=== PATIENT | female | born 1935 | race African-American/Black ===

== ENCOUNTER 2020-05-17 06:52 | Outpatient (NON) | payer MEDICARE, SELFPAY ==
[2020-05-19 16:42] LABS: SARS-CoV-2 RNA PCR Positive
== END 2020-05-17 06:53 ==
PROVIDERS: PCP Family Medicine; Visit Provider Family Medicine
DX: U07.1 COVID-19 (principal)
CPT/HCPCS: 87635; C9803; U0003

== ENCOUNTER → 2020-06-26 11:19 | Outpatient (CLI) | payer MEDICARE, SELFPAY ==
--- NOTE | ~2020-06-26 | XR_ITS ---
EXAMINATION: XR chest 2V DATE: 06/26/2020 12:02 INDICATION: Orthopnea TECHNIQUE: PA and lateral views of the chest are obtained. COMPARISON: 05/19/2015 FINDINGS: Diffuse interstitial and airspace opacities are present. There is no pleural effusion or pn eumothorax. The cardiomediastinal silhouette is normal. There is severe thoracic spondylosis. Calcifi ed mediastinal lymph nodes are consistent with old granulomatous IMPRESSION: 1. Diffuse opacities of the lungs which could reflect pneumonia and/or pulmonary edema. Reviewed, dictated and finalized at location A. NESS TEST ANALYST IMPRESSION: 1. Diffuse opacities of the lungs which could reflect pneumonia and/or pulmonar y edema.
== END ==
PROVIDERS: Visit Provider Physician Assistant
DX: R06.01 Orthopnea (principal); R91.8 Other nonspecific abnormal finding of lung field
CPT/HCPCS: 71046

== ENCOUNTER → 2020-09-05 12:53 | Outpatient (CLI) | payer MEDICARE, SELFPAY ==
--- NOTE | ~2020-09-05 | US_ITS ---
US renal BI 09/05/2020 13:39 Procedure: Realtime transabdominal ultrasound of the kidneys and bladder. Indication: Chronic kidney disease stage III Comparison: Ultrasound dated 08/27/2004 Findings: Renal echotexture is normal bilaterally without hydronephrosis or renal calculus. There is a 1.9 cm right renal cyst. The right kidney measures 9.4 cm and left kidney measures 8.6 cm. Bladder within normal limits. Impression: 1: Right renal cyst measuring 1.9 cm. Otherwise, unremarkable renal ultrasound. Reviewed, dictated and finalized at location A. S SUPERVISOR Impression: 1: Right renal cyst measuring 1.9 cm. Otherwise, unremarkable renal ultrasound.
== END ==
PROVIDERS: PCP Family Medicine; Visit Provider Internal Medicine Nephrology
DX: N18.31 Chronic kidney disease, stage 3a (principal); E11.29 Type 2 diabetes mellitus with other diabetic kidney complication; N28.1 Cyst of kidney, acquired
CPT/HCPCS: 76775

== ENCOUNTER 2020-10-20 12:52 | Outpatient (CLI) | payer MEDICARE, SELFPAY ==
--- NOTE | ~2020-10-20 | XR_ITS ---
XR chest 2V 10/20/2020 13:15 Indication: Shortness of breath Procedure: AP view of the chest Comparison: 06/26/2020 Findings: There is bibasilar atelectasis. Heart size normal. No focal pneumonia, edema, significant e ffusion or pneumothorax. Impression: 1: Bibasilar atelectasis. Reviewed, dictated and finalized at location B. Impression: 1: Bibasilar atelectasis.
[2020-10-20 13:40] VITALS: PULSE 70; O2SAT 96
[2020-10-20 13:45] VITALS: PULSE 89; O2SAT 92
[2020-10-20 13:55] VITALS: PULSE 72; O2SAT 95
--- NOTE | 2020-10-20 14:00 | PCRCNOTE ---
PT CAME IN FOR HOME O2 EVAL AND PFT. HOME O2 EVAL COMPLETE, NO REQUIRMENTS. PT UNABLE TO FOLLOW DIRECTIONS FOR PFT. [facility] OFFICE NOTIFIED. HOME O2 EVAL FAXED TO HIS OFFICE.
--- NOTE | 2020-10-20 14:04 | HOMEO2EVAL ---
Evaluation was performed at [facility] Home Oxygen Evaluation RC: Home Oxygen (O2) Evaluation Start: 10/20/20 14:02 Freq: Status: Active Protocol: RPE Activity Type Activity Date Activity User E-Sign Co-Sign Detail Recorded Client Recorded Date Recorded By Document 10/20/20 13:40 DJO [id number] 10/20/20 14:04 DJO Document 10/20/20 13:45 DJO [id number] 10/20/20 14:04 DJO Document 10/20/20 13:55 [email or web address] [id number] 10/20/20 14:04 DJO 10/20/20 10/20/20 10/20/20 13:40 13:45 13:55 Home O2 Evaluation Test Phase Resting Exercise Resting Oxygen Delivery Room Air Room Air Room Air Pulse Oximetry (90-100 %) 96 92 95 Pulse Rate (60-100 beats/min) 70 89 72 Activity Tolerance Poor Ambulation Distance (feet) 50 Treatment Charges O2 Evaluation - Outpatient
== END 2020-10-20 12:53 | disposition home or self-care (01) ==
PROVIDERS: PCP Physician Assistant; Visit Provider Physician Assistant
DX: R06.02 Shortness of breath (principal); R91.8 Other nonspecific abnormal finding of lung field
CPT/HCPCS: 71046; 94618

== ENCOUNTER 2021-04-24 10:12 | Outpatient (CLI) | payer MEDICARE, SELFPAY ==
--- NOTE | ~2021-04-24 | CT_ITS ---
EXAMINATION: CT chest high resolution wo ar EXAM DATE: 04/24/2021 10:43 INDICATION: R06.02 - Shortness of breath . TECHNIQUE: Spiral CT of the chest without contrast. HRCT. Axial, coronal and sagittal images of the chest were reviewed. Coronal maximum intensity pixel images of chest reviewed. The dose-length prod uct (DLP) for this examination was 620.66 mGy-cm. The exposure was tailored according to patient siz e (auto mA exposure control), and iterative reconstruction (ASIR) was used as additional dose reducti on technique. There is no prior study for comparison. FINDINGS: There is elevated right hemidiaphragm, which was not evident on chest x-ray from May. There is associated right lower lobe segmental atelectasis. There is no intralobular septal thickeni ng on the HRCT. The main, central pulmonary arteries are dilated which can indicate elevated pulmonar y arterial pressure, pulmonary arterial hypertension. There is tortuosity of the aorta. There is righ t retrocrural density which could be solitary mildly enlarged lymph node measuring 1.4 x 1.4 cm. No u pper abdominal retroperitoneal lymphadenopathy. Lobular renal contours. Exophytic fluid density right renal 2 cm lesion probably cyst. There are no pleural or pericardial effusions. Tracheobronchial tree is patent. There is no mediastinal, hilar or axillary lymphadenopathy. There is no pneumotho rax. Heart normal in size. No evidence of coronary arterial calcification. Large bridging endpla te osteophytes, some advanced mid thoracic disc disease. The lower thoracic levels appear fused. IMPRESSION: 1. Elevated right hemidiaphragm with adjacent multisegmental atelectasis. 2. Soft tissue density could be mildly enlarged retrocrural lymph node. Probably reactive. Reviewed, dictated and finalized at location B. IMPRESSION: 1. Elevated right hemidiaphragm with adjacent multisegmental atelectasis. 2. Soft tissue density could be mildly enlarged retrocrural lymph node. Probab ly reactive.
== END 2021-04-24 10:13 | disposition home or self-care (01) ==
LOC: ANHIMG 10:23
PROVIDERS: PCP Family Medicine; Visit Provider Internal Medicine Pulmonary Disease
DX: R06.02 Shortness of breath (principal); R91.8 Other nonspecific abnormal finding of lung field; R59.0 Localized enlarged lymph nodes
CPT/HCPCS: 71250

== ENCOUNTER 2021-11-17 11:13 | Outpatient (CLI) | payer MEDICARE, SELFPAY ==
--- NOTE | ~2021-11-17 | XR_ITS ---
XR chest 2V 11/17/2021 11:44 Indication: Shortness of breath with exertion Procedure: 2 view chest Comparison: Comparison to multiple prior studies sequentially, with oldest reviewed study dated 04/28. Findings: Shallow inspiration. Heart size normal. No focal air space disease, pulmonary edema, pleura l effusion or suspected pneumothorax. Moderate thoracic spondylosis. Impression: 1: No acute cardiopulmonary disease. Reviewed, dictated and finalized at location A. Impression: 1: No acute cardiopulmonary disease.
[2021-11-17 12:01] LABS: Hemoglobin 13.9 g/dL (12.0-15.0); Mean Corpuscular HGB Conc 30.2 g/dl (32-36); Mean Corpuscular Volume 99.1 fl (80-100); Mean Platelet Volume 10.3 fl (7.4-10.4); Platelet Count Result 234 k/mm3 (150-375); Red Blood Count 4.64 M/mm3 (4.2-5.4); Red Cell Distribution Width 13.3 % (11.5-14.5); White Blood Count 6.8 K/mm3 (4.5-10.0)
[2021-11-17 12:09] LABS: Alanine Aminotransferase 9 U/L (6-35); Albumin Level 3.9 g/dL (3.5-5.1); Alkaline Phosphatase 101 U/L (38-126); Anion Gap 5 mmol/L (8-16); Aspartate Amino Transferase 26 U/L (14-36); Bilirubin,Total 0.4 mg/dL (0.2-1.3); Blood Urea Nitrogen 27 mg/dL (7-17); Calcium 8.9 mg/dL (8.4-10.2); Carbon Dioxide 34 mmol/L (22-30); Chloride 104 mmol/L (98-107); Estimated Glomerular Filt Rate > 60; Glucose 93 mg/dL (65-110); Potassium 4.2 mmol/L (3.4-5.0); Sodium 143 mmol/L (137-145)
[2021-11-17 12:17] LABS: D Dimer 1.26 ug/mL (<0.48)
[2021-11-17 12:19] LABS: NT Pro B Type Natriuretic Pept 296 pg/mL (5-100)
[2021-11-17 12:31] LABS: Hemoglobin A1C 6.9 % (<5.7)
[2021-11-17 13:10] LABS: Free T4 Free Thyroxine 2.01 ng/mL (0.78-2.19)
== END 2021-11-17 11:14 | disposition home or self-care (01) ==
PROVIDERS: PCP Family Medicine; Visit Provider Physician Assistant
DX: R06.02 Shortness of breath (principal); R06.01 Orthopnea; E11.9 Type 2 diabetes mellitus without complications; R53.83 Other fatigue
CPT/HCPCS: 36415; 71046; 80053; 83036; 83880; 84439; 84443; 85027; 85380

== ENCOUNTER 2021-12-03 13:40 | Outpatient (CLI) | payer MEDICARE, SELFPAY ==
--- NOTE | ~2021-12-03 | CT_ITS ---
EXAMINATION: CTA chest PE protocol DATE: 12/03/2021 14:16 INDICATION: Shortness of breath, positive d-dimer TECHNIQUE: Computed tomography angiography (CTA) of the chest was performed with 100 CC Omnipaque 350 intravenous contrast timed to evaluate the pulmonary arteries. Coronal maximum intensity projection 3D-reconstructions were created by the technologist. Automated exposure control and iterative reconst ruction technique were employed. Exam dose: 825.47 mGy-cm total exam DLP. COMPARISON: 11/13/2021 AP and lateral chest 04/24/2021 CT chest high resolution FINDINGS: There is diagnostic contrast enhancement of the pulmonary arteries and no evidence of pulmo nary embolism. Mild thoracic aortic aneurysm, the aortic arch measuring up to 3.2 cm diameter. Thoracic aortic tortu osity. No thoracic aortic dissection is evident. There are calcified right paratracheal and azygous nodes consistent with old granulomatous disease. There is prominent elevation of the right diaphragm and right basilar atelectasis. There is minimal l eft basilar atelectasis. Cardiomegaly. No pericardial or pleural effusion. Severe degenerative disc disease at C5-6 and C6-7. Diffuse idiopathic skeletal hyperostosis of the thoracic spine. No suspicious osteolytic or osteoblas tic lesions are noted. IMPRESSION: No evidence of pulmonary embolism Bibasilar atelectasis, right greater than left, elevated right diaphragm Cardiomegaly Mild thoracic aortic aneurysm, thoracic aortic tortuosity Reviewed, dictated and finalized at Location A. Reviewed, dictated and finalized at location A.
== END 2021-12-03 13:41 | disposition home or self-care (01) ==
PROVIDERS: PCP Family Medicine; Visit Provider Physician Assistant
DX: R06.02 Shortness of breath (principal); J98.11 Atelectasis; I51.7 Cardiomegaly; I71.2 Thoracic aortic aneurysm, without rupture
CPT/HCPCS: 71275; Q9967

== ENCOUNTER 2022-05-31 14:17 | Outpatient (CLI) | payer MEDICARE, SELFPAY ==
[2022-05-31 14:00] VITALS: PULSE 79; O2SAT 94
[2022-05-31 14:05] VITALS: PULSE 92; O2SAT 91
[2022-05-31 14:15] VITALS: PULSE 82; O2SAT 93
--- NOTE | 2022-05-31 14:51 | PCRCNOTE ---
ATTEMPTED PFT. PATIENT UNABLE TO TAKE DEEP BREATH IN, IN SPITE OF GOOD PATIENT EFFORT.
--- NOTE | 2022-06-09 08:00 | HOMEO2EVAL ---
Evaluation was performed at [facility]
== END 2022-05-31 14:18 | disposition home or self-care (01) ==
PROVIDERS: PCP Family Medicine; Visit Provider Nurse Practitioner Family
DX: R06.02 Shortness of breath (principal)
CPT/HCPCS: 99199; 94618

== ENCOUNTER 2022-07-12 11:40 | Inpatient (IN) | payer MEDICARE, SELFPAY ==
[2022-07-12] VITALS (47 sets, daily range): BP systolic 115–174; BP diastolic 52–92; PULSE 20–132; RESP 19–72; TEMP 36.2–37.1; O2SAT 81–100; BMI 34.9; BMI 35.4
--- NOTE | ~2022-07-12 | XR_ITS ---
Portable chest x-ray Comparison: 07/12/2022 Clinical History: CHF Findings: Mild pulmonary edema pattern is present, mildly worsened from prior exam. Probable minimal pleural effusions and discoid left basilar atelectasis. Cardiomediastinal silhouette is stable. Bon es and soft tissues are unremarkable. Impression: Mild pulmonary edema, worsened from prior exam. Probable minimal pleural effusions with discoid left basilar atelectasis. Reviewed, dictated and finalized at location . RVOIR ENGINEERING ADVISOR Impression: Mild pulmonary edema, worsened from prior exam. Probable minimal pleural effusions with discoid left basilar atelectasis.
--- NOTE | ~2022-07-12 | XR_ITS ---
EXAMINATION: XR sniff test without CXR2V DATE: 07/17/2022 12:19 INDICATION: Right diaphragm paralysis. TECHNIQUE: I performed fluoroscopy of the chest. The patient was asked to perform normal breathing, d eep breathing, and forceful sniffing. The total number of images was 951. The fluoroscopy exposure ti me was 0.6 minutes. COMPARISON: Chest one view 07/15/2022, chest CT 12/03/2021 FINDINGS: The lung volumes are small with atelectasis at the lung bases. During normal respiration, t he right and left hemidiaphragms are at a similar level. The right hemidiaphragm is less mobile than the left during normal respiration. When the patient was asked to perform deep breathing and then for ceful sniffing, the movement of the diaphragm was little changed. There was no audible indication stephen t the patient was performing the tasks. IMPRESSION: 1. Small lung volumes with mild atelectasis at the lung bases. Decreased movement of the right hemidi aphragm when compared to the left during normal respiration. Reviewed, dictated and finalized at location A. PURPOSE CLERK IMPRESSION: 1. Small lung volumes with mild atelectasis at the lung bases. Decreased moveme nt of the right hemidiaphragm when compared to the left during normal respirati on.
--- NOTE | ~2022-07-12 | US_ITS ---
EXAMINATION: US venous doppler [facility] DATE: 07/13/2022 15:06 INDICATION: Lower limb pain and swelling TECHNIQUE: Grayscale ultrasound images without and with compression and Doppler ultrasound images of the bilateral lower extremity veins were obtained. COMPARISON: None. FINDINGS: The visualized portions of right common femoral vein, profunda (deep) femoral vein, femoral vein, pop liteal vein, posterior tibial veins, peroneal veins, gastrocnemius vein and greater saphenous vein ou tflow are patent. The visualized portions of left common femoral vein, profunda femoral vein, femoral vein, popliteal v ein, posterior tibial veins, peroneal veins, gastrocnemius vein and greater saphenous vein outflow ar e patent. IMPRESSION: 1. No deep venous thrombosis in either lower limb. Reviewed, dictated and finalized at location A. IL ASSISTANT
--- NOTE | ~2022-07-12 | XR_ITS ---
Portable chest x-ray Comparison: 07/15/2022 Clinical History: Pneumonia Findings: Probable minimal right pleural effusion present with minimal bibasilar pulmonary edema/ate lectasis. Cardiomediastinal silhouette is stable. Bones and soft tissues are unremarkable. Impression: Minimal right pleural effusion with minimal bibasilar pulmonary edema/atelectasis. Reviewed, dictated and finalized at [facility]. GER FINANCIAL PLANNING Impression: Minimal right pleural effusion with minimal bibasilar pulmonary edema/atelectas is.
--- NOTE | ~2022-07-12 | CT_ITS ---
EXAMINATION: CT cervical spine wo con DATE: 07/16/2022 14:39 INDICATION: Cervical radiculopathy TECHNIQUE: Computed tomography (CT) of the cervical spine was performed without intravenous contrast. Automated exposure control and iterative reconstruction technique were employed. The dose-length pro duct was 357.98 mGy-cm. COMPARISON: None FINDINGS: Tiny of the normal cervical lordosis. 1 mm anterolisthesis C4 on C5. Vertebral body heights are jaime l. No fracture. Severe disc height loss at C6-C7 and T1-T2, moderate disc height loss at C5-C6 and mi ld disc height loss at the remaining cervical levels. Mild atherosclerotic calcific a cyst at the brittney ateral carotid bulbs. Right apical pleural-parenchymal scarring. The following disc levels are specif ically discussed: C2-C3: There is mild left uncovertebral joint osteoarthritis. There is severe bilateral facet joint osteoarthritis. There is mild left neural foraminal stenosis. There is no central canal stenosis. C3-C4: There is mild bilateral uncovertebral joint osteoarthritis. There is severe bilateral facet j oint osteoarthritis. There is mild bilateral neural foraminal stenosis. There is no central canal antoni nosis. C4-C5: There is mild bilateral uncovertebral joint osteoarthritis. There is severe bilateral facet j oint osteoarthritis. There is mild bilateral neural foraminal stenosis. There is no central canal antoni nosis. C5-C6: Small posterior endplate osteophytes. There is bilateral uncovertebral joint osteoarthritis. T here is severe left and moderate right facet joint osteoarthritis. There is mild right and mild to mo derate left neural foraminal stenosis. There is mild central canal stenosis. C6-C7: Small to moderate-sized posterior endplate osteophytes. There is severe bilateral uncovertebra l joint osteoarthritis. There is moderate right and severe left facet joint osteoarthritis. There is mild right and moderate left neural foraminal stenosis. There is mild central canal stenosis. C7-T1: The disc does not extend beyond the endplate margin. There is mild bilateral uncovertebral rangel nt osteoarthritis. There is severe bilateral facet joint osteoarthritis. There is no neural foraminal stenosis. There is no central canal stenosis. IMPRESSION: 1. Severe cervical spondylosis. No acute osseous abnormality. Reviewed, dictated and finalized at location A. E DRIVER SALESPERSON
--- NOTE | ~2022-07-12 | XR_ITS ---
XR chest 1V portable 07/12/2022 13:08 Indication: Chronic shortness of breath Procedure: AP portable chest Comparison: Comparison to multiple prior studies sequentially, with oldest reviewed study dated 04/28. Findings: Cardiomegaly. Shallow inspiration. Left basilar atelectasis. Mild pulmonary vascular conges tion. No acute osseous abnormality. Impression: 1: Left basilar atelectasis. 2: Cardiomegaly with pulmonary vascular congestion. Reviewed, dictated and finalized at location A. N END WORKER Impression: 1: Left basilar atelectasis. 2: Cardiomegaly with pulmonary vascular congestion.
--- NOTE | ~2022-07-12 | XR_ITS ---
Portable chest x-ray Comparison: 07/19/2022 Clinical History: Shortness of breath Findings: There is mild central congestive change and probable minimal bibasilar pulmonary edema/ate lectasis. Cardiomediastinal silhouette is stable. Bones and soft tissues are unremarkable. Impression: Central congestive change with minimal bibasilar pulmonary edema/atelectasis. Reviewed, dictated and finalized at location . BILITY RATER Impression: Central congestive change with minimal bibasilar pulmonary edema/atelectasis.
--- NOTE | 2022-07-12 11:53 | ECG_ITS ---
Measurements Intervals [place] Rate: 70 P: 33 [place]: 232 QRS: -21 QRSD: 102 T: 8 QT: 413 QTc: 446 Interpretive Statements SINUS RHYTHM WITH FIRST DEGREE AV BLOCK CONSIDER INFERIOR INFARCT, AGE INDETERMINATE ANTERIOR INFARCT, AGE INDETERMINATE BASELINE ARTIFACT- I, II, III, AVR, AVL, AVF, V1-V6 ABNORMAL ECG NO PREVIOUS ECG AVAILABLE FOR COMPARISON Electronically Signed On 07-12-2022 12:05:52 RN PEDIATRIC by Wayne Pugh D.O.
[2022-07-12 12:08] LABS: Glucose Point of Care 124 mg/dl (65-105)
--- NOTE | 2022-07-12 12:22 | ED.GENADULT ---
HPI - General Adult General Chief complaint: Unspecified Stated complaint: altered loc, low bs 48 now 167 Time Seen by Provider: 07/12/22 12:11 Source: patient, family and EMS Mode of arrival: EMS Limitations: no limitations History of Present Illness HPI narrative: 86 years old -[place] female brought to the emergency room by ambulance from home because was unresponsive. Her daughter called 911, blood glucose was 48, patient received IV glucose and started D10 patient became responsive immediately within 1 minute. Currently patient is asymptomatic, telling me that she been having shortness of breath over the last 2 years after been diagnosed of COVID infection. Patient still me that her blood glucose was 45 last night and was weak and shaky and had orange juice and went to sleep. Patient did not eat her breakfast or take her medication early this morning prior to arrival to the emergency room. Normally patient is not on oxygen. Related Data Home Medications Medication Instructions Recorded Confirmed bimatoprost 0.01 % eye drops 1 drop ophthalmic (eye) DAILY 08/14/19 05/18/22 (Lumigan) brimonidine 0.2 %-timolol 0.5 % 1 drop ophthalmic (eye) Q12H 08/14/19 05/18/22 eye drops (Combigan) Allergies Allergy/AdvReac Type Severity Reaction Status Date / Time No Known Allergies Allergy Verified 05/18/22 10:39 Review of Systems Review of Systems: All systems reviewed & are unremarkable except as noted in HPI and below PMFSH Past Medical History Medical History CKD (chronic kidney disease), stage III Congestive heart failure Cornea transplant recipient Gastroparesis GERD without esophagitis Hypertension Hypothyroidism determined by thyroid function test Osteoarthritis Thoracic aortic aneurysm Surgical History Surgical History Status post removal of thyroid nodule Family History Family History Mother Family history of diabetes mellitus in first degree relative Diabetes mellitus Sibling Diabetes mellitus Family history of cardiovascular disease Other Cerebrovascular accident Family history of congestive heart failure Hypertension Social History Social History Smoking status: Former smoker Second hand tobacco smoke exposure: No Smoking end date: 01/01/82 Alcohol intake: never Substance use: never Substance use type: does not use Lack of Transportation: No Lack of Food: Never True Current Housing: I Have Housing Concerned About Future Housing: No Difficulty Paying Gas/Electric Bills: No Difficulty Paying for Meds: No Currently Unemployed: No Education: High School Diploma/GED Difficulty w/ Childcare or Family Care: No Gender identity (if verbalized by the patient): Female Spiritual care concerns: Yes Agree to blood products: Yes Exam Narrative: General appearance: Well-developed, well-nourished, urinary smell, poor hygienic condition patient Skin: Normal color Head: Normocephalic, nontraumatic Eyes: Clear conjunctiva ENT: Oropharynx normal, ears normal, nose normal Neck: Supple, nontender Chest and respiratory: Airway patent, no respiratory distress, no accessory muscle use Heart: Regular rate/rhythm Abdomen: Soft, nontender, no organomegaly, quiet bowel sounds Vascular: Normal peripheral pulses, normal capillary refill. Musculoskeletal: Normal range of motion, nontender back Neurologic: Alert and oriented ?3, CURB SETTER is normal as tested, no gross motor deficit Cour
[2022-07-12 12:46] LABS: Basophils Absolute Auto 0.1 K/mm3 (0.0-0.1); Basophils Percent Auto 0.7 % (0.2-1.2); Eosinophils Percent Auto 0.3 % (0-4.4); Hematocrit 46.1 % (37.0-47.0); Hemoglobin 13.6 g/dL (12.0-15.0); Immature Granulocyte Absolute 0.04 K/mm3 (0.00-0.031); Immature Granulocyte Percent A 0.5 % (0-0.5); Lymphocytes Percent Auto 16.2 % (18.3-44.2); Mean Corpuscular HGB Conc 29.5 g/dl (32-36); Mean Corpuscular Hemoglobin 30.3 pg (26-34); Mean Corpuscular Volume 102.7 fl (80-100); Mean Platelet Volume 10.1 fl (7.4-10.4); Monocytes Absolute Auto 0.6 K/mm3 (0.1-0.6); Monocytes Percent Auto 8.3 % (2.6-8.5); Neutrophils Absolute Auto 5.5 K/mm3 (1.3-6.7); Platelet Count Result 227 k/mm3 (150-375); Red Blood Count 4.49 M/mm3 (4.2-5.4); White Blood Count 7.4 K/mm3 (4.5-10.0)
[2022-07-12 12:58] LABS: Alanine Aminotransferase 15 U/L (6-35); Albumin Level 3.8 g/dL (3.5-5.1); Alkaline Phosphatase 117 U/L (38-126); Anion Gap 3 mmol/L (8-16); Aspartate Amino Transferase 26 U/L (14-36); Bilirubin,Total 0.4 mg/dL (0.2-1.3); Blood Urea Nitrogen 39 mg/dL (7-17); Calcium 8.5 mg/dL (8.4-10.2); Carbon Dioxide 35 mmol/L (22-30); Chloride 96 mmol/L (98-107); Estimated Glomerular Filt Rate 52; Glucose 173 mg/dL (65-110); Magnesium 2.4 mg/dL (1.6-2.3); Potassium 4.9 mmol/L (3.4-5.0); Sodium 134 mmol/L (137-145)
[2022-07-12 13:06] LABS: Alveolar/Arterial O2 Gradient 22.6 mmHg; Fractional Inspired Oxygen 21 %; HCO3 ABG 33.9 mEq/l (22.0-26.0); Oxygen Content ABG 13.5 %vol (16.0-22.0); Total Hemoglobin 14.2 g/dL (12.0-18.0)
[2022-07-12 13:08] LABS: PCO2 ABG 71.2 mmHg (35.0-45.0); pH ABG 7.296 (7.350-7.450)
[2022-07-12 13:09] LABS: Oxygen Saturation ABG 70.3 % (95.0-100.0); PO2 ABG 41.9 mmHg (80.0-100.0)
[2022-07-12 13:10] LABS: Device ROOM AIR; Modified Allen's Test Pass; Oxyhemoglobin 67.6 % THb (90.0-100.0); Site Drawn RIGHT RADIAL
[2022-07-12 13:16] LABS: INR 1.1; Prothrombin Time 14.2 Seconds (11.1-14.7)
[2022-07-12 13:17] LABS: NT Pro B Type Natriuretic Pept 2400 pg/mL (19.9-100); Partial Thromboplastin Time 31.3 SECONDS (22.3-36.8); Troponin I 0.166 ng/mL (0.000-0.034)
--- NOTE | 2022-07-12 13:18 | PC.NURSE ---
Radiology at bedside; pt. has O2 off; pul ox has poor waveform with finger probe. Changed to temporal probe, pul ox readings 72-74. RT arrived at bedside to start bipab.
[2022-07-12 15:14] LABS: Influenza A QL RT-PCR Negative (Negative); Influenza B QL RT-PCR Negative (Negative); SARS-CoV-2 RNA PCR Negative
[2022-07-12] MEDS: NITROGLYCERIN OINTMENT 1 INCH DOSE TRANSDERM (16:57)
[2022-07-12] MEDS: FUROSEMIDE INJ 40 MG/4 ML VIAL 60 MG IV PUSH (16:57)
[2022-07-12 17:43] LABS: Base Excess ABG 7.8 mEq/l (+/-2.0); Carboxyhemoglobin 1.5 % THb (0-2.0); Fractional Inspired Oxygen 30 %; HCO3 ABG 36.2 mEq/l (22.0-26.0); Methemoglobin ABG 0.1 %THb (0-1.5); Oxygen Content ABG 17.9 %vol (16.0-22.0); Oxygen Saturation ABG 93.1 % (95.0-100.0); Oxyhemoglobin 90.6 % THb (90.0-100.0); PO2 ABG 72.5 mmHg (80.0-100.0); PO2 FiO2 Ratio Arterial Blood 2.42 %; Reduced Hemoglobin 7.8 %THb (0-5.0); pH ABG 7.336 (7.350-7.450)
[2022-07-12 17:46] LABS: PCO2 ABG 69.3 mmHg (35.0-45.0)
[2022-07-12 17:47] LABS: Device NON-INVASIVE VENT; Modified Allen's Test Pass; Site Drawn LEFT RADIAL
[2022-07-12 17:48] LABS: Non-Invasive Expiratory Pressure 6 CMH2O; Non-Invasive Inspiratory Pressure 12 CMH2O; Non-Invasive Vent Rate 18 /MIN
--- NOTE | 2022-07-12 18:30 | PM.IMHP ---
H&P: HPI History of Present Illness Date/Time: 07/12/22 18:30 Chief Complaint: Unresponsive episode. Narrative: This is an 86-year-old female with insulin dependent diabetes, hypertension, chronic kidney disease, hypothyroidism, and other comorbidities who presented to the ED from home via EMS for evaluation after she was found unresponsive. She had COVID a couple of years ago and has had ongoing issues with shortness of breath since that time. She has otherwise been doing okay however it sounds as though her appetite has not been good for the last 24 hours or so. She took her usual dose of insulin last night and tells me her glucose at that time was 102. Today she was found unresponsive and on EMS arrival her glucose was 48. They started her on D10 and on arrival to ER her glucose was 167. Labs done in the ED were significant for an elevated BUN and creatinine from baseline. Due to reports of shortness of breath an ABG was drawn and showed a pH of 7.296, pCO2 71.2, bicarb 33.9. She was started on BiPAP with improvement in her blood gases at the time my evaluation she is comfortable on the BiPAP. She has no known history of sleep apnea or chronic respiratory failure but she is supposed to have a sleep study on the 21 of July. At the time my evaluation she has no current complaints and she specifically denies fever, chills, sweats, cold and flu symptoms, chest pain, pleuritic pain, palpitations, nausea, vomiting, and diarrhea. Review of Systems Review of Systems: Twelve systems were reviewed and are negative except for as per HPI. 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 Family History Family History Mother Family history of diabetes mellitus in first degree relative Diabetes mellitus Sibling Diabetes mellitus Family history of cardiovascular disease Other Cerebrovascular accident Family history of congestive heart failure Hypertension Social History Social History (Updated 07/12/22 @ 23:52 by Tameka Rodriguez PA-C) Social History: Surrogate medical decision maker: Johnny Ramirez, spouse. Code status: Full code. Smoking packs per day: 0.75 Smoking cigarettes per day: 15.0 Years smoked: 20 Smoking pack-years: 15.00 Smoking status: Former smoker Tobacco type: cigarettes Second hand tobacco smoke exposure: No Smoking end date: 06/27/81 Alcohol intake: never Substance use: never Substance use type: does not use Lack of Transportation: No Lack of Food: Never True Current Housing: I Have Housing Concerned About Future Housing: No Difficulty Paying Gas/Electric Bills: No Difficulty Paying for Meds: No Currently Unemployed: No Education: High School Diploma/GED Difficulty w/ Childcare or Family Care: No Additional living arrangements comments: Lives with family in [place]. Spiritual care concerns: Yes Agree to blood products: Yes Meds Home Medications and Allergies Home Medications Medication Instructions Recorded Confirmed Type bimatoprost 0.01 % eye drops 1 drop ophthalmic (eye) DAILY 08/14/19 07/12/22 History (Lumigan) brimonidine 0.2 %-timolol 0.5 % 1 drop ophthalmic (eye) DAILY 08/14/19 07/12/22 History eye drops (Combigan) tramadol 50 mg tablet 50 mg PO Q8H PRN pain #90 tabs 04/17/20 07/12/22 Rx pen needle, diabetic 32 gauge x See Rx Instructions .Route 09/02/21 07/12/22 Rx
[2022-07-12 19:09] LABS: Troponin I 0.192 ng/mL (0.000-0.034)
--- NOTE | 2022-07-12 19:41 | ADMGEN ---
This patient, Carolyn Ramirez, was admitted to IMU Room 200-01 at 1940. Patient/family oriented to hospital policies and general routines including ID bracelet, bed and alarms, visiting hours, pain management, procedures, bathroom and other care routines, personal items, smoking policy, room service/diet, and visiting hours. Information on how to activate the Rapid Response Team has been discussed. Patient/Family are encouraged to report perceived risks to care and to ask questions if they do not understand what they are told or what they should do.
[2022-07-12 20:50] LABS: Troponin I 0.195 ng/mL (0.000-0.034)
[2022-07-12] MEDS: FUROSEMIDE INJ 40 MG/4 ML VIAL IV PUSH (20:56)
[2022-07-12 21:06] LABS: Appearance Urine Clear (Clear); Bilirubin Urine Negative (Negative); Blood Urine Trace-intact (Negative); Color Urine Yellow (Yellow); Glucose Urine UA Negative (Negative); Ketones Urine Negative (Negative); Leukocyte Esterase Ur 2+ LEU/UL (Negative); Nitrate Urine Negative (Negative); Protein Urine Negative (Negative); Specific Grav Ur 1.015 (1.001-1.035); Urobilinogen Urine 0.2 mg/dL (<2.0)
[2022-07-12 21:12] LABS: Bacteria Urine Trace /hpf; Squamous Epithelial Cell Urine Rare /hpf (Few); WBC Urine 21-30 /hpf
[2022-07-12 21:13] LABS: Add Urine Microscopic? YES
[2022-07-12 23:13] LABS: Alveolar/Arterial O2 Gradient 50.4 mmHg; Base Excess ABG 10.2 mEq/l (+/-2.0); Fractional Inspired Oxygen 36 %; HCO3 ABG 38.2 mEq/l (22.0-26.0); Oxygen Content ABG 19.7 %vol (16.0-22.0); Oxygen Saturation ABG 98.4 % (95.0-100.0); Oxyhemoglobin 96.6 % THb (90.0-100.0); PO2 ABG 129.4 mmHg (80.0-100.0); PO2 FiO2 Ratio Arterial Blood 3.59 %; Total Hemoglobin 14.4 g/dL (12.0-18.0); pH ABG 7.378 (7.350-7.450)
[2022-07-12 23:15] LABS: Device HIGH FLOW NASAL CANN; Modified Allen's Test Unable to perform; PCO2 ABG 66.3 mmHg (35.0-45.0); Site Drawn RIGHT RADIAL
--- NOTE | 2022-07-12 23:39 | PC.NURSE ---
patient was becoming extremely confused. kept saying that she couldn't breathe. patients o2 sat was anywhere from 97 to 100%. patient was on 5l nc. was saying that she couldn't breathe and another nurse placed her back on her bipap. patient was becoming more confused and her speech was slurring. she is a co2 retainer and she was placed back on 5 l nc because she was calmer on there. the bipap she kept ripping off. respiratory therapist weened her down to 3l nc. abg's where done and they had improved since last ones. so checked blood sugar and it was 23. gave patient 1 amp of d50. once patient was more cooperative we gave her a bit of orange juice, she didn't want to drink the apple juice. patient is starting to make more sense and her speech is clearing up.
[2022-07-12] MEDS: DEXTROSE 50% 25 GM/50 ML SYRINGE (23:46)
[2022-07-12 23:50] LABS: Glucose Point of Care 23 mg/dl (65-105)
[2022-07-13] VITALS (19 sets, daily range): BP systolic 121–136; BP diastolic 60–79; PULSE 60–103; RESP 16–31; TEMP 36–36.7; O2SAT 91–100
--- NOTE | 2022-07-13 00:01 | ECHO_ITS ---
Patient Info Name: Carolyn Ramirez Age: 86 years : 1935 Gender: Female Ht: 64 in Wt: 206 lbs BSA: 2.09 m2 HR: 80 bpm BP: 121 / 71 mmHg Heart Rhythm: Sinus Rhythm Exam Date: 07/13/2022 8:27 AM Exam Location: [facility] Patient Status: Inpatient Admit Date: 07/12/2022 Staff Ordering Physician: Tameka Rodriguez PA-C Senior Hardware Engineer: Ifeanyi Aguirre RDCS, RT Attending Provider: Eric Leonard MD Referring Physician: Jennifer FLOWERS; Exam Type: CA echo dop color flow w con Study Info Indications I50.9 - Heart failure, unspecified Complete two-dimensional, color flow and Doppler transthoracic echocardiogram is performed with contrast to opacify the left ventricle and to improve the deliniation of the left ventricle endocardial borders. Summary 1. Technically difficult study with limited views. 2. Left ventricular chamber dimension is normal. 3. Left ventricular systolic function is hyperdynamic, estimated at >70%. 4. There is mildly increased left ventricular wall thickness. 5. The left ventricular diastolic function is grade I diastolic dysfunction. 6. There is moderate tricuspid valve regurgitation. Left Ventricle Left ventricular chamber dimension is normal. Left ventricular systolic function is hyperdynamic, estimated at >70%. There is mildly increased left ventricular wall thickness. The left ventricular diastolic function is grade I diastolic dysfunction. Right Ventricle Right ventricular chamber dimension is not well visualized. Left Atria Left atrial chamber dimension is not well visualized. Right Atria Right atrial chamber dimension is not well visualized. Aortic Valve The aortic valve is not well visualized. There is no aortic valve stenosis. Pulmonic Valve The pulmonic valve is not well visualized. Mitral Valve There is trace mitral valve regurgitation. Tricuspid Valve There is moderate tricuspid valve regurgitation. Pericardium/Pleural There is no pericardial effusion. Aorta The aortic root size at the sinus of Valsalva is not well visualized. Left Ventricular Outflow Tract Name Value Normal LVOT 2D LVOT Diameter 2.09 cm LVOT Doppler LVOT Peak Gradient 5 mmHg LVOT Mean Gradient 3 mmHg LVOT VTI 24.74 cm LVOT VTI/AV VTI Ratio 0.83 LVOT Stroke Volume 85.20 ml LVOT CO 6.94 l/min LVOT CI 3.31 L/min/m2 Mitral Valve Name Value Normal MV Doppler MV Decel Lipscomb 223.77 cm/s2 MV PHT 0 s MV Area (PHT) 2.42 cm2 4.00-5.00 MV Diastolic Function MV E Pe
[2022-07-13] MEDS: DEXTROSE 5% 1,000 ML 1,000 ML 100 ML IV CONT ×2 (00:02→11:44)
[2022-07-13 00:55] LABS: Glucose Point of Care 175 mg/dl (65-105)
[2022-07-13 05:43] LABS: Alveolar/Arterial O2 Gradient 40.8 mmHg; Base Excess ABG 13.4 mEq/l (+/-2.0); Fractional Inspired Oxygen 32 %; Oxygen Content ABG 18.7 %vol (16.0-22.0); Oxygen Saturation ABG 96.4 % (95.0-100.0); Oxyhemoglobin 94.5 % THb (90.0-100.0); PO2 ABG 93.3 mmHg (80.0-100.0); PO2 FiO2 Ratio Arterial Blood 2.92 %; pH ABG 7.346 (7.350-7.450)
[2022-07-13 05:45] LABS: Device NASAL CANNULA; Modified Allen's Test Unable to perform; PCO2 ABG 80.4 mmHg (35.0-45.0); Site Drawn RIGHT RADIAL
[2022-07-13] MEDS: LEVOTHYROXINE SODIUM 112 MCG TABLET PO (05:48)
[2022-07-13] MEDS: LEVOTHYROXINE SODIUM 25 MCG TABLET PO (05:48)
--- NOTE | 2022-07-13 07:37 | PM.IMPN ---
Progress Note: A&P Assessment and Plan (1) Acute respiratory failure with hypoxia and hypercapnia: Code(s): J96.01 - Acute respiratory failure with hypoxia; J96.02 - Acute respiratory failure with hypercapnia Status: Acute Assessment and Plan: Acute on chronic hypercapnic respiratory failure, pulm c/s pending, will need outpatient BIPAP therapy at night, at least (2) Hypoglycemia: Code(s): E16.2 - Hypoglycemia, unspecified Status: Acute Assessment and Plan: Resolved, likely from decreased po intake, monitor (3) Unresponsive episode: Code(s): R41.89 - Other symptoms and signs involving cognitive functions and awareness Status: Acute Assessment and Plan: Resolved, likely secondary to hypoglycemia (4) Acute kidney injury superimposed on chronic kidney disease: Code(s): N17.9 - Acute kidney failure, unspecified; N18.9 - Chronic kidney disease, unspecified Status: Acute Assessment and Plan: resolved (5) Elevated troponin: Code(s): R77.8 - Other specified abnormalities of plasma proteins Status: Acute Assessment and Plan: Will continue to trend, cardiology consult pending (6) Hypothyroidism: Code(s): E03.9 - Hypothyroidism, unspecified Status: Acute Assessment and Plan: Check TSH, continue levothyroxine (7) Hypertension: Code(s): I10 - Essential (primary) hypertension Status: Acute Assessment and Plan: Stable, monitor (8) Heart failure with preserved ejection fraction: Code(s): I50.30 - Unspecified diastolic (congestive) heart failure Status: Acute Assessment and Plan: Appreciate cardiology consultation, continue home medications Plan DVT prophylaxis with Lovenox GI prophylaxis PPI Code status full code Subjective Date/time seen: 07/13/22 07:37 Interval history: No overnight events noted. No chest pain. No nausea, vomiting or diarrhea. No fevers or chills. Comfortable on BIPAP, no SOB. Review of Systems Review of Systems: 12 point review of systems was assessed and was negative except as noted in the HPI Exam Narrative: General: No acute distress, alert and oriented per baseline HEENT: Atraumatic, normocephalic, mucous membranes moist CV: Regular rate and rhythm, S1, S2 Lungs: Diminished breath sounds throughout, no wheeze Abdomen: Soft, nontender, nondistended Extremities: Normal to inspection Skin: No rashes noted, no lesions or wounds seen Psych: Euthymic, normal affect Objective Data Vital Signs Vital Signs: Vital Signs - 24 hr 07/12/22 11:55 07/12/22 13:22 07/12/22 15:48 Temperature 98.8 F Pulse Rate 20 L 66 58 L Respiratory Rate 72 H 25 H 23 H Blood Pressure 134/81 Pulse Oximetry 93 93 92 Oxygen Delivery Nasal Cannula BiPAP BiPAP Oxygen Flow Rate 4 07/12/22 17:50 07/12/22 18:35 07/12/22 11:51 Temperature Pulse Rate 75 Respiratory Rate 24 H Blood Pressure 151/78 H 174/92 H Pulse Oximetry 92 Oxygen Delivery BiPAP Oxygen Flow Rate 07/12/22 12:02 07/12/22 12:16 07/12/22 12:30 Temperature Pulse Rate Respiratory Rate 30 H Blood Pressure 134/81 136/52 L Pulse Oximetry 92 100 100 Oxygen Delivery Oxygen Flow Rate 07/12/22 12:31 07/12/22 12:45 07/12/22 12:46 Temperature Pulse Rate Respiratory Rate Blood Pressure 122/66 115/57 L Pulse Oximetry 99 98 87 L Oxygen Delivery Oxygen Flow Rate 07/12/22 13:00 07/12/22 13:01 07/12/22 13:15 Temperature Pulse Rate 70 Respiratory Rate 22 H Blood Pressure 121/61 Pulse Oximetry 90 81 L Oxygen Delivery Oxygen Flow Rate 07/12/22 13:30 07/12/22 13:31 07/12/22 13:45 Temperature Pulse Rate 70 66 69 Respiratory Rate 25 H 28 H 24 H Blood Pressure 123/67 Pulse Oximetry 94 92 91 Oxygen Delivery Oxygen Flow Rate 07/12/22 13:46 07/12/22 14:00 07/12/22 14:25 Temperature Pulse Rat
[2022-07-13 08:06] LABS: Glucose Point of Care 79 mg/dl (65-105)
[2022-07-13 08:09] LABS: Basophils Absolute Auto 0.1 K/mm3 (0.0-0.1); Basophils Percent Auto 0.7 % (0.2-1.2); Eosinophils Absolute Auto 0.1 K/mm3 (0-0.3); Eosinophils Percent Auto 0.7 % (0-4.4); Hematocrit 43.9 % (37.0-47.0); Hemoglobin 13.1 g/dL (12.0-15.0); Immature Granulocyte Absolute 0.02 K/mm3 (0.00-0.031); Immature Granulocyte Percent A 0.2 % (0-0.5); Lymphocytes Absolute Auto 1.29 K/mm3 (0.9-3.2); Lymphocytes Percent Auto 15.7 % (18.3-44.2); Mean Corpuscular HGB Conc 29.8 g/dl (32-36); Mean Corpuscular Hemoglobin 30.2 pg (26-34); Mean Corpuscular Volume 101.2 fl (80-100); Mean Platelet Volume 10.3 fl (7.4-10.4); Monocytes Absolute Auto 1.2 K/mm3 (0.1-0.6); Neutrophils Absolute Auto 5.6 K/mm3 (1.3-6.7); Neutrophils Percent Auto 68.7 % (45.5-73.1); Platelet Count Result 228 k/mm3 (150-375); Red Blood Count 4.34 M/mm3 (4.2-5.4); Red Cell Distribution Width 14.9 % (11.5-14.5); White Blood Count 8.2 K/mm3 (4.5-10.0)
[2022-07-13 08:20] LABS: Alanine Aminotransferase 13 U/L (6-35); Albumin Level 3.7 g/dL (3.5-5.1); Alkaline Phosphatase 103 U/L (38-126); Aspartate Amino Transferase 28 U/L (14-36); Bilirubin,Total 0.5 mg/dL (0.2-1.3); Blood Urea Nitrogen 37 mg/dL (7-17); Calcium 8.2 mg/dL (8.4-10.2); Carbon Dioxide > 40 mmol/L (22-30); Estimated CRCL calculation 40 ml/min; Estimated Glomerular Filt Rate > 60; Glucose 78 mg/dL (65-110); Potassium 4.5 mmol/L (3.4-5.0); Sodium 134 mmol/L (137-145)
[2022-07-13 08:21] LABS: Magnesium 2.3 mg/dL (1.6-2.3)
[2022-07-13 08:40] LABS: Hemoglobin A1C 7.3 % (<5.7)
[2022-07-13] MEDS: PERFLUTREN LIPID MICROSPHERES 1.5 ML VIAL DILUTED TO 10 ML TOTAL VOLUME IV PUSH (08:50)
[2022-07-13] MEDS: FUROSEMIDE 20 MG TABLET PO ×2 (08:51→17:23)
[2022-07-13] MEDS: PANTOPRAZOLE 40 MG TABLET PO (08:51)
--- NOTE | 2022-07-13 08:51 | IVDEFINITY ---
Prior to administration of IV Definity the patient was educated on the risks and benefits of the imaging enhancing agent including potential adverse side effects. The patient verbalized understanding. Allergies were verified. No exclusion criteria were identified and at least one of the following inclusion criteria were met: 1) physician request, 2) patient technically difficult to image (per the [place] [employer] guidelines of two or more segments not discernable within the apical view), or 3) questionable left ventricular function. ?
[2022-07-13] MEDS: ENOXAPARIN 40 MG/0.4 ML SYRINGE SUB-Q (08:53)
[2022-07-13 09:01] LABS: Chloride 91 mmol/L (98-107)
[2022-07-13] MEDS: ASPIRIN 81 MG CHEWABLE TABLET PO (09:06)
[2022-07-13 10:25] LABS: Alveolar/Arterial O2 Gradient 1.3 mmHg; Base Excess ABG 12.7 mEq/l (+/-2.0); Fractional Inspired Oxygen 24 %; Oxygen Content ABG 17.9 %vol (16.0-22.0); Oxygen Saturation ABG 90.4 % (95.0-100.0); Oxyhemoglobin 89.4 % THb (90.0-100.0); PO2 ABG 66.8 mmHg (80.0-100.0); PO2 FiO2 Ratio Arterial Blood 2.78 %; Total Hemoglobin 14.2 g/dL (12.0-18.0); pH ABG 7.314 (7.350-7.450)
[2022-07-13 10:30] LABS: Device NASAL CANNULA; Modified Allen's Test Pass; PCO2 ABG 86.6 mmHg (35.0-45.0); Site Drawn RIGHT RADIAL
[2022-07-13] MEDS: BRIMONIDINE TARTRATE 0.2% OP SOLN 5 ML BTL 1 DROP EACH EYE (11:22)
[2022-07-13] MEDS: TIMOLOL MALEATE 0.5% OP SOLN 5 ML BOTTLE 1 DROP EACH EYE (11:22)
[2022-07-13 13:38] LABS: Troponin I 0.171 ng/mL (0.000-0.034)
--- NOTE | 2022-07-13 14:27 | PM.CNCAR ---
Assessment and Plan Assessment and plan (1) Heart failure with preserved ejection fraction: Code(s): I50.30 - Unspecified diastolic (congestive) heart failure Status: Acute Assessment and Plan: She has grade 1 diastolic dysfunction. Initial chest x-ray showed pulmonary vascular congestion. She was given IV furosemide. She is not back on her home dose of p.o. furosemide. This should be continued. Repeat echocardiogram is pending. Further recommendations to follow review of those results. (2) Elevated troponin: Code(s): R77.8 - Other specified abnormalities of plasma proteins Status: Acute Assessment and Plan: Troponins elevated at 0.166, 0.192, 0.195, and 0.171. This pattern is not consistent with ACS/acute plaque rupture. Furthermore, she is not having any complaints of chest pain. No further workup or evaluation is recommended at this time. (3) Hypertension: Code(s): I10 - Essential (primary) hypertension Status: Acute Assessment and Plan: At goal. Continue current medication regimen. History of Present Illness History of Present Illness Consult date/time: 07/13/22 14:27 Requesting physician: Eilna Sauer DO Consult reason: Other (elevated troponin ) Reason For Visit: Diabetic Hyperglycemia/CHF/Long COVID/Chronic Stat Narrative: Ms. Ramirez is an 86 year old female with a past medical history of chronic kidney disease, hypertension, insulin dependent diabetes, heart failure with preserved ejection fraction, and chronic shortness of breath since having COVID in 2020. She presents to the hospital now after being found unresponsive. When EMS arrived on the scene she was found to be hypoglycemic with a blood glucose of 48. She was also having shortness of breath and an ABG was performed and revealed a pH of 7.296, pCO2 of 71.2, bicarb 33.9. Therefore, she was placed on BiPAP. For reasons that are unclear, troponin levels were drawn and were elevated at 0.166, 0.192, 0.195, and 0.171. She is denying any chest pain presently and denies any history of chest pain. She does not have any known history of coronary artery disease. Her initial EKG showed sinus rhythm with first-degree AV block. No acute ischemic changes were present. Review of Systems Constitutional: Constitutional: Denies chills, Denies fever(s), Denies headache(s) and Denies malaise Eyes: Eyes: Denies change in vision ENT: Reports Normal hearing present, Denies dizziness, Denies headache(s) and Denies hearing loss Cardiovascular: Cardiovascular: Denies chest pain, Denies chest pain at rest, Denies chest pain with activity, Denies syncope, Reports pedal edema, Reports leg edema, Denies palpitations, Reports dyspnea and Reports dyspnea on exertion Respiratory: Respiratory: Denies cough, Reports dyspnea, Reports dyspnea on exertion and Denies wheezing Gastrointestinal: Gastrointestinal: Denies abdominal pain, Denies constipation and Denies diarrhea Genitourinary: Genitourinary: Denies hematuria and Denies dysuria Musculoskeletal: Musculoskeletal: Denies myalgias, Denies arthralgias and Denies muscle cramps Integumentary/Breasts: Skin/Breast: Denies wounds Neurologic: Reports Normal hearing present, Denies confusion, Denies dizziness, Denies syncope and Denies headache(s) Psychiatric: Psychiatric: Denies anxiety, Denies confusion and Denies depression Endocrine: Endocrine: Denies cold intolerance, Denies flushing, Denies heat intolerance and Denies palpitations Hematologic/Lymphatic: Hematologic/Lymphatic: Denies easy bleeding and Denies easy bruising Allergic/Immunologic: Allergic/Immunologic: Denies wheezing PMFSH Past Medical History Medical History Chronic kidney disease, stage 3 Congestive heart failure COVID-19 long hauler manifesting chronic dyspnea Gastroparesis GERD without esophagitis Heart failure with preserved ejecti
[2022-07-13 16:17] LABS: Glucose Point of Care 167 mg/dl (65-105)
[2022-07-13 16:17] LABS: Glucose Point of Care 130 mg/dl (65-105)
--- NOTE | 2022-07-13 16:24 | PM.CNPUL ---
Assessment and Plan Assessment and plan (1) Acute respiratory failure with hypoxia and hypercapnia: Code(s): J96.01 - Acute respiratory failure with hypoxia; J96.02 - Acute respiratory failure with hypercapnia Status: Acute Assessment and Plan: This 86-year-old female with a history of obesity, chronic shortness of breath on exertion, history of lower extremity edema, presented with acute on chronic hypercapnic respiratory failure. Patient has evidence of oxyhemoglobin desaturation on recent nocturnal oximetry testing which in conjunction with the chronic hypercapnic respiratory failure suggest sleep disordered abnormality like obstructive sleep apnea; She has pulmonary hypertension which is probably related to left ventricular diastolic dysfunction and or sleep disorder breathing with chronic hypoxemia. Chest imaging studies have shown a chronically elevated right diaphragm which could be due to paralyzed diaphragm could as contributing to hypoventilation at night. Plan; Will continue with current noninvasive ventilatory support via BiPAP have increased IPAP to 14 cm water pressure, will repeat ABG in am. continue with DVT prophylaxis. The patient will need further workup for right hemidiaphragm paralysis. (2) Chronic kidney disease, stage 3: Code(s): N18.30 - Chronic kidney disease, stage 3 unspecified Status: Acute (3) CHF (congestive heart failure): Code(s): I50.9 - Heart failure, unspecified Status: Acute (4) Acute on chronic respiratory failure with hypoxia and hypercapnia: Code(s): J96.21 - Acute and chronic respiratory failure with hypoxia; J96.22 - Acute and chronic respiratory failure with hypercapnia Status: Acute (5) Obesity (BMI 30-39.9): Code(s): E66.9 - Obesity, unspecified Status: Acute History of Present Illness History of Present Illness Consult date: 07/13/22 Chief complaint: Diabetic Hyperglycemia/CHF/Long COVID/Chronic Stat Narrative: This 86-year-old female was brought to the hospital after she was found to be unresponsive. The patient has history of insulin-dependent diabetes mellitus, hypertension, obesity, chronic kidney disease, hypothyroidism, previous history of COVID 19 infection. The patient was found unresponsive and was brought into the emergency room. On EMS arrival, her blood glucose was 48. In the emergency room the patient was found to have hypoxemic hypercapnic respiratory failure and was placed on BiPAP support. Initial chest x-ray showed elevated right hemidiaphragm, and mild pulmonary congestion. The patient was evaluated by Cardiology Services for elevated troponin levels and echocardiogram showed left ventricular diastolic dysfunction. she also had elevated pulmonary artery systolic pressure. Patient was diagnosed with COVID-19 infection in 2020 and since then she has had shortness of breath on exertion. She was evaluated in the Outpatient [facility]monary [facility] with a chest CT that showed no evidence of parenchymal lung disease. On previous chest x-rays there has been evidence of prominent pulmonary artery and also chronically elevated right hemidiaphragm. Most recently she underwent nocturnal oximetry which showed significant oxyhemoglobin desaturation, suggestive of sleep disordered breathing. The patient is scheduled to undergo sleep study later on this month. Currently the patient remains on BiPAP support. She has some shortness of breath but no other respiratory symptoms such as chest pain hemoptysis cough wheezing. She has had history of chronic lower extremity edema and has been on a diuretic. Review of Systems Review of Systems: All systems reviewed & are unremarkable except as noted in HPI and below ( HPI below) [facility] Past Medical History Medical History Chronic kidney disease, stage 3 Congestive heart failure COVID-19 raisa guardado manifesting chronic dyspnea Gastrop
[2022-07-13 16:54] LABS: Total Triiodothyronine (T3) 0.65 NG/ML (0.97-1.69)
[2022-07-13 20:32] LABS: Glucose Point of Care 223 mg/dl (65-105)
[2022-07-13] MEDS: LATANOPROST 0.005% OP SOLN 2.5 ML BTL 1 DROP EACH EYE (21:38)
[2022-07-14] VITALS (20 sets, daily range): BP systolic 96–128; BP diastolic 50–62; PULSE 55–87; RESP 20–32; TEMP 36.1–36.7; O2SAT 89–98
[2022-07-14 04:37] LABS: Basophils Absolute Auto 0.1 K/mm3 (0.0-0.1); Basophils Percent Auto 0.6 % (0.2-1.2); Eosinophils Absolute Auto 0.1 K/mm3 (0-0.3); Eosinophils Percent Auto 0.6 % (0-4.4); Hematocrit 43.1 % (37.0-47.0); Hemoglobin 12.8 g/dL (12.0-15.0); Immature Granulocyte Absolute 0.02 K/mm3 (0.00-0.031); Immature Granulocyte Percent A 0.2 % (0-0.5); Lymphocytes Absolute Auto 1.62 K/mm3 (0.9-3.2); Lymphocytes Percent Auto 19.5 % (18.3-44.2); Mean Corpuscular HGB Conc 29.7 g/dl (32-36); Mean Corpuscular Hemoglobin 29.8 pg (26-34); Mean Corpuscular Volume 100.5 fl (80-100); Mean Platelet Volume 10.8 fl (7.4-10.4); Monocytes Absolute Auto 1.4 K/mm3 (0.1-0.6); Monocytes Percent Auto 16.8 % (2.6-8.5); Neutrophils Absolute Auto 5.2 K/mm3 (1.3-6.7); Neutrophils Percent Auto 62.3 % (45.5-73.1); Platelet Count Result 232 k/mm3 (150-375); Red Blood Count 4.29 M/mm3 (4.2-5.4); Red Cell Distribution Width 14.9 % (11.5-14.5); White Blood Count 8.3 K/mm3 (4.5-10.0)
[2022-07-14 04:56] LABS: Alanine Aminotransferase 12 U/L (6-35); Albumin Level 3.3 g/dL (3.5-5.1); Alkaline Phosphatase 98 U/L (38-126); Aspartate Amino Transferase 22 U/L (14-36); Bilirubin,Total 0.3 mg/dL (0.2-1.3); Blood Urea Nitrogen 35 mg/dL (7-17); Calcium 7.8 mg/dL (8.4-10.2); Carbon Dioxide > 40 mmol/L (22-30); Chloride 92 mmol/L (98-107); Estimated CRCL calculation 34 ml/min; Estimated Glomerular Filt Rate 52; Glucose 186 mg/dL (65-110); Potassium 4.4 mmol/L (3.4-5.0); Sodium 135 mmol/L (137-145)
[2022-07-14 05:25] LABS: Anisocytosis 1+ (NORMAL); Macrocytosis 2+ (NORMAL); Microcytosis 1+ (NORMAL); Platelet Estimate Adequate (Adequate)
[2022-07-14 05:26] LABS: Schistocytes None Seen (NORMAL)
--- NOTE | 2022-07-14 05:26 | PC.NURSE ---
monitored the charting and medication dispensing done by torrie abraham rn and i agree with everything.
[2022-07-14] MEDS: LEVOTHYROXINE SODIUM 25 MCG TABLET PO (06:11)
[2022-07-14] MEDS: LEVOTHYROXINE SODIUM 112 MCG TABLET PO (06:11)
[2022-07-14 08:01] LABS: Glucose Point of Care 143 mg/dl (65-105)
[2022-07-14] MEDS: ASPIRIN 81 MG CHEWABLE TABLET PO (08:10)
[2022-07-14] MEDS: ENOXAPARIN 40 MG/0.4 ML SYRINGE SUB-Q (08:11)
[2022-07-14] MEDS: PANTOPRAZOLE 40 MG TABLET PO (08:12)
[2022-07-14] MEDS: FUROSEMIDE 20 MG TABLET PO ×2 (08:12→17:02)
[2022-07-14] MEDS: BRIMONIDINE TARTRATE 0.2% OP SOLN 5 ML BTL 1 DROP EACH EYE (08:13)
[2022-07-14] MEDS: TIMOLOL MALEATE 0.5% OP SOLN 5 ML BOTTLE 1 DROP EACH EYE (08:13)
[2022-07-14 09:44] LABS: Glucose Point of Care 156 mg/dl (65-105)
[2022-07-14 09:47] LABS: Base Excess ABG 12.7 mEq/l (+/-2.0); Fractional Inspired Oxygen 24 %; HCO3 ABG 43.4 mEq/l (22.0-26.0); Oxygen Content ABG 17.8 %vol (16.0-22.0); Oxyhemoglobin 90.4 % THb (90.0-100.0); PO2 ABG 69.6 mmHg (80.0-100.0)
[2022-07-14 09:50] LABS: Device NASAL CANNULA; Modified Allen's Test Pass; PCO2 ABG 90.2 mmHg (35.0-45.0); Site Drawn RIGHT RADIAL
--- NOTE | 2022-07-14 11:10 | PM.IMPN ---
Progress Note: A&P Assessment and Plan (1) Acute respiratory failure with hypoxia and hypercapnia: Code(s): J96.01 - Acute respiratory failure with hypoxia; J96.02 - Acute respiratory failure with hypercapnia Status: Acute Assessment and Plan: Acute on chronic hypercapnic respiratory failure. Probably related to undiagnosed sleep apnea. She is a former smoker. Old imaging reviewed including a CTA of the chest back in November which showed atelectasis and prominent elevation of the right hemidiaphragm. She has severe degenerative disc disease at C5-6 so this might be neurogenic. Pulmonary is following. Chest x-ray was reviewed here which shows small lung volumes than back in October. ABG results noted with improvement in her pH but persisent elevated pCo2 consistent with acute on chronic respiratory failure. Wean BiPAP off during the day as tolerated. Appreciate pulmonary input. Patient was on prednisoe taper and on her last 3 tabs. (2) Hypoglycemia: Code(s): E16.2 - Hypoglycemia, unspecified Status: Acute Assessment and Plan: A1c 7.3. Resolved, likely from decreased po intake, and gastroparesis. Monitor. (3) Elevated troponin: Code(s): R77.8 - Other specified abnormalities of plasma proteins Status: Acute Assessment and Plan: Troponin elevated to 0.19 but flat. EKG personally reviewed showing sinus rhythm with first-degree AV block and possible anterior and inferior infarct, age indeterminate. Echocardiogram shows LV function of EF of greater than 70% and grade 1 diastolic dysfunction. Systolic function is hyperdynamic. No wall motion abnormalities. Unable to calculate pulmonary pressures. Cardiology was consulted and appreciate their input. (4) Heart failure with preserved ejection fraction: Code(s): I50.30 - Unspecified diastolic (congestive) heart failure Status: Acute Assessment and Plan: CXR showing pulm vascular congestion. BNP 2400. She was started on Lasix IV with excellent UOP. Echo showing diastolic dysfunction and preserved EF. [place] patietn with Acute diastolic CHF exacerbation. Probably related to the respiratory failure. (5) Unresponsive episode: Code(s): R41.89 - Other symptoms and signs involving cognitive functions and awareness Status: Acute Assessment and Plan: Resolved, likely secondary to hypoglycemia. (6) Acute kidney injury superimposed on chronic kidney disease: Code(s): N17.9 - Acute kidney failure, unspecified; N18.9 - Chronic kidney disease, unspecified Status: Acute Assessment and Plan: Creatiine 1.2 on admission with baseline ranging 1.0-1.3. Suspect she is within her baseline Cr values. Follow. (7) Diabetes mellitus: Code(s): E11.9 - Type 2 diabetes mellitus without complications Status: Acute Assessment and Plan: A1c 7.3. Patient on Amaryl and Lantus at home. These are on hold due to hypo glycemia episode. Most likely she will need to be resumed on some of her home medications once she is eating. Glucose remains well controlled. Continue AccuCheks covering with sliding scale. Hypoglycemia protocol available as needed. Continue to monitor (8) Hypertension: Code(s): I10 - Essential (primary) hypertension Status: Acute Assessment and Plan: Patient's blood pressure was reviewed on 07/14 Blood pressure remains well controlled. Will continue current medications. (9) Hypothyroidism: Code(s): E03.9 - Hypothyroidism, unspecified Status: Acute Assessment and Plan: TSH normal. Continue levothyroxine Plan DVT prophylaxis with Lovenox GI prophylaxis PPI Code status full code Subjective Date/time seen: 07/14/22 11:10 Interval history: 86yo female with DM, HTN and CKD here for episode of unresponsiveness. Assuming care. Chart reviewed. Shortness of breath is better. No chest pain. Miguel Angel
--- NOTE | 2022-07-14 11:44 | PM.PNPUL ---
Progress Note: A&P Assessment and Plan (1) Acute on chronic respiratory failure with hypoxia and hypercapnia: Code(s): J96.21 - Acute and chronic respiratory failure with hypoxia; J96.22 - Acute and chronic respiratory failure with hypercapnia Status: Acute Assessment and Plan: This 86-year-old female has been treated for acute on chronic hypercapnic respiratory failure. The patient's history starts approximately little over 2 years ago when after COVID 19 infection in April of 2020 she started to have shortness of breath. She has had shortness of breath on exertion and also orthopnea that has progressively increased over the last 2 years. In fact the patient cannot sleep in the supine position because of orthopnea. Chest imaging studies over the last 2 years have shown smaller lung volumes than before, elevated diaphragms right greater than left, bibasilar atelectasis on chest CT, and no evidence of parenchymal lung disease on a chest CT done over the last couple of years. The chest imaging studies in conjunction with the patient's shortness of breath and specifically worsening orthopnea suggest respiratory muscle weakness that started after COVID 19 infection in April of 2020. Over the last 2 years the patient has developed lower extremity edema and also elevated pulmonary artery systolic pressure as as result of chronic nocturnal hypoxemia. Indeed recent nocturnal oximetry done on an outpatient basis showed significant oxyhemoglobin desaturation. The clinical evidence so far points towards hypercapnic respiratory failure related to possible respiratory muscle weakness. 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 Cause of diaphragmatic weakness unclear at this point. Reviewing previous consultations by Nephrology there was a statement about positive C ANCA and positive anti-GBM antibodies on previous testing. Could not find rheumatology consultation. Plan: the patient will need support with BiPAP continuously as hypercapnic respiratory failure persists. I have made changes to BiPAP settings and plan to repeat arterial blood gases. Will continue with DVT prophylaxis at this point. Have ordered a series of tests for possible underlying autoimmune disease explaining respiratory muscle weakness. the patient will most likely need home ventilatory support for chronic hypercapnia related to respiratory muscle weakness. (2) COVID-19 long hauler manifesting chronic dyspnea: Code(s): R06.09 - Other forms of dyspnea; U09.9 - Post COVID-19 condition, unspecified Status: Acute (3) Heart failure with preserved ejection fraction: Code(s): I50.30 - Unspecified diastolic (congestive) heart failure Status: Acute (4) Obesity (BMI 30-39.9): Code(s): E66.9 - Obesity, unspecified Status: Acute (5) Orthopnea: Code(s): R06.01 - Orthopnea Status: Acute (6) BMI 35.0-35.9,adult: Code(s): Z68.35 - Body mass index [BMI] 35.0-35.9, adult Status: Acute Subjective Date/time seen: 07/14/22 11:44 Interval history: there is been no significant change in patient's respiratory status. Remains on BiPAP. Arterial blood gases done earlier today showed persistent acute on chronic hypercapnic respiratory failure. Patient has shortness of breath in supine position. Previous records were reviewed. Patient has had shortness of breath that started post covid 19 infection in April of 2020. since then she has had shortness of breath on exertion and also over the last 2 years has developed severe orthopnea being unable to sleep in supine position. She could not perform for pulmonary function testing when evaluated as outpatient. Chest imaging studies over the las
[2022-07-14 11:54] LABS: Glucose Point of Care 169 mg/dl (65-105)
[2022-07-14 12:43] LABS: Creatine Kinase 75 U/L (30-135)
[2022-07-14 12:46] LABS: CRP 2.9 mg/dL (<1.0)
[2022-07-14] MEDS: EUCERIN CREAM 120 GM JAR 1 APPLIC TOPICAL (14:21)
[2022-07-14 16:42] LABS: Glucose Point of Care 247 mg/dl (65-105)
[2022-07-14] MEDS: INSULIN ASPART (*BKC) 100 UNITS/ML SUB-Q (17:04)
[2022-07-14 20:20] LABS: Glucose Point of Care 166 mg/dl (65-105)
[2022-07-14] MEDS: LATANOPROST 0.005% OP SOLN 2.5 ML BTL 1 DROP EACH EYE (21:01)
[2022-07-15] VITALS (24 sets, daily range): BP systolic 103–140; BP diastolic 52–64; PULSE 66–92; RESP 20–30; TEMP 36.4–36.8; O2SAT 94–100
[2022-07-15 04:15] LABS: Basophils Absolute Auto 0.1 K/mm3 (0.0-0.1); Basophils Percent Auto 0.5 % (0.2-1.2); Eosinophils Percent Auto 0.1 % (0-4.4); Hematocrit 43.2 % (37.0-47.0); Hemoglobin 12.9 g/dL (12.0-15.0); Immature Granulocyte Absolute 0.04 K/mm3 (0.00-0.031); Immature Granulocyte Percent A 0.4 % (0-0.5); Lymphocytes Absolute Auto 1.44 K/mm3 (0.9-3.2); Lymphocytes Percent Auto 13.4 % (18.3-44.2); Mean Corpuscular HGB Conc 29.9 g/dl (32-36); Mean Corpuscular Hemoglobin 30.6 pg (26-34); Mean Corpuscular Volume 102.6 fl (80-100); Mean Platelet Volume 10.3 fl (7.4-10.4); Monocytes Absolute Auto 2.1 K/mm3 (0.1-0.6); Monocytes Percent Auto 19.2 % (2.6-8.5); Neutrophils Absolute Auto 7.2 K/mm3 (1.3-6.7); Neutrophils Percent Auto 66.4 % (45.5-73.1); Platelet Count Result 233 k/mm3 (150-375); Red Blood Count 4.21 M/mm3 (4.2-5.4); White Blood Count 10.8 K/mm3 (4.5-10.0)
[2022-07-15 04:27] LABS: Alanine Aminotransferase 11 U/L (6-35); Albumin Level 3.4 g/dL (3.5-5.1); Alkaline Phosphatase 94 U/L (38-126); Anion Gap 3 mmol/L (8-16); Aspartate Amino Transferase 22 U/L (14-36); Bilirubin,Total 0.6 mg/dL (0.2-1.3); Blood Urea Nitrogen 38 mg/dL (7-17); Calcium 7.8 mg/dL (8.4-10.2); Carbon Dioxide 39 mmol/L (22-30); Chloride 95 mmol/L (98-107); Estimated CRCL calculation 31 ml/min; Estimated Glomerular Filt Rate 47; Glucose 204 mg/dL (65-110); Magnesium 2.3 mg/dL (1.6-2.3); Potassium 4.7 mmol/L (3.4-5.0); Sodium 137 mmol/L (137-145)
[2022-07-15 05:28] LABS: Base Excess ABG 15.6 mEq/l (+/-2.0); Fractional Inspired Oxygen 28 %; HCO3 ABG 48.6 mEq/l (22.0-26.0); Oxygen Saturation ABG 91.8 % (95.0-100.0); Oxyhemoglobin 91.5 % THb (90.0-100.0); PO2 ABG 77.5 mmHg (80.0-100.0); PO2 FiO2 Ratio Arterial Blood 2.77 %
[2022-07-15] MEDS: LEVOTHYROXINE SODIUM 112 MCG TABLET PO (05:29)
[2022-07-15] MEDS: LEVOTHYROXINE SODIUM 25 MCG TABLET PO (05:29)
[2022-07-15] MEDS: EUCERIN CREAM 120 GM JAR 1 APPLIC TOPICAL ×3 (05:29→17:04)
[2022-07-15 05:30] LABS: Folic Acid 16.1 ng/mL (2.76->20)
[2022-07-15 05:30] LABS: Device NASAL CANNULA; Modified Allen's Test Pass; PCO2 ABG 115.5 mmHg (35.0-45.0); Site Drawn RIGHT RADIAL; pH ABG 7.242 (7.350-7.450)
[2022-07-15 05:32] LABS: Hyperchromasia 1+ (NORMAL); Hypochromasia 1+ (NORMAL); Macrocytosis 2+ (NORMAL); Microcytosis 1+ (NORMAL); Platelet Estimate Adequate (Adequate)
[2022-07-15 05:33] LABS: Atypical Lymphocytes Present; Schistocytes None Seen (NORMAL); Stomatocytes 1+ (NORMAL)
--- NOTE | 2022-07-15 06:33 | PC.NURSE ---
patient was placed back on bipap after abg's had got worse. patient is not happy with this and has removed bipap almost continually since it was placed on. will continue to monitor patient and encourage her to wear the bipap.
[2022-07-15 07:36] LABS: Glucose Point of Care 155 mg/dl (65-105)
[2022-07-15] MEDS: TIMOLOL MALEATE 0.5% OP SOLN 5 ML BOTTLE 1 DROP EACH EYE (09:29)
[2022-07-15] MEDS: PANTOPRAZOLE 40 MG TABLET PO (09:29)
[2022-07-15] MEDS: ASPIRIN 81 MG CHEWABLE TABLET PO (09:29)
[2022-07-15] MEDS: ENOXAPARIN 40 MG/0.4 ML SYRINGE SUB-Q (09:29)
[2022-07-15] MEDS: BRIMONIDINE TARTRATE 0.2% OP SOLN 5 ML BTL 1 DROP EACH EYE (09:30)
[2022-07-15] MEDS: FUROSEMIDE 20 MG TABLET PO ×2 (09:30→17:04)
--- NOTE | 2022-07-15 10:29 | PM.PNPUL ---
Progress Note: A&P Assessment and Plan (1) Acute on chronic respiratory failure with hypoxia and hypercapnia: Code(s): J96.21 - Acute and chronic respiratory failure with hypoxia; J96.22 - Acute and chronic respiratory failure with hypercapnia Status: Acute Assessment and Plan: This 86-year-old female has been treated for acute on chronic hypercapnic respiratory failure. The patient's history starts approximately little over 2 years ago when after COVID 19 infection in April of 2020 she started to have shortness of breath. She has had shortness of breath on exertion and also orthopnea that has progressively increased over the last 2 years. In fact the patient cannot sleep in the supine position because of orthopnea. Chest imaging studies over the last 2 years have shown smaller lung volumes than before, elevated diaphragms right greater than left, bibasilar atelectasis on chest CT, and no evidence of parenchymal lung disease on a chest CT done over the last couple of years. The chest imaging studies in conjunction with the patient's shortness of breath and specifically worsening orthopnea suggest respiratory muscle weakness that started after COVID 19 infection in April of 2020. Over the last 2 years the patient has developed lower extremity edema and also elevated pulmonary artery systolic pressure as result of chronic nocturnal hypoxemia. Indeed recent nocturnal oximetry done on an outpatient basis showed significant oxyhemoglobin desaturation. The clinical evidence so far points towards hypercapnic respiratory failure related to possible respiratory muscle weakness. 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 Cause of diaphragmatic weakness unclear at this point. Reviewing previous consultations by Nephrology there was a statement about positive C ANCA and positive anti-GBM antibodies on previous testing. Could not find rheumatology consultation. Serology screening for autoimmune disease pending. Normal CPK and borderline elevated CRP not supportive of inflammatory myopathy involving diaphragms. Patient has severe thoracic spine spondylosis and the possibility exists that she may also have cervical radiculopathy with phrenic nerve involvment.. Plan: the patient will need support with BiPAP continuously as hypercapnic respiratory failure persists. I have made changes to BiPAP settings and plan to repeat arterial blood gases. Will continue with DVT prophylaxis at this point. Will measure bedside VC and NIF. Ordered c-spine CT. 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 She appears alert. Did not use BiPAP support last night. ABGs showed worsening of hypercapnic respiratory failure. Currently back on BiPAP support. Review of Systems Review of Systems: All systems reviewed & are unremarkable except as noted in HPI and below ( in HPI and below) Exam Narrative: GENERAL APPEARANCE: Well developed, well nourished, alert and cooperative, and appears to be in mild respiratory distress while on BiPAP support. SKIN: Inspection of the skin reveals no ra
--- NOTE | 2022-07-15 10:36 | PM.IMPN ---
Progress Note: A&P Assessment and Plan (1) Acute respiratory failure with hypoxia and hypercapnia: Code(s): J96.01 - Acute respiratory failure with hypoxia; J96.02 - Acute respiratory failure with hypercapnia Status: Acute Assessment and Plan: Acute on chronic hypercapnic respiratory failure. Probably related to undiagnosed sleep apnea. She is a former smoker. Old imaging reviewed including a CTA of the chest back in November which showed atelectasis and prominent elevation of the right hemidiaphragm. She has severe degenerative disc disease at C5-6 so this might be neurogenic. Pulmonary is following and discussed with pulmonary in detail. ABG results 7.24/115/72.5 which is consistent with acute respiratory hypercapnic and hypoxic failure. Worse since of BiPAP. Wean BiPAP off during the day as tolerated. Appreciate pulmonary input. Plan for CXR with sniff. Will need CT or MRI of the cervical spine when more stable. ABG to be repeated now that she is back on BiPAP CXR shows mild pulmonary edema worsening from prior exam related to her acute respiratory failure from not having positive pressure. No change in therapy. Pulmonary was aware of these findings and this was discussed with them. Review of the radiology report noted. (2) Hypoglycemia: Code(s): E16.2 - Hypoglycemia, unspecified Status: Acute Assessment and Plan: A1c 7.3. Resolved, likely from decreased po intake, and gastroparesis. Monitor. (3) Elevated troponin: Code(s): R77.8 - Other specified abnormalities of plasma proteins Status: Acute Assessment and Plan: Troponin elevated to 0.19 but flat. EKG personally reviewed showing sinus rhythm with first-degree AV block and possible anterior and inferior infarct, age indeterminate. Echocardiogram shows LV function of EF of greater than 70% and grade 1 diastolic dysfunction. Systolic function is hyperdynamic. No wall motion abnormalities. Unable to calculate pulmonary pressures. Cardiology was consulted and appreciate their input. Continue aspirin. (4) Heart failure with preserved ejection fraction: Code(s): I50.30 - Unspecified diastolic (congestive) heart failure Status: Acute Assessment and Plan: CXR showing pulm vascular congestion. BNP 2400. She was started on Lasix IV with excellent UOP. Echo showing diastolic dysfunction and preserved EF. [place] patietn with Acute diastolic CHF exacerbation. Probably related to the respiratory failure. She is back on her oral Lasix. (5) Unresponsive episode: Code(s): R41.89 - Other symptoms and signs involving cognitive functions and awareness Status: Acute Assessment and Plan: Resolved, likely secondary to hypoglycemia. (6) Acute kidney injury superimposed on chronic kidney disease: Code(s): N17.9 - Acute kidney failure, unspecified; N18.9 - Chronic kidney disease, unspecified Status: Acute Assessment and Plan: Creatinine 1.2 on admission with baseline ranging 1.0-1.3. creatinine reviewed today 1.3. She remains within her baseline. Continue to follow. (7) Diabetes mellitus: Code(s): E11.9 - Type 2 diabetes mellitus without complications Status: Acute Assessment and Plan: A1c 7.3. Patient on Amaryl and Lantus at home. These are on hold due to hypoglycemia episode. Most likely she will need to be resumed on some of her home medications once she is eating. Glucose remains Elevated at times Continue AccuCheks covering with sliding scale. Hypoglycemia protocol available as needed. Continue to monitor (8) Hypertension: Code(s): I10 - Essential (primary) hypertension Status: Acute Assessment and Plan: Patient's blood pressure was reviewed on 07/15 Blood pressure remains well controlled. Will continue current medications. (9) Hypothyroidism: Code(s): E03.9 - Hypothyroidism, unspecified Status:
[2022-07-15 10:42] LABS: Alveolar/Arterial O2 Gradient 45.2 mmHg; Base Excess ABG 13.6 mEq/l (+/-2.0); Fractional Inspired Oxygen 30 %; HCO3 ABG 42.1 mEq/l (22.0-26.0); Oxygen Content ABG 18.3 %vol (16.0-22.0); Oxygen Saturation ABG 95.7 % (95.0-100.0); Oxyhemoglobin 94.1 % THb (90.0-100.0); Total Hemoglobin 13.8 g/dL (12.0-18.0); pH ABG 7.384 (7.350-7.450)
[2022-07-15 10:47] LABS: Device NON-INVASIVE VENT; Modified Allen's Test Pass; PCO2 ABG 72.1 mmHg (35.0-45.0); Site Drawn RIGHT RADIAL
[2022-07-15 10:48] LABS: Non-Invasive Expiratory Pressure 6 CMH2O; Non-Invasive Inspiratory Pressure 18 CMH2O; Non-Invasive Vent Rate 18 /MIN
--- NOTE | 2022-07-15 11:35 | PCRCNOTE ---
NIF -40, VC 0.7
[2022-07-15 12:23] LABS: Glucose Point of Care 148 mg/dl (65-105)
[2022-07-15 16:57] LABS: Glucose Point of Care 96 mg/dl (65-105)
[2022-07-15 20:10] LABS: Glucose Point of Care 170 mg/dl (65-105)
[2022-07-15] MEDS: LATANOPROST 0.005% OP SOLN 2.5 ML BTL 1 DROP EACH EYE (20:43)
[2022-07-16] VITALS (19 sets, daily range): BP systolic 110–131; BP diastolic 45–58; PULSE 67–85; RESP 19–31; TEMP 36.3–36.8; O2SAT 93–99
[2022-07-16 04:54] LABS: Alveolar/Arterial O2 Gradient 46.6 mmHg; Base Excess ABG 14.2 mEq/l (+/-2.0); Fractional Inspired Oxygen 30 %; HCO3 ABG 42.8 mEq/l (22.0-26.0); Oxygen Content ABG 20.8 %vol (16.0-22.0); Oxygen Saturation ABG 96.1 % (95.0-100.0); Oxyhemoglobin 93.9 % THb (90.0-100.0); PO2 ABG 85.4 mmHg (80.0-100.0); PO2 FiO2 Ratio Arterial Blood 2.85 %; Total Hemoglobin 15.7 g/dL (12.0-18.0); pH ABG 7.406 (7.350-7.450)
[2022-07-16 04:56] LABS: Modified Allen's Test Pass; PCO2 ABG 69.7 mmHg (35.0-45.0); Site Drawn LEFT RADIAL
[2022-07-16 04:57] LABS: Device NON-INVASIVE VENT; Non-Invasive Expiratory Pressure 6 CMH2O; Non-Invasive Inspiratory Pressure 18 CMH2O; Non-Invasive Vent Rate 18 /MIN
[2022-07-16 05:10] LABS: Basophils Percent Auto 0.4 % (0.2-1.2); Eosinophils Percent Auto 0.2 % (0-4.4); Hematocrit 41.6 % (37.0-47.0); Hemoglobin 12.2 g/dL (12.0-15.0); Immature Granulocyte Absolute 0.03 K/mm3 (0.00-0.031); Immature Granulocyte Percent A 0.3 % (0-0.5); Lymphocytes Absolute Auto 1.48 K/mm3 (0.9-3.2); Mean Corpuscular HGB Conc 29.3 g/dl (32-36); Mean Corpuscular Hemoglobin 29.2 pg (26-34); Mean Corpuscular Volume 99.5 fl (80-100); Mean Platelet Volume 10.7 fl (7.4-10.4); Monocytes Percent Auto 18.6 % (2.6-8.5); Neutrophils Percent Auto 66.5 % (45.5-73.1); Platelet Count Result 241 k/mm3 (150-375); Red Blood Count 4.18 M/mm3 (4.2-5.4); Red Cell Distribution Width 14.6 % (11.5-14.5); White Blood Count 10.6 K/mm3 (4.5-10.0)
[2022-07-16 05:33] LABS: Alanine Aminotransferase 10 U/L (6-35); Albumin Level 3.1 g/dL (3.5-5.1); Alkaline Phosphatase 92 U/L (38-126); Aspartate Amino Transferase 18 U/L (14-36); Bilirubin,Total 0.9 mg/dL (0.2-1.3); Blood Urea Nitrogen 33 mg/dL (7-17); Calcium 8.4 mg/dL (8.4-10.2); Carbon Dioxide > 40 mmol/L (22-30); Chloride 96 mmol/L (98-107); Estimated CRCL calculation 31 ml/min; Estimated Glomerular Filt Rate 47; Glucose 151 mg/dL (65-110); Potassium 4.4 mmol/L (3.4-5.0); Sodium 137 mmol/L (137-145)
[2022-07-16] MEDS: LEVOTHYROXINE SODIUM 112 MCG TABLET PO (05:46)
[2022-07-16] MEDS: LEVOTHYROXINE SODIUM 25 MCG TABLET PO (05:46)
[2022-07-16] MEDS: ASPIRIN 81 MG CHEWABLE TABLET PO (08:15)
[2022-07-16] MEDS: FUROSEMIDE 20 MG TABLET PO ×2 (08:15→17:12)
[2022-07-16] MEDS: PANTOPRAZOLE 40 MG TABLET PO (08:15)
[2022-07-16] MEDS: ENOXAPARIN 40 MG/0.4 ML SYRINGE SUB-Q (08:15)
[2022-07-16] MEDS: EUCERIN CREAM 120 GM JAR 1 APPLIC TOPICAL ×2 (08:16→17:12)
[2022-07-16] MEDS: BRIMONIDINE TARTRATE 0.2% OP SOLN 5 ML BTL 1 DROP EACH EYE (08:16)
[2022-07-16] MEDS: TIMOLOL MALEATE 0.5% OP SOLN 5 ML BOTTLE 1 DROP EACH EYE (08:17)
[2022-07-16 08:32] LABS: Glucose Point of Care 138 mg/dl (65-105)
--- NOTE | 2022-07-16 09:30 | PM.PNPUL ---
Progress Note: A&P Assessment and Plan (1) Acute on chronic respiratory failure with hypoxia and hypercapnia: Code(s): J96.21 - Acute and chronic respiratory failure with hypoxia; J96.22 - Acute and chronic respiratory failure with hypercapnia Status: Acute Assessment and Plan: This 86-year-old female has been treated for acute on chronic hypercapnic respiratory failure. The patient's history starts approximately little over 2 years ago when after COVID 19 infection in April of 2020 she started to have shortness of breath. She has had shortness of breath on exertion and also orthopnea that has progressively increased over the last 2 years. In fact the patient cannot sleep in the supine position because of orthopnea. Chest imaging studies over the last 2 years have shown smaller lung volumes than before, elevated diaphragms right greater than left, bibasilar atelectasis on chest CT, and no evidence of parenchymal lung disease on a chest CT done over the last couple of years. The chest imaging studies in conjunction with the patient's shortness of breath and specifically worsening orthopnea suggest respiratory muscle weakness that started after COVID 19 infection in April of 2020. Over the last 2 years the patient has developed lower extremity edema and also elevated pulmonary artery systolic pressure as result of chronic nocturnal hypoxemia. Indeed recent nocturnal oximetry done on an outpatient basis showed significant oxyhemoglobin desaturation. The clinical evidence so far points towards hypercapnic respiratory failure related to possible respiratory muscle weakness. 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 Cause of diaphragmatic weakness unclear at this point. Reviewing previous consultations by Nephrology there was a statement about positive C ANCA and positive anti-GBM antibodies on previous testing. Could not find rheumatology consultation. Serology screening for autoimmune disease pending. Normal CPK and borderline elevated CRP not supportive of inflammatory myopathy involving diaphragms. Patient has severe thoracic spine spondylosis and the possibility exists that she may also have cervical radiculopathy with phrenic nerve involvment. patient could not lay flat to have C-spine CT. ABGs significantly improved this a.m.. The patient used BiPAP support throughout the night. She appears more awake this a.m. Plan: continue with current BiPAP support, extend interval for meals up to 2 hours while patient is sitting up in bed breathing oxygen via nasal cannula. will make arrangements for home ventilatory support early next week. (2) COVID-19 long hauler manifesting chronic dyspnea: Code(s): R06.09 - Other forms of dyspnea; U09.9 - Post COVID-19 condition, unspecified Status: Acute (3) Heart failure with preserved ejection fraction: Code(s): I50.30 - Unspecified diastolic (congestive) heart failure Status: Acute (4) Obesity (BMI 30-39.9): Code(s): E66.9 - Obesity, unspecified Status: Acute (5) Orthopnea: Code(s): R06.01 - Orthopnea Status: Acute (6) BMI 35.0-35.9,adult: Code(s): Z68.35 - Body mass index [BMI] 35.0-35.9, adult Status: Acute Subjective Date/time seen: 07/16/22 09:30 Interval history: patient has no new respiratory symptoms. Fully awake this a.m. having breakfast while sitting up in bed. Used BiPAP support last night. ABG significantly improved. Review of Systems Review of Systems: All systems reviewed & are unremarkable except as noted in HPI and below ( in HPI and below) Exam Narrative: GENERAL APPEARANCE: Well developed, well nourished, alert and cooperative, and appears to be in mild respi
[2022-07-16 09:45] LABS: Magnesium 2.4 mg/dL (1.6-2.3)
[2022-07-16 11:36] LABS: Glucose Point of Care 282 mg/dl (65-105)
[2022-07-16] MEDS: INSULIN ASPART (*BKC) 100 UNITS/ML SUB-Q ×2 (13:45→17:12)
--- NOTE | 2022-07-16 15:31 | PC.NURSE ---
On 07/16/22, the student, [Kranthi Carranza ], provided care and [facility] patient. I have reviewed the student's documentation and agree with the findings.
--- NOTE | 2022-07-16 15:58 | PM.IMPN ---
Progress Note: A&P Assessment and Plan (1) Acute respiratory failure with hypoxia and hypercapnia: Code(s): J96.01 - Acute respiratory failure with hypoxia; J96.02 - Acute respiratory failure with hypercapnia Status: Acute Assessment and Plan: Acute on chronic hypercapnic respiratory failure. Probably related to undiagnosed sleep apnea. She is a former smoker. Old imaging reviewed including a CTA of the chest back in November which showed atelectasis and prominent elevation of the right hemidiaphragm. Pulmonary is following. Able to wean off BiPAP during the day as tolerated. Cervical spine CT showing mild central canal stenosis and mild-mod neural foraminal stenosis. Increase activity. PT/OT. Wean O2 off as toelrated. Will need BiPAP at home. (2) Hypoglycemia: Code(s): E16.2 - Hypoglycemia, unspecified Status: Acute Assessment and Plan: A1c 7.3. Resolved, likely from decreased po intake, and gastroparesis. Monitor. (3) Elevated troponin: Code(s): R77.8 - Other specified abnormalities of plasma proteins Status: Acute Assessment and Plan: Troponin elevated to 0.19 but flat. EKG personally reviewed showing sinus rhythm with first-degree AV block and possible anterior and inferior infarct, age indeterminate. Echocardiogram shows LV function of EF of greater than 70% and grade 1 diastolic dysfunction. Systolic function is hyperdynamic. No wall motion abnormalities. Unable to calculate pulmonary pressures. Cardiology was consulted and appreciate their input. Continue aspirin. (4) Heart failure with preserved ejection fraction: Code(s): I50.30 - Unspecified diastolic (congestive) heart failure Status: Acute Assessment and Plan: CXR showing pulm vascular congestion. BNP 2400. She was started on Lasix IV with excellent UOP. Echo showing diastolic dysfunction and preserved EF. [place] patient with Acute diastolic CHF exacerbation. Probably related to the respiratory failure. She is clinically euvolemic and is back on her oral Lasix. (5) Unresponsive episode: Code(s): R41.89 - Other symptoms and signs involving cognitive functions and awareness Status: Acute Assessment and Plan: Resolved, likely secondary to hypoglycemia. (6) Acute kidney injury superimposed on chronic kidney disease: Code(s): N17.9 - Acute kidney failure, unspecified; N18.9 - Chronic kidney disease, unspecified Status: Acute Assessment and Plan: Creatinine 1.2 on admission with baseline ranging 1.0-1.3. creatinine reviewed today 1.3. She remains within her baseline. Continue to follow. (7) Diabetes mellitus: Code(s): E11.9 - Type 2 diabetes mellitus without complications Status: Acute Assessment and Plan: A1c 7.3. Patient on Amaryl and Lantus at home. These are on hold due to hypoglycemia episode. Most likely she will need to be resumed on some of her home medications once she is eating. Glucose remains elevated at times Continue AccuCheks covering with sliding scale. Hypoglycemia protocol available as needed. Continue to monitor. (8) Hypertension: Code(s): I10 - Essential (primary) hypertension Status: Acute Assessment and Plan: Patient's blood pressure was reviewed on 07/16 Blood pressure remains well controlled. Will continue current medications. (9) Hypothyroidism: Code(s): E03.9 - Hypothyroidism, unspecified Status: Acute Assessment and Plan: TSH normal. Continue levothyroxine Plan DVT prophylaxis with Lovenox Code status full code Subjective Date/time seen: 07/16/22 15:58 Interval history: 86yo female with DM, HTN and CKD here for episode of unresponsiveness. Wore her bipap last night and she slept well. Currently down to 1L O2. SOB much better. She walks with a walker at home mostly. Mild chronic cough. No n/v. No odynophagia or dysphagia.
[2022-07-16 16:01] LABS: Glucose Point of Care 212 mg/dl (65-105)
[2022-07-16 20:12] LABS: Glucose Point of Care 160 mg/dl (65-105)
[2022-07-16] MEDS: INSULIN GLARGINE (*BKC) 100 UNITS/ML 10 UNITS SUB-Q (21:36)
[2022-07-16] MEDS: LATANOPROST 0.005% OP SOLN 2.5 ML BTL 1 DROP EACH EYE (21:36)
[2022-07-17] VITALS (21 sets, daily range): BP systolic 109–144; BP diastolic 51–71; PULSE 58–85; RESP 20–28; TEMP 36.2–36.6; O2SAT 91–98
[2022-07-17 04:55] LABS: Basophils Percent Auto 0.4 % (0.2-1.2); Eosinophils Absolute Auto 0.1 K/mm3 (0-0.3); Eosinophils Percent Auto 0.7 % (0-4.4); Hematocrit 41.3 % (37.0-47.0); Hemoglobin 12.4 g/dL (12.0-15.0); Immature Granulocyte Absolute 0.04 K/mm3 (0.00-0.031); Immature Granulocyte Percent A 0.4 % (0-0.5); Lymphocytes Absolute Auto 1.28 K/mm3 (0.9-3.2); Lymphocytes Percent Auto 13.6 % (18.3-44.2); Mean Corpuscular Hemoglobin 30.4 pg (26-34); Mean Corpuscular Volume 101.2 fl (80-100); Mean Platelet Volume 10.3 fl (7.4-10.4); Monocytes Absolute Auto 1.7 K/mm3 (0.1-0.6); Monocytes Percent Auto 17.7 % (2.6-8.5); Neutrophils Absolute Auto 6.3 K/mm3 (1.3-6.7); Neutrophils Percent Auto 67.2 % (45.5-73.1); Platelet Count Result 223 k/mm3 (150-375); Red Blood Count 4.08 M/mm3 (4.2-5.4); Red Cell Distribution Width 14.6 % (11.5-14.5); White Blood Count 9.4 K/mm3 (4.5-10.0)
[2022-07-17 05:14] LABS: Alanine Aminotransferase 10 U/L (6-35); Alkaline Phosphatase 88 U/L (38-126); Anion Gap 3 mmol/L (8-16); Aspartate Amino Transferase 18 U/L (14-36); Bilirubin,Total 0.7 mg/dL (0.2-1.3); Blood Urea Nitrogen 45 mg/dL (7-17); Calcium 8.3 mg/dL (8.4-10.2); Carbon Dioxide 37 mmol/L (22-30); Chloride 96 mmol/L (98-107); Estimated CRCL calculation 29 ml/min; Estimated Glomerular Filt Rate 43; Glucose 142 mg/dL (65-110); Potassium 4.7 mmol/L (3.4-5.0); Sodium 136 mmol/L (137-145)
[2022-07-17] MEDS: LEVOTHYROXINE SODIUM 25 MCG TABLET PO (05:38)
[2022-07-17] MEDS: LEVOTHYROXINE SODIUM 112 MCG TABLET PO (05:38)
[2022-07-17 08:15] LABS: Glucose Point of Care 123 mg/dl (65-105)
[2022-07-17] MEDS: EUCERIN CREAM 120 GM JAR 1 APPLIC TOPICAL ×2 (09:05→17:36)
[2022-07-17] MEDS: FUROSEMIDE 20 MG TABLET PO (09:05)
[2022-07-17] MEDS: ENOXAPARIN 40 MG/0.4 ML SYRINGE SUB-Q (09:05)
[2022-07-17] MEDS: ASPIRIN 81 MG CHEWABLE TABLET PO (09:05)
[2022-07-17] MEDS: BRIMONIDINE TARTRATE 0.2% OP SOLN 5 ML BTL 1 DROP EACH EYE (09:05)
[2022-07-17] MEDS: PANTOPRAZOLE 40 MG TABLET PO (09:05)
[2022-07-17] MEDS: TIMOLOL MALEATE 0.5% OP SOLN 5 ML BOTTLE 1 DROP EACH EYE (09:05)
--- NOTE | 2022-07-17 10:14 | PM.IMPN ---
Progress Note: A&P Assessment and Plan (1) Acute respiratory failure with hypoxia and hypercapnia: Code(s): J96.01 - Acute respiratory failure with hypoxia; J96.02 - Acute respiratory failure with hypercapnia Status: Acute Assessment and Plan: Acute on chronic hypercapnic respiratory failure. Probably related to undiagnosed sleep apnea complicated by chronic elevated Rt hemidiaphragm. She is a former smoker. Old imaging reviewed including a CTA of the chest back in November which showed atelectasis and prominent elevation of the right hemidiaphragm but no emphysema. Pulmonary is following. Able to wean off BiPAP during the day as tolerated. Cervical spine CT showing mild central canal stenosis and mild-mod neural foraminal stenosis. Wean O2 off as tolerated. Will need AVAPS at home. Home o2 evaluation close to discharge. (2) Elevated troponin: Code(s): R77.8 - Other specified abnormalities of plasma proteins Status: Acute Assessment and Plan: Troponin elevated to 0.19 but flat. EKG personally reviewed showing sinus rhythm with first-degree AV block and possible anterior and inferior infarct, age indeterminate. Echocardiogram shows LV function of EF of greater than 70% and grade 1 diastolic dysfunction. Systolic function is hyperdynamic. No wall motion abnormalities. Unable to calculate pulmonary pressures. Cardiology was consulted and appreciate their input. Continue aspirin. Will have patient follow up with Cardiology for possible ischemic evaluation as outpatient (3) Heart failure with preserved ejection fraction: Code(s): I50.30 - Unspecified diastolic (congestive) heart failure Status: Acute Assessment and Plan: CXR showing pulm vascular congestion. BNP 2400. She was started on Lasix IV with excellent UOP. Echo showing diastolic dysfunction and preserved EF. [place] patient with Acute diastolic CHF exacerbation. Probably related to the respiratory failure. She is clinically euvolemic and is back on her oral Lasix. Follow. Add Empagliflozin.Continue oral Lasix but change to once daily. (4) Acute kidney injury superimposed on chronic kidney disease: Code(s): N17.9 - Acute kidney failure, unspecified; N18.9 - Chronic kidney disease, unspecified Status: Acute Assessment and Plan: Creatinine 1.2 on admission with baseline ranging 1.0-1.3. creatinine reviewed today and up to 1.4. No change in her regiment and will monitor for today. Continue to follow. (5) Diabetes mellitus: Code(s): E11.9 - Type 2 diabetes mellitus without complications Status: Acute Assessment and Plan: A1c 7.3. Patient on Amaryl and Lantus at home. These are on hold due to hypoglycemia episode. Lantus added last night. Glucose remains elevated at times Continue AccuCheks covering with sliding scale. Hypoglycemia protocol available as needed. Add Empag. Continue to monitor. (6) Hypertension: Code(s): I10 - Essential (primary) hypertension Status: Acute Assessment and Plan: Patient's blood pressure was reviewed on 07/17 Blood pressure remains well controlled. Will continue current medications. (7) Hypothyroidism: Code(s): E03.9 - Hypothyroidism, unspecified Status: Acute Assessment and Plan: TSH normal. Continue levothyroxine (8) Unresponsive episode: Code(s): R41.89 - Other symptoms and signs involving cognitive functions and awareness Status: Acute Assessment and Plan: Resolved. Likely secondary to hypoglycemia. (9) Hypoglycemia: Code(s): E16.2 - Hypoglycemia, unspecified Status: Acute Assessment and Plan: A1c 7.3. Hypoglycemia resolved likely from decreased po intake. Monitor. Plan DVT prophylaxis with Lovenox Code status full code Subjective Date/time seen: 07/17/22 10:14 Interval history: 86yo female with DM, HTN and CKD here for episode o
--- NOTE | 2022-07-17 10:49 | PM.PNPUL ---
Progress Note: A&P Assessment and Plan (1) Acute on chronic respiratory failure with hypoxia and hypercapnia: Code(s): J96.21 - Acute and chronic respiratory failure with hypoxia; J96.22 - Acute and chronic respiratory failure with hypercapnia Status: Acute Assessment and Plan: This 86-year-old female has been treated for acute on chronic hypercapnic respiratory failure. The patient's history starts approximately little over 2 years ago when after COVID 19 infection in April of 2020 she started to have shortness of breath. She has had shortness of breath on exertion and also orthopnea that has progressively increased over the last 2 years. In fact the patient cannot sleep in the supine position because of orthopnea. Chest imaging studies over the last 2 years have shown smaller lung volumes than before, elevated diaphragms right greater than left, bibasilar atelectasis on chest CT, and no evidence of parenchymal lung disease on a chest CT done over the last couple of years. The chest imaging studies in conjunction with the patient's shortness of breath and specifically worsening orthopnea suggest respiratory muscle weakness that started after COVID 19 infection in April of 2020. Over the last 2 years the patient has developed lower extremity edema and also elevated pulmonary artery systolic pressure as result of chronic nocturnal hypoxemia. Indeed recent nocturnal oximetry done on an outpatient basis showed significant oxyhemoglobin desaturation. The clinical evidence so far points towards hypercapnic respiratory failure related to possible respiratory muscle weakness. 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 Cervical spine CT done yesterday showed evidence of bilateral foraminal stenosis at level C3-C5 which could be the cause of respiratory muscle weakness. Measurement of negative inspiratory force and vital capacity at bedside showed a NIF of -40 cm H2O and vital capacity of 0.7 L. Patient's NIF is more compatible with unilateral rather than bilateral diaphragmatic weakness. workup for inflammatory myopathy negative so far. Patient has improved significantly over the last 36 hours. Plan: will proceed with sniff test as patient can now stand up for fluoroscopy. will switch patient to AVAPS support at night along with supplemental oxygen and arrange for ApneaLink study. given the patient's severe hypercapnic respiratory failure she will need ventilatory support at home. . (2) COVID-19 long hauler manifesting chronic dyspnea: Code(s): R06.09 - Other forms of dyspnea; U09.9 - Post COVID-19 condition, unspecified Status: Acute (3) Heart failure with preserved ejection fraction: Code(s): I50.30 - Unspecified diastolic (congestive) heart failure Status: Acute (4) Obesity (BMI 30-39.9): Code(s): E66.9 - Obesity, unspecified Status: Acute (5) Orthopnea: Code(s): R06.01 - Orthopnea Status: Acute (6) BMI 35.0-35.9,adult: Code(s): Z68.35 - Body mass index [BMI] 35.0-35.9, adult Status: Acute Subjective Date/time seen: 07/17/22 10:49 Interval history: patient stated she is doing better today. She appears fully alert, while off BiPAP support since this am. she has no new respiratory symptoms. FiO2 also lower than before. Review of Systems Review of Systems: All systems reviewed & are unremarkable except as noted in HPI and below ( In HPI and below) Objective Data Vital Signs Vital Signs: Vital Signs - 24 hr 07/16/22 12:48 07/16/22 12:00 07/16/22 16:00 Temperature 36.7 C 36.8 C Pulse Rate 78 74 76 Respiratory Rate 31 H 24 H 20 Blood Pressure 111/56 L 117/51 L Pulse Oximetry 97 97 94 Oxygen Delivery
[2022-07-17] MEDS: EMPAGLIFLOZIN 10 MG TABLET PO (11:59)
[2022-07-17 12:52] LABS: Glucose Point of Care 180 mg/dl (65-105)
[2022-07-17 16:33] LABS: Glucose Point of Care 239 mg/dl (65-105)
[2022-07-17] MEDS: INSULIN ASPART (*BKC) 100 UNITS/ML SUB-Q (17:05)
[2022-07-17 19:57] LABS: Glucose Point of Care 210 mg/dl (65-105)
[2022-07-17] MEDS: INSULIN GLARGINE (*BKC) 100 UNITS/ML 10 UNITS SUB-Q (20:36)
[2022-07-17] MEDS: LATANOPROST 0.005% OP SOLN 2.5 ML BTL 1 DROP EACH EYE (20:37)
[2022-07-17 22:49] LABS: Glucose Point of Care 260 mg/dl (65-105)
[2022-07-18] VITALS (13 sets, daily range): BP systolic 104–130; BP diastolic 49–64; PULSE 56–78; RESP 16–26; TEMP 36.3–36.9; O2SAT 95–99
[2022-07-18 05:10] LABS: Basophils Absolute Auto 0.1 K/mm3 (0.0-0.1); Basophils Percent Auto 0.6 % (0.2-1.2); Eosinophils Absolute Auto 0.2 K/mm3 (0-0.3); Eosinophils Percent Auto 2.3 % (0-4.4); Hematocrit 40.4 % (37.0-47.0); Hemoglobin 12.1 g/dL (12.0-15.0); Immature Granulocyte Absolute 0.02 K/mm3 (0.00-0.031); Immature Granulocyte Percent A 0.3 % (0-0.5); Lymphocytes Absolute Auto 1.22 K/mm3 (0.9-3.2); Lymphocytes Percent Auto 15.8 % (18.3-44.2); Mean Corpuscular Hemoglobin 30.1 pg (26-34); Mean Corpuscular Volume 100.5 fl (80-100); Mean Platelet Volume 10.2 fl (7.4-10.4); Monocytes Absolute Auto 1.3 K/mm3 (0.1-0.6); Monocytes Percent Auto 16.5 % (2.6-8.5); Neutrophils Percent Auto 64.5 % (45.5-73.1); Platelet Count Result 251 k/mm3 (150-375); Red Blood Count 4.02 M/mm3 (4.2-5.4); Red Cell Distribution Width 14.4 % (11.5-14.5); White Blood Count 7.7 K/mm3 (4.5-10.0)
[2022-07-18 05:23] LABS: Alanine Aminotransferase 10 U/L (6-35); Albumin Level 3.3 g/dL (3.5-5.1); Alkaline Phosphatase 89 U/L (38-126); Anion Gap 0 mmol/L (8-16); Aspartate Amino Transferase 23 U/L (14-36); Bilirubin,Total 0.6 mg/dL (0.2-1.3); Blood Urea Nitrogen 41 mg/dL (7-17); Calcium 8.5 mg/dL (8.4-10.2); Carbon Dioxide 39 mmol/L (22-30); Chloride 93 mmol/L (98-107); Estimated CRCL calculation 40 ml/min; Estimated Glomerular Filt Rate > 60; Glucose 89 mg/dL (65-110); Magnesium 2.5 mg/dL (1.6-2.3); Phosphorus 3.1 mg/dL (2.5-4.5); Potassium 4.4 mmol/L (3.4-5.0); Sodium 132 mmol/L (137-145)
[2022-07-18] MEDS: LEVOTHYROXINE SODIUM 25 MCG TABLET PO (06:20)
[2022-07-18] MEDS: LEVOTHYROXINE SODIUM 112 MCG TABLET PO (06:20)
[2022-07-18 08:41] LABS: Glucose Point of Care 79 mg/dl (65-105)
[2022-07-18] MEDS: ASPIRIN 81 MG CHEWABLE TABLET PO (08:50)
[2022-07-18] MEDS: EMPAGLIFLOZIN 10 MG TABLET PO (08:50)
[2022-07-18] MEDS: FUROSEMIDE 40 MG TABLET PO (08:50)
[2022-07-18] MEDS: BRIMONIDINE TARTRATE 0.2% OP SOLN 5 ML BTL 1 DROP EACH EYE (08:50)
[2022-07-18] MEDS: ENOXAPARIN 40 MG/0.4 ML SYRINGE SUB-Q (08:50)
[2022-07-18] MEDS: EUCERIN CREAM 120 GM JAR 1 APPLIC TOPICAL ×2 (08:51→17:43)
[2022-07-18] MEDS: PANTOPRAZOLE 40 MG TABLET PO (08:51)
--- NOTE | 2022-07-18 08:52 | PM.IMPN ---
Progress Note: A&P Assessment and Plan (1) Acute respiratory failure with hypoxia and hypercapnia: Code(s): J96.01 - Acute respiratory failure with hypoxia; J96.02 - Acute respiratory failure with hypercapnia Status: Acute Assessment and Plan: Acute on chronic hypercapnic respiratory failure. Probably related to undiagnosed sleep apnea complicated by chronic elevated Rt hemidiaphragm and pulmonary edema. She is a former smoker so may have a COPD component. Old imaging reviewed including a CTA of the chest back in November which showed atelectasis and prominent elevation of the right hemidiaphragm but no emphysema. Pulmonary is following. Able to wean off BiPAP during the day. Cervical spine CT showing mild central canal stenosis and mild-mod neural foraminal stenosis. Wean O2 off as tolerated during the day. Sniff test showing small lung volumes with mild atelectasis and decreased movement to the right hemidiaphragm. Will need AVAPS at home. Home O2 evaluation close to discharge. (2) Elevated troponin: Code(s): R77.8 - Other specified abnormalities of plasma proteins Status: Acute Assessment and Plan: Troponin elevated to 0.19 but flat. EKG personally reviewed showing sinus rhythm with first-degree AV block and possible anterior and inferior infarct, age indeterminate. Echocardiogram shows LV function of EF of greater than 70% and grade 1 diastolic dysfunction. Systolic function is hyperdynamic. No wall motion abnormalities. Unable to calculate pulmonary pressures. Cardiology was consulted and appreciate their input. Continue aspirin. Will have patient follow up with Cardiology for possible ischemic evaluation as outpatient (3) Heart failure with preserved ejection fraction: Code(s): I50.30 - Unspecified diastolic (congestive) heart failure Status: Acute Assessment and Plan: CXR showing pulm vascular congestion. BNP 2400. She was started on Lasix IV with excellent UOP. Echo showing diastolic dysfunction and preserved EF. [place] patient with Acute diastolic CHF exacerbation. Probably related to the respiratory failure. She is clinically euvolemic and is back on her oral Lasix. Follow. Continue Empagliflozin. Continue oral Lasix (4) Acute kidney injury superimposed on chronic kidney disease: Code(s): N17.9 - Acute kidney failure, unspecified; N18.9 - Chronic kidney disease, unspecified Status: Acute Assessment and Plan: Creatinine 1.2 on admission with baseline ranging 1.0-1.3. Creatinine reviewed today and down to 1.0 No change in her regiment and will monitor for today. Continue to follow. (5) Diabetes mellitus: Code(s): E11.9 - Type 2 diabetes mellitus without complications Status: Acute Assessment and Plan: A1c 7.3. Patient on Amaryl and Lantus at home. These are on hold due to hypoglycemia episode. Glucose elevated yesterday but normal this morning. Continue AccuCheks covering with sliding scale. Hypoglycemia protocol available as needed. Continue to monitor. Cut lantus back (6) Hypertension: Code(s): I10 - Essential (primary) hypertension Status: Acute Assessment and Plan: Patient's blood pressure was reviewed on 07/18 Blood pressure remains well controlled. Will continue current medications. (7) Hypothyroidism: Code(s): E03.9 - Hypothyroidism, unspecified Status: Acute Assessment and Plan: TSH normal. Continue levothyroxine (8) Unresponsive episode: Code(s): R41.89 - Other symptoms and signs involving cognitive functions and awareness Status: Acute Assessment and Plan: Resolved. Likely secondary to hypoglycemia. (9) Hypoglycemia: Code(s): E16.2 - Hypoglycemia, unspecified Status: Acute Assessment and Plan: A1c 7.3. Hypoglycemia resolved likely from decreased po intake. Monitor. Plan DVT prophylaxis with Lovenox Co
[2022-07-18] MEDS: TIMOLOL MALEATE 0.5% OP SOLN 5 ML BOTTLE 1 DROP EACH EYE (09:01)
[2022-07-18 10:25] LABS: Base Excess ABG 11.1 mEq/l (+/-2.0); Fractional Inspired Oxygen 30 %; HCO3 ABG 40.5 mEq/l (22.0-26.0); Oxygen Content ABG 17.1 %vol (16.0-22.0); Oxygen Saturation ABG 95.2 % (95.0-100.0); Oxyhemoglobin 93.7 % THb (90.0-100.0); PO2 ABG 85.7 mmHg (80.0-100.0); PO2 FiO2 Ratio Arterial Blood 2.86 %; Total Hemoglobin 12.9 g/dL (12.0-18.0); pH ABG 7.317 (7.350-7.450)
[2022-07-18 10:27] LABS: Device NON-INVASIVE VENT; Modified Allen's Test Pass; Site Drawn LEFT RADIAL
[2022-07-18 10:28] LABS: Non-Invasive Expiratory Pressure 6 CMH2O; Non-Invasive Inspiratory Pressure 18 CMH2O; Non-Invasive Vent Rate 18 /MIN
--- NOTE | 2022-07-18 11:12 | PM.PNPUL ---
Progress Note: A&P Assessment and Plan (1) Acute on chronic respiratory failure with hypoxia and hypercapnia: Code(s): J96.21 - Acute and chronic respiratory failure with hypoxia; J96.22 - Acute and chronic respiratory failure with hypercapnia Status: Acute Assessment and Plan: This 86-year-old female has been treated for acute on chronic hypercapnic respiratory failure. The patient's history starts approximately little over 2 years ago when after COVID 19 infection in April of 2020 she started to have shortness of breath. She has had shortness of breath on exertion and also orthopnea that has progressively increased over the last 2 years. In fact the patient cannot sleep in the supine position because of orthopnea. Chest imaging studies over the last 2 years have shown smaller lung volumes than before, elevated diaphragms right greater than left, bibasilar atelectasis on chest CT, and no evidence of parenchymal lung disease on a chest CT done over the last couple of years. The chest imaging studies in conjunction with the patient's shortness of breath and specifically worsening orthopnea suggest respiratory muscle weakness that started after COVID 19 infection in April of 2020. Over the last 2 years the patient has developed lower extremity edema and also elevated pulmonary artery systolic pressure as result of chronic nocturnal hypoxemia. Indeed recent nocturnal oximetry done on an outpatient basis showed significant oxyhemoglobin desaturation. The clinical evidence so far points towards hypercapnic respiratory failure related to possible respiratory muscle weakness. 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 Cervical spine CT done yesterday showed evidence of bilateral foraminal stenosis at level C3-C5 which could be the cause of respiratory muscle weakness. Measurement of negative inspiratory force and vital capacity at bedside showed a NIF of -40 cm H2O and vital capacity of 0.7 L. Patient's NIF is more compatible with unilateral rather than bilateral diaphragmatic weakness. workup for inflammatory myopathy negative so far. Patient has improved significantly over the last 36 hours. sniff test raised question of right diaphragm weakness. patient appears more confused this a.m. while on BiPAP support. Arterial blood gases showed decompensated respiratory acidosis. Plan: Will continue with the BiPAP support throughout the day. Monitor blood gases in a.m. repeat chest x-ray in a.m. . 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 She has no other respiratory symptoms. Review of Systems Review of Systems: All systems reviewed & are unremarkable except as noted in HPI and below ( In HPI and below) Exam Narrative: GENERAL APPEARANCE: Well developed, well nourished, alert and cooperative, and appears to be in mild respiratory distress while on BiPAP support SKIN: Inspection of the skin reveals no rashes, ulcerations or petechiae. HEENT: Sclerae anicteric and conjunctivae pink and moist. Extraocular movements we
[2022-07-18 11:56] LABS: Glucose Point of Care 187 mg/dl (65-105)
[2022-07-18 16:54] LABS: Glucose Point of Care 201 mg/dl (65-105)
[2022-07-18] MEDS: INSULIN ASPART (*BKC) 100 UNITS/ML SUB-Q (17:43)
[2022-07-18 20:15] LABS: Glucose Point of Care 187 mg/dl (65-105)
[2022-07-18] MEDS: LATANOPROST 0.005% OP SOLN 2.5 ML BTL 1 DROP EACH EYE (20:28)
[2022-07-18] MEDS: INSULIN GLARGINE (*BKC) 100 UNITS/ML 8 UNITS SUB-Q (20:28)
--- NOTE | 2022-07-18 22:58 | PCRCNOTE ---
per pt she will call once ready to be placed on BIPAP. Pt on 2 liter NC, SP02 97%. pt stated she does not wear BIPAP at home. RN will be informed.
[2022-07-19] VITALS (11 sets, daily range): BP systolic 111–130; BP diastolic 50–65; PULSE 66–80; RESP 18–32; TEMP 36.6–37.2; O2SAT 95–100
[2022-07-19 05:22] LABS: Alveolar/Arterial O2 Gradient 46.7 mmHg; Base Excess ABG 10.6 mEq/l (+/-2.0); Fractional Inspired Oxygen 30 %; HCO3 ABG 38.4 mEq/l (22.0-26.0); Oxygen Content ABG 17.2 %vol (16.0-22.0); Oxygen Saturation ABG 96.2 % (95.0-100.0); Oxyhemoglobin 95.2 % THb (90.0-100.0); PO2 FiO2 Ratio Arterial Blood 2.93 %; Total Hemoglobin 12.8 g/dL (12.0-18.0); pH ABG 7.374 (7.350-7.450)
[2022-07-19 05:26] LABS: Device NON-INVASIVE VENT; Modified Allen's Test Pass; PCO2 ABG 67.4 mmHg (35.0-45.0); Site Drawn RIGHT RADIAL
[2022-07-19 05:27] LABS: Non-Invasive Expiratory Pressure 6 CMH2O; Non-Invasive Inspiratory Pressure 18 CMH2O; Non-Invasive Vent Rate 18 /MIN
[2022-07-19 06:09] LABS: Blood Urea Nitrogen 37 mg/dL (7-17); Calcium 8.4 mg/dL (8.4-10.2); Carbon Dioxide > 40 mmol/L (22-30); Chloride 94 mmol/L (98-107); Estimated CRCL calculation 37 ml/min; Estimated Glomerular Filt Rate 57; Glucose 137 mg/dL (65-110); Potassium 4.5 mmol/L (3.4-5.0); Sodium 135 mmol/L (137-145)
[2022-07-19 06:45] LABS: JO 1 Antibody <1.0; RNP Antibodies <1.0
[2022-07-19 08:55] LABS: Glucose Point of Care 108 mg/dl (65-105)
--- NOTE | 2022-07-19 09:12 | PM.PNPUL ---
Progress Note: A&P Assessment and Plan (1) Acute on chronic respiratory failure with hypoxia and hypercapnia: Code(s): J96.21 - Acute and chronic respiratory failure with hypoxia; J96.22 - Acute and chronic respiratory failure with hypercapnia Status: Acute Assessment and Plan: This 86-year-old female has been treated for acute on chronic hypercapnic respiratory failure. The patient's history starts approximately little over 2 years ago when after COVID 19 infection in April of 2020 she started to have shortness of breath. She has had shortness of breath on exertion and also orthopnea that has progressively increased over the last 2 years. In fact the patient cannot sleep in the supine position because of orthopnea. Chest imaging studies over the last 2 years have shown smaller lung volumes than before, elevated diaphragms right greater than left, bibasilar atelectasis on chest CT, and no evidence of parenchymal lung disease on a chest CT done over the last couple of years. The chest imaging studies in conjunction with the patient's shortness of breath and specifically worsening orthopnea suggest respiratory muscle weakness that started after COVID 19 infection in April of 2020. Over the last 2 years the patient has developed lower extremity edema and also elevated pulmonary artery systolic pressure as a result of chronic nocturnal hypoxemia. Indeed recent nocturnal oximetry done on an outpatient basis showed significant oxyhemoglobin desaturation. 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 During this hospitalization the patient has essentially been BiPAP dependent, especially at night. on the days she did not use BiPAP support at night, arterial blood gases showed worsening of hypercapnic respiratory failure, with increase in pCO2 and lower pH. Plan: the patient is in need of home ventilatory support to correct the chronic hypercapnic respiratory failure and minimize risk for readmission to the hospital. the patient will be placed on AVAP support, tidal volume 550, backup rate 16. ApneaLink will be measured on those settings. (2) COVID-19 long hauler manifesting chronic dyspnea: Code(s): R06.09 - Other forms of dyspnea; U09.9 - Post COVID-19 condition, unspecified Status: Acute (3) Heart failure with preserved ejection fraction: Code(s): I50.30 - Unspecified diastolic (congestive) heart failure Status: Acute (4) Obesity (BMI 30-39.9): Code(s): E66.9 - Obesity, unspecified Status: Acute (5) Orthopnea: Code(s): R06.01 - Orthopnea Status: Acute (6) BMI 35.0-35.9,adult: Code(s): Z68.35 - Body mass index [BMI] 35.0-35.9, adult Status: Acute Subjective Date/time seen: 07/19/22 09:12 Interval history: patient used a BiPAP support last night. Currently on supplemental oxygen via nasal cannula. Appears fully alert. She has no new respiratory symptoms. Review of Systems Review of Systems: All systems reviewed & are unremarkable except as noted in HPI and below ( HPI and below) Exam Narrative: GENERAL APPEARANCE: Well developed, well nourished, alert and cooperative, and appears to be in mild respiratory distress while on nasal cannula SKIN: Inspection of the skin reveals no rashes, ulcerations or petechiae. HEENT: Sclerae anicteric and conjunctivae pink and moist. Extraocular movements were intact and pupils were equal, round. NECK: Supple. There was no thyroid enlargement, and no tenderness, or masses were felt. LUNGS: Auscultation of the lungs revealed normal breath sounds without any other adventitious sounds or rubs. CARDIAC: There was a regular rate and rhythm without any murmurs. ABDOMEN: Soft and nonten
[2022-07-19] MEDS: LEVOTHYROXINE SODIUM 25 MCG TABLET PO (09:52)
[2022-07-19] MEDS: LEVOTHYROXINE SODIUM 112 MCG TABLET PO (09:52)
[2022-07-19] MEDS: ENOXAPARIN 40 MG/0.4 ML SYRINGE SUB-Q (11:00)
[2022-07-19] MEDS: EMPAGLIFLOZIN 10 MG TABLET PO (11:01)
[2022-07-19] MEDS: PANTOPRAZOLE 40 MG TABLET PO (11:01)
[2022-07-19] MEDS: ASPIRIN 81 MG CHEWABLE TABLET PO (11:01)
[2022-07-19] MEDS: FUROSEMIDE 40 MG TABLET PO (11:01)
[2022-07-19] MEDS: TIMOLOL MALEATE 0.5% OP SOLN 5 ML BOTTLE 1 DROP EACH EYE (11:03)
[2022-07-19] MEDS: BRIMONIDINE TARTRATE 0.2% OP SOLN 5 ML BTL 1 DROP EACH EYE (11:03)
[2022-07-19] MEDS: EUCERIN CREAM 120 GM JAR 1 APPLIC TOPICAL ×2 (11:03→18:29)
--- NOTE | 2022-07-19 12:16 | PM.IMPN ---
Progress Note: A&P Assessment and Plan (1) Acute respiratory failure with hypoxia and hypercapnia: Code(s): J96.01 - Acute respiratory failure with hypoxia; J96.02 - Acute respiratory failure with hypercapnia Status: Acute Assessment and Plan: Acute on chronic hypercapnic respiratory failure. Probably related to undiagnosed sleep apnea complicated by chronic elevated Rt hemidiaphragm and pulmonary edema. She is a former smoker so may have a COPD component. Old imaging reviewed including a CTA of the chest back in November which showed atelectasis and prominent elevation of the right hemidiaphragm but no emphysema. Pulmonary is following. Able to wean off BiPAP during the day. Cervical spine CT showing mild central canal stenosis and mild-mod neural foraminal stenosis. Wean O2 off as tolerated during the day. Sniff test showing small lung volumes with mild atelectasis and decreased movement to the right hemidiaphragm. Will need AVAPS at home. Check home O2 evaluation (2) Elevated troponin: Code(s): R77.8 - Other specified abnormalities of plasma proteins Status: Acute Assessment and Plan: Troponin elevated to 0.19 but flat. EKG personally reviewed showing sinus rhythm with first-degree AV block and possible anterior and inferior infarct, age indeterminate. Echocardiogram shows LV function of EF of greater than 70% and grade 1 diastolic dysfunction. Systolic function is hyperdynamic. No wall motion abnormalities. Unable to calculate pulmonary pressures. Cardiology was consulted and appreciate their input. Continue aspirin. Will have patient follow up with Cardiology for possible ischemic evaluation as outpatient (3) Heart failure with preserved ejection fraction: Code(s): I50.30 - Unspecified diastolic (congestive) heart failure Status: Acute Assessment and Plan: CXR showing pulm vascular congestion. BNP 2400. She was started on Lasix IV with excellent UOP. Echo showing diastolic dysfunction and preserved EF. [place] patient with Acute diastolic CHF exacerbation. Probably related to the respiratory failure. She is clinically euvolemic and is back on her oral Lasix. Follow. Continue Empagliflozin. Continue oral Lasix (4) Acute kidney injury superimposed on chronic kidney disease: Code(s): N17.9 - Acute kidney failure, unspecified; N18.9 - Chronic kidney disease, unspecified Status: Acute Assessment and Plan: Creatinine 1.2 on admission with baseline ranging 1.0-1.3. Creatinine reviewed today and down to 1.1. Continue to follow. (5) Diabetes mellitus: Code(s): E11.9 - Type 2 diabetes mellitus without complications Status: Acute Assessment and Plan: A1c 7.3. Patient on Amaryl and Lantus at home. These are on hold due to hypoglycemia episode. Glucose reasonably well controlled Continue AccuCheks covering with sliding scale. Hypoglycemia protocol available as needed. Continue to monitor. (6) Hypertension: Code(s): I10 - Essential (primary) hypertension Status: Acute Assessment and Plan: Patient's blood pressure was reviewed on 07/19 Blood pressure remains well controlled. Will continue current medications. (7) Hypothyroidism: Code(s): E03.9 - Hypothyroidism, unspecified Status: Acute Assessment and Plan: TSH normal. Continue levothyroxine (8) Unresponsive episode: Code(s): R41.89 - Other symptoms and signs involving cognitive functions and awareness Status: Acute Assessment and Plan: Resolved. Likely secondary to hypoglycemia. (9) Hypoglycemia: Code(s): E16.2 - Hypoglycemia, unspecified Status: Acute Assessment and Plan: A1c 7.3. Hypoglycemia resolved likely from decreased po intake. Monitor. Plan DVT prophylaxis with Lovenox Code status full code Subjective Date/time seen: 07/19/22 12:16 Interval history: 86yo fema
[2022-07-19 12:39] LABS: Glucose Point of Care 178 mg/dl (65-105)
[2022-07-19 17:36] LABS: Glucose Point of Care 209 mg/dl (65-105)
[2022-07-19] MEDS: INSULIN ASPART (*BKC) 100 UNITS/ML SUB-Q (18:28)
[2022-07-19 20:35] LABS: Glucose Point of Care 254 mg/dl (65-105)
[2022-07-19] MEDS: LATANOPROST 0.005% OP SOLN 2.5 ML BTL 1 DROP EACH EYE (20:38)
[2022-07-19] MEDS: INSULIN GLARGINE (*BKC) 100 UNITS/ML 8 UNITS SUB-Q (20:38)
[2022-07-20] VITALS (10 sets, daily range): BP systolic 116–129; BP diastolic 60–75; PULSE 52–88; RESP 16–29; TEMP 36.7–37.1; O2SAT 95–99
[2022-07-20] MEDS: LEVOTHYROXINE SODIUM 112 MCG TABLET PO (05:40)
[2022-07-20] MEDS: LEVOTHYROXINE SODIUM 25 MCG TABLET PO (05:40)
[2022-07-20 08:48] LABS: Glucose Point of Care 77 mg/dl (65-105)
[2022-07-20] MEDS: ENOXAPARIN 40 MG/0.4 ML SYRINGE SUB-Q (09:46)
[2022-07-20] MEDS: BRIMONIDINE TARTRATE 0.2% OP SOLN 5 ML BTL 1 DROP EACH EYE (09:46)
[2022-07-20] MEDS: PANTOPRAZOLE 40 MG TABLET PO (09:46)
[2022-07-20] MEDS: EMPAGLIFLOZIN 10 MG TABLET PO (09:46)
[2022-07-20] MEDS: TIMOLOL MALEATE 0.5% OP SOLN 5 ML BOTTLE 1 DROP EACH EYE (09:46)
[2022-07-20] MEDS: ASPIRIN 81 MG CHEWABLE TABLET PO (09:46)
[2022-07-20] MEDS: FUROSEMIDE 40 MG TABLET PO (09:46)
[2022-07-20] MEDS: EUCERIN CREAM 120 GM JAR 1 APPLIC TOPICAL ×2 (09:47→17:30)
--- NOTE | 2022-07-20 11:24 | PM.PNPUL ---
Progress Note: A&P Assessment and Plan (1) Acute on chronic respiratory failure with hypoxia and hypercapnia: Code(s): J96.21 - Acute and chronic respiratory failure with hypoxia; J96.22 - Acute and chronic respiratory failure with hypercapnia Status: Acute Assessment and Plan: This 86-year-old female has been treated for acute on chronic hypercapnic respiratory failure. The patient's history starts approximately little over 2 years ago when after COVID 19 infection in April of 2020 she started to have shortness of breath. She has had shortness of breath on exertion and also orthopnea that has progressively increased over the last 2 years. In fact the patient cannot sleep in the supine position because of orthopnea. Chest imaging studies over the last 2 years have shown smaller lung volumes than before, elevated diaphragms right greater than left, bibasilar atelectasis on chest CT, and no evidence of parenchymal lung disease on a chest CT done over the last couple of years. The chest imaging studies in conjunction with the patient's shortness of breath and specifically worsening orthopnea suggest respiratory muscle weakness that started after COVID 19 infection in April of 2020. Over the last 2 years the patient has developed lower extremity edema and also elevated pulmonary artery systolic pressure as a result of chronic nocturnal hypoxemia. Indeed recent nocturnal oximetry done on an outpatient basis showed significant oxyhemoglobin desaturation. 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 patient underwent chest fluoroscopy which raise question of a right hemidiaphragm paralysis. Of note on physical exam the patient has evidence of right hemidiaphragm paralysis as he has asymmetrical expansion of abdominal wall. During this hospitalization the patient has essentially been BiPAP dependent, especially at night. There were days the patient did not tolerate BiPAP support at night and on the next day the arterial blood gases showed worsening hypercapnic respiratory failure. Last night she was placed on AVAPS support with tidal volume 550 backup rate 16. The patient slept very well and kept her AVAPS mask on all the time. This morning she is fully awake. ApneaLink showed no evidence of oxyhemoglobin desaturation on AVAPS. Arterial blood gases pending as of now. 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 Given patient's intolerance to BiPAP and also that BiPAP with AVAPS is not able to be used due to its low pressure limit and minimal flow capacity, device with a backup battery for mobility and alarms for safety is necessary for this patient. (2) COVID-19 long hauler manifesting chronic dyspnea: Code(s): R06.09 - Other forms of dyspnea; U09.9 - Post COVID-19 condition, unspecified Status: Acute (3) Heart failure with preserved ejection fraction: Code(s): I50.30 - Unspecified diastolic (congestive) heart failure Status: Acute (4) Obesity (BMI 30-39.9): Code(s): E66.9 - Obesity, unspecified Status: Acute (5) Orthopnea: Code(s): R06.01 - Orthopnea Status: Acute (6) BMI 35.0-35.9,adult: Code(s): Z68.35 - Body mass index [BMI] 35.0-35.9, adult Status: Acute Subjective Date/time seen: 07/20/22 11:24 Interval history: Patient was placed on BiPAP AVAPS last night. She slept well on new BiPAP AVAPS settings. She is fully awake this a.m., with no new respiratory symptoms. Review of Systems Review of Systems: All systems reviewed & are unremarkable except as noted in HPI and below ( HPI and b
[2022-07-20 12:09] LABS: Glucose Point of Care 207 mg/dl (65-105)
[2022-07-20] MEDS: INSULIN ASPART (*BKC) 100 UNITS/ML SUB-Q (12:57)
[2022-07-20 14:11] LABS: Alveolar/Arterial O2 Gradient 28.8 mmHg; Base Excess ABG 7.8 mEq/l (+/-2.0); Fractional Inspired Oxygen 28 %; HCO3 ABG 36.6 mEq/l (22.0-26.0); Oxygen Content ABG 16.9 %vol (16.0-22.0); Oxygen Saturation ABG 94.7 % (95.0-100.0); Oxyhemoglobin 93.7 % THb (90.0-100.0); PO2 ABG 82.8 mmHg (80.0-100.0); PO2 FiO2 Ratio Arterial Blood 2.96 %; Total Hemoglobin 12.8 g/dL (12.0-18.0); pH ABG 7.309 (7.350-7.450)
[2022-07-20 14:15] LABS: Device NASAL CANNULA; Modified Allen's Test Pass; PCO2 ABG 74.6 mmHg (35.0-45.0); Site Drawn RIGHT RADIAL
--- NOTE | 2022-07-20 14:49 | PM.IMPN ---
Progress Note: A&P Assessment and Plan (1) Acute respiratory failure with hypoxia and hypercapnia: Code(s): J96.01 - Acute respiratory failure with hypoxia; J96.02 - Acute respiratory failure with hypercapnia Status: Acute Assessment and Plan: Acute on chronic hypercapnic respiratory failure. Probably related to undiagnosed sleep apnea complicated by chronic elevated Rt hemidiaphragm and pulmonary edema. She is a former smoker so may have a COPD component. Old imaging reviewed including a CTA of the chest back in November which showed atelectasis and prominent elevation of the right hemidiaphragm but no emphysema. Pulmonary is following. Cervical spine CT showing mild central canal stenosis and mild-mod neural foraminal stenosis. Sniff test showing small lung volumes with mild atelectasis and decreased movement to the right hemidiaphragm. Able to wean off BiPAP during the day; continue to use at night, with naps and prn. Wean O2 off as tolerated during the day. Will need AVAPS at home. Home O2 evaluation pending (2) Elevated troponin: Code(s): R77.8 - Other specified abnormalities of plasma proteins Status: Acute Assessment and Plan: Troponin elevated to 0.19 but flat. EKG personally reviewed showing sinus rhythm with first-degree AV block and possible anterior and inferior infarct, age indeterminate. Echo shows LV function of EF of greater than 70% and grade 1 diastolic dysfunction. Systolic function is hyperdynamic. No wall motion abnormalities. Unable to calculate pulmonary pressures. Cardiology was consulted and appreciate their input. Continue aspirin. Will have patient follow up with Cardiology for possible ischemic evaluation as outpatient (3) Heart failure with preserved ejection fraction: Code(s): I50.30 - Unspecified diastolic (congestive) heart failure Status: Acute Assessment and Plan: CXR showing pulm vascular congestion. BNP 2400. She was started on Lasix IV with excellent UOP. Echo showing diastolic dysfunction and preserved EF. [place] patient with Acute diastolic CHF exacerbation. Probably related to the respiratory failure. She has mild edema but overall felt euvolemic and is back on her oral Lasix. Serum bicarb>40 yesterday so will hold on advancing her Lasix. Follow. Continue Empagliflozin. Continue oral Lasix (4) Acute kidney injury superimposed on chronic kidney disease: Code(s): N17.9 - Acute kidney failure, unspecified; N18.9 - Chronic kidney disease, unspecified Status: Acute Assessment and Plan: Creatinine 1.2 on admission with baseline ranging 1.0-1.3. Creatinine reviewed yesterday was 1.1. Continue to follow. (5) Diabetes mellitus: Code(s): E11.9 - Type 2 diabetes mellitus without complications Status: Acute Assessment and Plan: A1c 7.3. Patient on Amaryl and Lantus at home. These are on hold due to hypoglycemia episode. Glucose reasonably well controlled. Glucose 77 this morning. Continue AccuCheks covering with sliding scale. Hypoglycemia protocol available as needed. Continue to monitor. (6) Hypertension: Code(s): I10 - Essential (primary) hypertension Status: Acute Assessment and Plan: Patient's blood pressure was reviewed on 07/20 Blood pressure remains well controlled. Will continue current medications. (7) Hypothyroidism: Code(s): E03.9 - Hypothyroidism, unspecified Status: Acute Assessment and Plan: TSH normal. Continue levothyroxine (8) Unresponsive episode: Code(s): R41.89 - Other symptoms and signs involving cognitive functions and awareness Status: Acute Assessment and Plan: Resolved. Likely secondary to hypoglycemia. (9) Hypoglycemia: Code(s): E16.2 - Hypoglycemia, unspecified Status: Acute Assessment and Plan: A1c 7.3. Hypoglycemia resolved likely from decreased po intake. Monitor. P
--- NOTE | 2022-07-20 14:59 | ECG_ITS ---
Measurements Intervals [place] Rate: 62 P: 38 NV: 210 QRS: -3 QRSD: 117 T: 15 QT: 382 QTc: 389 Interpretive Statements SINUS RHYTHM WITH FIRST DEGREE AV BLOCK ATRIAL PREMATURE COMPLEXES INTRAVENTRICULAR CONDUCTION DELAY ANTEROSEPTAL INFARCT, AGE INDETERMINATE ABNORMAL ECG COMPARED TO ECG 07/12/2022 11:59:03 NO SIGNIFICANT CHANGES Electronically Signed On 07-20-2022 16:17:07 DIRECTOR OF NUCLEAR MEDICINE by Wayne Pugh D.O.
--- NOTE | 2022-07-20 15:09 | PCOTNOTE ---
Attempted to see pt for Occupational therapy treatment. Per RN, pt is on continuous Bipap at this time. Will continue per POC duration/frequency tomorrow.
[2022-07-20 17:33] LABS: Glucose Point of Care 143 mg/dl (65-105)
[2022-07-20 21:03] LABS: Glucose Point of Care 189 mg/dl (65-105)
[2022-07-20] MEDS: INSULIN GLARGINE (*BKC) 100 UNITS/ML 8 UNITS SUB-Q (21:17)
[2022-07-20] MEDS: LATANOPROST 0.005% OP SOLN 2.5 ML BTL 1 DROP EACH EYE (21:17)
[2022-07-21] VITALS (9 sets, daily range): BP systolic 100–145; BP diastolic 61–78; PULSE 71–89; RESP 16–29; TEMP 36.4–36.8; O2SAT 92–98
[2022-07-21] MEDS: LEVOTHYROXINE SODIUM 25 MCG TABLET PO (06:34)
[2022-07-21] MEDS: LEVOTHYROXINE SODIUM 112 MCG TABLET PO (06:34)
[2022-07-21 08:20] LABS: Glucose Point of Care 115 mg/dl (65-105)
--- NOTE | 2022-07-21 08:40 | PM.IMPN ---
Progress Note: A&P Assessment and Plan (1) Acute respiratory failure with hypoxia and hypercapnia: Code(s): J96.01 - Acute respiratory failure with hypoxia; J96.02 - Acute respiratory failure with hypercapnia Status: Acute Assessment and Plan: Acute on chronic hypercapnic respiratory failure. Probably related to undiagnosed sleep apnea complicated by chronic elevated Rt hemidiaphragm and pulmonary edema. She is a former smoker so may have a COPD component. Old imaging reviewed including a CTA of the chest back in November which showed atelectasis and prominent elevation of the right hemidiaphragm but no emphysema. Pulmonary is following. Cervical spine CT showing mild central canal stenosis and mild-mod neural foraminal stenosis. Sniff test showing small lung volumes with mild atelectasis and decreased movement to the right hemidiaphragm. Able to wean off BiPAP during the day; continue to use at night, with naps and prn. Wean O2 off as tolerated during the day. Will need AVAPS at home. Home O2 evaluation pending (2) Elevated troponin: Code(s): R77.8 - Other specified abnormalities of plasma proteins Status: Acute Assessment and Plan: Troponin elevated to 0.19 but flat. EKG personally reviewed showing sinus rhythm with first-degree AV block and possible anterior and inferior infarct, age indeterminate. Echo shows LV function of EF of greater than 70% and grade 1 diastolic dysfunction. Systolic function is hyperdynamic. No wall motion abnormalities. Unable to calculate pulmonary pressures. Cardiology was consulted and appreciate their input. Continue aspirin. Will have patient follow up with Cardiology for possible ischemic evaluation as outpatient (3) Heart failure with preserved ejection fraction: Code(s): I50.30 - Unspecified diastolic (congestive) heart failure Status: Acute Assessment and Plan: CXR showing pulm vascular congestion. BNP 2400. She was started on Lasix IV with excellent UOP. Echo showing diastolic dysfunction and preserved EF. [place] patient with Acute diastolic CHF exacerbation. Probably related to the respiratory failure. She has mild edema but overall felt euvolemic and is back on her oral Lasix. Serum bicarb>40 yesterday so will hold on advancing her Lasix. Follow. Continue Empagliflozin. Continue oral Lasix (4) Acute kidney injury superimposed on chronic kidney disease: Code(s): N17.9 - Acute kidney failure, unspecified; N18.9 - Chronic kidney disease, unspecified Status: Acute Assessment and Plan: Stable, monitor (5) Diabetes mellitus: Code(s): E11.9 - Type 2 diabetes mellitus without complications Status: Acute Assessment and Plan: A1c 7.3. Patient on Amaryl and Lantus at home. These are on hold due to hypoglycemia episode. Continue AccuCheks covering with sliding scale. Hypoglycemia protocol available as needed. Continue to monitor. (6) Hypertension: Code(s): I10 - Essential (primary) hypertension Status: Acute Assessment and Plan: Stable, continue home meds (7) Hypothyroidism: Code(s): E03.9 - Hypothyroidism, unspecified Status: Acute Assessment and Plan: TSH normal. Continue levothyroxine (8) Unresponsive episode: Code(s): R41.89 - Other symptoms and signs involving cognitive functions and awareness Status: Acute Assessment and Plan: Resolved. Likely secondary to hypoglycemia. (9) Hypoglycemia: Code(s): E16.2 - Hypoglycemia, unspecified Status: Acute Assessment and Plan: A1c 7.3. Hypoglycemia resolved likely from decreased po intake. Monitor. Plan DVT prophylaxis with Lovenox Code status full code Subjective Date/time seen: 07/21/22 08:40 Interval history: 86yo female with DM, HTN and CKD here for episode of unresponsiveness. No overnight events noted. No chest pain or shortness
[2022-07-21] MEDS: EMPAGLIFLOZIN 10 MG TABLET PO (09:39)
[2022-07-21] MEDS: PANTOPRAZOLE 40 MG TABLET PO (09:39)
[2022-07-21] MEDS: TIMOLOL MALEATE 0.5% OP SOLN 5 ML BOTTLE 1 DROP EACH EYE (09:39)
[2022-07-21] MEDS: BRIMONIDINE TARTRATE 0.2% OP SOLN 5 ML BTL 1 DROP EACH EYE (09:39)
[2022-07-21] MEDS: ASPIRIN 81 MG CHEWABLE TABLET PO (09:39)
[2022-07-21] MEDS: ENOXAPARIN 40 MG/0.4 ML SYRINGE SUB-Q (09:39)
[2022-07-21] MEDS: EUCERIN CREAM 120 GM JAR 1 APPLIC TOPICAL ×2 (09:39→17:48)
[2022-07-21] MEDS: FUROSEMIDE 40 MG TABLET PO (09:39)
[2022-07-21 12:33] LABS: Glucose Point of Care 177 mg/dl (65-105)
--- NOTE | 2022-07-21 14:12 | PM.PNPUL ---
Progress Note: A&P Assessment and Plan (1) Acute on chronic respiratory failure with hypoxia and hypercapnia: Code(s): J96.21 - Acute and chronic respiratory failure with hypoxia; J96.22 - Acute and chronic respiratory failure with hypercapnia Status: Acute Assessment and Plan: This 86-year-old female has been treated for acute on chronic hypercapnic respiratory failure. The patient's history starts approximately little over 2 years ago when after COVID 19 infection in April of 2020 she started to have shortness of breath. She has had shortness of breath on exertion and also orthopnea that has progressively increased over the last 2 years. In fact the patient cannot sleep in the supine position because of orthopnea. Chest imaging studies over the last 2 years have shown smaller lung volumes than before, elevated diaphragms right greater than left, bibasilar atelectasis on chest CT, and no evidence of parenchymal lung disease on a chest CT done over the last couple of years. The chest imaging studies in conjunction with the patient's shortness of breath and specifically worsening orthopnea suggest respiratory muscle weakness that started after COVID 19 infection in April of 2020. Over the last 2 years the patient has developed lower extremity edema and also elevated pulmonary artery systolic pressure as a result of chronic nocturnal hypoxemia. Indeed recent nocturnal oximetry done on an outpatient basis showed significant oxyhemoglobin desaturation. 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 patient underwent chest fluoroscopy which raised question of a right hemidiaphragm paralysis. last ABGs done yesterday afternoon while patient was off BiPAP showed poorly compensated respiratory acidosis again. it appears as though the patient may need support not just at night but also during the day. Plan: continue with current management. Await approval of home ventilator and [employer] on the new home ventilator before discharging patient home. (2) COVID-19 long hauler manifesting chronic dyspnea: Code(s): R06.09 - Other forms of dyspnea; U09.9 - Post COVID-19 condition, unspecified Status: Acute (3) Heart failure with preserved ejection fraction: Code(s): I50.30 - Unspecified diastolic (congestive) heart failure Status: Acute (4) Obesity (BMI 30-39.9): Code(s): E66.9 - Obesity, unspecified Status: Acute (5) Orthopnea: Code(s): R06.01 - Orthopnea Status: Acute (6) BMI 35.0-35.9,adult: Code(s): Z68.35 - Body mass index [BMI] 35.0-35.9, adult Status: Acute Subjective Date/time seen: 07/21/22 14:12 Interval history: Patient has no new respiratory symptoms. Slept well last night on hospital BiPAP while waiting approval of home ventilator unit for chronic hypercapnic respiratory failure. Review of Systems Review of Systems: All systems reviewed & are unremarkable except as noted in HPI and below ( HPI and below) Exam Narrative: GENERAL APPEARANCE: Well developed, well nourished, alert and cooperative, and appears to be in mild respiratory distress while on nasal cannula SKIN: Inspection of the skin reveals no rashes, ulcerations or petechiae. HEENT: Sclerae anicteric and conjunctivae pink and moist. Extraocular movements were intact and pupils were equal, round. NECK: Supple. There was no thyroid enlargement, and no tenderness, or masses were felt. LUNGS: Auscultation of the lungs revealed normal breath sounds without any other adventitious sounds or rubs. CARDIAC: There was a regular rate and rhythm without any murmurs. ABDOMEN: Soft and nontender with normal bowel sounds. There was no organomegaly. continues to have abdom
[2022-07-21 17:01] LABS: Basophils Absolute Auto 0.1 K/mm3 (0.0-0.1); Basophils Percent Auto 1.2 % (0.2-1.2); Eosinophils Absolute Auto 0.3 K/mm3 (0-0.3); Eosinophils Percent Auto 2.9 % (0-4.4); Hematocrit 43.8 % (37.0-47.0); Hemoglobin 12.9 g/dL (12.0-15.0); Immature Granulocyte Absolute 0.04 K/mm3 (0.00-0.031); Immature Granulocyte Percent A 0.5 % (0-0.5); Lymphocytes Absolute Auto 1.23 K/mm3 (0.9-3.2); Lymphocytes Percent Auto 14.3 % (18.3-44.2); Mean Corpuscular HGB Conc 29.5 g/dl (32-36); Mean Corpuscular Hemoglobin 30.6 pg (26-34); Mean Platelet Volume 10.4 fl (7.4-10.4); Monocytes Absolute Auto 1.1 K/mm3 (0.1-0.6); Monocytes Percent Auto 12.3 % (2.6-8.5); Neutrophils Absolute Auto 5.9 K/mm3 (1.3-6.7); Neutrophils Percent Auto 68.8 % (45.5-73.1); Platelet Count Result 347 k/mm3 (150-375); Red Blood Count 4.21 M/mm3 (4.2-5.4); Red Cell Distribution Width 14.6 % (11.5-14.5); White Blood Count 8.6 K/mm3 (4.5-10.0)
[2022-07-21 17:10] LABS: Hypochromasia 1+ (NORMAL); Platelet Estimate Adequate (Adequate)
[2022-07-21 17:11] LABS: Schistocytes None Seen (NORMAL)
[2022-07-21 17:29] LABS: Glucose Point of Care 224 mg/dl (65-105)
[2022-07-21] MEDS: INSULIN ASPART (*BKC) 100 UNITS/ML SUB-Q (17:47)
[2022-07-21 18:11] LABS: Alanine Aminotransferase 14 U/L (6-35); Albumin Level 3.4 g/dL (3.5-5.1); Alkaline Phosphatase 93 U/L (38-126); Anion Gap 3 mmol/L (8-16); Aspartate Amino Transferase 31 U/L (14-36); Bilirubin,Total 0.6 mg/dL (0.2-1.3); Blood Urea Nitrogen 35 mg/dL (7-17); Calcium 8.7 mg/dL (8.4-10.2); Carbon Dioxide 39 mmol/L (22-30); Chloride 93 mmol/L (98-107); Estimated CRCL calculation 40 ml/min; Estimated Glomerular Filt Rate > 60; Glucose 218 mg/dL (65-110); Potassium 4.9 mmol/L (3.4-5.0); Sodium 135 mmol/L (137-145)
[2022-07-21 19:43] LABS: Glucose Point of Care 190 mg/dl (65-105)
[2022-07-21] MEDS: LATANOPROST 0.005% OP SOLN 2.5 ML BTL 1 DROP EACH EYE (21:00)
[2022-07-21] MEDS: INSULIN GLARGINE (*BKC) 100 UNITS/ML 8 UNITS SUB-Q (21:00)
[2022-07-22 00:09] VITALS: BP 134/61; PULSE 64; RESP 16; TEMP 36.5; O2SAT 99
[2022-07-22 04:29] VITALS: BP 137/67; PULSE 81; RESP 22; TEMP 36.3; O2SAT 96
[2022-07-22 05:38] LABS: Basophils Absolute Auto 0.1 K/mm3 (0.0-0.1); Basophils Percent Auto 0.9 % (0.2-1.2); Eosinophils Absolute Auto 0.3 K/mm3 (0-0.3); Eosinophils Percent Auto 3.4 % (0-4.4); Hematocrit 38.7 % (37.0-47.0); Hemoglobin 11.7 g/dL (12.0-15.0); Immature Granulocyte Absolute 0.02 K/mm3 (0.00-0.031); Immature Granulocyte Percent A 0.3 % (0-0.5); Lymphocytes Absolute Auto 1.33 K/mm3 (0.9-3.2); Lymphocytes Percent Auto 16.9 % (18.3-44.2); Mean Corpuscular HGB Conc 30.2 g/dl (32-36); Mean Corpuscular Volume 99.2 fl (80-100); Mean Platelet Volume 9.5 fl (7.4-10.4); Monocytes Percent Auto 12.7 % (2.6-8.5); Neutrophils Absolute Auto 5.2 K/mm3 (1.3-6.7); Neutrophils Percent Auto 65.8 % (45.5-73.1); Platelet Count Result 340 k/mm3 (150-375); White Blood Count 7.9 K/mm3 (4.5-10.0)
[2022-07-22] MEDS: LEVOTHYROXINE SODIUM 112 MCG TABLET PO (06:11)
[2022-07-22] MEDS: LEVOTHYROXINE SODIUM 25 MCG TABLET PO (06:11)
[2022-07-22 06:56] LABS: Alanine Aminotransferase 13 U/L (6-35); Albumin Level 3.2 g/dL (3.5-5.1); Alkaline Phosphatase 86 U/L (38-126); Anion Gap 0 mmol/L (8-16); Aspartate Amino Transferase 24 U/L (14-36); Bilirubin,Total 0.5 mg/dL (0.2-1.3); Blood Urea Nitrogen 34 mg/dL (7-17); Calcium 8.6 mg/dL (8.4-10.2); Carbon Dioxide 38 mmol/L (22-30); Chloride 93 mmol/L (98-107); Estimated CRCL calculation 40 ml/min; Estimated Glomerular Filt Rate > 60; Glucose 189 mg/dL (65-110); Potassium 4.4 mmol/L (3.4-5.0); Sodium 131 mmol/L (137-145)
[2022-07-22 08:34] LABS: Glucose Point of Care 174 mg/dl (65-105)
[2022-07-22 08:43] LABS: Alveolar/Arterial O2 Gradient 36.1 mmHg; Base Excess ABG 9.4 mEq/l (+/-2.0); Fractional Inspired Oxygen 28 %; Oxygen Content ABG 16.8 %vol (16.0-22.0); Oxygen Saturation ABG 94.1 % (95.0-100.0); Oxyhemoglobin 93.3 % THb (90.0-100.0); PO2 ABG 77.6 mmHg (80.0-100.0); PO2 FiO2 Ratio Arterial Blood 2.77 %; Total Hemoglobin 12.8 g/dL (12.0-18.0); pH ABG 7.335 (7.350-7.450)
[2022-07-22 08:46] LABS: Device NASAL CANNULA; Modified Allen's Test Pass; PCO2 ABG 72.8 mmHg (35.0-45.0); Site Drawn LEFT RADIAL
--- NOTE | 2022-07-22 08:49 | PM.IMPN ---
Progress Note: A&P Assessment and Plan (1) Acute respiratory failure with hypoxia and hypercapnia: Code(s): J96.01 - Acute respiratory failure with hypoxia; J96.02 - Acute respiratory failure with hypercapnia Status: Acute Assessment and Plan: Acute on chronic hypercapnic respiratory failure likely 2/2 YAEL, OHS, ?COPD, complicated by chronic elevated Rt hemidiaphragm from cervical spine stenosis and pulmonary edema from heart failure exacerbation, now resolved Home O2 eval completed, will need ventilator at SNF Appreciate pulm consult (2) Elevated troponin: Code(s): R77.8 - Other specified abnormalities of plasma proteins Status: Acute Assessment and Plan: Troponin elevated with flattened curve, do not suspect acute cardiac etiology Echo shows LV function of EF of greater than 70% and grade 1 diastolic dysfunction. Systolic function is hyperdynamic. No wall motion abnormalities. Unable to calculate pulmonary pressures. Cardiology was consulted and appreciate their input, they will follow up outpatient and have signed off (3) Heart failure with preserved ejection fraction: Code(s): I50.30 - Unspecified diastolic (congestive) heart failure Status: Acute Assessment and Plan: resolved on oral lasix, appears to be at dry weight (4) Acute kidney injury superimposed on chronic kidney disease: Code(s): N17.9 - Acute kidney failure, unspecified; N18.9 - Chronic kidney disease, unspecified Status: Acute Assessment and Plan: Stable, monitor (5) Diabetes mellitus: Code(s): E11.9 - Type 2 diabetes mellitus without complications Status: Acute Assessment and Plan: A1c 7.3. Patient likely needs lower doses of her medications. Plan to d/c sulfonylurea and titrate lantus up slowly for goal BG less than 180. She has been getting lantus 8 units nightly since 07/18 with FBG slowly creeping up, will give 2 units now and start 10 units tonight as she has been getting 2 units of SSI consistently. Continue AccuCheks covering with sliding scale. Hypoglycemia protocol available as needed. Continue to monitor. (6) Hypertension: Code(s): I10 - Essential (primary) hypertension Status: Acute Assessment and Plan: Stable, continue home meds (7) Hypothyroidism: Code(s): E03.9 - Hypothyroidism, unspecified Status: Acute Assessment and Plan: TSH normal. Continue levothyroxine (8) Unresponsive episode: Code(s): R41.89 - Other symptoms and signs involving cognitive functions and awareness Status: Acute Assessment and Plan: Resolved. Likely secondary to hypoglycemia. (9) Hypoglycemia: Code(s): E16.2 - Hypoglycemia, unspecified Status: Acute Assessment and Plan: A1c 7.3. Hypoglycemia resolved, likely from decreased po intake and too much insulin/medication Ok for a1c to be closer to 8 for her age to decrease risk of hypoglycemia (10) Hyponatremia: Code(s): E87.1 - Hypo-osmolality and hyponatremia Status: Acute Assessment and Plan: slightly worsened, creat and BUN slowly improving, unsure of etiology, could be component of SIADH? will monitor, recheck BMP 1 week after d/c Plan DVT prophylaxis with Lovenox Code status full code Subjective Date/time seen: 07/22/22 08:49 Interval history: 86yo female with DM, HTN and CKD here for episode of unresponsiveness. No overnight events noted. No chest pain or shortness of breath. No nausea, vomiting or diarrhea. No fevers or chills. Patient states she feels much better today than yesterday. Exam Narrative: General: No acute distress, alert and oriented per baseline HEENT: Atraumatic, normocephalic, mucous membranes moist CV: Regular rate and rhythm, S1, S2 Lungs: Clear to auscultation bilaterally, no rales or crackles noted, no wheezes, good air entry Abdomen: Soft, nontender, nond
--- NOTE | 2022-07-22 09:03 | PM.DS ---
DS: Admitting Diagnosis Discharge Date 07/22/22 Admitting Diagnosis hypoglycemia causing unresponsive episode DS: Discharge Diagnosis Discharge Diagnosis (1) Acute respiratory failure with hypoxia and hypercapnia: Code(s): J96.01 - Acute respiratory failure with hypoxia; J96.02 - Acute respiratory failure with hypercapnia Status: Acute Assessment and Plan: Acute on chronic hypercapnic respiratory failure likely 2/2 YAEL, OHS, ?COPD, complicated by chronic elevated Rt hemidiaphragm from cervical spine stenosis and pulmonary edema from heart failure exacerbation, now resolved Home O2 eval completed, will need ventilator at [facility] Appreciate pulm consult (2) Elevated troponin: Code(s): R77.8 - Other specified abnormalities of plasma proteins Status: Acute Assessment and Plan: Troponin elevated with flattened curve, do not suspect acute cardiac etiology Echo shows LV function of EF of greater than 70% and grade 1 diastolic dysfunction. Systolic function is hyperdynamic. No wall motion abnormalities. Unable to calculate pulmonary pressures. Cardiology was consulted and appreciate their input, they will follow up outpatient and have signed off (3) Heart failure with preserved ejection fraction: Code(s): I50.30 - Unspecified diastolic (congestive) heart failure Status: Acute Assessment and Plan: resolved on oral lasix, appears to be at dry weight (4) Acute kidney injury superimposed on chronic kidney disease: Code(s): N17.9 - Acute kidney failure, unspecified; N18.9 - Chronic kidney disease, unspecified Status: Acute Assessment and Plan: Stable, monitor (5) Diabetes mellitus: Code(s): E11.9 - Type 2 diabetes mellitus without complications Status: Acute Assessment and Plan: A1c 7.3. Patient likely needs lower doses of her medications. Plan to d/c sulfonylurea and titrate lantus up slowly for goal BG less than 180. She has been getting lantus 8 units nightly since 07/18 with FBG slowly creeping up, will give 2 units now and start 10 units tonight as she has been getting 2 units of SSI consistently. Continue AccuCheks covering with sliding scale. Hypoglycemia protocol available as needed. Continue to monitor. (6) Hypertension: Code(s): I10 - Essential (primary) hypertension Status: Acute Assessment and Plan: Stable, continue home meds (7) Hypothyroidism: Code(s): E03.9 - Hypothyroidism, unspecified Status: Acute Assessment and Plan: TSH normal. Continue levothyroxine (8) Unresponsive episode: Code(s): R41.89 - Other symptoms and signs involving cognitive functions and awareness Status: Acute Assessment and Plan: Resolved. Likely secondary to hypoglycemia. (9) Hypoglycemia: Code(s): E16.2 - Hypoglycemia, unspecified Status: Acute Assessment and Plan: A1c 7.3. Hypoglycemia resolved, likely from decreased po intake and too much insulin/medication Ok for a1c to be closer to 8 for her age to decrease risk of hypoglycemia (10) Hyponatremia: Code(s): E87.1 - Hypo-osmolality and hyponatremia Status: Acute Assessment and Plan: slightly worsened, creat and BUN slowly improving, unsure of etiology, could be component of SIADH? will monitor, recheck BMP 1 week after d/c Plan DVT prophylaxis with Lovenox Code status full code DS: Summary Hospital Course Hospital Course: 86-year-old female with insulin dependent diabetes, hypertension, chronic kidney disease, hypothyroidism, and other comorbidities who presented to the ED from home via EMS for evaluation after she was found unresponsive. She had COVID a couple of years ago and has had ongoing issues with shortness of breath since that time. She has otherwise been doing okay however it sounds as though her appetite has not been good for the last 24 hours or so. She took her usua
[2022-07-22] MEDS: INSULIN GLARGINE (*BKC) 100 UNITS/ML SUB-Q (09:27)
[2022-07-22] MEDS: ASPIRIN 81 MG CHEWABLE TABLET PO (09:31)
[2022-07-22] MEDS: ENOXAPARIN 40 MG/0.4 ML SYRINGE SUB-Q (09:32)
[2022-07-22] MEDS: BRIMONIDINE TARTRATE 0.2% OP SOLN 5 ML BTL 1 DROP EACH EYE (09:32)
[2022-07-22] MEDS: EMPAGLIFLOZIN 10 MG TABLET PO (09:32)
[2022-07-22] MEDS: PANTOPRAZOLE 40 MG TABLET PO (09:32)
[2022-07-22] MEDS: FUROSEMIDE 40 MG TABLET PO (09:32)
[2022-07-22] MEDS: EUCERIN CREAM 120 GM JAR 1 APPLIC TOPICAL ×2 (09:33→17:18)
[2022-07-22] MEDS: TIMOLOL MALEATE 0.5% OP SOLN 5 ML BOTTLE 1 DROP EACH EYE (09:33)
[2022-07-22 11:32] VITALS: O2SAT 98
[2022-07-22 12:22] LABS: Glucose Point of Care 150 mg/dl (65-105)
[2022-07-22 13:41] LABS: Alveolar/Arterial O2 Gradient 34.9 mmHg; Base Excess ABG 10.7 mEq/l (+/-2.0); Fractional Inspired Oxygen 28 %; HCO3 ABG 39.4 mEq/l (22.0-26.0); Oxyhemoglobin 93.2 % THb (90.0-100.0); PO2 ABG 76.8 mmHg (80.0-100.0); PO2 FiO2 Ratio Arterial Blood 2.74 %; Total Hemoglobin 12.9 g/dL (12.0-18.0); pH ABG 7.341 (7.350-7.450)
[2022-07-22 13:44] LABS: Device NASAL CANNULA; PCO2 ABG 74.5 mmHg (35.0-45.0); Site Drawn RIGHT BRACHIAL
[2022-07-22 16:00] VITALS: BP 105/50; PULSE 69; RESP 22; TEMP 36.8; O2SAT 97
[2022-07-22 17:12] LABS: Glucose Point of Care 219 mg/dl (65-105)
[2022-07-22] MEDS: INSULIN ASPART (*BKC) 100 UNITS/ML SUB-Q (17:15)
[2022-07-22 18:54] LABS: EDCOVIDSCREEN Negative (Negative)
[2022-07-22 20:48] VITALS: BP 131/54; PULSE 61; RESP 18; TEMP 36.4; O2SAT 100
[2022-07-22] MEDS: INSULIN GLARGINE (*BKC) 100 UNITS/ML 10 UNITS SUB-Q (20:57)
[2022-07-22] MEDS: LATANOPROST 0.005% OP SOLN 2.5 ML BTL 1 DROP EACH EYE (20:57)
--- NOTE | 2022-07-22 21:41 | PC.NURSE ---
Patient discharged via EMS to [facility] @ [id number]
--- NOTE | 2022-07-22 21:43 | PC.NURSE ---
Spoke to Luh @ [facility] and advised patient had left and would be arriving soon
[2022-07-22 22:06] LABS: Glucose Point of Care 243 mg/dl (65-105)
== END 2022-07-22 21:51 | DRG 291 ==
LOC: ANHED 12:31 → ANHIMU 18:15 → ANH3MED 07-19 00:58
PROVIDERS: Internal Medicine; Internal Medicine Pulmonary Disease; Physician Assistant; Admitting Provider Chiropractor; Emergency Provider Emergency Medicine; PCP Family Medicine; Visit Provider Student in an Organized Health Care Education/Training Program
DX: I13.0 Hypertensive heart and chronic kidney disease with heart failure and stage 1 through stage 4 chronic kidney disease, or unspecified chronic kidney disease (principal); I50.33 Acute on chronic diastolic (congestive) heart failure; J96.22 Acute and chronic respiratory failure with hypercapnia; J96.21 Acute and chronic respiratory failure with hypoxia; N17.9 Acute kidney failure, unspecified; E87.1 Hypo-osmolality and hyponatremia; E11.22 Type 2 diabetes mellitus with diabetic chronic kidney disease; E03.9 Hypothyroidism, unspecified; G47.33 Obstructive sleep apnea (adult) (pediatric); M48.02 Spinal stenosis, cervical region; E11.649 Type 2 diabetes mellitus with hypoglycemia without coma; N18.30 Chronic kidney disease, stage 3 unspecified; K21.9 Gastro-esophageal reflux disease without esophagitis; U09.9 Post COVID-19 condition, unspecified; Z20.822 Contact with and (suspected) exposure to COVID-19; Z83.3 Family history of diabetes mellitus; Z82.49 Family history of ischemic heart disease and other diseases of the circulatory system; Z87.891 Personal history of nicotine dependence; Z79.4 Long term (current) use of insulin; Z79.899 Other long term (current) drug therapy
CPT/HCPCS: 36415; 36600; 71045; 72125; 76000; 80048; 80053; 81001; 82085; 82375; 82550; 82607; 82746; 82805; 82948; 83036; 83050; 83735; 83880; 84100; 84439; 84443; 84480; 84484; 85025; 85610; 85730; 86140; 86225; 86235; 87086; 87426; 87636; 93005; 93970; 94002; 94003; 94762; 97110; 97161; 97165; 97530; 97535; 99291; A9270; C8929; C9803; J1650; J1815; J1940; J7070; Q9957

== ENCOUNTER 2022-10-26 13:25 | Outpatient (CLI) | payer MEDICARE, MEDICAID, SELFPAY ==
--- NOTE | 2022-11-04 17:07 | WPDSLEEPSTUD ---
Sleep Study Date of Study: 10/26/22 Ordering Provider: Irving Cisse APRN Interpreting Physician: Orquidea Vela MD Sleep Study Type: Polysomnogram Height: 1.63 m Weight: 86.183 kg Body Mass Index: 32.5 Neck Circumference (inches): 17.75 Crosby: 7 Reason for Sleep Study Using AVAPS-AE and /or BiPAP at home Known Sleep History Carolyn Ramirez is an 87-year-old woman residing at [facility]. She had COVID 19 infection in April of 2020 followed by shortness of breath.?Her dyspnea and orthopnea progressively increased over the last 2 years now causing her to have to sleep nearly upright in a chair. Chest imaging studies over the last 2 years have shown smaller lung volumes than before, elevated diaphragms right greater than left, bibasilar atelectasis on chest CT, and no evidence of parenchymal lung disease on a chest CT done over the last couple of years.? The chest imaging studies in conjunction with the patient's shortness of breath and specifically worsening orthopnea suggest respiratory muscle weakness that started after COVID 19 infection in April of 2020.? Over the last 2 years the patient has developed lower extremity edema and also elevated pulmonary artery systolic pressure as a result of chronic nocturnal hypoxemia.? Nocturnal oximetry done on an outpatient basis showed significant oxyhemoglobin desaturation.? The clinical evidence so far points towards hypercapnic respiratory failure related to R? hemidiaphragm paralysis and possibly due to obesity hypoventilation? syndrome. ? Right hemidiaphragm paralysis is most likely related to cervical radiculopathy as suggested by C-spine CT. She underwent chest fluoroscopy which raised question of a right hemidiaphragm paralysis.? ABG Jul 22, 2022 on 2 L a minute showed pH 7.34, pCO2 75.4, pO2 76, HC03 39, saturation 94%. The patient was discharged to a facility using a Trilogy device. She had a follow-up visit with Dr. Lino September 02 with excellent compliance. However, the patient's daughter called the office September 29 saying that NIV, Trilogy, was denied by insurance and the patient had to be discharged with a BiPAP instead of an NIV. There was a a compliance report from [facility] from 07/22/2022 through 08/21/2022 on her AVAPS-AE with a set rate of 16, tidal volume 500, EPAP minimum 4, EPAP maximum 14, pressure support minimum 8, pressure support maximum 20, rise time 3, ramp length 20, maximum pressure 25; 84% of days with usage greater than 4 hours; average usage per days used is 6 hours and 14 minutes.? Weekly average breath rate 18-20, tidal volume 400-460, EPAP 6 and half to 9, I PAP 23-24, minute ventilation 8-9, leak, 60-98.?This shows excellent compliance. ? The patient indicates that she has loud snoring and disrupted sleep. She rarely awakens from sleep feeling short of breath. She rarely awakens at night with heartburn, belching or coughing. She constantly snores, rarely loudly enough that others complain about it. She frequently has trouble sleeping with a cold. She does not wake up gasping for breath at night. She does frequently have breathing problems at night reported to her by others. She does not sweat excessively at night. She rarely notices her heart pounding or beating irregularly at night. She always falls asleep during the day, always falls asleep involuntarily, never falls asleep while driving. She always loses muscle tone with strong emotion. She does not have daytime difficulties due to excessive sleepiness, she is not currently employed. She does not feel paralyzed on waking or falling asleep. She rarely has vivid dreamlike scenes on waking or falling asleep. She does not feel afraid to go to sleep. She occasionally has nightmares. She rarely remembers her dreams. She frequently has racing thoughts. She occasionally feels sad or depressed. She occasionally feels anxious. She rarely has muscular tension. She occasionally notices parts o
[2022-11-18 11:50] VITALS: BMI 32.5
== END 2022-10-27 06:25 | disposition home or self-care (01) ==
LOC: ANHCSM 13:26
PROVIDERS: PCP Family Medicine; Visit Provider Nurse Practitioner Family
DX: G47.30 Sleep apnea, unspecified (principal); G47.34 Idiopathic sleep related nonobstructive alveolar hypoventilation
CPT/HCPCS: 95810

== ENCOUNTER 2022-12-19 17:30 | Inpatient (IN) | payer MEDICARE, MEDICAID, SELFPAY ==
[2022-12-19] VITALS (16 sets, daily range): BP systolic 101–165; BP diastolic 49–86; PULSE 48–105; RESP 20–31; TEMP 36.4–36.9; O2SAT 84–100; BMI 34.4
--- NOTE | ~2022-12-19 | XR_ITS ---
Portable chest x-ray Comparison: 07/22/2022 Clinical History: Respiratory distress Findings: Small bilateral pleural effusions are present. Mild pulmonary edema pattern present. Card iomediastinal silhouette is stable. Bones and soft tissues are unremarkable. Impression: Mild pulmonary edema pattern with small bilateral pleural effusions. Reviewed, dictated and finalized at [facility]. Impression: Mild pulmonary edema pattern with small bilateral pleural effusions.
--- NOTE | 2022-12-19 17:40 | ECG_ITS ---
Measurements Intervals [place] Rate: 47 P: 249 ME: 148 QRS: -16 QRSD: 110 T: 10 QT: 470 QTc: 417 Interpretive Statements SINUS BRADYCARDIA WITH OCCASIONAL SUPRAVENTRICULAR PREMATURE COMPLEXES LOW QRS VOLTAGE IN EXTREMITY LEADS [QRS DEFLECTION < 0.5 mV IN LIMB LEADS] POSSIBLE ANTERIOR MYOCARDIAL INFARCTION , OF INDETERMINATE AGE [30 ms Q WAVE IN V3/V4, OR R < 0.2 mV IN V4] ABNORMAL ECG COMPARED TO ECG 07/20/2022 16:11:30 SINUS BRADYCARDIA NOW PRESENT Electronically Signed On 12-20-2022 10:37:25 CDT by Brian Reid M.D.
--- NOTE | 2022-12-19 17:45 | ED.SOB ---
HPI - SOB/Dyspnea General Chief Complaint: Shortness of Breath/Dyspnea Stated Complaint: DYSPNEA Time Seen by Provider: 12/19/22 17:30 Source: patient, EMS and RN notes reviewed Mode of arrival: EMS Limitations: clinical condition History of Present Illness HPI Narrative: This is an 87 year old female with history of chronic respiratory failure, obesity hypoventilation syndrome who presents from home in respiratory distress. EMS states patient started having difficulty breathing this morning. EMS states patient was suppose to be on 2 L NC but cannula was not in her nose. Her oxygen saturation was high 80s and increased to low 90s on 2 L. They think her oxygen saturation dropped so they placed her nonrebreather. Her daughter states patient was told that she did not need CPAP or bipap at home so she has not be using. Her daughter is confused because she was on BIPAP when she was in intermediate. She has been using 2 L NC for the past 2 days. Patient denies chest pain, nausea, vomiting, fever or chills. She states she does not want intubation. Related Data Home Medications Medication Instructions Recorded Confirmed bimatoprost 0.01 % eye drops 1 drop ophthalmic (eye) DAILY 08/14/19 09/09/22 (Lumigan) brimonidine 0.2 %-timolol 0.5 % 1 drop ophthalmic (eye) DAILY 08/14/19 09/09/22 eye drops (Combigan) levothyroxine 137 mcg tablet 137 mcg PO DAILY 07/12/22 09/09/22 bisacodyl 10 mg rectal suppository 10 mg RECTAL DAILY PRN 09/02/22 09/09/22 bisacodyl 10 mg/30 mL enema (Fleet 5 mg RECTAL DAILY PRN 09/02/22 09/09/22 Bisacodyl) dulaglutide 0.75 mg/0.5 mL 0.75 mg subcut WEEKLY 09/02/22 09/09/22 subcutaneous pen injector ([facility]) ergocalciferol (vitamin D2) 50,000 unit PO 09/02/22 09/09/22 unit tablet finerenone 10 mg tablet (Kerendia) 10 mg PO DAILY 09/02/22 09/09/22 magnesium citrate (Citroma oral 300 ml PO DAILY PRN 09/02/22 09/09/22 solution) magnesium hydroxide 400 mg/5 mL 400 mg PO DAILY PRN 09/02/22 09/09/22 oral suspension (Milk of Magnandrea) Allergies Allergy/AdvReac Type Severity Reaction Status Date / Time No Known Allergies Allergy Verified 09/09/22 11:17 Review of Systems Constitutional: Constitutional: Denies weakness Cardiovascular: Cardiovascular: Denies syncope, Denies rapid heart rate, Denies irregular heart rhythm, Denies leg edema and Denies dyspnea Respiratory: Respiratory: Denies chest congestion, Denies hemoptysis, Denies excessive phlegm production and Reports dyspnea Gastrointestinal: Gastrointestinal: Denies abdominal pain, Denies hematochezia, Denies diarrhea and Denies vomiting Genitourinary: Genitourinary: Denies hematuria and Denies dysuria Musculoskeletal: Musculoskeletal: Denies joint swelling, Denies loss of height and Denies muscle weakness Neurologic: Denies syncope, Denies focal weakness and Denies weakness PMFSH Past Medical History Medical History (Updated 12/19/22 @ 22:09 by Denice Ronquillo MD) Chronic hypercapnic respiratory failure Chronic kidney disease, stage 3 Congestive heart failure COVID-19 long hauler manifesting chronic dyspnea Diabetes mellitus Gastroparesis GERD without esophagitis Glaucoma Heart failure with preserved ejection fraction Hypertension Hypothyroidism Osteoarthritis Thoracic aortic aneurysm Vitamin D deficiency Surgical History Surgical History History of cornea transplant History of partial thyroidectomy Removal of benign thyroid nodule. Family History Family History Mother Family history of diabetes mellitus in first degree relative Diabetes mellitus Sibling Diabetes mellitus Family history of cardiovascular disease Other Cerebrovascular accident Family history of congestive heart failure Hypertension Social History Social History Socia
[2022-12-19 17:55] LABS: Alveolar/Arterial O2 Gradient 412.7 mmHg; Base Excess ABG 14.2 mEq/l (+/-2.0); Fractional Inspired Oxygen 90 %; HCO3 ABG 47.1 mEq/l (22.0-26.0); Oxygen Content ABG 17.5 %vol (16.0-22.0); Oxygen Saturation ABG 96.2 % (95.0-100.0); Oxyhemoglobin 95.8 % THb (90.0-100.0); PO2 ABG 106.2 mmHg (80.0-100.0); PO2 FiO2 Ratio Arterial Blood 1.18 %; Total Hemoglobin 12.9 g/dL (12.0-18.0)
[2022-12-19 17:56] LABS: PCO2 ABG 119.8 mmHg (35.0-45.0); pH ABG 7.212 (7.350-7.450)
[2022-12-19 17:57] LABS: Device HIGH FLOW NASAL CANN; Modified Allen's Test Pass; Site Drawn RIGHT RADIAL
[2022-12-19 18:00] LABS: Basophils Absolute Auto 0.1 K/mm3 (0.0-0.1); Basophils Percent Auto 0.7 % (0.2-1.2); Eosinophils Absolute Auto 0.1 K/mm3 (0-0.3); Eosinophils Percent Auto 0.6 % (0-4.4); Hematocrit 42.4 % (37.0-47.0); Hemoglobin 11.8 g/dL (12.0-15.0); Immature Granulocyte Absolute 0.04 K/mm3 (0.00-0.031); Immature Granulocyte Percent A 0.5 % (0-0.5); Lymphocytes Absolute Auto 1.48 K/mm3 (0.9-3.2); Lymphocytes Percent Auto 17.1 % (18.3-44.2); Mean Corpuscular HGB Conc 27.8 g/dl (32-36); Mean Corpuscular Hemoglobin 29.9 pg (26-34); Mean Corpuscular Volume 107.3 fl (80-100); Mean Platelet Volume 10.1 fl (7.4-10.4); Neutrophils Absolute Auto 6.1 K/mm3 (1.3-6.7); Neutrophils Percent Auto 70.1 % (45.5-73.1); Platelet Count Result 250 k/mm3 (150-375); Red Blood Count 3.95 M/mm3 (4.2-5.4); Red Cell Distribution Width 13.6 % (11.5-14.5); White Blood Count 8.7 K/mm3 (4.5-10.0)
[2022-12-19 18:14] LABS: Partial Thromboplastin Time 29.8 SECONDS (22.3-36.8); Platelet Estimate Adequate (Adequate); Prothrombin Time 13.9 Seconds (11.1-14.7)
[2022-12-19 18:15] LABS: Basophilic Stippling 1+ (NORMAL); Hypochromasia 1+ (NORMAL)
[2022-12-19 18:16] LABS: Anisocytosis 1+ (NORMAL); Schistocytes None Seen (NORMAL); Stomatocytes 1+ (NORMAL)
[2022-12-19 18:19] LABS: Alanine Aminotransferase 23 U/L (6-35); Albumin Level 3.9 g/dL (3.5-5.1); Alkaline Phosphatase 122 U/L (38-126); Aspartate Amino Transferase 58 U/L (14-36); Bilirubin,Total 0.3 mg/dL (0.2-1.3); Blood Urea Nitrogen 33 mg/dL (7-17); Calcium 8.6 mg/dL (8.4-10.2); Carbon Dioxide > 40 mmol/L (22-30); Chloride 98 mmol/L (98-107); Estimated CRCL calculation 33 ml/min; Estimated Glomerular Filt Rate 52; Glucose 246 mg/dL (65-110); Magnesium 2.6 mg/dL (1.6-2.3); Potassium 5.9 mmol/L (3.4-5.0); Sodium 140 mmol/L (137-145)
[2022-12-19 18:29] LABS: NT Pro B Type Natriuretic Pept 2560 pg/mL (19.9-100); Troponin I < 0.012 ng/mL (0.000-0.034)
[2022-12-19] MEDS: FUROSEMIDE INJ 40 MG/4 ML VIAL IV PUSH (19:27)
[2022-12-19 19:57] LABS: Alveolar/Arterial O2 Gradient 303.5 mmHg; Base Excess ABG 11.9 mEq/l (+/-2.0); Carboxyhemoglobin 0.8 % THb (0-2.0); Fractional Inspired Oxygen 70 %; HCO3 ABG 41.7 mEq/l (22.0-26.0); Methemoglobin ABG 0.3 %THb (0-1.5); Oxygen Content ABG 17.2 %vol (16.0-22.0); Oxygen Saturation ABG 96.8 % (95.0-100.0); Oxyhemoglobin 96.4 % THb (90.0-100.0); PO2 ABG 102.7 mmHg (80.0-100.0); PO2 FiO2 Ratio Arterial Blood 1.47 %; Reduced Hemoglobin 2.5 %THb (0-5.0); Total Hemoglobin 12.6 g/dL (12.0-18.0); pH ABG 7.302 (7.350-7.450)
[2022-12-19 20:10] LABS: Device BIPAP; Modified Allen's Test Pass; PCO2 ABG 86.4 mmHg (35.0-45.0); Site Drawn RIGHT RADIAL
[2022-12-19 20:11] LABS: Expiratory Pressure 8 cmH2O; Inspiratory Pressure 14 cmH2O
--- NOTE | 2022-12-19 20:40 | PM.IMHP ---
H&P: HPI History of Present Illness Date/Time: 12/19/22 20:40 Chief Complaint: Shortness of breath Narrative: 87-year-old female with a past medical history of paralyzed right hemidiaphragm, obesity with possible obesity hypoventilation syndrome, chronic hypercapnic respiratory failure, type 2 diabetes mellitus, hypertension chronic kidney disease among other comorbidities presented to the ER after add being short of breath since last night. The patient lives at home with her . Her daughter at bedside provides most of the information. The patient is alert oriented x3 but is not the best historian. Daughter reports that the patient was just discharged from the long term facility after being there for rehab since June. During her last hospitalization she had new diagnosis of chronic hypercapnic respiratory failure. Thought to be due to long COVID, right hemidiaphragm elevation and possible obesity hypoventilation syndrome. There was also suspect a component of obstructive sleep apnea. The patient had a polysomnogram completed in October that was negative for obstructive sleep apnea. They told patient that she did not need to use BiPAP anymore reportedly and could just use 2 L nasal cannula. However I do not think that they took into consideration the patient is so hypercapnic. The patient did have a CPAP reportedly delivered to the house shortly after her polysomnogram. The patient tried to use it for 3 days but did not tolerate it and so stopped using it. However the patient was not using it with oxygen. The machine was just dropped off at the house and was not fit to patient and she is not given instructions on how to use the machine. A patient herself stated that she had only been short of breath since this morning but the daughter states the patient had started having shortness of breath yesterday. He got worse as the day went on. The patient does have evidence of some chronic lymphedema but actually her legs appear in better condition than with her prior hospitalization in she actually has some redundant skin folds. She has been having dyspnea exertion and what sounds like some orthopnea. The patient was alert orient x2 on presentation to the ER in her ABG demonstrated marked hypercarbia with acute on chronic respiratory acidosis. The patient mentation improved after putting placed on BiPAP. By the time patient arrived to the IMU the patient was trying to pull the BiPAP off and was uncooperative with BiPAP. In the ER repeat ABG was performed which demonstrated improving respiratory acidosis. The patient placed on BiPAP of 14/8 initially with 100% FiO2. Review of Systems Review of Systems: 12 systems were reviewed with pertinent positives and negatives per HPI. Except as documented in the HPI, all other systems were reviewed and are negative. The patient denies any urinary symptoms. She has not been having any fevers. She denies ill contact. She has been having regular bowel movements without hematochezia or melena. [facility] Past Medical History Medical History (Updated 12/20/22 @ 08:21 by Kari Mayfield DO) Chronic hypercapnic respiratory failure With negative polysomnogram but thought to be due to elevated right hemidiaphragm, long COVID and possible obesity hypoventilation syndrome Chronic kidney disease, stage 3 Congestive heart failure COVID-19 long hauler manifesting chronic dyspnea Diabetes mellitus Gastroparesis GERD without esophagitis Glaucoma Heart failure with preserved ejection fraction Hypertension Hypothyroidism Osteoarthritis Thoracic aortic aneurysm Vitamin D deficiency Surgical History Surgical History History of cornea transplant History of partial thyroidectomy Removal of benign thyroid nodule. Family History Family History (Updated 12/19/22 @ 23:53 by Sola Li RN) Mother Diabetes mellitus Family history of diabete
[2022-12-19] MEDS: SODIUM BICARBONATE 8.4% 50 MEQ/50 ML SYRINGE IV PUSH (20:53)
--- NOTE | 2022-12-19 22:19 | PC.NURSE ---
pt received 1000 mg in 50 ml not 1000 in 100 ml. Pt only had 50 ml...pharmacy was suppose to correct error,
[2022-12-19 22:55] LABS: Glucose Point of Care 131 mg/dl (65-105)
--- NOTE | 2022-12-19 23:21 | ADMGEN ---
This patient, Carolyn Ramirez, was admitted to IMU Room 231-01 on 12/19/22 at 2247. Patient/family oriented to hospital policies and general routines including ID bracelet, bed and alarms, visiting hours, pain management, procedures, bathroom and other care routines, personal items, smoking policy, room service/diet, and visiting hours. Information on how to activate the Rapid Response Team has been discussed. Patient/Family are encouraged to report perceived risks to care and to ask questions if they do not understand what they are told or what they should do.
[2022-12-20] VITALS (18 sets, daily range): BP systolic 143–173; BP diastolic 63–79; PULSE 72–92; RESP 19–30; TEMP 36.2–37.4; O2SAT 95–100; BMI 34.4
[2022-12-20 00:32] LABS: Glucose Point of Care 117 mg/dl (65-105)
[2022-12-20 00:49] LABS: Blood Urea Nitrogen 33 mg/dL (7-17); Calcium 9.1 mg/dL (8.4-10.2); Carbon Dioxide > 40 mmol/L (22-30); Chloride 98 mmol/L (98-107); Estimated CRCL calculation 33 ml/min; Estimated Glomerular Filt Rate 52; Glucose 137 mg/dL (65-110); Potassium 5.8 mmol/L (3.4-5.0); Sodium 141 mmol/L (137-145)
[2022-12-20 04:39] LABS: Basophils Percent Auto 0.5 % (0.2-1.2); Eosinophils Absolute Auto 0.1 K/mm3 (0-0.3); Eosinophils Percent Auto 0.6 % (0-4.4); Hematocrit 40.7 % (37.0-47.0); Hemoglobin 11.8 g/dL (12.0-15.0); Immature Granulocyte Absolute 0.03 K/mm3 (0.00-0.031); Immature Granulocyte Percent A 0.4 % (0-0.5); Lymphocytes Absolute Auto 1.64 K/mm3 (0.9-3.2); Lymphocytes Percent Auto 19.6 % (18.3-44.2); Mean Corpuscular Hemoglobin 29.5 pg (26-34); Mean Corpuscular Volume 101.8 fl (80-100); Mean Platelet Volume 10.1 fl (7.4-10.4); Monocytes Percent Auto 11.5 % (2.6-8.5); Neutrophils Absolute Auto 5.6 K/mm3 (1.3-6.7); Neutrophils Percent Auto 67.4 % (45.5-73.1); Platelet Count Result 243 k/mm3 (150-375); Red Cell Distribution Width 13.5 % (11.5-14.5); White Blood Count 8.4 K/mm3 (4.5-10.0)
[2022-12-20 04:47] LABS: Magnesium 2.4 mg/dL (1.6-2.3)
[2022-12-20 04:48] LABS: Alanine Aminotransferase 20 U/L (6-35); Albumin Level 3.8 g/dL (3.5-5.1); Alkaline Phosphatase 123 U/L (38-126); Aspartate Amino Transferase 41 U/L (14-36); Bilirubin,Total 0.3 mg/dL (0.2-1.3); Blood Urea Nitrogen 30 mg/dL (7-17); Calcium 9.3 mg/dL (8.4-10.2); Carbon Dioxide > 40 mmol/L (22-30); Chloride 94 mmol/L (98-107); Estimated CRCL calculation 33 ml/min; Estimated Glomerular Filt Rate 52; Glucose 89 mg/dL (65-110); Potassium 5.1 mmol/L (3.4-5.0); Sodium 140 mmol/L (137-145)
[2022-12-20 05:50] LABS: Alveolar/Arterial O2 Gradient 87.6 mmHg; Base Excess ABG 18.1 mEq/l (+/-2.0); Carboxyhemoglobin 0.9 % THb (0-2.0); Fractional Inspired Oxygen 35 %; HCO3 ABG 45.8 mEq/l (22.0-26.0); Methemoglobin ABG 0.3 %THb (0-1.5); Oxygen Content ABG 17.2 %vol (16.0-22.0); Oxygen Saturation ABG 95.9 % (95.0-100.0); PO2 ABG 81.7 mmHg (80.0-100.0); PO2 FiO2 Ratio Arterial Blood 2.33 %; Reduced Hemoglobin 2.8 %THb (0-5.0); Total Hemoglobin 12.7 g/dL (12.0-18.0)
[2022-12-20 05:57] LABS: Device NON-INVASIVE VENT; Site Drawn RIGHT BRACHIAL
[2022-12-20 05:58] LABS: Non-Invasive Expiratory Pressure 6 CMH2O; Non-Invasive Inspiratory Pressure 14 CMH2O; Non-Invasive Vent Rate 20 /MIN
[2022-12-20 08:02] LABS: Glucose Point of Care 81 mg/dl (65-105)
[2022-12-20] MEDS: LEVOTHYROXINE SODIUM 112 MCG TABLET PO (10:04)
[2022-12-20] MEDS: PANTOPRAZOLE 40 MG TABLET PO (10:04)
[2022-12-20] MEDS: EMPAGLIFLOZIN 10 MG TABLET PO (10:04)
[2022-12-20] MEDS: CHOLECALCIFEROL 1,000 UNITS TABLET 1000 UNITS PO (10:04)
[2022-12-20] MEDS: LEVOTHYROXINE SODIUM 25 MCG TABLET PO (10:04)
[2022-12-20] MEDS: FUROSEMIDE 40 MG TABLET PO ×2 (10:04→18:03)
[2022-12-20] MEDS: BRIMONIDINE TARTRATE 0.2% OP SOLN 5 ML BTL 1 DROP EACH EYE (10:05)
[2022-12-20] MEDS: ENOXAPARIN 40 MG/0.4 ML SYRINGE SUB-Q (10:05)
[2022-12-20] MEDS: TIMOLOL MALEATE 0.5% OP SOLN 5 ML BOTTLE 1 DROP EACH EYE (10:05)
[2022-12-20] MEDS: ASPIRIN 81 MG CHEWABLE TABLET PO (10:05)
--- NOTE | 2022-12-20 11:28 | PM.IMPN ---
Progress Note: A&P Assessment and Plan (1) Acute on chronic respiratory failure with hypoxia and hypercapnia: Code(s): J96.21 - Acute and chronic respiratory failure with hypoxia; J96.22 - Acute and chronic respiratory failure with hypercapnia Status: Acute Assessment and Plan: The patient has acute on chronic hypercapnic respiratory failure. This is likely due to her not using BiPAP at home. The polysomnogram did not indicate obstructive sleep apnea but that does not mean the patient is not hypoventilating from other causes such as a right hemidiaphragm malfunction, long COVID and/or obesity hypoventilation. The patient has had good improvement in her ABG with BiPAP. The patient would benefit from BiPAP used each night but this is likely going to be difficult as the patient was not cooperative with BiPAP when she arrived to IMU. 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 She may have some component of acute kidney injury on chronic kidney disease but I suspect this is more likely the patient's new baseline creatinine. Will continue monitor urine output closely. (5) Heart failure with preserved ejection fraction: Qualifiers: Heart failure chronicity: acute on chronic Qualified Code(s): I50.33 - Acute on chronic diastolic (congestive) heart failure Code(s): I50.30 - Unspecified diastolic (congestive) heart failure Status: Acute Assessment and Plan: Continue Lasix Subjective Date/time seen: 12/20/22 11:28 Interval history: Patient confused. Did not wear BiPAP last night Review of Systems Review of Systems: ROS unobtainable: Yes unobtainable due to mental status Exam Const: General: alert and ill appearing Nutritional Appearance: well nourished and obese HENMT: Head: normal to inspection Eyes: EOM: EOMs intact bilaterally Resp: Effort & Inspection: labored and uses accessory muscles Auscultation: diminished lung sounds Cardio: Rate: bradycardic Rhythm: regular rhythm Heart sounds: no murmurs GI: GI Palp: Yes Soft to palpation, No Tenderness to palpation present (GI), No Guarding due to palpation present (GI) and No Rigid due to palpation Auscultation: normal bowel sounds Back/Spine/Pelvis: Back: no CVA tenderness Skin: General skin exam: normal color Rashes: no rashes Wounds: no wounds Neuro: General: moves all extremities Extrem: General: edema Psych: Mental Status: mental status grossly normal Affect: normal affect Attitude: cooperative Objective Data Vital Signs Vital Signs: Vital Signs - 24 hr 12/19/22 17:36 12/19/22 17:42 12/19/22 17:42 Temperature 97.6 F Pulse Rate 52 L 49 L Respiratory Rate 27 H Blood Pressure Pulse Oximetry 84 L 97 Oxygen Delivery Room Air High Flow Therapy with Na Oxygen Flow Rate 4 Fraction of Inspired Oxygen 12/19/22 17:47 12/19/22 18:05 12/19/22 18:05 Temperature Pulse Rate 48 L 67 100 Respiratory Rate 29 H 23 H 23 H Blood Pressure 115/52 L Pulse Oximetry 100 100 Oxygen Delivery BiPAP Oxygen Flow Rate Fraction of Inspired Oxygen
[2022-12-20 12:09] LABS: Glucose Point of Care 84 mg/dl (65-105)
--- NOTE | 2022-12-20 13:17 | PCNWS ---
Weekly nutritional screen. Patient intakes are 5-50% current regular diet. Pt does not like the food at all. Family has been bringing her food so charted intakes are low. No weight loss reported. No nutritional needs at this time.
--- NOTE | 2022-12-20 13:43 | PC.NURSE ---
This patient, Carolyn Ramirez, was transferred to [ [facility]2] on 12/20/22 at 1340. Personal belongings sent with patient. Report given to [ RAYNA Stephens @ 4120]. Appropriate documentation sent with patient.
--- NOTE | 2022-12-20 13:50 | PC.NURSE ---
This patient, Carolyn Ramirez, was received from [231-01] on 12/20/22 at 1350. Patient/family oriented to unit policies and routines. Report from Tara WAY.
--- NOTE | 2022-12-20 15:57 | PCPTNOTE ---
On 12/20/22, the student, Kristie WHALEN, provided care and completed [employer] documentation on this patient. I have reviewed the student's documentation and agree with the findings.
[2022-12-20 17:00] LABS: Glucose Point of Care 90 mg/dl (65-105)
[2022-12-20] MEDS: INSULIN GLARGINE (*BKC) 100 UNITS/ML 14 UNITS SUB-Q (20:57)
[2022-12-20] MEDS: LATANOPROST 0.005% OP SOLN 2.5 ML BTL 1 DROP EACH EYE (21:00)
[2022-12-20 21:12] LABS: Glucose Point of Care 123 mg/dl (65-105)
[2022-12-21] VITALS (8 sets, daily range): BP systolic 96–123; BP diastolic 48–79; PULSE 68–73; RESP 14–27; TEMP 36–36.3; O2SAT 95–100
[2022-12-21] MEDS: LEVOTHYROXINE SODIUM 25 MCG TABLET PO (05:54)
[2022-12-21] MEDS: LEVOTHYROXINE SODIUM 112 MCG TABLET PO (05:54)
[2022-12-21 07:44] LABS: Glucose Point of Care 47 mg/dl (65-105)
[2022-12-21 07:44] LABS: Glucose Point of Care 46 mg/dl (65-105)
[2022-12-21 08:15] LABS: Glucose Point of Care 80 mg/dl (65-105)
[2022-12-21] MEDS: EMPAGLIFLOZIN 10 MG TABLET PO (08:15)
[2022-12-21] MEDS: FUROSEMIDE 40 MG TABLET PO ×2 (08:15→16:49)
[2022-12-21] MEDS: BRIMONIDINE TARTRATE 0.2% OP SOLN 5 ML BTL 1 DROP EACH EYE (08:15)
[2022-12-21] MEDS: CHOLECALCIFEROL 1,000 UNITS TABLET 1000 UNITS PO (08:15)
[2022-12-21] MEDS: ASPIRIN 81 MG CHEWABLE TABLET PO (08:15)
[2022-12-21] MEDS: TIMOLOL MALEATE 0.5% OP SOLN 5 ML BOTTLE 1 DROP EACH EYE (08:16)
[2022-12-21] MEDS: PANTOPRAZOLE 40 MG TABLET PO (08:16)
[2022-12-21] MEDS: ENOXAPARIN 40 MG/0.4 ML SYRINGE SUB-Q (08:16)
--- NOTE | 2022-12-21 09:38 | PM.DS ---
DS: Admitting Diagnosis Discharge Date 12/21/2022 Admitting Diagnosis Acute hypoxic hypercapnic respiratory failure DS: Discharge Diagnosis Discharge Diagnosis (1) Acute on chronic respiratory failure with hypoxia and hypercapnia: Code(s): J96.21 - Acute and chronic respiratory failure with hypoxia; J96.22 - Acute and chronic respiratory failure with hypercapnia Status: Acute (2) Type 2 diabetes mellitus with hyperglycemia, with long-term current use of insulin: Code(s): E11.65 - Type 2 diabetes mellitus with hyperglycemia; Z79.4 - roasterman (current) use of insulin Status: Acute DS: Summary Hospital Course Hospital Course: (1) Acute on chronic respiratory failure with hypoxia and hypercapnia: ?Code(s): J96.21 - Acute and chronic respiratory failure with hypoxia; J96.22 - Acute and chronic respiratory failure with hypercapnia ?Status:?Acute ?Assessment and Plan: The patient has acute on chronic hypercapnic respiratory failure.? This is likely due to her not using BiPAP at home.? The polysomnogram did not indicate obstructive sleep apnea but that does not mean the patient is not hypoventilating from other causes such as a right hemidiaphragm malfunction, long COVID and/or obesity hypoventilation.? The patient has had good improvement in her ABG with BiPAP.? The patient would benefit from BiPAP used each night but this is likely going to be difficult as the patient was not cooperative with BiPAP when she arrived to IMU.? Patient was counseled on using BiPAP. She used her BiPAP last night. She is back to her baseline. Patient will be discharged home with home health for medication and BiPAP compliance (2) Obesity hypoventilation syndrome: ?Code(s): E66.2 - Morbid (severe) obesity with alveolar hypoventilation ?Status:?Acute ?Assessment and Plan: As above (3) Diabetes mellitus: ?Qualifiers: ?Diabetes mellitus type:?type 2??Diabetes mellitus alf insulin use:?with alf use??Diabetes mellitus complication status:?with hyperglycemia? Qualified Code(s):?E11.65 - Type 2 diabetes mellitus with hyperglycemia; Z79.4 - [facility] (current) use of insulin ?Code(s): E11.9 - Type 2 diabetes mellitus without complications ?Status:?Acute ?Assessment and Plan: Continue home meds along with insulin (4) Acute kidney injury superimposed on chronic kidney disease: ?Code(s): N17.9 - Acute kidney failure, unspecified; N18.9 - Chronic kidney disease, unspecified ?Status:?Acute ?Assessment and Plan: Patient does have chronic kidney disease.? She may have some component of acute kidney injury on chronic kidney disease but I suspect this is more likely the patient's new baseline creatinine.? Will continue monitor urine output closely. (5) Heart failure with preserved ejection fraction: ?Qualifiers: ?Heart failure chronicity:?acute on chronic? Qualified Code(s):?I50.33 - Acute on chronic diastolic (congestive) heart failure ?Code(s): I50.30 - Unspecified diastolic (congestive) heart failure ?Status:?Acute ?Assessment and Plan: Continue Lasix Discharge home with home health Time Spent with Patient Time attestation: Total time spent providing and/or coordinating discharge services: DS: Data Data Completed and Pending Labs on day of discharge: Labs from last 24 hours 12/21/22 12/21/22 12/21/22 08:12 07:39 07:38 POC Capillary Glucose 80 47 L* 46 L* 12/20/22 12/20/22 12/20/22 20:53 16:57 11:35 POC Capillary Glucose 123 H 90 84 Preliminary micro results at discharge 12/19/22 19:39 Blood Culture - Preliminary Blood 12/19/22 19:39 Blood Culture - Preliminary Blood Discharge Plan Discharge Discharging Clinician: Emory Belcher Anticipated Discharge Date/Time: 12/21/22 09:37 Patient Disposition: Home Health Service Activity: no preference Diet: heart healthy and diabetic Patient
[2022-12-21 11:30] LABS: Glucose Point of Care 118 mg/dl (65-105)
[2022-12-21 16:35] LABS: Glucose Point of Care 139 mg/dl (65-105)
[2022-12-21 21:08] LABS: Glucose Point of Care 233 mg/dl (65-105)
[2022-12-21] MEDS: LATANOPROST 0.005% OP SOLN 2.5 ML BTL 1 DROP EACH EYE (21:37)
[2022-12-21] MEDS: INSULIN ASPART (*BKC) 100 UNITS/ML SUB-Q (21:38)
[2022-12-21] MEDS: INSULIN GLARGINE (*BKC) 100 UNITS/ML 14 UNITS SUB-Q (21:39)
[2022-12-22] VITALS (13 sets, daily range): BP systolic 72–121; BP diastolic 49–66; PULSE 66–80; RESP 14–21; TEMP 35.9–36.2; O2SAT 88–100
[2022-12-22] MEDS: LEVOTHYROXINE SODIUM 112 MCG TABLET PO (05:45)
[2022-12-22] MEDS: LEVOTHYROXINE SODIUM 25 MCG TABLET PO (05:45)
[2022-12-22 07:49] LABS: Glucose Point of Care 94 mg/dl (65-105)
[2022-12-22] MEDS: ASPIRIN 81 MG CHEWABLE TABLET PO (08:45)
[2022-12-22] MEDS: BRIMONIDINE TARTRATE 0.2% OP SOLN 5 ML BTL 1 DROP EACH EYE (08:46)
[2022-12-22] MEDS: TIMOLOL MALEATE 0.5% OP SOLN 5 ML BOTTLE 1 DROP EACH EYE (08:46)
[2022-12-22] MEDS: ENOXAPARIN 40 MG/0.4 ML SYRINGE SUB-Q (08:46)
[2022-12-22] MEDS: CHOLECALCIFEROL 1,000 UNITS TABLET 1000 UNITS PO (08:47)
[2022-12-22] MEDS: EMPAGLIFLOZIN 10 MG TABLET PO (08:47)
[2022-12-22] MEDS: FUROSEMIDE 40 MG TABLET PO (08:47)
[2022-12-22] MEDS: PANTOPRAZOLE 40 MG TABLET PO (08:47)
--- NOTE | 2022-12-22 09:32 | PM.CNPUL ---
Assessment and Plan Assessment and plan (1) Obesity hypoventilation syndrome: Code(s): E66.2 - Morbid (severe) obesity with alveolar hypoventilation Status: Acute Assessment and Plan: The patient has obesity hypoventilation syndrome diagnosed 07/22/2022 with a daytime blood gas on 07/22/2022 at 1:32 p.m. of 7.34/75/77 on 2 L nasal cannula. She was?discharged on 07/22/22 to [facility] with a trilogy noninvasive ventilator set up through [employer].? 09/02/2022: Follow up in Pulmonary Clinic. Today she tells me that? she is doing very well and has no more exacerbations or hospitalizations since her last visit.? She is wearing the noninvasive ventilator at night and this helps her clinically.? She is more rested and states she has more energy.? Currently she is wearing 2 L nasal cannula with rest and ambulation and undergoing physical therapy in getting stronger.? She can walk half the hallway and back on a good day. Patient has lost weight from 202 lb to 192 today.?Patient is not taking any inhalers. I had a download from [employer] from 07/22/2022 through 08/21/2022.? Patient is on AVAPS-AE with a set rate of 16, tidal volume 500, EPAP minimum 4, EPAP maximum 14, pressure support minimum 8, pressure support maximum 20, rise time 3, ramp length 20, maximum pressure 25.? % of days with usage greater than 4 hours is 84%.? Average usage per days used is 6 hours and 14 minutes.? Weekly averages breath rate 18-20, tidal volume 400-460, EPAP 6 and half to 9, I PAP 23-24, minute ventilation 8-9, leak, 60-98.??I interpret this as excellent compliance, adequate pressures and high leak.? Regarding the high leak the patient states that if the mask is not tightened up she would does have a leak.? She wears a fullface mask. The patient told me that [facility] had appealed to [facility] to get a home noninvasive ventilation but this appeal was denied. Patient was discharged home approximately 12/15/2022 with no BiPAP or noninvasive ventilation. She was wearing oxygen 2 L at rest and with ambulation but no oxygen with an auto Pap machine that was delivered to her home. She was admitted to the hospital on 12/19 with acute on chronic hypercarbic respiratory failure with a blood gas of ABG on 40% FiO2 was 7.21/120/106. Patient was placed on BiPAP and 1-1/2 hours later blood gas was 7.30/86/103. The patient was continued on BiPAP overnight rate of 20, pressures 14/6 with 35% FiO2 and repeat blood gas the next morning was 7.44/69/82. Patient has obesity hypoventilation syndrome and would benefit from noninvasive ventilation to prevent further deterioration and subsequent hospitalizations. she has not tolerated BiPAP previously and has difficulty sleeping with this in the hospital this admission. She previously has tolerated noninvasive ventilator with the a AVAPS-AE mode: With a set rate of 16, tidal volume 500, EPAP minimum 4, EPAP maximum 14, pressure support minimum 8, pressure support maximum 20, rise time 3, ramp length 20, maximum pressure 25.? tonight I will place her on noninvasive ventilation with the AVAPS mode and hospital machine set rate 16, tidal volume 500, EPAP 7, minimal inspiratory pressure 8, maximal inspiratory pressure 25 and 28% FIO2. We are in contact with the [employer] for her home oxygen and [employer] for her home noninvasive ventilation arrangements. I ordered a home O2 assessment. I will order an iron, TIBC panel and ferritin for her increased leg movements. Will follow with you. History of Present Illness History of Present Illness Consult date: 12/22/22 Chief complaint: Acute Respiratory Failure w/Hypoxia & Hypercapnia Narrative: 12/22/2022: This is a new pulmonary consult for obesity hypoventilation syndrome. 87-year-old with a history of obesity hypoventilation syndrome with chronic hypercarbic respiratory failure, paralyzed right hemidiaphragm, diabetes, hypertension, and CKD. Patient
[2022-12-22 11:37] LABS: Glucose Point of Care 206 mg/dl (65-105)
[2022-12-22 11:40] LABS: Iron 52 ug/dL (37-170)
[2022-12-22 11:49] LABS: Percent Iron Saturation 20 % (20-50)
[2022-12-22 12:17] LABS: Alveolar/Arterial O2 Gradient 18.9 mmHg; Fractional Inspired Oxygen 24 %; HCO3 ABG 40.3 mEq/l (22.0-26.0); Oxygen Saturation ABG 96.8 % (95.0-100.0); Oxyhemoglobin 94.7 % THb (90.0-100.0); PCO2 ABG 56.3 mmHg (35.0-45.0); PO2 ABG 85.2 mmHg (80.0-100.0); PO2 FiO2 Ratio Arterial Blood 3.55 %; Total Hemoglobin 14.6 g/dL (12.0-18.0); pH ABG 7.473 (7.350-7.450)
[2022-12-22 12:19] LABS: Device NASAL CANNULA; Modified Allen's Test Pass; Site Drawn RIGHT RADIAL
[2022-12-22] MEDS: INSULIN ASPART (*BKC) 100 UNITS/ML SUB-Q (12:58)
--- NOTE | 2022-12-22 13:54 | HOMEO2EVAL ---
Evaluation was performed at [facility] Home Oxygen Evaluation RC: Home Oxygen (O2) Evaluation Start: 12/22/22 09:54 Freq: ONCE Status: Active Protocol: RPE Activity Type Activity Date Activity User E-sign Co-sign Detail Recorded Client Recorded Date Recorded By Document 12/22/22 11:00 [email or web address] [email or web address] 12/22/22 13:54 DJO Document 12/22/22 11:05 [email or web address] [email or web address] 12/22/22 13:54 DJO Document 12/22/22 11:10 [email or web address] [email or web address] 12/22/22 13:54 DJO Document 12/22/22 11:15 [email or web address] [email or web address] 12/22/22 13:54 DJO Document 12/22/22 11:25 [email or web address] [email or web address] 12/22/22 13:54 DJO 12/22/22 12/22/22 12/22/22 11:00 11:05 11:10 Home O2 Evaluation [Oxygen] -Test Phase Resting Resting Exercise -Oxygen Delivery Room Air Nasal Cannula Nasal Cannula -Oxygen Flow Rate (L/min) 1 1 [Pulse Oximetry] -Pulse Oximetry (90-100 %) 88 L 92 88 L [Pulse Rate] -Pulse Rate (60-100 beats/min) 69 68 79 [Evaluation] -Activity Tolerance Poor [Charges] -Treatment Charges O2 Evaluation - Inpatient 12/22/22 12/22/22 11:15 11:25 Home O2 Evaluation [Oxygen] -Test Phase Exercise Resting -Oxygen Delivery Nasal Cannula Nasal Cannula -Oxygen Flow Rate (L/min) 2 1 [Pulse Oximetry] -Pulse Oximetry (90-100 %) 91 92 [Pulse Rate] -Pulse Rate (60-100 beats/min) 80 70 [Evaluation] -Activity Tolerance [Charges] -Treatment Charges
--- NOTE | 2022-12-22 15:09 | PM.IMPN ---
Progress Note: A&P Assessment and Plan (1) Acute on chronic respiratory failure with hypoxia and hypercapnia: Code(s): J96.21 - Acute and chronic respiratory failure with hypoxia; J96.22 - Acute and chronic respiratory failure with hypercapnia Status: Acute (2) Type 2 diabetes mellitus with hyperglycemia, with long-term current use of insulin: Code(s): E11.65 - Type 2 diabetes mellitus with hyperglycemia; Z79.4 - alf (current) use of insulin Status: Acute Plan The patient has acute on chronic hypercapnic respiratory failure. This is likely due to her not using BiPAP at home. The polysomnogram did not indicate obstructive sleep apnea but that does not mean the patient is not hypoventilating from other causes such as a right hemidiaphragm malfunction, long COVID and/or obesity hypoventilation. The patient has had good improvement in her ABG with BiPAP. Will repeat ABG in a.m.. If ABGs improved will give the patient a break from BiPAP. The patient would benefit from BiPAP used each night. Patient will be discharged home with home health for medication and BiPAP compliance Subjective Date/time seen: 12/22/22 15:09 Interval history: Pt having low Bp awaiting BIPAP machine Review of Systems Review of Systems: No specific complaints Exam Const: General: alert, ill appearing, well nourished and obese Nutritional Appearance: well nourished and obese Other: Acutely ill-appearing, elderly, obese HENMT: Head: normal to inspection Other: Mucous membranes are tacky, crowded posterior oropharynx Eyes: EOM: EOMs intact bilaterally Other: Eyes are slightly protuberant, conjunctival erythema noted bilaterally, senile changes to the iris bilateral Neck: Other: Short neck, large neck circumference, no JVD Resp: Effort & Inspection: labored and uses accessory muscles Auscultation: diminished lung sounds Other: Shallow rapid respirations, no accessory muscle use Cardio: Rate: bradycardic Rhythm: regular rhythm Heart sounds: no murmurs Other: Regular rhythm, slow rate, 2+ bilateral radial and pedal pulses, no JVD GI: Auscultation: normal bowel sounds Other: Obese, distended, nontender, positive bowel sounds : General: Yes no CVA tenderness Back/Spine/Pelvis: Back: no CVA tenderness Skin: General skin exam: normal color Rashes: no rashes Wounds: no wounds Other: No pallor, non jaundice, normal temperature to touch Neuro: General: moves all extremities Other: Alert orient x3, speech is clear, no facial asymmetry, although the patient is alert orient x3 she is poor historian Extrem: General: edema Other: No cyanosis, chronic changes consistent with chronic lymphedema of the lower extremities but improved compared to prior exam Psych: Mental Status: mental status grossly normal Affect: normal affect Attitude: cooperative Other: Appropriate mood and affect, pleasant and cooperative, judgment and insight intact Objective Data Vital Signs Vital Signs: Vital Signs - 24 hr 12/21/22 17:51 12/21/22 21:22 12/21/22 20:00 Temperature 36.3 C L Pulse Rate 71 71 Respiratory Rate 14 14 Blood Pressure 106/57 L 116/57 L Pulse Oximetry 100 100 Oxygen Delivery Nasal Cannula Oxygen Flow Rate 2 Fraction of Inspired Oxygen 35 12/21/22 22:50 12/22/22 02:41 12/22/22 06:00 Temperature 35.9 C L Pulse Rate 73 71 68 Respiratory Rate 27 H 21 H 14 Blood Pressure 121/66 Pulse Oximetry 96 97 100 Oxygen Delivery BiPAP BiPAP Oxygen Flow Rate Fraction of Inspired Oxygen 12/22/22 08:40 12/22/22 12:21 12/22/22 11:00 Temperature Pulse Rate 69 Respiratory Rate Blood Pressure Pulse Oximetry 99 96 88 L Oxygen Delivery Nasal Cannula Nasal Cannula Room Air Oxygen Flow Rate 2 1 Fraction of Inspired Oxygen 12/22/22 11:05 12/22/22 11:10 12/22/22 11:15 Temperature Pulse Rate 68 79 8
[2022-12-22 16:39] LABS: Glucose Point of Care 118 mg/dl (65-105)
[2022-12-22 21:29] LABS: Glucose Point of Care 193 mg/dl (65-105)
[2022-12-22] MEDS: INSULIN GLARGINE (*BKC) 100 UNITS/ML 14 UNITS SUB-Q (21:36)
[2022-12-22] MEDS: LATANOPROST 0.005% OP SOLN 2.5 ML BTL 1 DROP EACH EYE (21:37)
[2022-12-23] VITALS (8 sets, daily range): BP systolic 97–112; BP diastolic 57–63; PULSE 61–89; RESP 16–25; TEMP 35.9–36.3; O2SAT 95–100
--- NOTE | 2022-12-23 05:36 | PC.NURSE ---
Spoke with Dr. Porras about patient noted to have a yeast-like area under right abdominal fold. New order for anti fungal powder BID.
[2022-12-23] MEDS: LEVOTHYROXINE SODIUM 25 MCG TABLET PO (05:38)
[2022-12-23] MEDS: LEVOTHYROXINE SODIUM 112 MCG TABLET PO (05:38)
[2022-12-23 06:02] LABS: Alveolar/Arterial O2 Gradient 47.9 mmHg; Base Excess ABG 13.1 mEq/l (+/-2.0); Fractional Inspired Oxygen 28 %; Oxygen Content ABG 18.7 %vol (16.0-22.0); PO2 ABG 80.7 mmHg (80.0-100.0); PO2 FiO2 Ratio Arterial Blood 2.88 %; Total Hemoglobin 14.1 g/dL (12.0-18.0)
[2022-12-23 06:07] LABS: Modified Allen's Test Pass; PCO2 ABG 60.2 mmHg (35.0-45.0); Site Drawn RIGHT RADIAL
[2022-12-23 06:08] LABS: Device NASAL CANNULA
[2022-12-23 07:49] LABS: Glucose Point of Care 106 mg/dl (65-105)
[2022-12-23] MEDS: ENOXAPARIN 40 MG/0.4 ML SYRINGE SUB-Q (08:44)
[2022-12-23] MEDS: TOLNAFTATE 1% POWDER 45 GM BTL 1 APPLIC TOPICAL ×2 (08:44→21:10)
[2022-12-23] MEDS: CHOLECALCIFEROL 1,000 UNITS TABLET 1000 UNITS PO (08:44)
[2022-12-23] MEDS: ASPIRIN 81 MG CHEWABLE TABLET PO (08:44)
[2022-12-23] MEDS: TIMOLOL MALEATE 0.5% OP SOLN 5 ML BOTTLE 1 DROP EACH EYE (08:44)
[2022-12-23] MEDS: BRIMONIDINE TARTRATE 0.2% OP SOLN 5 ML BTL 1 DROP EACH EYE (08:44)
[2022-12-23] MEDS: EMPAGLIFLOZIN 10 MG TABLET PO (08:44)
[2022-12-23] MEDS: PANTOPRAZOLE 40 MG TABLET PO (08:44)
--- NOTE | 2022-12-23 09:01 | PM.PNPUL ---
Progress Note: A&P Assessment and Plan (1) Obesity hypoventilation syndrome: Code(s): E66.2 - Morbid (severe) obesity with alveolar hypoventilation Status: Acute Assessment and Plan: The patient has obesity hypoventilation syndrome diagnosed 07/22/2022 and diaphragm disorder with a previous daytime blood gas on 07/22/2022 at 1:32 p.m. of 7.34/75/77 on 2 L nasal cannula. She was? previously discharged on 07/22/22 to [facility] with a trilogy noninvasive ventilator set up through [employer].? She has minimal smoking history of a 5 pack year use, quit in 1981. CT scan of the chest demonstrates no bullous emphysema and no chronic lung disease. She has no sleep apnea by sleep study on 11/04/2022. TSH 3.60 and free T4 1.37 both normal on 09/09/2022. BMI is 31.6. Unable to perform PFTs for technical issues. 09/02/2022: Follow up in Pulmonary Clinic. Today she tells me that? she is doing very well and has no more exacerbations or hospitalizations since her last visit.? She is wearing the noninvasive ventilator at night and this helps her clinically.? She is more rested and states she has more energy.? Currently she is wearing 2 L nasal cannula with rest and ambulation and undergoing physical therapy in getting stronger.? She can walk half the hallway and back on a good day. Patient has lost weight from 202 lb to 192 today.?Patient is not taking any inhalers. I had a download from [employer] from 07/22/2022 through 08/21/2022.? Patient is on AVAPS-AE with a set rate of 16, tidal volume 500, EPAP minimum 4, EPAP maximum 14, pressure support minimum 8, pressure support maximum 20, rise time 3, ramp length 20, maximum pressure 25.? % of days with usage greater than 4 hours is 84%.? Average usage per days used is 6 hours and 14 minutes.? Weekly averages breath rate 18-20, tidal volume 400-460, EPAP 6 and half to 9, I PAP 23-24, minute ventilation 8-9, leak, 60-98.??I interpret this as excellent compliance, adequate pressures and high leak.? Regarding the high leak the patient states that if the mask is not tightened up she would does have a leak.? She wears a fullface mask. The patient told me that [facility] had appealed to [facility] to get a home noninvasive ventilation but this appeal was denied. Patient was discharged home from [facility] approximately 12/15/2022 with no BiPAP or noninvasive ventilation. She was wearing oxygen 2 L at rest and with ambulation but no oxygen with an auto Pap machine that was delivered to her home. she could not tolerate the auto PAP. She was admitted to the hospital on 12/19 with acute on chronic hypercarbic respiratory failure with a blood gas of ABG on 40% FiO2 was 7.21/120/106. Patient was placed on BiPAP and 1.5 hours later blood gas was 7.30/86/103. The patient was continued on BiPAP overnight rate of 20, pressures 14/6 with 35% FiO2 and repeat blood gas the next morning was 7.44/69/82. 12/22 Patient has obesity hypoventilation syndrome and would benefit from noninvasive ventilation to prevent further deterioration and subsequent hospitalizations. she has not tolerated BiPAP previously and has difficulty sleeping with this in the hospital this admission. She previously has tolerated noninvasive ventilator with the a AVAPS-AE mode: With a set rate of 16, tidal volume 500, EPAP minimum 4, EPAP maximum 14, pressure support minimum 8, pressure support maximum 20, rise time 3, ramp length 20, maximum pressure 25.? tonight I will place her on noninvasive ventilation with the AVAPS mode and hospital machine set rate 16, tidal volume 500, EPAP 7, minimal inspiratory pressure 8, maximal inspiratory pressure 25 and 28% FIO2. We are in contact with the [employer] for her home oxygen and [employer] for her home noninvasive ventilation arrangements. I ordered a home O2 assessment. I will order an iron, TIBC panel and ferritin for her increased leg movements. home O2 assessment demonstrated
--- NOTE | 2022-12-23 09:56 | PCRCNOTE ---
NIF performed with a measurement of -30 CMH20
--- NOTE | 2022-12-23 10:53 | PCRCNOTE ---
Trilogy arrangements being made with [facility]; pending insurance authorization.
[2022-12-23 11:37] LABS: Glucose Point of Care 151 mg/dl (65-105)
--- NOTE | 2022-12-23 13:35 | PM.IMPN ---
Progress Note: A&P Assessment and Plan (1) Acute on chronic respiratory failure with hypoxia and hypercapnia: Code(s): J96.21 - Acute and chronic respiratory failure with hypoxia; J96.22 - Acute and chronic respiratory failure with hypercapnia Status: Acute (2) Type 2 diabetes mellitus with hyperglycemia, with long-term current use of insulin: Code(s): E11.65 - Type 2 diabetes mellitus with hyperglycemia; Z79.4 - senior living (current) use of insulin Status: Acute Plan The patient has acute on chronic hypercapnic respiratory failure. This is likely due to her not using BiPAP at home. The polysomnogram did not indicate obstructive sleep apnea but that does not mean the patient is not hypoventilating from other causes such as a right hemidiaphragm malfunction, long COVID and/or obesity hypoventilation. The patient has had good improvement in her ABG with BiPAP. Will repeat ABG in a.m.. If ABGs improved will give the patient a break from BiPAP. The patient would benefit from BiPAP used each night. Patient will be discharged home with home health for medication and BiPAP compliance Subjective Date/time seen: 12/23/22 13:35 Interval history: Pt having low Bp awaiting BIPAP machine much the same as yesterday Review of Systems Review of Systems: No specific complaints Exam Narrative: Weight 93.4 kg BMI 35.3 Const: General: alert, ill appearing, well nourished and obese Nutritional Appearance: well nourished and obese Other: Acutely ill-appearing, elderly, obese HENMT: Head: normal to inspection Other: Mucous membranes are tacky, crowded posterior oropharynx Eyes: EOM: EOMs intact bilaterally Other: Eyes are slightly protuberant, conjunctival erythema noted bilaterally, senile changes to the iris bilateral Neck: Other: Short neck, large neck circumference, no JVD Resp: Effort & Inspection: labored and uses accessory muscles Auscultation: diminished lung sounds Other: Shallow rapid respirations, no accessory muscle use Cardio: Rate: bradycardic Rhythm: regular rhythm Heart sounds: no murmurs Other: Regular rhythm, slow rate, 2+ bilateral radial and pedal pulses, no JVD GI: Auscultation: normal bowel sounds Other: Obese, distended, nontender, positive bowel sounds : General: Yes no CVA tenderness Back/Spine/Pelvis: Back: no CVA tenderness Skin: General skin exam: normal color Rashes: no rashes Wounds: no wounds Other: No pallor, non jaundice, normal temperature to touch Neuro: General: moves all extremities Other: Alert orient x3, speech is clear, no facial asymmetry, although the patient is alert orient x3 she is poor historian Extrem: General: edema Other: No cyanosis, chronic changes consistent with chronic lymphedema of the lower extremities but improved compared to prior exam Psych: Mental Status: mental status grossly normal Affect: normal affect Attitude: cooperative Other: Appropriate mood and affect, pleasant and cooperative, judgment and insight intact Objective Data Vital Signs Vital Signs: Vital Signs - 24 hr 12/22/22 14:00 12/22/22 14:00 12/22/22 16:00 Temperature 36.2 C L 36.2 C L Pulse Rate 70 70 Respiratory Rate 20 20 Blood Pressure 72/49 L 72/49 L Pulse Oximetry 98 98 Oxygen Delivery Nasal Cannula Nasal Cannula Oxygen Flow Rate 1 2 Fraction of Inspired Oxygen 12/22/22 18:52 12/22/22 20:00 12/22/22 21:48 Temperature 36.2 C L Pulse Rate 70 66 Respiratory Rate 20 18 Blood Pressure 97/61 L 109/64 Pulse Oximetry 98 100 Oxygen Delivery Nasal Cannula Oxygen Flow Rate 1 Fraction of Inspired Oxygen 35 12/23/22 04:31 12/23/22 06:11 12/23/22 06:00 Temperature 36.2 C L Pulse Rate 68 61 Respiratory Rate 18 19 Blood Pressure 104/57 L Pulse Oximetry 98 97 97 Oxygen Delivery Nasal Cannula Oxygen Flow Rate 1.5 Fraction of Inspired Oxygen
[2022-12-23 16:34] LABS: Glucose Point of Care 164 mg/dl (65-105)
[2022-12-23] MEDS: INSULIN GLARGINE (*BKC) 100 UNITS/ML 14 UNITS SUB-Q (21:10)
[2022-12-23] MEDS: LATANOPROST 0.005% OP SOLN 2.5 ML BTL 1 DROP EACH EYE (21:10)
[2022-12-24 01:45] VITALS: PULSE 79; RESP 23; O2SAT 93
[2022-12-24 02:36] LABS: Glucose Point of Care 187 mg/dl (65-105)
[2022-12-24 05:15] VITALS: PULSE 67; RESP 21; O2SAT 99
[2022-12-24] MEDS: LEVOTHYROXINE SODIUM 25 MCG TABLET PO (05:40)
[2022-12-24] MEDS: LEVOTHYROXINE SODIUM 112 MCG TABLET PO (05:40)
[2022-12-24 05:54] LABS: Alveolar/Arterial O2 Gradient 52.1 mmHg; Base Excess ABG 8.2 mEq/l (+/-2.0); Fractional Inspired Oxygen 28 %; HCO3 ABG 32.2 mEq/l (22.0-26.0); Oxygen Content ABG 18.1 %vol (16.0-22.0); Oxygen Saturation ABG 97.9 % (95.0-100.0); Oxyhemoglobin 96.8 % THb (90.0-100.0); Total Hemoglobin 13.2 g/dL (12.0-18.0)
[2022-12-24 05:56] LABS: Device NON-INVASIVE VENT; Modified Allen's Test Pass; Site Drawn RIGHT RADIAL; pH ABG 7.502 (7.350-7.450)
[2022-12-24 05:57] LABS: Non-Invasive Expiratory Pressure 7 CMH2O; Non-Invasive Vent Rate 16 /MIN
[2022-12-24 06:00] VITALS: BP 129/62; PULSE 69; RESP 20; TEMP 36.9; O2SAT 97
--- NOTE | 2022-12-24 07:34 | PCRCNOTE ---
Apnealink performed on 12/22/22 recorded an insufficient amount of data. Charge removed.
[2022-12-24 07:44] LABS: Glucose Point of Care 112 mg/dl (65-105)
[2022-12-24 08:45] VITALS: O2SAT 97
[2022-12-24] MEDS: PANTOPRAZOLE 40 MG TABLET PO (08:46)
[2022-12-24] MEDS: CHOLECALCIFEROL 1,000 UNITS TABLET 1000 UNITS PO (08:46)
[2022-12-24] MEDS: BRIMONIDINE TARTRATE 0.2% OP SOLN 5 ML BTL 1 DROP EACH EYE (08:46)
[2022-12-24] MEDS: ENOXAPARIN 40 MG/0.4 ML SYRINGE SUB-Q (08:46)
[2022-12-24] MEDS: TOLNAFTATE 1% POWDER 45 GM BTL 1 APPLIC TOPICAL (08:46)
[2022-12-24] MEDS: EMPAGLIFLOZIN 10 MG TABLET PO (08:46)
[2022-12-24] MEDS: TIMOLOL MALEATE 0.5% OP SOLN 5 ML BOTTLE 1 DROP EACH EYE (08:46)
[2022-12-24] MEDS: ASPIRIN 81 MG CHEWABLE TABLET PO (08:46)
[2022-12-24 09:01] VITALS: O2SAT 97
--- NOTE | 2022-12-24 09:42 | PM.PNPUL ---
Progress Note: A&P Assessment and Plan (1) Obesity hypoventilation syndrome: Code(s): E66.2 - Morbid (severe) obesity with alveolar hypoventilation Status: Acute Assessment and Plan: The patient has obesity hypoventilation syndrome diagnosed 07/22/2022 and diaphragm disorder with a previous daytime blood gas on 07/22/2022 at 1:32 p.m. of 7.34/75/77 on 2 L nasal cannula. She was? previously discharged on 07/22/22 to [facility] with a trilogy noninvasive ventilator set up through [employer].? She has minimal smoking history of a 5 pack year use, quit in 1981. CT scan of the chest demonstrates no bullous emphysema and no chronic lung disease. She has no sleep apnea by sleep study on 11/04/2022. TSH 3.60 and free T4 1.37 both normal on 09/09/2022. BMI is 31.6. Unable to perform PFTs for technical issues. 09/02/2022: Follow up in Pulmonary Clinic. Today she tells me that? she is doing very well and has no more exacerbations or hospitalizations since her last visit.? She is wearing the noninvasive ventilator at night and this helps her clinically.? She is more rested and states she has more energy.? Currently she is wearing 2 L nasal cannula with rest and ambulation and undergoing physical therapy in getting stronger.? She can walk half the hallway and back on a good day. Patient has lost weight from 202 lb to 192 today.?Patient is not taking any inhalers. I had a download from [employer] from 07/22/2022 through 08/21/2022.? Patient is on AVAPS-AE with a set rate of 16, tidal volume 500, EPAP minimum 4, EPAP maximum 14, pressure support minimum 8, pressure support maximum 20, rise time 3, ramp length 20, maximum pressure 25.? % of days with usage greater than 4 hours is 84%.? Average usage per days used is 6 hours and 14 minutes.? Weekly averages breath rate 18-20, tidal volume 400-460, EPAP 6 and half to 9, I PAP 23-24, minute ventilation 8-9, leak, 60-98.??I interpret this as excellent compliance, adequate pressures and high leak.? Regarding the high leak the patient states that if the mask is not tightened up she would does have a leak.? She wears a fullface mask. The patient told me that [facility] had appealed to [facility] to get a home noninvasive ventilation but this appeal was denied. Patient was discharged home from [facility] approximately 12/15/2022 with no BiPAP or noninvasive ventilation. She was wearing oxygen 2 L at rest and with ambulation but no oxygen with an auto Pap machine that was delivered to her home. she could not tolerate the auto PAP. She was admitted to the hospital on 12/19 with acute on chronic hypercarbic respiratory failure with a blood gas of ABG on 40% FiO2 was 7.21/120/106. Patient was placed on BiPAP and 1.5 hours later blood gas was 7.30/86/103. The patient was continued on BiPAP overnight rate of 20, pressures 14/6 with 35% FiO2 and repeat blood gas the next morning was 7.44/69/82. 12/22 Patient has obesity hypoventilation syndrome and would benefit from noninvasive ventilation to prevent further deterioration and subsequent hospitalizations. she has not tolerated BiPAP previously and has difficulty sleeping with this in the hospital this admission. She previously has tolerated noninvasive ventilator with the a AVAPS-AE mode: With a set rate of 16, tidal volume 500, EPAP minimum 4, EPAP maximum 14, pressure support minimum 8, pressure support maximum 20, rise time 3, ramp length 20, maximum pressure 25.? tonight I will place her on noninvasive ventilation with the AVAPS mode and hospital machine set rate 16, tidal volume 500, EPAP 7, minimal inspiratory pressure 8, maximal inspiratory pressure 25 and 28% FIO2. We are in contact with the [employer] for her home oxygen and [employer] for her home noninvasive ventilation arrangements. I ordered a home O2 assessment. I will order an iron, TIBC panel and ferritin for her increased leg movements. home O2 assessment demonstrated
--- NOTE | 2022-12-24 10:04 | PM.IMPN ---
Progress Note: A&P Assessment and Plan (1) Acute on chronic respiratory failure with hypoxia and hypercapnia: Code(s): J96.21 - Acute and chronic respiratory failure with hypoxia; J96.22 - Acute and chronic respiratory failure with hypercapnia Status: Acute Assessment and Plan: The patient has acute on chronic hypercapnic respiratory failure. This is likely due to her not using BiPAP at home. The polysomnogram did not indicate obstructive sleep apnea but that does not mean the patient is not hypoventilating from other causes such as a right hemidiaphragm malfunction, long COVID and/or obesity hypoventilation. The patient has had good improvement in her ABG with BiPAP. The patient would benefit from BiPAP used each night. Patient will be discharged home with home health for medication and BiPAP compliance (2) Type 2 diabetes mellitus with hyperglycemia, with long-term current use of insulin: Code(s): E11.65 - Type 2 diabetes mellitus with hyperglycemia; Z79.4 - rat exterminator (current) use of insulin Status: Acute Plan DVT prophylaxis with SCDs GI prophylaxis not indicated Code status full code Subjective Date/time seen: 12/24/22 10:04 Interval history: No overnight events noted. No chest pain or shortness of breath. No nausea, vomiting or diarrhea. No fevers or chills. Review of Systems Review of Systems: 12 point review of systems was assessed and was negative except as noted in the HPI Exam Narrative: General: No acute distress, alert and oriented per baseline HEENT: Atraumatic, normocephalic, mucous membranes moist CV: Regular rate and rhythm, S1, S2 Lungs: Clear to auscultation bilaterally, no rales or crackles noted, no wheezes, good air entry Abdomen: Soft, nontender, nondistended Extremities: Normal to inspection Skin: No rashes noted, no lesions or wounds seen Psych: Euthymic, normal affect Objective Data Vital Signs Vital Signs: Vital Signs - 24 hr 12/23/22 14:00 12/23/22 22:00 12/23/22 20:00 Temperature 96.7 F L 97.4 F L Pulse Rate 71 89 71 Respiratory Rate 16 18 16 Blood Pressure 112/57 L 97/63 L Pulse Oximetry 100 100 100 Oxygen Delivery Nasal Cannula Oxygen Flow Rate 1 Fraction of Inspired Oxygen 26 12/23/22 22:40 12/23/22 22:40 12/24/22 01:45 Temperature Pulse Rate 86 86 79 Respiratory Rate 25 H 23 H Blood Pressure Pulse Oximetry 95 95 93 Oxygen Delivery BiPAP BiPAP BiPAP Oxygen Flow Rate Fraction of Inspired Oxygen 28 12/24/22 05:15 12/24/22 06:00 12/24/22 09:01 Temperature 98.4 F Pulse Rate 67 69 Respiratory Rate 21 H 20 Blood Pressure 129/62 Pulse Oximetry 99 97 97 Oxygen Delivery BiPAP Nasal Cannula Oxygen Flow Rate 1 Fraction of Inspired Oxygen 24 Intake/Output Intake/Output: Intake & Output 12/21/22 12/22/22 12/23/22 12/24/22 23:59 23:59 23:59 23:59 Intake Total 8077 940 3531 660 Output Total 1300 550 400 Balance 731 614 4940 260 Meds/Results Medications: Active Medications Generic Name Dose Route Start Last Admin Trade Name Freq PRN Reason Stop Dose Admin Aspirin 81 mg 12/20/22 08:35 12/24/22 08:46 Aspirin 81 Mg Chewable Tablet PO 81 mg DAILY@0800 MANUEL Administration Brimonidine Tartrate 1 drop 12/20/22 09:00 12/24/22 08:46 Brimonidine Tartrate 0.2% Op Soln 5 Ml Btl EACH EYE 01/19/23 08:59 1 drop DAILY MANUEL Administration Dextrose 12.5 gm 12/19/22 20:23 Dextrose 50% 25 Gm/50 Ml Syringe IV PUSH PRN PRN Hypoglycemia Protocol Diltiazem HCl 240 mg 12/20/22 09:00 12/22/22 08:47 Diltiazem Hcl Cd 240 Mg Cap.Er.24h PO 240 mg DAILY MANUEL Administration Empagliflozin 10 mg 12/20/22 09:00 12/24/22 08:46 Empagliflozin 10 Mg Tablet PO 10 mg DAILY MANUEL Administration Enoxaparin Sodium 40 mg 12/20/22 09:00 12/24/22 08:46 Enoxaparin 40 Mg/0.4 Ml Syringe SUB-Q 40 mg DAILY MANUEL Administration Furosemide 40 m
--- NOTE | 2022-12-24 10:13 | PM.DS ---
DS: Admitting Diagnosis Discharge Date 12/24/22 Admitting Diagnosis sob DS: Discharge Diagnosis Discharge Diagnosis (1) Acute on chronic respiratory failure with hypoxia and hypercapnia: Code(s): J96.21 - Acute and chronic respiratory failure with hypoxia; J96.22 - Acute and chronic respiratory failure with hypercapnia Status: Acute (2) Type 2 diabetes mellitus with hyperglycemia, with long-term current use of insulin: Code(s): E11.65 - Type 2 diabetes mellitus with hyperglycemia; Z79.4 - [place] (current) use of insulin Status: Acute Plan The patient has acute on chronic hypercapnic respiratory failure. This is likely due to her not using BiPAP at home. The polysomnogram did not indicate obstructive sleep apnea but that does not mean the patient is not hypoventilating from other causes such as a right hemidiaphragm malfunction, long COVID and/or obesity hypoventilation. The patient has had good improvement in her ABG with BiPAP. The patient would benefit from BiPAP used each night. Patient will be discharged home with home health for medication and BiPAP compliance DVT prophylaxis with SCDs GI prophylaxis not indicated Code status full code DS: Summary Hospital Course Hospital Course: 87 year old female with suspected OHS presenting with SOB and found to have hypercapnic and hypoxic respiratory failure. Pulmonology was consulted and recommended BiPAP. Patient's symptoms improved. Noninvasive ventilator on AVAPS mode was set up for the patient at discharge. See above and med rec for details. Time Spent with Patient Time attestation: Total time spent providing and/or coordinating discharge services: Exam Narrative: General: No acute distress, alert and oriented per baseline HEENT: Atraumatic, normocephalic, mucous membranes moist CV: Regular rate and rhythm, S1, S2 Lungs: Clear to auscultation bilaterally, no rales or crackles noted, no wheezes, good air entry Abdomen: Soft, nontender, nondistended Extremities: Normal to inspection Skin: No rashes noted, no lesions or wounds seen Psych: Euthymic, normal affect DS: Data Data Completed and Pending Labs on day of discharge: Labs from last 24 hours 12/24/22 12/24/22 12/23/22 07:21 05:33 20:10 Puncture Site Right radial ABG pH 7.502 H* ABG pCO2 42.0 ABG pO2 98.0 ABG PO2/FiO2 Ratio 3.50 ABG HCO3 32.2 H ABG O2 Saturation 97.9 ABG O2 Content 18.1 ABG Base Excess 8.2 A-a Gradient 52.1 Oxyhemoglobin 96.8 Total Hemoglobin 13.2 O2 Delivery Device Non-invasive vent O2 Liters/Min Not Reportable Vent Rate 16 FiO2 28 Expiratory Pressure 7 Inspiratory Pressure Not Reportable POC Capillary Glucose 112 H 187 H 12/23/22 12/23/22 16:24 11:32 Puncture Site ABG pH ABG pCO2 ABG pO2 ABG PO2/FiO2 Ratio ABG HCO3 ABG O2 Saturation ABG O2 Content ABG Base Excess A-a Gradient Oxyhemoglobin Total Hemoglobin O2 Delivery Device O2 Liters/Min Vent Rate FiO2 Expiratory Pressure Inspiratory Pressure POC Capillary Glucose 164 H 151 H Preliminary micro results at discharge 12/19/22 19:39 Blood Culture - Preliminary Blood 12/19/22 19:39 Blood Culture - Preliminary Blood Discharge Plan Discharge Attending physician on discharge: Elina Sauer Consulting providers: Eric Lino Discharging Clinician: Emory Belcher Anticipated Discharge Date/Time: 12/21/22 09:37 Patient Disposition: SNF Activity: no preference Diet: heart healthy and diabetic Discharge Instructions: Will need NIV with AVAPS-AE mode at discharge set up at home. Continue OT/PT Patient Instructions: Heart Failure (DC), Using Oxygen at Home (DC), Hyperkalemia (DC), BiPAP (GEN), Chronic Respiratory Failure (DC), Type 2 Diabetes in the Older Adult (DC) Stand Alone Forms: General Discharge Information Follow-up/Re
[2022-12-24 11:33] LABS: Glucose Point of Care 176 mg/dl (65-105)
[2022-12-24 13:56] VITALS: BP 116/71; PULSE 73; RESP 16; TEMP 36.7; O2SAT 100
[2022-12-24 15:15] LABS: SARS-CoV-2 RNA PCR Negative (Negative)
== END 2022-12-24 16:40 | DRG 189 ==
LOC: ANHED 18:07 → ANHIMU 22:09 → ANH3MEDSUR 12-21 09:38 → ANHIMU 12-27 13:40
PROVIDERS: Internal Medicine Pulmonary Disease; Student in an Organized Health Care Education/Training Program; Admitting Provider Internal Medicine; Emergency Provider General Practice; PCP Family Medicine; Visit Provider Hospitalist
DX: J96.21 Acute and chronic respiratory failure with hypoxia (principal); I50.33 Acute on chronic diastolic (congestive) heart failure; E66.2 Morbid (severe) obesity with alveolar hypoventilation; I13.0 Hypertensive heart and chronic kidney disease with heart failure and stage 1 through stage 4 chronic kidney disease, or unspecified chronic kidney disease; N17.9 Acute kidney failure, unspecified; J96.22 Acute and chronic respiratory failure with hypercapnia; E11.22 Type 2 diabetes mellitus with diabetic chronic kidney disease; E03.9 Hypothyroidism, unspecified; E87.5 Hyperkalemia; E55.9 Vitamin D deficiency, unspecified; E11.65 Type 2 diabetes mellitus with hyperglycemia; I71.20 Thoracic aortic aneurysm, without rupture, unspecified; H40.9 Unspecified glaucoma; K21.9 Gastro-esophageal reflux disease without esophagitis; M19.90 Unspecified osteoarthritis, unspecified site; N18.30 Chronic kidney disease, stage 3 unspecified; Z66 Do not resuscitate; Z79.82 Long term (current) use of aspirin; Z90.89 Acquired absence of other organs; Z79.4 Long term (current) use of insulin; Z94.7 Corneal transplant status; Z20.822 Contact with and (suspected) exposure to COVID-19; Z87.891 Personal history of nicotine dependence; Z68.34 Body mass index [BMI] 34.0-34.9, adult; Z86.16 Personal history of COVID-19
CPT/HCPCS: 36415; 36600; 71045; 80048; 80053; 82375; 82728; 82805; 82948; 83050; 83540; 83550; 83735; 83880; 84100; 84484; 85025; 85610; 85730; 87040; 87635; 93005; 94002; 94003; 94618; 94640; 94762; 96374; 97110; 97161; 97165; 97530; 97535; 99291; A9270; J0612; J1650; J1815; J1940

== ENCOUNTER 2023-01-27 06:26 | Emergency (ER) | payer MEDICARE, MEDICAID, SELFPAY ==
--- NOTE | ~2023-01-27 | XR_ITS ---
EXAMINATION: XR chest 1V portable DATE: 01/27/2023 08:41 INDICATION: Cough. Low blood sugar. TECHNIQUE: A single frontal view of the chest was obtained. COMPARISON: Chest single view 12/19/2022, chest CT 12/03/2021 FINDINGS: The lung volumes are small. There is mild atelectasis at the lung bases. No pleural effusio n or pneumothorax. Calcified mediastinal lymph nodes are consistent with old granulomatous disease. C ardiomegaly is noted. IMPRESSION: 1. Small lung volumes with mild atelectasis at the lung bases. 2. Cardiomegaly. Reviewed, dictated and finalized at location L.
[2023-01-27 06:41] VITALS: BP 122/86; PULSE 73; RESP 18; TEMP 36.6; O2SAT 98
--- NOTE | 2023-01-27 06:58 | PC.NURSE ---
pt arrived by ems. pt was found to have a blood sugar of 37 and was given 250ml of D10. pt on arrival was 147. ems placed 18g RAC. pt placed on monitor
[2023-01-27 07:00] VITALS: BP 132/70; PULSE 70; RESP 16; O2SAT 100
--- NOTE | 2023-01-27 07:12 | ECG_ITS ---
Measurements Intervals [place] Rate: 67 P: 38 GA: 235 QRS: -21 QRSD: 103 T: 28 QT: 411 QTc: 434 Interpretive Statements SINUS RHYTHM WITH FIRST DEGREE AV BLOCK POSSIBLE LEFT ATRIAL ENLARGEMENT [-0.1mV P WAVE IN V1/V2] BORDERLINE LEFT AXIS DEVIATION [QRS AXIS < -20] LOW QRS VOLTAGE IN EXTREMITY LEADS [QRS DEFLECTION < 0.5 mV IN LIMB LEADS] PATTERN CONSISTENT WITH PULMONARY DISEASE COMPARED TO ECG 12/19/2022 17:32:30 SINUS RHYTHM NOW PRESENT FIRST DEGREE AV BLOCK NOW PRESENT Electronically Signed On 01-27-2023 10:19:08 CDT by Arianne Tidwell M.D.
[2023-01-27 07:31] LABS: Basophils Absolute Auto 0.1 K/mm3 (0.0-0.1); Basophils Percent Auto 1.1 % (0.2-1.2); Eosinophils Absolute Auto 0.2 K/mm3 (0-0.3); Hematocrit 40.8 % (37.0-47.0); Hemoglobin 12.4 g/dL (12.0-15.0); Immature Granulocyte Absolute 0.03 K/mm3 (0.00-0.031); Immature Granulocyte Percent A 0.4 % (0-0.5); Lymphocytes Absolute Auto 1.41 K/mm3 (0.9-3.2); Lymphocytes Percent Auto 20.1 % (18.3-44.2); Mean Corpuscular HGB Conc 30.4 g/dl (32-36); Mean Corpuscular Hemoglobin 29.3 pg (26-34); Mean Corpuscular Volume 96.5 fl (80-100); Mean Platelet Volume 9.6 fl (7.4-10.4); Monocytes Absolute Auto 0.8 K/mm3 (0.1-0.6); Monocytes Percent Auto 11.4 % (2.6-8.5); Neutrophils Absolute Auto 4.5 K/mm3 (1.3-6.7); Platelet Count Result 386 k/mm3 (150-375); Red Blood Count 4.23 M/mm3 (4.2-5.4)
[2023-01-27 07:41] LABS: Alanine Aminotransferase 13 U/L (6-35); Albumin Level 3.8 g/dL (3.5-5.1); Alkaline Phosphatase 105 U/L (38-126); Anion Gap 5 mmol/L (8-16); Aspartate Amino Transferase 28 U/L (14-36); Bilirubin,Total 0.2 mg/dL (0.2-1.3); Blood Urea Nitrogen 17 mg/dL (7-17); Calcium 9.2 mg/dL (8.4-10.2); Carbon Dioxide 31 mmol/L (22-30); Chloride 103 mmol/L (98-107); Estimated Glomerular Filt Rate 57; Glucose 92 mg/dL (65-110); Potassium 3.9 mmol/L (3.4-5.0); Sodium 139 mmol/L (137-145)
[2023-01-27 08:00] VITALS: BP 139/98; PULSE 68; RESP 16; TEMP 36.6; O2SAT 98
[2023-01-27 08:12] LABS: Appearance Urine Clear (Clear); Bilirubin Urine Negative (Negative); Blood Urine Negative (Negative); Color Urine Yellow (Yellow); Glucose Urine UA 2+ mg/dL (Negative); Ketones Urine Negative (Negative); Leukocyte Esterase Ur Negative LEU/UL (Negative); Nitrate Urine Negative (Negative); Protein Urine Negative (Negative); Specific Grav Ur 1.011 (1.001-1.035); Urobilinogen Urine 0.2 mg/dL (<2.0); pH Urine 7.5 (5.0-9.0)
[2023-01-27 08:16] LABS: Add Urine Microscopic? NO
[2023-01-27 08:17] LABS: Glucose Point of Care 85 mg/dl (65-105)
--- NOTE | 2023-01-27 08:38 | ED.GENADULT ---
HPI - General Adult General Chief complaint: Unspecified Stated complaint: low blood sugar Time Seen by Provider: 01/27/23 07:04 Source: patient, family, EMS and RN notes reviewed Mode of arrival: EMS Limitations: no limitations History of Present Illness HPI narrative: This is an 87 year old female with history of DM, chronic respiratory failure on 2 L NC who presents from home for evaluation of hypoglycemia. Patient 's family states they were unable wake patient up so EMS was called. Her blood sugar was found to be 37 by EMS and she was given 250 ml D10 and Blood sugar improved. Patient states she gives herself 10 units insulin at night. She ate her meals as normal. She reports having hypoglycemic episodes every 3 months. She reports having cold symptoms for 2 weeks that have been improving. She denies having productive cough. She denies chest pain, worsening shortness of breath, nausea, vomiting, fever or chills. Related Data Home Medications Medication Instructions Recorded Confirmed bimatoprost 0.01 % eye drops 1 drop ophthalmic (eye) DAILY 08/14/19 01/13/23 (Lumigan) brimonidine 0.2 %-timolol 0.5 % 1 drop ophthalmic (eye) DAILY 08/14/19 01/13/23 eye drops (Combigan) levothyroxine 137 mcg tablet 137 mcg PO DAILY 07/12/22 01/13/23 dulaglutide 0.75 mg/0.5 mL 1.5 mg subcut WEEKLY 09/02/22 01/13/23 subcutaneous pen injector (Trulicity) cholecalciferol (vitamin D3) 25 mcg PO DAILY 12/19/22 01/13/23 insulin glargine 100 unit/mL 10 unit subcut HS 12/19/22 01/13/23 subcutaneous solution (Lantus U-100 Insulin) insulin lispro 100 unit/mL See Rx Instructions .Route .COMPLEX 12/19/22 01/13/23 subcutaneous half-unit pen Allergies Allergy/AdvReac Type Severity Reaction Status Date / Time No Known Allergies Allergy Verified 01/13/23 14:44 Review of Systems Constitutional: Constitutional: Denies weakness Cardiovascular: Cardiovascular: Denies syncope, Denies rapid heart rate, Denies irregular heart rhythm, Denies leg edema and Denies dyspnea Respiratory: Respiratory: Denies chest congestion, Denies hemoptysis, Denies excessive phlegm production and Denies dyspnea Gastrointestinal: Gastrointestinal: Denies abdominal pain, Denies hematochezia, Denies diarrhea and Denies vomiting Genitourinary: Genitourinary: Denies hematuria and Denies dysuria Musculoskeletal: Musculoskeletal: Denies joint swelling, Denies loss of height and Denies muscle weakness Neurologic: Denies syncope, Denies focal weakness and Denies weakness PMFSH Past Medical History Medical History Chronic hypercapnic respiratory failure With negative polysomnogram but thought to be due to elevated right hemidiaphragm, long COVID and possible obesity hypoventilation syndrome Chronic kidney disease, stage 3 Congestive heart failure COVID-19 long hauler manifesting chronic dyspnea Diabetes mellitus Gastroparesis GERD without esophagitis Glaucoma Heart failure with preserved ejection fraction Hypertension Hypothyroidism Osteoarthritis Thoracic aortic aneurysm Vitamin D deficiency Surgical History Surgical History History of cornea transplant History of partial thyroidectomy Removal of benign thyroid nodule. Family History Family History Mother Diabetes mellitus Family history of diabetes mellitus in first degree relative Cerebrovascular accident Sibling Family history of cardiovascular disease Diabetes mellitus Other Family history of congestive heart failure Hypertension Social History Social History Social History: Surrogate medical decision maker: Johnny Ramirez, spouse. Code status: DNR/DNI (per patient request) discussion witnessed by daughter at bedside. Smoking packs per day: 0.
[2023-01-27 09:00] VITALS: BP 150/68; PULSE 69; RESP 16; O2SAT 99
[2023-01-27 09:49] LABS: Glucose Point of Care 100 mg/dl (65-105)
[2023-01-27 10:00] VITALS: BP 146/63; PULSE 71; RESP 22; O2SAT 100
[2023-01-27 11:08] LABS: Glucose Point of Care 105 mg/dl (65-105)
[2023-01-27 11:34] VITALS: BP 150/80; PULSE 74; RESP 20; O2SAT 98
== END 2023-01-27 11:36 | disposition home or self-care (01) ==
PROVIDERS: Emergency Provider General Practice; PCP Family Medicine
DX: E11.649 Type 2 diabetes mellitus with hypoglycemia without coma (principal); J96.10 Chronic respiratory failure, unspecified whether with hypoxia or hypercapnia; Z99.81 Dependence on supplemental oxygen; N18.30 Chronic kidney disease, stage 3 unspecified; I50.9 Heart failure, unspecified; E11.22 Type 2 diabetes mellitus with diabetic chronic kidney disease; K21.9 Gastro-esophageal reflux disease without esophagitis; I13.0 Hypertensive heart and chronic kidney disease with heart failure and stage 1 through stage 4 chronic kidney disease, or unspecified chronic kidney disease; E03.9 Hypothyroidism, unspecified; E55.9 Vitamin D deficiency, unspecified; Z87.891 Personal history of nicotine dependence
CPT/HCPCS: 36415; 71045; 80053; 81003; 82948; 85025; 93005; 99283

== ENCOUNTER 2023-05-04 20:22 | Inpatient (IN) | payer MEDICARE, MEDICAID, SELFPAY ==
--- NOTE | ~2023-05-04 | XR_ITS ---
EXAMINATION: XR chest PICC line DATE: 05/15/2023 12:01 INDICATION: Central line placement. TECHNIQUE: A single frontal view of the chest was obtained. COMPARISON: Chest single view 05/14/2023, chest CT 05/14/2023 FINDINGS: There are small pleural effusions. There are airspace opacities in the lower lung zones. No pneumothorax. Cardiomegaly is noted. Calcified mediastinal lymph nodes are consistent with old granu lomatous disease. A right upper extremity peripherally inserted central venous catheter (PICC) is see n with tip in the superior vena cava. IMPRESSION: 1. PICC tip in the superior vena cava. 2. Airspace opacities in the lower lung zones with worsening on the right, consistent with atelectasi s versus pneumonia. 3. Stable small pleural effusions. 4. Cardiomegaly. Reviewed, dictated and finalized at location A. RIBUTOR ADVERTISING MATERIAL IMPRESSION: 1. PICC tip in the superior vena cava. 2. Airspace opacities in the lower lung zones with worsening on the right, cons istent with atelectasis versus pneumonia. 3. Stable small pleural effusions. 4. Cardiomegaly.
--- NOTE | ~2023-05-04 | XR_ITS ---
EXAMINATION: XR chest 1V portable DATE: 05/04/2023 21:17 INDICATION: Dyspnea. TECHNIQUE: A single frontal view of the chest was obtained. COMPARISON: Chest single view 01/27/2023, chest CT 12/13/2021 FINDINGS: The lung volumes are small. There is mild atelectasis at the lung bases. No pleural effusio n or pneumothorax. The heart size is normal. Calcified mediastinal lymph nodes are consistent with ol d granulomatous disease. IMPRESSION: 1. Small lung volumes with mild atelectasis at the lung bases. Reviewed, dictated and finalized at location E. SETTER HELPER
--- NOTE | ~2023-05-04 | US_ITS ---
EXAMINATION: US abdomen limited DATE: 05/14/2023 15:52 INDICATION: liver abscess TECHNIQUE: Multiple grayscale and Doppler ultrasound images of limited portions of the abdomen were o btained. COMPARISON: 07/14/2022. FINDINGS: Exam limited due to body habitus and inability of the patient and her breath. Pancreas not well seen. Enlarged liver. Approximately 12 cm area of heterogeneous echogenicity in the right lobe, including multiloculated small cystic appearing spaces, with no internal vascularity. No surface nodu larity. Normal hepatopetal flow in the main portal vein. 1.3 cm stone in the neck of the gallbladder. The common bile duct measures 4 mm. There was no sonographic Aguirre sign. IMPRESSION: Multiloculated, multicystic area in the right liver lobe described previously has abscess. No large d rainable collection present. Reviewed, dictated and finalized at location K. IC MANAGER IMPRESSION: Multiloculated, multicystic area in the right liver lobe described previously h as abscess. No large drainable collection present.
--- NOTE | ~2023-05-04 | CT_ITS ---
EXAMINATION: CT diagnostic chest wo con DATE: 05/06/2023 11:28 INDICATION: Pneumonia TECHNIQUE: Computed tomography (CT) of the chest was performed without intravenous contrast. The dose -length product (DLP) was 623.30 mGy-cm. Automated exposure control and iterative reconstruction tech [employer] Fairy Talesque were employed. COMPARISON: 12/03/2021 FINDINGS: There are small pleural effusions. Cardiomegaly is noted. There are dependent airspace opac ities of the lower lobes. No pathologically enlarged thoracic identified. Calcified mediastinal lymph nodes are consistent with old granulomatous disease. There is severe thoracic spondylosis. IMPRESSION: 1. Small pleural effusions. 2. Dependent airspace opacities of the lungs, consistent with atelectasis and/or pneumonia. Reviewed, dictated and finalized at location B. COUNSELOR IMPRESSION: 1. Small pleural effusions. 2. Dependent airspace opacities of the lungs, consistent with atelectasis and/o r pneumonia.
--- NOTE | ~2023-05-04 | CT_ITS ---
EXAMINATION: CT chest abdomen pelvis w con DATE: 05/14/2023 10:00 INDICATION: Worsening infection. TECHNIQUE: Computed tomography (CT) of the chest, abdomen, and pelvis was performed with 100 mL Omnip aque 350 intravenous contrast. Automated exposure control and iterative reconstruction technique were employed. The dose-length product was 2091.96 mGy-cm. COMPARISON: Chest CT 05/06/2023 FINDINGS: CHEST CT: There is scarring at right lung apex. There are small pleural effusions. There are airspace opacities in the dependent and inferior lungs, likely atelectasis. Calcified pulmonary nodules and calcified h ilar and mediastinal lymph nodes are consistent with old granulomatous disease. Cardiomegaly is noted . No pericardial effusion. The central pulmonary arteries are enlarged, consistent with pulmonary art erial hypertension. There is severe thoracic spondylosis. ABDOMEN/PELVIS CT: There is ill-defined hypodensity in right hepatic lobe measuring 8.3 x 8.2 x 26.4 cm. The gallbladder is normal in size. Gallbladder wall thickening is likely secondary to interstitial edema. Calcificat ions in the spleen are consistent with old granulomatous disease. The pancreas and adrenal glands are normal. There is cortical thinning of the kidneys. There is a 13 mm cyst in right kidney. There are uterine fibroids measuring up to 4.7 cm. There are no dilated loops of bowel. The appendix is normal. There is a small volume of pelvic ascites. There are no pathologically enlarged lymph nodes. There i s severe lumbar spondylosis. There is a 2.6 cm sclerotic lesion in left ilium. IMPRESSION: 1. Large distribution of low-attenuation in the liver, consistent with infectious hepatitis and absce ss. It is not clear if there is a significant drainable fluid component. 2. Small pleural effusions. 3. Small volume of pelvic ascites. 4. Sclerotic lesion in left ilium, which may be a benign bone island or less likely metastatic diseas e. If there are no old CTs for comparison, consider bone scan. Reviewed, dictated and finalized at location A. PL SQL DEVELOPER IMPRESSION: 1. Large distribution of low-attenuation in the liver, consistent with infectio us hepatitis and abscess. It is not clear if there is a significant drainable f luid component. 2. Small pleural effusions. 3. Small volume of pelvic ascites. 4. Sclerotic lesion in left ilium, which may be a benign bone island or less li casey metastatic disease. If there are no old CTs for comparison, consider bone scan.
--- NOTE | ~2023-05-04 | XR_ITS ---
EXAMINATION: XR chest 1V portable DATE: 05/07/2023 08:36 INDICATION: Shortness of breath. TECHNIQUE: A single frontal view of the chest was obtained. COMPARISON: Chest single view 05/04/2023, chest CT 05/06/2023 FINDINGS: The lung volumes are small. There is mild atelectasis at the lung bases. There are small pl eural effusions. No pneumothorax. The heart size is normal. IMPRESSION: 1. Small pleural effusions. 2. Mild atelectasis at the lung bases. Reviewed, dictated and finalized at location A. UDER TENDER
--- NOTE | ~2023-05-04 | XR_ITS ---
EXAMINATION: XR chest 1V portable DATE: 05/09/2023 19:29 INDICATION: Pulmonary edema versus pneumonia TECHNIQUE: frontal view of the chest was obtained. COMPARISON: Chest radiograph dated 05/07/2023 FINDINGS: Lung volumes are small. Pulmonary vascular congestion with mild increased interstitial pattern in the bilateral perihilar regions and lower lung zones. Opacities at the bilateral lower lung zones with i ncreased blunting at the bilateral costophrenic angles consistent with small bilateral pleural effusi ons and associated basilar atelectasis and/or pneumonia. No pneumothorax. The enlarged cardiac silhou ette is largely obscured. Prominent calcified mediastinal lymph nodes consistent with old granulomato us disease. There is bridging osteophytes at multiple levels consistent with diffuse idiopathic skele miguel hyperostosis (DISH). IMPRESSION: 1. Cardiomegaly with pulmonary vascular congestion and increased perihilar and lower lung interstitia l pattern suggesting mild pulmonary edema. 2. Small bilateral pleural effusions with bibasilar opacities which could represent associated atelec tasis and/or pneumonia. Reviewed, dictated and finalized at location A. T COORDINATOR IMPRESSION: 1. Cardiomegaly with pulmonary vascular congestion and increased perihilar and lower lung interstitial pattern suggesting mild pulmonary edema. 2. Small bilateral pleural effusions with bibasilar opacities which could repre sent associated atelectasis and/or pneumonia.
--- NOTE | ~2023-05-04 | CT_ITS ---
EXAMINATION: CT guide absc cath placement DATE: 05/15/2023 13:17 INDICATION: Liver abscess. TECHNIQUE: The skin overlying the abdomen was prepped and draped in usual sterile fashion. Anestheti c was administered with 1% lidocaine subcutaneously. An 18 gauge trochar needle was inserted into the liver abscess with CT guidance. The needle was exchanged over a wire for 6 Ivorian and 8 Ivorian dilat ors and then for an 8.5 Ivorian pigtail catheter. The catheter was stitched to the skin, and a sterile dressing was applied. The mA was adjusted according to patient size. Iterative reconstruction techni que was employed. The dose-length product was 183.29 mGy-cm. There were no immediate complications. FINDINGS: CT images demonstrate the catheter within the liver abscess. 2 mL fluid was aspirated for t esting. IMPRESSION: 1. Successful CT-guided liver abscess drainage. 2. 2 mL opaque, green-arboleda fluid was sent for aerobic and anaerobic cultures. Reviewed, dictated and finalized at location A. NG SUPERVISOR
--- NOTE | ~2023-05-04 | XR_ITS ---
EXAMINATION: XR chest 1V portable Exam Date/Time: 05/14/2023 21:18 PLATFORM STAPLER HISTORY: sob Comparison: 05/09/2023. RESULT: Lines, tubes, and devices: None. Lungs and pleura: Leftward rotation. Low volumes with crowding. Segmental opacities in the left lung base. Improved diffuse reticular opacities. Bilateral costophrenic angle blunting Cardiomediastinal silhouette: Stable. Other: No acute osseous or upper abdominal finding. IMPRESSION: Improving interstitial edema. Worsening left basilar atelectasis/consolidation. Possible small pleura l effusions Reviewed, dictated and finalized at location K. FORM STAPLER IMPRESSION: Improving interstitial edema. Worsening left basilar atelectasis/consolidation. Possible small pleural effusions
--- NOTE | ~2023-05-04 | CT_ITS ---
EXAMINATION: CT brain wo con DATE: 05/15/2023 13:06 INDICATION: Obtunded. TECHNIQUE: Computed tomography (CT) of the head was performed without intravenous contrast. The mA wa s adjusted according to patient size. Iterative reconstruction technique was employed. The dose-lengt h product was 681.00 mGy-cm. COMPARISON: None FINDINGS: There are scattered areas of low attenuation in the cerebral white matter, which is within normal limits for the patient's age. There is an old lacunar infarct in the right caudate nucleus. Th ere is no intracranial hemorrhage, acute infarction, or abnormal intracranial mass lesion. The ventri cles are normal in size. There is mild mucosal thickening in the paranasal sinuses. There are likely changes of ocular lens replacement surgeries. The mastoid air cells are normal. IMPRESSION: 1. 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 Reviewed, dictated and finalized at location A. ION FUND MANAGER
[2023-05-04 20:30] VITALS: BP 109/54; PULSE 78; RESP 24; TEMP 36.5; O2SAT 100
--- NOTE | 2023-05-04 21:08 | ECG_ITS ---
Measurements Intervals [place] Rate: 80 P: 50 MT: 193 QRS: -5 QRSD: 105 T: 30 QT: 384 QTc: 444 Interpretive Statements SINUS RHYTHM FREQUENT ATRIAL PREMATURE COMPLEXES LOW QRS VOLTAGE IN LIMB LEADS ANTERIOR INFARCT, AGE INDETERMINATE CONSIDER INFERIOR INFARCT, AGE INDETERMINATE BASELINE ARTIFACT- I, III, AVR, AVL,A VF, V3, V5 ABNORMAL ECG COMPARED TO ECG 01/27/2023 08:29:58 ATRIAL PREMATURE COMPLEXES NOW PRESENT Electronically Signed On 05-05-2023 7:09:00 TELEVISION SCHEDULE COORDINATOR by Wayne Pugh D.O.
[2023-05-04] MEDS: FUROSEMIDE INJ 40 MG/4 ML VIAL IV PUSH (21:25)
[2023-05-04 21:29] LABS: Hematocrit 31.5 % (37.0-47.0); Hemoglobin 9.5 g/dL (12.0-15.0); Mean Corpuscular HGB Conc 30.2 g/dl (32-36); Mean Corpuscular Hemoglobin 27.4 pg (26-34); Mean Corpuscular Volume 90.8 fl (80-100); Mean Platelet Volume 9.4 fl (7.4-10.4); Platelet Count Result 481 k/mm3 (150-375); Red Blood Count 3.47 M/mm3 (4.2-5.4); Red Cell Distribution Width 15.3 % (11.5-14.5); White Blood Count 20.3 K/mm3 (4.5-10.0)
--- NOTE | 2023-05-04 21:39 | ED.GENADULT ---
HPI - General Adult General Chief complaint: Shortness of Breath/Dyspnea Stated complaint: SOB, BLE edema Time Seen by Provider: 05/04/23 20:55 History of Present Illness HPI narrative: Patient is a 81-year-old female who presents the emergency department with chief complaint of increased shortness of breath and peripheral edema. The patient has history of congestive heart failure reports that she has noticed that her lower extremities have become progressively more swollen and reported that she started to get more short of breath. The patient does report that she has history of COVID lung and reports she wears 2 L of nasal cannula oxygen at all times and uses a wheelchair to get around at home. Related Data Home Medications Medication Instructions Recorded Confirmed levothyroxine 137 mcg tablet 137 mcg PO DAILY 07/12/22 02/02/23 Allergies Allergy/AdvReac Type Severity Reaction Status Date / Time No Known Allergies Allergy Verified 05/04/23 20:53 Review of Systems Review of Systems: A 10 system review of systems was completed on the patient and is negative except for what is stated in the HPI. Nursing and ancillary documentation was reviewed. [facility] Past Medical History Medical History Chronic hypercapnic respiratory failure With negative polysomnogram but thought to be due to elevated right hemidiaphragm, long COVID and possible obesity hypoventilation syndrome Chronic kidney disease, stage 3 Congestive heart failure COVID-19 long hauler manifesting chronic dyspnea Diabetes mellitus Gastroparesis GERD without esophagitis Glaucoma Heart failure with preserved ejection fraction Hypertension Hypothyroidism Osteoarthritis Thoracic aortic aneurysm Vitamin D deficiency Surgical History Surgical History History of cornea transplant History of partial thyroidectomy Removal of benign thyroid nodule. Family History Family History Mother Diabetes mellitus Family history of diabetes mellitus in first degree relative Cerebrovascular accident Sibling Family history of cardiovascular disease Diabetes mellitus Other Family history of congestive heart failure Hypertension Social History Social History Social History: Surrogate medical decision maker: Johnny Ramirez, spouse. Code status: DNR/DNI (per patient request) discussion witnessed by daughter at bedside. Smoking packs per day: 0.5 Smoking cigarettes per day: 10.0 Years smoked: 8 Smoking pack-years: 4.00 Smoking status: Former smoker Tobacco type: cigarettes Second hand tobacco smoke exposure: No Smoking end date: 06/27/81 Alcohol intake: never Substance use: never Substance use type: does not use Lack of Transportation: No Lack of Food: Never True Current Housing: I Have Housing Concerned About Future Housing: No Difficulty Paying Gas/Electric Bills: No Difficulty Paying for Meds: No Currently Unemployed: No Education: High School Diploma/GED Difficulty w/ Childcare or Family Care: No Living arrangements: with family Additional living arrangements comments: Lives with family in [place]. Occupation/Education: retired Spiritual care concerns: No Agree to blood products: Yes Exam Narrative: GENERAL: Well-appearing, well-nourished, and in no acute distress. HEAD: Normocephalic, atraumatic. EYES: PERRLA and EOMI. ENT: Nares clear, no rhinorrhea or epistaxis. Mucous membranes moist. NECK: Supple. CHEST: Clear to auscultation. No respiratory distress. HEART: Regular rate and rhythm. No murmur heard. Normal peripheral pulses. ABDOMEN: Soft, nontender, nondistended, normal active bowel sounds. EXTREMITIES: Normal range of motion. 2+
[2023-05-04 21:40] LABS: Alanine Aminotransferase 18 U/L (6-35); Albumin Level 2.8 g/dL (3.5-5.1); Alkaline Phosphatase 332 U/L (38-126); Anion Gap 8 mmol/L (8-16); Aspartate Amino Transferase 46 U/L (14-36); Bilirubin,Total 1.3 mg/dL (0.2-1.3); Blood Urea Nitrogen 33 mg/dL (7-17); Calcium 8.5 mg/dL (8.4-10.2); Carbon Dioxide 28 mmol/L (22-30); Chloride 98 mmol/L (98-107); Estimated CRCL calculation 27 ml/min; Estimated Glomerular Filt Rate 40; Glucose 238 mg/dL (65-110); Magnesium 2.1 mg/dL (1.6-2.3); Potassium 3.8 mmol/L (3.4-5.0); Sodium 134 mmol/L (137-145)
[2023-05-04 21:52] LABS: NT Pro B Type Natriuretic Pept 3770 pg/mL (19.9-100); Troponin I < 0.012 ng/mL (0.000-0.034)
[2023-05-04 21:54] LABS: Band Neutrophils Percent 12 % (0-6); Monocytes Absolute Manual 1.42 K/mm3 (0.1-0.90); Monocytes Percent Manual 7 % (3-9); Neutrophils Absolute Manual 18.27 K/mm3 (1.7-7.2); Neutrophils Percent Manual 78 % (46-73); Total Cells Counted 100
[2023-05-04 21:55] LABS: Hypochromasia 1+ (NORMAL); Platelet Estimate Increased (Adequate); Schistocytes None Seen (NORMAL)
[2023-05-04 21:56] LABS: Anisocytosis 1+ (NORMAL)
[2023-05-04 22:02] LABS: Alveolar/Arterial O2 Gradient 68.1 mmHg; Base Excess ABG -0.7 mEq/l (+/-2.0); Fractional Inspired Oxygen 32 %; Oxygen Content ABG 14.4 %vol (16.0-22.0); Oxygen Saturation ABG 98.2 % (95.0-100.0); Oxyhemoglobin 97.2 % THb (90.0-100.0); PCO2 ABG 39.8 mmHg (35.0-45.0); PO2 ABG 113.5 mmHg (80.0-100.0); PO2 FiO2 Ratio Arterial Blood 3.55 %; Total Hemoglobin 10.4 g/dL (12.0-18.0); pH ABG 7.399 (7.350-7.450)
[2023-05-04 22:03] LABS: Modified Allen's Test Pass; Site Drawn RIGHT RADIAL
[2023-05-04 22:04] LABS: Device NASAL CANNULA
[2023-05-04 22:05] LABS: INR 1.2; Prothrombin Time 15.3 Seconds (11.1-14.7)
[2023-05-04 22:06] LABS: Partial Thromboplastin Time 31.2 SECONDS (22.3-36.8)
[2023-05-04 22:27] VITALS: O2SAT 100
[2023-05-04 22:28] VITALS: BP 118/65; PULSE 83; RESP 24; O2SAT 100
[2023-05-04 22:29] VITALS: PULSE 83
[2023-05-04 23:15] LABS: Appearance Urine Clear (Clear); Bacteria Urine None Seen /hpf; Bilirubin Urine Negative (Negative); Blood Urine Negative (Negative); Color Urine Dark Yellow (Yellow); Glucose Urine UA 3+ mg/dL (Negative); Hyaline Casts Urine Present /lpf; Ketones Urine Negative (Negative); Leukocyte Esterase Ur Negative LEU/UL (Negative); Mucus Urine Present /lpf; Nitrate Urine Negative (Negative); Protein Urine Trace mg/dL (Negative); RBC Urine 0-2 /hpf (0-2); Specific Grav Ur 1.014 (1.001-1.035); Squamous Epithelial Cell Urine None seen /hpf (Few); WBC Urine 0-5 /hpf
[2023-05-04 23:32] LABS: Add Urine Microscopic? YES
[2023-05-04 23:41] VITALS: BP 108/64; PULSE 83; RESP 19; O2SAT 100
[2023-05-05] VITALS (14 sets, daily range): BP systolic 100–112; BP diastolic 45–54; PULSE 71–96; RESP 16–18; TEMP 36.4–36.7; O2SAT 99–100; BMI 30.2
--- NOTE | 2023-05-05 00:23 | ADMGEN ---
This patient, Carolyn Ramirez, was admitted to 2 Medical Room 259-. Patient/family oriented to hospital policies and general routines including ID bracelet, bed and alarms, visiting hours, pain management, procedures, bathroom and other care routines, personal items, smoking policy, room service/diet, and visiting hours. Information on how to activate the Rapid Response Team has been discussed. Patient/Family are encouraged to report perceived risks to care and to ask questions if they do not understand what they are told or what they should do.
[2023-05-05 01:51] LABS: Troponin I < 0.012 ng/mL (0.000-0.034)
--- NOTE | 2023-05-05 06:00 | ECHO_ITS ---
Patient Info Name: Carolyn Ramirez Age: 87 years : 1935 Gender: Female Ht: 66 in Wt: 186 lbs BSA: 2.01 m2 HR: 96 bpm BP: 100 / 52 mmHg Technical Quality: Poor Exam Date: 05/05/2023 11:01 AM Exam Location: Echo Lab Exam Room: 259 Patient Status: Inpatient Admit Date: 05/04/2023 Staff Ordering Physician: Grady Fischer MD Food Sales Clerk: Cecily Ortega RDCS Attending Provider: Joaquina Porras MD Referring Physician: Aaliyah SNELL; Exam Type: CA echo dop color flow w con Study Info Indications - dyspnea elevated bnp Complete two-dimensional, color flow and Doppler transthoracic echocardiogram is performed with contrast to opacify the left ventricle and to improve the deliniation of the left ventricle endocardial borders. Contrast/Agitated Saline Contrast/Ag. Saline: Definity Amount: 2.00 ml Administered By: Cecily Ortega [facility] Existing IV Access: Yes IV Access Condition: patent with no signs of infiltration Reason for Poor Study: patient body habitus Summary 1. Technically difficult study with limited views. 2. Left ventricular chamber dimension is normal. 3. Left ventricular systolic function is normal, estimated at >70%. 4. There is mildly increased left ventricular wall thickness. 5. The left ventricular diastolic function is grade I diastolic dysfunction. 6. There is moderate tricuspid valve regurgitation. Left Ventricle Left ventricular chamber dimension is normal. Left ventricular systolic function is normal, estimated at >70%. There is mildly increased left ventricular wall thickness. The left ventricular diastolic function is grade I diastolic dysfunction. Right Ventricle Right ventricular chamber dimension is not well visualized. Left Atria Left atrial chamber dimension is normal. Right Atria Right atrial chamber dimension is not well visualized. Aortic Valve The aortic valve is trileaflet. There is no aortic valve stenosis. There is no aortic valve regurgitation. There is moderate aortic valve calcification. Pulmonic Valve The pulmonic valve is not well visualized. Mitral Valve There is trace mitral valve regurgitation. Tricuspid Valve There is moderate tricuspid valve regurgitation. Pericardium/Pleural There is no pericardial effusion. Inferior Vena Cava Normal IVC size. Aorta The aortic root size at the sinus of Valsalva is normal. Left Ventricular Outflow Tract Name Value Normal LVOT 2D LVOT Diameter 2.06 cm LVOT Doppler LVOT Peak Gradient 5 mmHg LVOT Mean Gradient 3 mmHg LVOT VTI 22.74 cm LVOT VTI/AV VTI Ratio 0.90 LVOT Stroke Volume 75.48 ml LVOT CO 17.25 l/min LVOT CI 8.59 L/min/m2 Pulmonic Valve Name Value Normal PV Doppler
[2023-05-05] MEDS: FUROSEMIDE INJ 40 MG/4 ML VIAL IV PUSH ×2 (09:24→19:57)
[2023-05-05] MEDS: PERFLUTREN LIPID MICROSPHERES 1.5 ML VIAL DILUTED TO 10 ML TOTAL VOLUME IV PUSH (11:40)
--- NOTE | 2023-05-05 11:58 | IVDEFINITY ---
Prior to administration of IV Definity the patient was educated on the risks and benefits of the imaging enhancing agent including potential adverse side effects. The patient verbalized understanding. Allergies were verified. No exclusion criteria were identified and at least one of the following inclusion criteria were met: 1) physician request, 2) patient technically difficult to image (per the [place] [employer]chocardi[employer] guidelines of two or more segments not discernable within the apical view), or 3) questionable left ventricular function. ?
--- NOTE | 2023-05-05 13:05 | PC.NURSE ---
On 05/05/23, the student, [Sergio Ambriz], provided care and completed [facility] documentation on this patient. I have reviewed the student's documentation and agree with the findings.
--- NOTE | 2023-05-05 16:15 | PM.IMHP ---
H&P: HPI History of Present Illness Date/Time: 05/05/23 16:15 Chief Complaint: Shortness of breath Leg swellings Narrative: Carolyn Ramirez is an 87 yo F with a mhx significant for A-fib, glaucoma, GERD, Hypothyroidism, sedentary status, chronic hypoxic reand obesity. Over [place] last couple of weeks she has developed worsening leg swellings; with no known modifying factors, it was associated with shortness of breath, malaise, fatigue and poor performance of ADLs. She denied associated fevers, chills, chest pain, dizziness, LOC, cough, PND or orthopnea. ED evaluation demonstrates WBC 20 Hb 9.5 Plts 481 Na 134 BUN 35 Cr 1.5 GFR BNP 3770 UA: unremarkable CXR: ?Small lung volumes with mild atelectasis at the lung bases She will be admitted, evaluated and managed for CHF exacerbation, DARION, Acute exacerbation of chronic hypoxic respiratory failure. [facility] Past Medical History Medical History Chronic hypercapnic respiratory failure With negative polysomnogram but thought to be due to elevated right hemidiaphragm, long COVID and possible obesity hypoventilation syndrome Chronic kidney disease, stage 3 Congestive heart failure COVID-19 long hauler manifesting chronic dyspnea Diabetes mellitus Gastroparesis GERD without esophagitis Glaucoma Heart failure with preserved ejection fraction Hypertension Hypothyroidism Osteoarthritis Thoracic aortic aneurysm Vitamin D deficiency Surgical History Surgical History History of cornea transplant History of partial thyroidectomy Removal of benign thyroid nodule. Family History Family History Mother Diabetes mellitus Family history of diabetes mellitus in first degree relative Cerebrovascular accident Sibling Family history of cardiovascular disease Diabetes mellitus Other Family history of congestive heart failure Hypertension Social History Social History Social History: Surrogate medical decision maker: Johnny Ramirez, spouse. Code status: DNR/DNI (per patient request) discussion witnessed by daughter at bedside. Smoking packs per day: 0.5 Smoking cigarettes per day: 10.0 Years smoked: 8 Smoking pack-years: 4.00 Smoking status: Former smoker Tobacco type: cigarettes Second hand tobacco smoke exposure: No Smoking end date: 06/27/81 Alcohol intake: never Substance use: never Substance use type: does not use Lack of Transportation: No Lack of Food: Never True Current Housing: I Have Housing Concerned About Future Housing: No Difficulty Paying Gas/Electric Bills: No Difficulty Paying for Meds: No Currently Unemployed: No Education: High School Diploma/GED Difficulty w/ Childcare or Family Care: No Living arrangements: with family Additional living arrangements comments: Lives with family in [place]. Occupation/Education: retired Spiritual care concerns: No Agree to blood products: Yes Meds Home Medications and Allergies Home Medications Medication Instructions Recorded Confirmed Type levothyroxine 137 mcg tablet 137 mcg PO DAILY 07/12/22 05/05/23 History aspirin 81 mg chewable tablet 81 mg PO DAILY@0800 1 month #30 02/02/23 05/05/23 Rx ([facility] Aspirin) tabs bimatoprost 0.01 % eye drops 1 drp ophthalmic (eye) DAILY #5 mL 02/02/23 05/05/23 Rx (Lumigan) brimonidine 0.2 %-timolol 0.5 % 1 drp ophthalmic (eye) DAILY #10 mL 02/02/23 05/05/23 Rx eye drops (Combigan) diltiazem HCl 240 mg 240 mg PO DAILY #90 caps 02/02/23 05/05/23 Rx capsule,extended release 24 hr empagliflozin 10 mg tablet 10 mg PO DAILY 90 days #90 tabs 02/02/23 05/05/23 Rx (Jardiance) furosemide 20 mg tablet 20 mg PO BID edema #180 tabs 02/02/23 05/05/23 Rx omepraz
[2023-05-05 19:06] LABS: Basophils Absolute Auto 0.1 K/mm3 (0.0-0.1); Basophils Percent Auto 0.3 % (0.2-1.2); Eosinophils Absolute Auto 0.2 K/mm3 (0-0.3); Eosinophils Percent Auto 0.8 % (0-4.4); Hematocrit 32.5 % (37.0-47.0); Hemoglobin 9.9 g/dL (12.0-15.0); Immature Granulocyte Absolute 0.15 K/mm3 (0.00-0.031); Immature Granulocyte Percent A 0.7 % (0-0.5); Lymphocytes Absolute Auto 1.55 K/mm3 (0.9-3.2); Lymphocytes Percent Auto 7.5 % (18.3-44.2); Mean Corpuscular HGB Conc 30.5 g/dl (32-36); Mean Corpuscular Hemoglobin 27.6 pg (26-34); Mean Corpuscular Volume 90.5 fl (80-100); Mean Platelet Volume 9.5 fl (7.4-10.4); Monocytes Percent Auto 9.4 % (2.6-8.5); Neutrophils Absolute Auto 16.8 K/mm3 (1.3-6.7); Neutrophils Percent Auto 81.3 % (45.5-73.1); Platelet Count Result 452 k/mm3 (150-375); Red Blood Count 3.59 M/mm3 (4.2-5.4); Red Cell Distribution Width 15.4 % (11.5-14.5); White Blood Count 20.7 K/mm3 (4.5-10.0)
[2023-05-05 19:21] LABS: Anion Gap 8 mmol/L (8-16); Blood Urea Nitrogen 32 mg/dL (7-17); Calcium 8.4 mg/dL (8.4-10.2); Carbon Dioxide 28 mmol/L (22-30); Chloride 100 mmol/L (98-107); Estimated CRCL calculation 33 ml/min; Estimated Glomerular Filt Rate 52; Glucose 239 mg/dL (65-110); Potassium 3.5 mmol/L (3.4-5.0); Sodium 136 mmol/L (137-145)
[2023-05-05 19:32] LABS: Hemoglobin A1C 7.3 % (<5.7)
[2023-05-05] MEDS: LATANOPROST 0.005% OP SOLN 2.5 ML BTL 1 DROP EACH EYE (19:56)
[2023-05-05] MEDS: INSULIN GLARGINE (*BKC) 100 UNITS/ML 10 UNITS SUB-Q (19:57)
[2023-05-05 20:39] LABS: Glucose Point of Care 238 mg/dl (65-105)
[2023-05-06] VITALS (10 sets, daily range): BP systolic 100–131; BP diastolic 49–64; PULSE 50–92; RESP 16–23; TEMP 35.9–36.7; O2SAT 94–100
[2023-05-06] MEDS: LEVOTHYROXINE SODIUM 112 MCG TABLET PO (05:46)
[2023-05-06] MEDS: LEVOTHYROXINE SODIUM 25 MCG TABLET PO (05:46)
[2023-05-06 06:25] LABS: Basophils Absolute Auto 0.1 K/mm3 (0.0-0.1); Basophils Percent Auto 0.3 % (0.2-1.2); Eosinophils Absolute Auto 0.2 K/mm3 (0-0.3); Eosinophils Percent Auto 0.7 % (0-4.4); Hematocrit 30.1 % (37.0-47.0); Hemoglobin 9.3 g/dL (12.0-15.0); Immature Granulocyte Absolute 0.22 K/mm3 (0.00-0.031); Lymphocytes Absolute Auto 1.86 K/mm3 (0.9-3.2); Lymphocytes Percent Auto 8.2 % (18.3-44.2); Mean Corpuscular HGB Conc 30.9 g/dl (32-36); Mean Corpuscular Hemoglobin 27.6 pg (26-34); Mean Corpuscular Volume 89.3 fl (80-100); Mean Platelet Volume 9.7 fl (7.4-10.4); Monocytes Absolute Auto 2.5 K/mm3 (0.1-0.6); Monocytes Percent Auto 10.8 % (2.6-8.5); Platelet Count Result 430 k/mm3 (150-375); Red Blood Count 3.37 M/mm3 (4.2-5.4); Red Cell Distribution Width 15.5 % (11.5-14.5); White Blood Count 22.7 K/mm3 (4.5-10.0)
[2023-05-06 06:40] LABS: Alanine Aminotransferase 15 U/L (6-35); Albumin Level 2.5 g/dL (3.5-5.1); Alkaline Phosphatase 304 U/L (38-126); Anion Gap 6 mmol/L (8-16); Aspartate Amino Transferase 40 U/L (14-36); Bilirubin,Total 1.5 mg/dL (0.2-1.3); Blood Urea Nitrogen 30 mg/dL (7-17); Calcium 8.5 mg/dL (8.4-10.2); Carbon Dioxide 30 mmol/L (22-30); Chloride 100 mmol/L (98-107); Estimated CRCL calculation 33 ml/min; Estimated Glomerular Filt Rate 52; Glucose 163 mg/dL (65-110); Potassium 3.6 mmol/L (3.4-5.0); Sodium 136 mmol/L (137-145)
[2023-05-06 07:34] LABS: Hypochromasia 1+ (NORMAL); Platelet Estimate Increased (Adequate)
[2023-05-06 07:35] LABS: Large Platelets Present; Schistocytes None Seen (NORMAL); Target Cells 1+ (NORMAL)
[2023-05-06 07:36] LABS: Anisocytosis 1+ (NORMAL)
[2023-05-06 08:27] LABS: Glucose Point of Care 148 mg/dl (65-105)
[2023-05-06] MEDS: ASPIRIN 81 MG CHEWABLE TABLET PO (09:47)
[2023-05-06] MEDS: FUROSEMIDE INJ 40 MG/4 ML VIAL IV PUSH (09:48)
[2023-05-06] MEDS: dilTIAZem HCL CD 240 MG CAP.24HR PO (09:48)
[2023-05-06] MEDS: EMPAGLIFLOZIN 10 MG TABLET PO (09:48)
[2023-05-06] MEDS: ENOXAPARIN 40 MG/0.4 ML SYRINGE SUB-Q (09:48)
[2023-05-06] MEDS: BRIMONIDINE TARTRATE 0.2% OP SOLN 5 ML BTL 1 DROP EACH EYE (09:48)
[2023-05-06] MEDS: PANTOPRAZOLE 40 MG TABLET 20 MG PO (09:49)
[2023-05-06] MEDS: TIMOLOL MALEATE 0.5% OP SOLN 5 ML BOTTLE 1 DROP EACH EYE (09:49)
[2023-05-06 10:16] LABS: Iron 31 ug/dL (37-170)
[2023-05-06 10:25] LABS: Percent Iron Saturation 20 % (20-50)
--- NOTE | 2023-05-06 12:00 | PM.CNCAR ---
Assessment and Plan Assessment and plan (1) Heart failure with preserved ejection fraction: Qualifiers: Heart failure chronicity: acute on chronic Qualified Code(s): I50.33 - Acute on chronic diastolic (congestive) heart failure Code(s): I50.30 - Unspecified diastolic (congestive) heart failure Status: Acute Assessment and Plan: Presents with a chief complaint of progressive dyspnea. She has some evidence of CHF with bilateral small pleural effusions and mildly elevated proBNP. She is known to have normal LV systolic function and grade 1 diastolic dysfunction, moderate TR. An echocardiogram was repeated and is unchanged. She also is known to have right hemidiaphragm paralysis as well as obesity hypoventilation syndrome. She is less short of breath after receiving some IV furosemide. She does still have pulmonary rales so will continue IV furosemide today. Perhaps switch to p.o. furosemide tomorrow depending on her clinical status. Cardiology will follow along on an as needed basis. Please call us with any questions. History of Present Illness History of Present Illness Consult date/time: 05/06/23 12:00 Requesting physician: Neal Olea MD Consult reason: congestive heart failure Reason For Visit: CHF,Peripheral Edema,Dyspnea,Leukocytosis Narrative: Carolyn Ramirez is an 87-year-old female with a past medical history of chronic kidney disease, hypertension, insulin dependent diabetes, heart failure with preserved ejection fraction, and chronic shortness of breath since having COVID in 2020.? She is currently admitted to the hospital with shortness of breath. We are being consulted for CHF. She began feeling short of breath about 2-3 days prior to presentation to the hospital. She also has some mild lower extremity swelling. She denies any chest pain, palpitations, syncope, or presyncope. She reports that her breathing has improved since admission to the hospital. She currently does not have any complaints. Review of Systems Review of Systems: All systems reviewed & are unremarkable except as noted in HPI and below PMFSH Past Medical History Medical History Chronic hypercapnic respiratory failure With negative polysomnogram but thought to be due to elevated right hemidiaphragm, long COVID and possible obesity hypoventilation syndrome Chronic kidney disease, stage 3 Congestive heart failure COVID-19 long hauler manifesting chronic dyspnea Diabetes mellitus Gastroparesis GERD without esophagitis Glaucoma Heart failure with preserved ejection fraction Hypertension Hypothyroidism Osteoarthritis Thoracic aortic aneurysm Vitamin D deficiency Surgical History Surgical History History of cornea transplant History of partial thyroidectomy Removal of benign thyroid nodule. Family History Family History Mother Diabetes mellitus Family history of diabetes mellitus in first degree relative Cerebrovascular accident Sibling Family history of cardiovascular disease Diabetes mellitus Other Family history of congestive heart failure Hypertension Social History Social History Social History: Surrogate medical decision maker: Johnny Ramirez, spouse. Code status: DNR/DNI (per patient request) discussion witnessed by daughter at bedside. Smoking packs per day: 0.5 Smoking cigarettes per day: 10.0 Years smoked: 8 Smoking pack-years: 4.00 Smoking status: Former smoker Tobacco type: cigarettes Second hand tobacco smoke exposure: No Smoking end date: 06/27/81 Alcohol intake: never Substance use: never Substance use type: does not use Lack of Transportation: No Lack of Food: Never True Current Housing: I Have Housing Concerned About Future
[2023-05-06 12:52] LABS: Glucose Point of Care 166 mg/dl (65-105)
--- NOTE | 2023-05-06 14:52 | PM.IMPN ---
Progress Note: A&P Assessment and Plan (1) Acute and chronic respiratory failure: Code(s): J96.20 - Acute and chronic respiratory failure, unspecified whether with hypoxia or hypercapnia Status: Acute (2) CHF exacerbation: Code(s): I50.9 - Heart failure, unspecified Status: Acute (3) Nocturnal hypoxemia: Code(s): G47.34 - Idiopathic sleep related nonobstructive alveolar hypoventilation Status: Acute (4) Leukocytosis: Code(s): D72.829 - Elevated white blood cell count, unspecified Status: Acute (5) Heart failure with preserved ejection fraction: Qualifiers: Heart failure chronicity: acute on chronic Qualified Code(s): I50.33 - Acute on chronic diastolic (congestive) heart failure Code(s): I50.30 - Unspecified diastolic (congestive) heart failure Status: Acute (6) Obesity (BMI 30-39.9): Code(s): E66.9 - Obesity, unspecified Status: Acute (7) Type 2 diabetes mellitus with hyperglycemia, with long-term current use of insulin: Code(s): E11.65 - Type 2 diabetes mellitus with hyperglycemia; Z79.4 - detention (current) use of insulin Status: Acute Plan 1. Acute on chronic hypoxic respiratory failure: supplemental oxygen, currently on 3 L oxygen, presents with oxygen Pneumonia, CT chest showed bilateral pneumonia. Started on Rocephin, doxycycline, MRSA pending and blood culture ordered. Monitor leukocytosis. Anemia, hemoglobin 9.3, iron profile showed iron replete. Likely from inflammatory. 2. CHF, with exacerbation. decrease lasix to 20mg bid, echo showed grade 1 diastolic dysfunction with EF more than 70%. 3. Obesity. Diet and lifestyle modification counseling 4. Hypothyroidism. Resume Levothyroxine 5. GERD. on PPI 6. IDDM. resume Basal+correctional insulin regimen 7. Glaucoma. Resume eyedrops Prophylaxis subQ Lovenox. PT/OT for discharge planning. Subjective Date/time seen: 05/06/23 14:52 Interval history: Patient presented to hospital because of shortness of breath. Initially being managed for CHF exacerbation with diuresis. CT chest this morning showed bilateral pulmonary infiltrates along with leukocytosis is most likely. Patient started on Rocephin and doxycycline if pending, blood culture ordered. Exam Const: General: in distress respiratory HENMT: Face/Nose/Sinus: Normal nares present Eyes: General: appearance normal, both eyes and all related structures Neck: Neck: supple and no JVD Resp: Auscultation: rales bilateral and diminished lung sounds Cardio: Rate: regular rate Skin: General skin exam: no rashes or lesions noted Neuro: Motor exam (neuro): Abnormal motor strength present Extrem: General: edema and pedal edema bilaterally Psych: Mental Status: mental status grossly normal Objective Data Vital Signs Vital Signs: Vital Signs - 24 hr 05/05/23 16:00 05/05/23 19:56 05/05/23 20:00 Temperature 97.6 F Pulse Rate 87 90 93 Respiratory Rate 18 Blood Pressure 112/45 L Pulse Oximetry 100 Oxygen Delivery Oxygen Flow Rate 05/05/23 20:00 05/06/23 00:00 05/06/23 04:00 Temperature Pulse Rate 76 73 Respiratory Rate Blood Pressure Pulse Oximetry 100 Oxygen Delivery Nasal Cannula Oxygen Flow Rate 3 05/05/23 21:48 05/05/23 21:48 05/06/23 05:55 Temperature 97.8 F Pulse Rate 76 81 Respiratory Rate 16 Blood Pressure 131/64 Pulse Oximetry 100 100 100 Oxygen Delivery BiPAP BiPAP Oxygen Flow Rate 05/06/23 14:00 Temperature 96.7 F L Pulse Rate 50 L Respiratory Rate 20 Blood Pressure 110/49 L Pulse Oximetry 94 Oxygen Delivery Oxygen Flow Rate Intake/Output Intake/Output: Intake & Output 05/03/23 05/04/23 05/05/23 05/06/23 23:59 23:59 23:59 23:59 Intake Total 1680 1190 Output Total 500 Balance 1680 311 Meds/Results Medications: Active Medications Generic Name Dose Route Start Last Admin Trade Name F
--- NOTE | 2023-05-06 14:57 | PCPTNOTE ---
Attempted to see for physial therapy evaluation, pts O2 level is at 100% but demonstrates very labored breathing at rest. Pt is on hold today per RN.
--- NOTE | 2023-05-06 15:02 | PCOTNOTE ---
Attempted OT evaluation this afternoon. Patient having labored breathing. RN recommends we hold today and check back tomorrow.
[2023-05-06] MEDS: cefTRIAXone 2 GM/NS 100 ML 2 GM/100 ML BAG IVPB (15:50)
[2023-05-06] MEDS: DOXYCYCLINE 100 MG/NS 100 ML 100 MG/100 ML BAG IVPB (15:51)
[2023-05-06 17:29] LABS: Glucose Point of Care 175 mg/dl (65-105)
[2023-05-06] MEDS: INSULIN GLARGINE (*BKC) 100 UNITS/ML 10 UNITS SUB-Q (20:07)
[2023-05-06] MEDS: FUROSEMIDE INJ 40 MG/4 ML VIAL 20 MG IV PUSH (20:07)
[2023-05-06] MEDS: LATANOPROST 0.005% OP SOLN 2.5 ML BTL 1 DROP EACH EYE (20:08)
[2023-05-06 20:11] LABS: Glucose Point of Care 206 mg/dl (65-105)
[2023-05-07] VITALS (20 sets, daily range): BP systolic 103–119; BP diastolic 45–60; PULSE 56–84; RESP 17–26; TEMP 36.4–36.6; O2SAT 95–100
[2023-05-07] MEDS: DOXYCYCLINE 100 MG/NS 100 ML 100 MG/100 ML BAG IVPB ×2 (03:52→15:41)
[2023-05-07 05:13] LABS: Basophils Absolute Auto 0.1 K/mm3 (0.0-0.1); Basophils Percent Auto 0.4 % (0.2-1.2); Eosinophils Absolute Auto 0.2 K/mm3 (0-0.3); Eosinophils Percent Auto 0.8 % (0-4.4); Hemoglobin 9.4 g/dL (12.0-15.0); Immature Granulocyte Absolute 0.25 K/mm3 (0.00-0.031); Immature Granulocyte Percent A 1.2 % (0-0.5); Lymphocytes Absolute Auto 1.56 K/mm3 (0.9-3.2); Lymphocytes Percent Auto 7.6 % (18.3-44.2); Mean Corpuscular HGB Conc 31.3 g/dl (32-36); Mean Corpuscular Hemoglobin 27.6 pg (26-34); Mean Corpuscular Volume 88.2 fl (80-100); Mean Platelet Volume 9.4 fl (7.4-10.4); Monocytes Absolute Auto 2.1 K/mm3 (0.1-0.6); Monocytes Percent Auto 10.1 % (2.6-8.5); Neutrophils Absolute Auto 16.4 K/mm3 (1.3-6.7); Neutrophils Percent Auto 79.9 % (45.5-73.1); Platelet Count Result 425 k/mm3 (150-375); Red Cell Distribution Width 15.8 % (11.5-14.5); White Blood Count 20.6 K/mm3 (4.5-10.0)
[2023-05-07] MEDS: LEVOTHYROXINE SODIUM 25 MCG TABLET PO (06:49)
[2023-05-07] MEDS: LEVOTHYROXINE SODIUM 112 MCG TABLET PO (06:49)
[2023-05-07 08:11] LABS: Glucose Point of Care 135 mg/dl (65-105)
[2023-05-07 08:42] LABS: Alanine Aminotransferase 15 U/L (6-35); Albumin Level 2.5 g/dL (3.5-5.1); Alkaline Phosphatase 313 U/L (38-126); Anion Gap 8 mmol/L (8-16); Aspartate Amino Transferase 59 U/L (14-36); Bilirubin,Total 1.6 mg/dL (0.2-1.3); Blood Urea Nitrogen 28 mg/dL (7-17); Calcium 8.5 mg/dL (8.4-10.2); Carbon Dioxide 30 mmol/L (22-30); Chloride 99 mmol/L (98-107); Estimated CRCL calculation 36 ml/min; Estimated Glomerular Filt Rate 57; Glucose 120 mg/dL (65-110); Potassium 3.6 mmol/L (3.4-5.0); Sodium 137 mmol/L (137-145)
[2023-05-07] MEDS: ENOXAPARIN 40 MG/0.4 ML SYRINGE SUB-Q (09:40)
[2023-05-07] MEDS: ASPIRIN 81 MG CHEWABLE TABLET PO (09:40)
[2023-05-07] MEDS: EMPAGLIFLOZIN 10 MG TABLET PO (09:40)
[2023-05-07] MEDS: BRIMONIDINE TARTRATE 0.2% OP SOLN 5 ML BTL 1 DROP EACH EYE (09:40)
[2023-05-07] MEDS: dilTIAZem HCL CD 240 MG CAP.24HR PO (09:40)
--- NOTE | 2023-05-07 09:40 | PC.NURSE ---
called pharmacy for 0900 protonix, as patient's ordered dose is not loaded in pyxis
[2023-05-07] MEDS: TIMOLOL MALEATE 0.5% OP SOLN 5 ML BOTTLE 1 DROP EACH EYE (09:41)
[2023-05-07] MEDS: FUROSEMIDE INJ 40 MG/4 ML VIAL 20 MG IV PUSH ×2 (09:41→20:40)
[2023-05-07] MEDS: PANTOPRAZOLE SOD SESQUIHYDRATE 20 MG TAB PO (10:19)
--- NOTE | 2023-05-07 10:30 | PCOTNOTE ---
Attempted OT eval, patient is SOB and is having difficulty with communicating. Patient refused at this time. Will follow.
--- NOTE | 2023-05-07 11:16 | PM.PNCARD ---
Progress Note: A&P Assessment and Plan (1) CHF exacerbation: Code(s): I50.9 - Heart failure, unspecified Status: Acute Assessment and Plan: Presented with a chief complaint of progressive dyspnea.? She has some evidence of CHF with bilateral small pleural effusions and mildly elevated proBNP.? She is known to have normal LV systolic function and grade 1 diastolic dysfunction, moderate TR.? An echocardiogram was repeated and is unchanged.? She also is known to have right hemidiaphragm paralysis as well as obesity hypoventilation syndrome. Continue with IV Lasix for now as CXR 05/07 continues to show small pleural effusions. (2) Acute and chronic respiratory failure: Code(s): J96.20 - Acute and chronic respiratory failure, unspecified whether with hypoxia or hypercapnia Status: Acute Assessment and Plan: Wean off oxygen as tolerated. Plan Outpatient follow up with Dr. Kaplan, who she sees as an outpatient. Subjective Date/time seen: 05/07/23 11:16 Interval history: Reason for visit: Congestive heart failure HPI: Carolyn Ramirez is an 87-year-old female with a past medical history of chronic kidney disease, hypertension, insulin dependent diabetes, heart failure with preserved ejection fraction, and chronic shortness of breath since having COVID in 2020.? She is currently admitted to the hospital with shortness of breath.? We are being consulted for CHF.? She began feeling short of breath about 2-3 days prior to presentation to the hospital.? She also has some mild lower extremity swelling.? She denies any chest pain, palpitations, syncope, or presyncope.? She reports that her breathing has improved since admission to the hospital.? She currently does not have any complaints. Date of service 05/07: She feels short of breath this morning. CXR this morning shows small pleural effusions, mild atelectasis at the bases. Review of Systems Review of Systems: + Shortness of breath, no chest pain Exam Const: General: no acute distress HENMT: Mouth: Yes moist mucous membranes Eyes: General: appearance normal, both eyes and all related structures Sclera: sclerae normal Neck: Neck: supple Resp: Other: Slightly tachypneic. On supplemental oxygen. Cardio: Rate: regular rate Rhythm: regular rhythm Heart sounds: no murmurs Skin: General skin exam: normal color Psych: Mental Status: mental status grossly normal Affect: normal affect Objective Data Vital Signs Vital Signs: Vital Signs - 24 hr 05/06/23 14:00 05/06/23 12:00 05/06/23 16:00 Temperature 35.9 C L Pulse Rate 50 L 92 78 Respiratory Rate 20 Blood Pressure 110/49 L Pulse Oximetry 94 Oxygen Delivery Oxygen Flow Rate 05/06/23 19:57 05/06/23 20:00 05/06/23 22:00 Temperature 36.7 C Pulse Rate 75 75 Respiratory Rate 16 23 H Blood Pressure 100/54 L Pulse Oximetry 96 98 99 Oxygen Delivery Nasal Cannula BiPAP Oxygen Flow Rate 3 05/07/23 02:35 05/06/23 20:00 05/07/23 00:00 Temperature Pulse Rate 71 74 56 L Respiratory Rate 23 H Blood Pressure Pulse Oximetry 99 Oxygen Delivery BiPAP Oxygen Flow Rate 05/07/23 04:00 05/07/23 06:37 05/07/23 08:02 Temperature 36.4 C 36.4 C L Pulse Rate 67 71 82 Respiratory Rate 18 26 H Blood Pressure 115/60 119/50 L Pulse Oximetry 95 100 Oxygen Delivery Oxygen Flow Rate 05/07/23 08:11 Temperature Pulse Rate Respiratory Rate 22 H Blood Pressure Pulse Oximetry Oxygen Delivery Oxygen Flow Rate Intake/Output Intake/Output: Intake & Output 05/04/23 05/05/23 05/06/23 05/07/23 23:59 23:59 23:59 23:59 Intake Total 1680 2020 520 Output Total 1000 600 Balance 1680 1020 -80 Meds/Results Medications: Active Medications Generic Name Dose Route Start Last Admin Trade Name Svenq PRN Reason Stop Dose Admin Aspirin 81 mg 05/06/23 08:00 05/07/23 09:40 Aspirin 81 Mg Chewable Tablet PO
--- NOTE | 2023-05-07 11:18 | PCPTNOTE ---
attempted PT evaluation ~ 1030; pt was very SOB, increased with speaking a few words. She just finished receiving a bath and was fatigued and increased SOB. Refused PT at this time.
[2023-05-07 12:04] LABS: Glucose Point of Care 136 mg/dl (65-105)
[2023-05-07 12:28] LABS: Alveolar/Arterial O2 Gradient 96.2 mmHg; Base Excess ABG 5.4 mEq/l (+/-2.0); Fractional Inspired Oxygen 32 %; HCO3 ABG 28.9 mEq/l (22.0-26.0); Oxygen Content ABG 14.7 %vol (16.0-22.0); Oxygen Saturation ABG 97.3 % (95.0-100.0); Oxyhemoglobin 95.8 % THb (90.0-100.0); PCO2 ABG 38.2 mmHg (35.0-45.0); PO2 ABG 87.3 mmHg (80.0-100.0); PO2 FiO2 Ratio Arterial Blood 2.73 %; Total Hemoglobin 10.8 g/dL (12.0-18.0); pH ABG 7.497 (7.350-7.450)
[2023-05-07 12:29] LABS: Modified Allen's Test Pass; Site Drawn RIGHT RADIAL
[2023-05-07 12:31] LABS: Device CPAP
--- NOTE | 2023-05-07 13:18 | PM.IMPN ---
Progress Note: A&P Assessment and Plan (1) Acute and chronic respiratory failure: Code(s): J96.20 - Acute and chronic respiratory failure, unspecified whether with hypoxia or hypercapnia Status: Acute (2) CHF exacerbation: Code(s): I50.9 - Heart failure, unspecified Status: Acute (3) Nocturnal hypoxemia: Code(s): G47.34 - Idiopathic sleep related nonobstructive alveolar hypoventilation Status: Acute (4) Leukocytosis: Code(s): D72.829 - Elevated white blood cell count, unspecified Status: Acute (5) Heart failure with preserved ejection fraction: Qualifiers: Heart failure chronicity: acute on chronic Qualified Code(s): I50.33 - Acute on chronic diastolic (congestive) heart failure Code(s): I50.30 - Unspecified diastolic (congestive) heart failure Status: Acute (6) Obesity (BMI 30-39.9): Code(s): E66.9 - Obesity, unspecified Status: Acute (7) Type 2 diabetes mellitus with hyperglycemia, with long-term current use of insulin: Code(s): E11.65 - Type 2 diabetes mellitus with hyperglycemia; Z79.4 - snf (current) use of insulin Status: Acute Plan # Acute on chronic hypoxic respiratory failure: supplemental oxygen, currently on 3 L oxygen, presents with oxygen Pneumonia, CT chest showed bilateral pneumonia. Started on Rocephin, doxycycline, MRSA pending and blood culture ordered. Monitor leukocytosis. Anemia, hemoglobin 9.3, iron profile showed iron replete. Likely from inflammatory. Suspected to be related to pneumonia and CHF exacerbation Leukocytosis persist. Continue ceftriaxone and doxycycline # cHF, with exacerbation. Acute on chronic diastolic. Lasix 40 mg IV has been lowered to 20 mg b.i.d.. Delete echo showed grade 1 diastolic dysfunction with EF more than 70%. Cardiology following elevated. Continue diuresis as tolerated # obesity. Diet and lifestyle modification counseling # hypothyroidism. Resume Levothyroxine # gERD. on PPI # iDDM. resume Basal+correctional insulin regimen #. Glaucoma. Resume eyedrops # Prophylaxis subQ Lovenox. # PT/OT for discharge planning. Subjective Date/time seen: 05/07/23 13:18 Interval history: Patient intermittently feeling short off breath. On CPAP p.r.n.. Minimal cough. Leg swelling has improved Review of Systems Review of Systems: All systems reviewed & are unremarkable except as noted in HPI and below Exam Narrative: GENERAL: Well-appearing, well-nourished, and in no acute distress. HEAD: Normocephalic, atraumatic. EYES: PERRLA and EOMI. ENT: Nares clear, no rhinorrhea or epistaxis.? Mucous membranes moist. NECK: Supple. CHEST: Clear to auscultation.? No respiratory distress. HEART: Regular rate and rhythm.? No murmur heard.? Normal peripheral pulses. ABDOMEN: Soft, nontender, nondistended, normal active bowel sounds. EXTREMITIES: Normal range of motion.? 2+ edema. SKIN: Warm, dry, no rash. NEURO: No focal deficits.? Alert and oriented x3. PSYCH: Normal mood and affect. ? Objective Data Vital Signs Vital Signs: Vital Signs - 24 hr 05/06/23 14:00 05/06/23 16:00 05/06/23 19:57 Temperature 96.7 F L 98.0 F Pulse Rate 50 L 78 75 Respiratory Rate 20 16 Blood Pressure 110/49 L 100/54 L Pulse Oximetry 94 96 Oxygen Delivery Oxygen Flow Rate 05/06/23 20:00 05/06/23 22:00 05/07/23 02:35 Temperature Pulse Rate 75 71 Respiratory Rate 23 H 23 H Blood Pressure Pulse Oximetry 98 99 99 Oxygen Delivery Nasal Cannula BiPAP BiPAP Oxygen Flow Rate 3 05/06/23 20:00 05/07/23 00:00 05/07/23 04:00 Temperature Pulse Rate 74 56 L 67 Respiratory Rate Blood Pressure Pulse Oximetry Oxygen Delivery Oxygen Flow Rate 05/07/23 06:37 05/07/23 08:02 05/07/23 08:11 Temperature 97.6 F 97.5 F L Pulse Rate 71 82 Respiratory Rate 18 26 H 22 H Blood Pressure 115/60 119/50 L Pulse Oximetry 95 100 Oxygen Delivery Oxyg
[2023-05-07] MEDS: cefTRIAXone 2 GM/NS 100 ML 2 GM/100 ML BAG IVPB (15:11)
--- NOTE | 2023-05-07 16:43 | PCRCNOTE ---
Window of time for administration has passed. See next scheduled administration.
[2023-05-07 17:08] LABS: Glucose Point of Care 142 mg/dl (65-105)
[2023-05-07] MEDS: IPRATROPIUM BR 0.02% INH SOLN 0.5 MG/2.5 ML VIAL INHALATION (19:46)
[2023-05-07] MEDS: INSULIN GLARGINE (*BKC) 100 UNITS/ML 10 UNITS SUB-Q (20:39)
[2023-05-07] MEDS: LATANOPROST 0.005% OP SOLN 2.5 ML BTL 1 DROP EACH EYE (20:40)
[2023-05-07] MEDS: guaiFENesin 12 HR 600 MG TABCR 1200 MG PO (20:40)
[2023-05-07 20:42] LABS: Glucose Point of Care 187 mg/dl (65-105)
[2023-05-08] VITALS (23 sets, daily range): BP systolic 100–120; BP diastolic 46–60; PULSE 73–89; RESP 16–26; TEMP 36.3–36.5; O2SAT 92–100
[2023-05-08] MEDS: IPRATROPIUM BR 0.02% INH SOLN 0.5 MG/2.5 ML VIAL INHALATION ×4 (02:13→21:30)
[2023-05-08] MEDS: DOXYCYCLINE 100 MG/NS 100 ML 100 MG/100 ML BAG IVPB ×2 (03:57→16:53)
[2023-05-08 06:01] LABS: Basophils Absolute Auto 0.1 K/mm3 (0.0-0.1); Basophils Percent Auto 0.4 % (0.2-1.2); Eosinophils Absolute Auto 0.1 K/mm3 (0-0.3); Eosinophils Percent Auto 0.5 % (0-4.4); Hematocrit 28.7 % (37.0-47.0); Hemoglobin 9.1 g/dL (12.0-15.0); Immature Granulocyte Absolute 0.37 K/mm3 (0.00-0.031); Immature Granulocyte Percent A 1.7 % (0-0.5); Lymphocytes Percent Auto 9.9 % (18.3-44.2); Mean Corpuscular HGB Conc 31.7 g/dl (32-36); Mean Corpuscular Hemoglobin 27.2 pg (26-34); Mean Corpuscular Volume 85.9 fl (80-100); Mean Platelet Volume 9.6 fl (7.4-10.4); Monocytes Absolute Auto 2.1 K/mm3 (0.1-0.6); Monocytes Percent Auto 9.7 % (2.6-8.5); Neutrophils Absolute Auto 17.3 K/mm3 (1.3-6.7); Neutrophils Percent Auto 77.8 % (45.5-73.1); Platelet Count Result 453 k/mm3 (150-375); Red Blood Count 3.34 M/mm3 (4.2-5.4); Red Cell Distribution Width 15.3 % (11.5-14.5); White Blood Count 22.2 K/mm3 (4.5-10.0)
[2023-05-08 06:16] LABS: NT Pro B Type Natriuretic Pept 4260 pg/mL (19.9-100)
[2023-05-08] MEDS: LEVOTHYROXINE SODIUM 112 MCG TABLET PO (06:16)
[2023-05-08] MEDS: LEVOTHYROXINE SODIUM 25 MCG TABLET PO (06:16)
[2023-05-08 06:17] LABS: Alanine Aminotransferase 15 U/L (6-35); Albumin Level 2.4 g/dL (3.5-5.1); Alkaline Phosphatase 287 U/L (38-126); Anion Gap 8 mmol/L (8-16); Aspartate Amino Transferase 53 U/L (14-36); Bilirubin,Total 1.3 mg/dL (0.2-1.3); Blood Urea Nitrogen 27 mg/dL (7-17); Calcium 8.5 mg/dL (8.4-10.2); Carbon Dioxide 30 mmol/L (22-30); Chloride 99 mmol/L (98-107); Estimated CRCL calculation 39 ml/min; Estimated Glomerular Filt Rate > 60; Glucose 75 mg/dL (65-110); Potassium 3.5 mmol/L (3.4-5.0); Sodium 137 mmol/L (137-145)
[2023-05-08 08:40] LABS: Glucose Point of Care 76 mg/dl (65-105)
[2023-05-08] MEDS: TIMOLOL MALEATE 0.5% OP SOLN 5 ML BOTTLE 1 DROP EACH EYE (09:52)
[2023-05-08] MEDS: EMPAGLIFLOZIN 10 MG TABLET PO (09:52)
[2023-05-08] MEDS: PANTOPRAZOLE SOD SESQUIHYDRATE 20 MG TAB PO (09:52)
[2023-05-08] MEDS: ASPIRIN 81 MG CHEWABLE TABLET PO (09:52)
[2023-05-08] MEDS: guaiFENesin 12 HR 600 MG TABCR 1200 MG PO ×2 (09:52→20:22)
[2023-05-08] MEDS: BRIMONIDINE TARTRATE 0.2% OP SOLN 5 ML BTL 1 DROP EACH EYE (09:53)
[2023-05-08] MEDS: ENOXAPARIN 40 MG/0.4 ML SYRINGE SUB-Q (09:53)
--- NOTE | 2023-05-08 11:00 | PM.PNCARD ---
Progress Note: A&P Assessment and Plan (1) CHF exacerbation: Code(s): I50.9 - Heart failure, unspecified Status: Acute Assessment and Plan: Presented with a chief complaint of progressive dyspnea.? She has some evidence of CHF with bilateral small pleural effusions and mildly elevated proBNP.? She is known to have normal LV systolic function and grade 1 diastolic dysfunction, moderate TR.? An echocardiogram was repeated and is unchanged.? She also is known to have right hemidiaphragm paralysis as well as obesity hypoventilation syndrome. Will change IV Lasix to PO Lasix. (2) Acute and chronic respiratory failure: Code(s): J96.20 - Acute and chronic respiratory failure, unspecified whether with hypoxia or hypercapnia Status: Acute Assessment and Plan: She is now back on her home O2 of 3L. Plan Outpatient follow up with Dr. Kaplan, who she sees as an outpatient. From a cardiology standpoint, okay to discharge patient. Subjective Date/time seen: 05/08/23 11:00 Interval history: Reason for visit: Congestive heart failure HPI: Carolyn Ramirez is an 87-year-old female with a past medical history of chronic kidney disease, hypertension, insulin dependent diabetes, heart failure with preserved ejection fraction, and chronic shortness of breath since having COVID in 2020.? She is currently admitted to the hospital with shortness of breath.? We are being consulted for CHF.? She began feeling short of breath about 2-3 days prior to presentation to the hospital.? She also has some mild lower extremity swelling.? She denies any chest pain, palpitations, syncope, or presyncope.? She reports that her breathing has improved since admission to the hospital.? She currently does not have any complaints. Date of service 05/07: She feels short of breath this morning. CXR this morning shows small pleural effusions, mild atelectasis at the bases. Date of service 05/08: On her home O2 of 3Ls. Denies shortness of breath this morning. Lower extremity edema has resolved. Review of Systems Review of Systems: All systems reviewed & are unremarkable except as noted in HPI and below (HPI) Exam Const: General: no acute distress HENMT: Mouth: Yes moist mucous membranes Eyes: General: appearance normal, both eyes and all related structures Sclera: sclerae normal Neck: Neck: supple Resp: Other: On supplemental oxygen. Cardio: Rate: regular rate Rhythm: regular rhythm Heart sounds: no murmurs Skin: General skin exam: normal color Psych: Mental Status: mental status grossly normal Affect: normal affect Objective Data Vital Signs Vital Signs: Vital Signs - 24 hr 05/07/23 12:27 05/07/23 12:00 05/07/23 11:30 Temperature Pulse Rate 62 65 Respiratory Rate 17 Blood Pressure Pulse Oximetry 100 Oxygen Delivery BiPAP CPAP Oxygen Flow Rate 05/07/23 12:30 05/07/23 14:05 05/07/23 14:00 Temperature 36.6 C Pulse Rate 70 Respiratory Rate 18 Blood Pressure 103/45 L Pulse Oximetry 96 100 Oxygen Delivery Nasal Cannula CPAP Oxygen Flow Rate 3 05/07/23 16:00 05/07/23 17:15 05/07/23 19:50 Temperature Pulse Rate 63 Respiratory Rate Blood Pressure Pulse Oximetry 96 98 Oxygen Delivery Nasal Cannula BiPAP Oxygen Flow Rate 3 3 05/07/23 19:51 05/07/23 19:48 05/07/23 20:28 Temperature 36.4 C Pulse Rate 73 73 60 Respiratory Rate 21 H 21 H 20 Blood Pressure 113/53 L Pulse Oximetry 98 99 Oxygen Delivery BiPAP Oxygen Flow Rate 05/07/23 20:00 05/08/23 00:14 05/07/23 19:58 Temperature Pulse Rate 72 Respiratory Rate 21 H Blood Pressure 119/60 Pulse Oximetry Oxygen Delivery CPAP Oxygen Flow Rate 05/08/23 02:15 05/08/23 02:13 05/08/23 02:23 Temperature Pulse Rate 78 80 78 Respiratory Rate 19 19 19 Blood Pressure Pulse Oximetry 98 Oxygen Delivery BiPAP Oxygen Flow Rate 05/08/23 04:05 04/27
--- NOTE | 2023-05-08 11:36 | PM.IMPN ---
Progress Note: A&P Assessment and Plan (1) Acute and chronic respiratory failure: Code(s): J96.20 - Acute and chronic respiratory failure, unspecified whether with hypoxia or hypercapnia Status: Acute Assessment and Plan: She is now back on her home O2 of 3L. Still requiring BiPAP at night. Plan is to continue current treatment monitor close. (2) CHF exacerbation: Code(s): I50.9 - Heart failure, unspecified Status: Acute Assessment and Plan: Presented with a chief complaint of progressive dyspnea.? She has some evidence of CHF with bilateral small pleural effusions and mildly elevated proBNP.? She is known to have normal LV systolic function and grade 1 diastolic dysfunction, moderate TR.? An echocardiogram was repeated and is unchanged.? She also is known to have right hemidiaphragm paralysis as well as obesity hypoventilation syndrome. Will change IV Lasix to PO Lasix. Breathing is much better now. Continue current treatment and monitor close. (3) Nocturnal hypoxemia: Code(s): G47.34 - Idiopathic sleep related nonobstructive alveolar hypoventilation Status: Acute Assessment and Plan: Continue BiPAP and oxygen. (4) Leukocytosis: Code(s): D72.829 - Elevated white blood cell count, unspecified Status: Acute Assessment and Plan: Repeat CBC in the morning continue with antibiotics (5) Heart failure with preserved ejection fraction: Qualifiers: Heart failure chronicity: acute on chronic Qualified Code(s): I50.33 - Acute on chronic diastolic (congestive) heart failure Code(s): I50.30 - Unspecified diastolic (congestive) heart failure Status: Acute Assessment and Plan: Continue with Lasix and monitor closely (6) Obesity (BMI 30-39.9): Code(s): E66.9 - Obesity, unspecified Status: Acute Assessment and Plan: Diet instructions (7) Type 2 diabetes mellitus with hyperglycemia, with long-term current use of insulin: Code(s): E11.65 - Type 2 diabetes mellitus with hyperglycemia; Z79.4 - supervisor intermediates (current) use of insulin Status: Acute Assessment and Plan: Stable on current meds Plan # Acute on chronic hypoxic respiratory failure: supplemental oxygen, currently on 3 L oxygen, presents with oxygen Pneumonia, CT chest showed bilateral pneumonia. Started on Rocephin, doxycycline, MRSA pending and blood culture ordered. Monitor leukocytosis. Anemia, hemoglobin 9.3, iron profile showed iron replete. Likely from inflammatory. Suspected to be related to pneumonia and CHF exacerbation Leukocytosis persist. Continue ceftriaxone and doxycycline # cHF, with exacerbation. Acute on chronic diastolic. Lasix 40 mg IV has been lowered to 20 mg b.i.d.. Delete echo showed grade 1 diastolic dysfunction with EF more than 70%. Cardiology following elevated. Continue diuresis as tolerated # obesity. Diet and lifestyle modification counseling # hypothyroidism. Resume Levothyroxine # gERD. on PPI # iDDM. resume Basal+correctional insulin regimen #. Glaucoma. Resume eyedrops # Prophylaxis subQ Lovenox. # PT/OT for discharge planning. Subjective Date/time seen: 05/08/23 11:36 Interval history: Patient was seen during morning rounds today. Patient has mild shortness of breath. Still requiring BiPAP and oxygen. No chest pain. No abdominal pain, nausea, no vomiting. Mood stable. Review of Systems Review of Systems: All systems reviewed & are unremarkable except as noted in HPI and below Exam Narrative: GENERAL: Well-appearing, well-nourished, and in no acute distress. HEAD: Normocephalic, atraumatic. EYES: PERRLA and EOMI. ENT: Nares clear, no rhinorrhea or epistaxis.? Mucous membranes moist. NECK: Supple. CHEST: Clear to auscultation.? No respiratory distress. HEART: Regular rate and rhythm.? No murmur heard.? Normal peripheral pulses. ABDOMEN: Soft, nontender, nondistended, normal active monica
[2023-05-08 11:50] LABS: Glucose Point of Care 161 mg/dl (65-105)
[2023-05-08] MEDS: FUROSEMIDE 40 MG TABLET PO (12:15)
[2023-05-08] MEDS: cefTRIAXone 2 GM/NS 100 ML 2 GM/100 ML BAG IVPB (16:09)
[2023-05-08 16:51] LABS: Glucose Point of Care 140 mg/dl (65-105)
[2023-05-08] MEDS: INSULIN GLARGINE (*BKC) 100 UNITS/ML 10 UNITS SUB-Q (20:21)
[2023-05-08] MEDS: LATANOPROST 0.005% OP SOLN 2.5 ML BTL 1 DROP EACH EYE (20:22)
[2023-05-08 20:31] LABS: Glucose Point of Care 230 mg/dl (65-105)
[2023-05-09] VITALS (20 sets, daily range): BP systolic 100–127; BP diastolic 43–64; PULSE 61–96; RESP 18–25; TEMP 36.3–37.3; O2SAT 96–100
[2023-05-09] MEDS: DOXYCYCLINE 100 MG/NS 100 ML 100 MG/100 ML BAG IVPB ×2 (02:05→15:32)
[2023-05-09] MEDS: LEVOTHYROXINE SODIUM 112 MCG TABLET PO (05:25)
[2023-05-09] MEDS: LEVOTHYROXINE SODIUM 25 MCG TABLET PO (05:25)
[2023-05-09 05:48] LABS: Basophils Absolute Auto 0.1 K/mm3 (0.0-0.1); Basophils Percent Auto 0.3 % (0.2-1.2); Eosinophils Absolute Auto 0.1 K/mm3 (0-0.3); Eosinophils Percent Auto 0.3 % (0-4.4); Hematocrit 27.2 % (37.0-47.0); Hemoglobin 8.9 g/dL (12.0-15.0); Immature Granulocyte Absolute 0.66 K/mm3 (0.00-0.031); Immature Granulocyte Percent A 2.4 % (0-0.5); Lymphocytes Absolute Auto 2.36 K/mm3 (0.9-3.2); Lymphocytes Percent Auto 8.6 % (18.3-44.2); Mean Corpuscular HGB Conc 32.7 g/dl (32-36); Mean Corpuscular Hemoglobin 27.7 pg (26-34); Mean Corpuscular Volume 84.7 fl (80-100); Mean Platelet Volume 9.6 fl (7.4-10.4); Monocytes Absolute Auto 2.7 K/mm3 (0.1-0.6); Monocytes Percent Auto 9.7 % (2.6-8.5); Neutrophils Absolute Auto 21.6 K/mm3 (1.3-6.7); Neutrophils Percent Auto 78.7 % (45.5-73.1); Platelet Count Result 446 k/mm3 (150-375); Red Blood Count 3.21 M/mm3 (4.2-5.4); Red Cell Distribution Width 15.5 % (11.5-14.5); White Blood Count 27.5 K/mm3 (4.5-10.0)
[2023-05-09 05:59] LABS: Alanine Aminotransferase 19 U/L (6-35); Albumin Level 2.4 g/dL (3.5-5.1); Alkaline Phosphatase 335 U/L (38-126); Anion Gap 10 mmol/L (8-16); Aspartate Amino Transferase 98 U/L (14-36); Bilirubin,Total 1.3 mg/dL (0.2-1.3); Blood Urea Nitrogen 27 mg/dL (7-17); Calcium 8.4 mg/dL (8.4-10.2); Carbon Dioxide 29 mmol/L (22-30); Chloride 98 mmol/L (98-107); Estimated CRCL calculation 33 ml/min; Estimated Glomerular Filt Rate 52; Glucose 139 mg/dL (65-110); Potassium 3.6 mmol/L (3.4-5.0); Sodium 137 mmol/L (137-145)
[2023-05-09 07:21] LABS: Platelet Estimate Increased (Adequate)
[2023-05-09 07:22] LABS: Burr Cells 1+ (NORMAL); Schistocytes None Seen (NORMAL); Target Cells 1+ (NORMAL)
[2023-05-09 08:11] LABS: Glucose Point of Care 137 mg/dl (65-105)
[2023-05-09] MEDS: guaiFENesin 12 HR 600 MG TABCR 1200 MG PO ×2 (09:13→20:41)
[2023-05-09] MEDS: dilTIAZem HCL CD 240 MG CAP.24HR PO (09:13)
[2023-05-09] MEDS: ENOXAPARIN 40 MG/0.4 ML SYRINGE SUB-Q (09:13)
[2023-05-09] MEDS: PANTOPRAZOLE SOD SESQUIHYDRATE 20 MG TAB PO (09:13)
[2023-05-09] MEDS: FUROSEMIDE 40 MG TABLET PO (09:13)
[2023-05-09] MEDS: TIMOLOL MALEATE 0.5% OP SOLN 5 ML BOTTLE 1 DROP EACH EYE (09:13)
[2023-05-09] MEDS: EMPAGLIFLOZIN 10 MG TABLET PO (09:13)
[2023-05-09] MEDS: ASPIRIN 81 MG CHEWABLE TABLET PO (09:13)
[2023-05-09] MEDS: BRIMONIDINE TARTRATE 0.2% OP SOLN 5 ML BTL 1 DROP EACH EYE (09:14)
[2023-05-09] MEDS: IPRATROPIUM BR 0.02% INH SOLN 0.5 MG/2.5 ML VIAL INHALATION ×3 (09:26→22:01)
--- NOTE | 2023-05-09 11:29 | PC.NURSE ---
Patient care and medication administration performed by Fredercik Frank, Student Nurse/[facility] under direct supervision of [employer] instructor or nursing staff. Patient assessment reviewed and agree with same.
[2023-05-09 12:08] LABS: Glucose Point of Care 159 mg/dl (65-105)
[2023-05-09 13:37] LABS: Lactic Acid Reflex 2.6 mmol/L (0.7-2.0)
[2023-05-09] MEDS: cefTRIAXone 2 GM/NS 100 ML 2 GM/100 ML BAG IVPB (14:50)
[2023-05-09 16:24] LABS: Reflex Lactic Acid Yes or No Add Lactic
[2023-05-09 17:47] LABS: Glucose Point of Care 141 mg/dl (65-105)
[2023-05-09 18:25] LABS: Influenza A QL RT-PCR Negative (Negative); Influenza B QL RT-PCR Negative (Negative); RSV RNA, RT-PCR Negative (Negative); SARS-CoV-2 RNA PCR Negative (Negative)
--- NOTE | 2023-05-09 19:15 | PM.IMPN ---
Progress Note: A&P Assessment and Plan (1) CHF exacerbation: Code(s): I50.9 - Heart failure, unspecified Status: Acute (2) Acute and chronic respiratory failure: Code(s): J96.20 - Acute and chronic respiratory failure, unspecified whether with hypoxia or hypercapnia Status: Acute (3) Acute dyspnea: Code(s): R06.00 - Dyspnea, unspecified Status: Acute (4) Leukocytosis: Code(s): D72.829 - Elevated white blood cell count, unspecified Status: Acute (5) Disorder of diaphragm: Code(s): J98.6 - Disorders of diaphragm Status: Acute (6) Hyperkalemia: Code(s): E87.5 - Hyperkalemia Status: Acute (7) Type 2 diabetes mellitus with hyperglycemia, with long-term current use of insulin: Code(s): E11.65 - Type 2 diabetes mellitus with hyperglycemia; Z79.4 - retirement (current) use of insulin Status: Acute (8) Hyperkalemia, diminished renal excretion: Code(s): E87.5 - Hyperkalemia Status: Acute (9) Acute on chronic respiratory failure with hypoxia and hypercapnia: Code(s): J96.21 - Acute and chronic respiratory failure with hypoxia; J96.22 - Acute and chronic respiratory failure with hypercapnia Status: Acute Plan (1) Acute and chronic respiratory failure: ?Code(s): J96.20 - Acute and chronic respiratory failure, unspecified whether with hypoxia or hypercapnia ?Status:?Acute ?Assessment and Plan: She is now back on her home O2 of 3L. Still requiring BiPAP at night. Plan is to continue current treatment monitor close. (2) CHF exacerbation: ?Code(s): I50.9 - Heart failure, unspecified ?Status:?Acute ?Assessment and Plan: Presented with a chief complaint of progressive dyspnea.? She has some evidence of CHF with bilateral small pleural effusions and mildly elevated proBNP.? She is known to have normal LV systolic function and grade 1 diastolic dysfunction, moderate TR.? An echocardiogram was repeated and is unchanged.? She also is known to have right hemidiaphragm paralysis as well as obesity hypoventilation syndrome. Will change IV Lasix to PO Lasix. Breathing is much better now.? Continue current treatment and monitor close. (3) Nocturnal hypoxemia: ?Code(s): G47.34 - Idiopathic sleep related nonobstructive alveolar hypoventilation ?Status:?Acute ?Assessment and Plan: Continue BiPAP and oxygen. (4) Leukocytosis: ?Code(s): D72.829 - Elevated white blood cell count, unspecified ?Status:?Acute ?Assessment and Plan: Repeat CBC in the morning continue with antibiotics (5) Heart failure with preserved ejection fraction: ?Qualifiers: ?Heart failure chronicity:?acute on chronic? Qualified Code(s):?I50.33 - Acute on chronic diastolic (congestive) heart failure ?Code(s): I50.30 - Unspecified diastolic (congestive) heart failure ?Status:?Acute ?Assessment and Plan: Continue with Lasix and monitor closely (6) Obesity (BMI 30-39.9): ?Code(s): E66.9 - Obesity, unspecified ?Status:?Acute ?Assessment and Plan: Diet instructions (7) Type 2 diabetes mellitus with hyperglycemia, with long-term current use of insulin: ?Code(s): E11.65 - Type 2 diabetes mellitus with hyperglycemia; Z79.4 - retirement (current) use of insulin ?Status:?Acute ?Assessment and Plan: Stable on current meds #? Acute on chronic hypoxic respiratory failure: supplemental oxygen, currently on 3 L oxygen, presents with oxygen Pneumonia, CT chest showed bilateral pneumonia.? Started on Rocephin, doxycycline, MRSA pending and? blood culture ordered. Monitor leukocytosis. 05/09: all viral labs ordered. influenza/covid/rsv- all neg sputum cx pending abx switched to zosyn for c/f aspiration st eval ordered consider starting vanc if wbc does not improve Anemia, hemoglobin 9.3, iron profile showed iron replete.? Likely from inflammatory. Suspected to be related to pn
[2023-05-09] MEDS: PIPERACILLN/TAZ 3.375GM/NS50ML 3.375 GM/50 ML BAG IVPB (20:04)
[2023-05-09] MEDS: LATANOPROST 0.005% OP SOLN 2.5 ML BTL 1 DROP EACH EYE (20:41)
[2023-05-09] MEDS: INSULIN GLARGINE (*BKC) 100 UNITS/ML 10 UNITS SUB-Q (20:42)
[2023-05-10] VITALS (17 sets, daily range): BP systolic 99–116; BP diastolic 42–50; PULSE 66–84; RESP 18–36; TEMP 36.3–36.6; O2SAT 97–100
[2023-05-10 00:45] LABS: Glucose Point of Care 212 mg/dl (65-105)
[2023-05-10] MEDS: PIPERACILLN/TAZ 3.375GM/NS50ML 3.375 GM/50 ML BAG IVPB ×2 (02:06→08:33)
[2023-05-10] MEDS: DOXYCYCLINE 100 MG/NS 100 ML 100 MG/100 ML BAG IVPB (02:36)
[2023-05-10] MEDS: LEVOTHYROXINE SODIUM 25 MCG TABLET PO (05:18)
[2023-05-10] MEDS: LEVOTHYROXINE SODIUM 112 MCG TABLET PO (05:18)
[2023-05-10 06:12] LABS: Basophils Absolute Auto 0.2 K/mm3 (0.0-0.1); Basophils Percent Auto 0.6 % (0.2-1.2); Eosinophils Absolute Auto 0.1 K/mm3 (0-0.3); Eosinophils Percent Auto 0.6 % (0-4.4); Hematocrit 29.3 % (37.0-47.0); Hemoglobin 8.9 g/dL (12.0-15.0); Immature Granulocyte Absolute 0.39 K/mm3 (0.00-0.031); Immature Granulocyte Percent A 1.5 % (0-0.5); Lymphocytes Absolute Auto 1.98 K/mm3 (0.9-3.2); Lymphocytes Percent Auto 7.8 % (18.3-44.2); Mean Corpuscular HGB Conc 30.4 g/dl (32-36); Mean Corpuscular Hemoglobin 27.4 pg (26-34); Mean Corpuscular Volume 90.2 fl (80-100); Mean Platelet Volume 9.8 fl (7.4-10.4); Monocytes Absolute Auto 2.3 K/mm3 (0.1-0.6); Monocytes Percent Auto 8.9 % (2.6-8.5); Neutrophils Absolute Auto 20.5 K/mm3 (1.3-6.7); Neutrophils Percent Auto 80.6 % (45.5-73.1); Platelet Count Result 412 k/mm3 (150-375); Red Blood Count 3.25 M/mm3 (4.2-5.4); Red Cell Distribution Width 16.5 % (11.5-14.5); White Blood Count 25.4 K/mm3 (4.5-10.0)
[2023-05-10 06:23] LABS: Alanine Aminotransferase 18 U/L (6-35); Albumin Level 2.4 g/dL (3.5-5.1); Alkaline Phosphatase 271 U/L (38-126); Anion Gap 10 mmol/L (8-16); Aspartate Amino Transferase 95 U/L (14-36); Bilirubin,Total 1.3 mg/dL (0.2-1.3); Blood Urea Nitrogen 28 mg/dL (7-17); Calcium 8.4 mg/dL (8.4-10.2); Carbon Dioxide 26 mmol/L (22-30); Chloride 99 mmol/L (98-107); Estimated CRCL calculation 39 ml/min; Estimated Glomerular Filt Rate > 60; Glucose 130 mg/dL (65-110); Magnesium 1.8 mg/dL (1.6-2.3); Potassium 3.4 mmol/L (3.4-5.0); Sodium 135 mmol/L (137-145)
[2023-05-10 06:32] LABS: NT Pro B Type Natriuretic Pept 3030 pg/mL (19.9-100)
[2023-05-10] MEDS: IPRATROPIUM BR 0.02% INH SOLN 0.5 MG/2.5 ML VIAL INHALATION ×2 (08:15→17:31)
[2023-05-10] MEDS: FUROSEMIDE 40 MG TABLET PO (08:32)
[2023-05-10] MEDS: dilTIAZem HCL CD 240 MG CAP.24HR PO (08:32)
[2023-05-10] MEDS: EMPAGLIFLOZIN 10 MG TABLET PO (08:32)
[2023-05-10] MEDS: ENOXAPARIN 40 MG/0.4 ML SYRINGE SUB-Q (08:32)
[2023-05-10] MEDS: guaiFENesin 12 HR 600 MG TABCR 1200 MG PO ×2 (08:32→20:39)
[2023-05-10] MEDS: ASPIRIN 81 MG CHEWABLE TABLET PO (08:32)
[2023-05-10] MEDS: PANTOPRAZOLE SOD SESQUIHYDRATE 20 MG TAB PO (08:32)
[2023-05-10] MEDS: BRIMONIDINE TARTRATE 0.2% OP SOLN 5 ML BTL 1 DROP EACH EYE (08:33)
[2023-05-10] MEDS: TIMOLOL MALEATE 0.5% OP SOLN 5 ML BOTTLE 1 DROP EACH EYE (08:33)
[2023-05-10 08:34] LABS: Glucose Point of Care 126 mg/dl (65-105)
[2023-05-10 08:37] LABS: Burr Cells 2+ (NORMAL); Platelet Estimate Increased (Adequate); Target Cells 1+ (NORMAL)
[2023-05-10 08:38] LABS: Schistocytes None Seen (NORMAL)
[2023-05-10 09:45] LABS: Procalcitonin 2.6 ng/mL
[2023-05-10 11:43] LABS: Glucose Point of Care 192 mg/dl (65-105)
--- NOTE | 2023-05-10 12:07 | PM.IMPN ---
Progress Note: A&P Assessment and Plan (1) CHF exacerbation: Code(s): I50.9 - Heart failure, unspecified Status: Acute (2) Acute and chronic respiratory failure: Code(s): J96.20 - Acute and chronic respiratory failure, unspecified whether with hypoxia or hypercapnia Status: Acute (3) Leukocytosis: Code(s): D72.829 - Elevated white blood cell count, unspecified Status: Acute (4) Obesity hypoventilation syndrome: Code(s): E66.2 - Morbid (severe) obesity with alveolar hypoventilation Status: Acute (5) Pneumonia: Code(s): J18.9 - Pneumonia, unspecified organism Status: Acute Plan 87F w/ PMH COVID long haul w/ chronic dyspnea, chronic hypercapnic hypoxic respiratory failure, CKD stage 3, HFpEF, IDDM, GERD, gastroparesis, HTN, OA, OHS, hypothyroidism thoracic aortic aneurysm, vit D def presented with SOB 1) acutely decompensated heart failure w/ preserved ejection fraction w/ chronic respiratory failure - diastolic dysfunction. echo repeated this admission, unchanged. cardiology consulted. cpm. resolved, back on 2-3L [place] home baseline 2) CAP - MRSA in nares positive on 05/06. WBC still high. blood cx NGTD - switching abx to cefepime and vancomycin to keep broader coverage and avoid nephrotoxicity with zosyn vancomycin combo. - follow procalcitonin as well 3) OHS - cont BIPAP 4) leukcytosis - as above 5) anemia - chronic, ctm 6) IDDM - accuchecks and sliding scale FEN: saline lock IV, cardiac diabetic diet GI prophylaxis: protonix DVT prophylaxis: lovenox Lines: pIV Code Status: Full Code Dispo: stable. pt amenable to acute rehab. cont PT/OT. attempted to contact daughter Jacy but could not reach More than 35 minutes spent on chart review, patient interaction and assessment and plan. Subjective Date/time seen: 05/10/23 12:07 Interval history: NAOE. pt reports she is amenable to acute rehab at a facility after discharge from hospital, which does not align with chart review and what she has apparently told multiple other staff. otherwise, she reports improved breathing but not back to her baseline. she is quite unenthusiastic about trying to sit up in bed for an exam Review of Systems Review of Systems: All systems reviewed & are unremarkable except as noted in HPI and below Exam Const: General: comfortable Resp: Effort & Inspection: normal respiratory effort Auscultation: clear to auscultation bilaterally, no crackles and no rhonchi Cardio: Rate: regular rate Rhythm: regular rhythm Heart sounds: no gallops, no murmurs and no rubs GI: GI Palp: Yes Soft to palpation and No Tenderness to palpation present (GI) Extrem: General: no edema Objective Data Vital Signs Vital Signs: Vital Signs - 24 hr 05/09/23 13:44 05/09/23 14:49 05/09/23 14:55 Temperature 97.4 F L Pulse Rate 72 82 86 Respiratory Rate 20 20 20 Blood Pressure 100/53 L Pulse Oximetry 100 Oxygen Delivery Oxygen Flow Rate 05/09/23 16:01 05/09/23 16:00 05/09/23 20:39 Temperature 98.1 F 97.4 F L Pulse Rate 61 74 68 Respiratory Rate 20 22 H Blood Pressure 121/58 L 126/43 L Pulse Oximetry 100 100 Oxygen Delivery Oxygen Flow Rate 05/09/23 20:00 05/09/23 22:02 05/09/23 22:06 Temperature Pulse Rate 71 70 70 Respiratory Rate 20 Blood Pressure Pulse Oximetry 97 Oxygen Delivery Nasal Cannula Oxygen Flow Rate 3 05/09/23 22:16 05/09/23 22:17 05/10/23 00:00 Temperature Pulse Rate 72 69 66 Respiratory Rate 20 25 H Blood Pressure Pulse Oximetry 97 Oxygen Delivery BiPAP Oxygen Flow Rate 05/10/23 02:45 05/10/23 04:34 05/10/23 04:00 Temperature 97.6 F Pulse Rate 70 68 84 Respiratory Rate 21 H 20 Blood Pressure 114/46 L Pulse Oximetry 98 99 Oxygen Delivery BiPAP Oxygen Flow Rate 05/10/23 08:18 05/10/23 08:18 05/10/23 08:26 Temperature Pulse Rate 70 74 Respiratory Rate 18 18 Blood
[2023-05-10] MEDS: CEFEPIME 2 GM/NS 50 ML 2 GM/50 ML BAG IVPB ×2 (12:51→23:42)
[2023-05-10] MEDS: VANCOMYCIN 1,250 MG/NS 250 ML 1,250 MG/250 ML BAG 166 MG IVPB (13:32)
--- NOTE | 2023-05-10 13:36 | PCSTNOTE ---
Please refer to the Bedside Swallow Evaluation in the EMR. Please note, silent aspiration cannot be ruled out at bedside.
[2023-05-10] MEDS: VANCOMYCIN 1,000 MG/NS 250 ML 1,000 MG/250 ML BAG 250 MG IVPB (15:11)
--- NOTE | 2023-05-10 15:41 | PC.NURSE ---
On 05/10/23, the student, [Rosales Hernández], provided care and completed [facility] documentation on this patient. I have reviewed the student's documentation and agree with the findings.
[2023-05-10 16:28] LABS: MRSA (PCR) DETECTED (NOT DETECTE)
[2023-05-10 17:10] LABS: Glucose Point of Care 155 mg/dl (65-105)
[2023-05-10] MEDS: INSULIN GLARGINE (*BKC) 100 UNITS/ML 10 UNITS SUB-Q (20:39)
[2023-05-10] MEDS: LATANOPROST 0.005% OP SOLN 2.5 ML BTL 1 DROP EACH EYE (20:39)
[2023-05-11] VITALS (12 sets, daily range): BP systolic 90–116; BP diastolic 45–72; PULSE 50–74; RESP 20–24; TEMP 36.1–36.4; O2SAT 97–100
[2023-05-11 03:39] LABS: Glucose Point of Care 231 mg/dl (65-105)
[2023-05-11 05:46] LABS: Basophils Absolute Auto 0.2 K/mm3 (0.0-0.1); Basophils Percent Auto 0.6 % (0.2-1.2); Eosinophils Absolute Auto 0.2 K/mm3 (0-0.3); Eosinophils Percent Auto 0.7 % (0-4.4); Hematocrit 27.2 % (37.0-47.0); Hemoglobin 8.6 g/dL (12.0-15.0); Immature Granulocyte Absolute 0.69 K/mm3 (0.00-0.031); Immature Granulocyte Percent A 2.2 % (0-0.5); Lymphocytes Absolute Auto 2.26 K/mm3 (0.9-3.2); Lymphocytes Percent Auto 7.3 % (18.3-44.2); Mean Corpuscular HGB Conc 31.6 g/dl (32-36); Mean Corpuscular Hemoglobin 27.7 pg (26-34); Mean Corpuscular Volume 87.7 fl (80-100); Mean Platelet Volume 9.6 fl (7.4-10.4); Monocytes Absolute Auto 2.6 K/mm3 (0.1-0.6); Monocytes Percent Auto 8.3 % (2.6-8.5); Neutrophils Absolute Auto 25.2 K/mm3 (1.3-6.7); Neutrophils Percent Auto 80.9 % (45.5-73.1); Platelet Count Result 430 k/mm3 (150-375); Red Cell Distribution Width 16.7 % (11.5-14.5); White Blood Count 31.1 K/mm3 (4.5-10.0)
[2023-05-11] MEDS: LEVOTHYROXINE SODIUM 25 MCG TABLET PO (05:55)
[2023-05-11] MEDS: LEVOTHYROXINE SODIUM 112 MCG TABLET PO (05:55)
[2023-05-11 05:58] LABS: Alanine Aminotransferase 14 U/L (6-35); Albumin Level 2.2 g/dL (3.5-5.1); Alkaline Phosphatase 252 U/L (38-126); Anion Gap 8 mmol/L (8-16); Aspartate Amino Transferase 46 U/L (14-36); Bilirubin,Total 1.1 mg/dL (0.2-1.3); Blood Urea Nitrogen 27 mg/dL (7-17); Calcium 7.8 mg/dL (8.4-10.2); Carbon Dioxide 27 mmol/L (22-30); Chloride 100 mmol/L (98-107); Estimated CRCL calculation 39 ml/min; Estimated Glomerular Filt Rate > 60; Glucose 109 mg/dL (65-110); Potassium 3.2 mmol/L (3.4-5.0); Sodium 135 mmol/L (137-145)
[2023-05-11 06:21] LABS: Procalcitonin 2.3 ng/mL
[2023-05-11 06:57] LABS: Platelet Estimate Increased (Adequate); Target Cells 1+ (NORMAL)
[2023-05-11 06:58] LABS: Schistocytes None Seen (NORMAL)
[2023-05-11 08:14] LABS: Glucose Point of Care 83 mg/dl (65-105)
[2023-05-11] MEDS: EMPAGLIFLOZIN 10 MG TABLET PO (08:26)
[2023-05-11] MEDS: ENOXAPARIN 40 MG/0.4 ML SYRINGE SUB-Q (08:26)
[2023-05-11] MEDS: guaiFENesin 12 HR 600 MG TABCR 1200 MG PO ×2 (08:26→20:23)
[2023-05-11] MEDS: FUROSEMIDE 40 MG TABLET PO (08:26)
[2023-05-11] MEDS: TIMOLOL MALEATE 0.5% OP SOLN 5 ML BOTTLE 1 DROP EACH EYE (08:26)
[2023-05-11] MEDS: ASPIRIN 81 MG CHEWABLE TABLET PO (08:26)
[2023-05-11] MEDS: dilTIAZem HCL CD 240 MG CAP.24HR PO (08:26)
[2023-05-11] MEDS: PANTOPRAZOLE SOD SESQUIHYDRATE 20 MG TAB PO (08:26)
[2023-05-11] MEDS: BRIMONIDINE TARTRATE 0.2% OP SOLN 5 ML BTL 1 DROP EACH EYE (08:27)
--- NOTE | 2023-05-11 11:17 | PM.IMPN ---
Progress Note: A&P Assessment and Plan (1) Pneumonia: Code(s): J18.9 - Pneumonia, unspecified organism Status: Acute (2) CHF exacerbation: Code(s): I50.9 - Heart failure, unspecified Status: Acute (3) Acute and chronic respiratory failure: Code(s): J96.20 - Acute and chronic respiratory failure, unspecified whether with hypoxia or hypercapnia Status: Acute Plan 87F w/ PMH COVID long haul w/ chronic dyspnea, chronic hypercapnic hypoxic respiratory failure, CKD stage 3, HFpEF, IDDM, GERD, gastroparesis, HTN, OA, OHS, hypothyroidism thoracic aortic aneurysm, vit D def presented with SOB 1) acutely decompensated heart failure w/ preserved ejection fraction w/ chronic respiratory failure - diastolic dysfunction. echo repeated this admission, unchanged. cardiology consulted. cpm. resolved, back on 2-3L [place] home baseline. monitor daily weight and I/O's 2) CAP - MRSA in nares positive on 05/06. blood cx NGTD - switching abx to cefepime and vancomycin to keep broader coverage and avoid nephrotoxicity with zosyn vancomycin combo on 05/10. - 05/11 WBC trended up however procal down. will continue same abx for another day. she looks clinically better otherwise. 3) OHS - cont BIPAP 4) leukcytosis - as above 5) anemia - chronic, ctm 6) IDDM - accuchecks and sliding scale 7) hypokalemia - replace and recheck. check mag 8) hypocalcemia - trend. corrected for hypoalbumin is 8.7 FEN: saline lock IV, cardiac diabetic diet GI prophylaxis: protonix DVT prophylaxis:?lovenox Lines: pIV Code Status: Full Code Dispo: stable More than 25 minutes spent on chart review, patient interaction and assessment and plan. Subjective Date/time seen: 05/11/23 11:17 Interval history: NAOE. pt is sitting up in chair, looks more energetic than yesterday. she denies any pain or shortness of breath. just finishing with physical therapy. she reports feeling better. denies cough Review of Systems Review of Systems: All systems reviewed & are unremarkable except as noted in HPI and below Exam Const: General: comfortable Neck: Neck: supple Resp: Effort & Inspection: normal respiratory effort Auscultation: crackles (scant) Cardio: Rate: regular rate Rhythm: regular rhythm Heart sounds: no gallops, no murmurs and no rubs GI: GI Palp: Yes Soft to palpation Extrem: General: no edema Objective Data Vital Signs Vital Signs: Vital Signs - 24 hr 05/10/23 14:39 05/10/23 17:33 05/10/23 17:30 Temperature 97.4 F L Pulse Rate 66 70 69 Respiratory Rate 20 20 Blood Pressure 110/50 L Pulse Oximetry 99 Oxygen Delivery Oxygen Flow Rate 05/10/23 17:40 05/10/23 17:41 05/10/23 20:38 Temperature 97.8 F Pulse Rate 66 72 67 Respiratory Rate 20 36 H Blood Pressure 99/42 L Pulse Oximetry 100 Oxygen Delivery Oxygen Flow Rate 05/10/23 20:56 05/10/23 21:13 05/10/23 20:00 Temperature Pulse Rate 68 Respiratory Rate 32 H Blood Pressure 116/50 L Pulse Oximetry Oxygen Delivery Oxygen Flow Rate 05/10/23 20:00 05/11/23 00:00 05/11/23 01:13 Temperature Pulse Rate 67 69 Respiratory Rate 32 H Blood Pressure Pulse Oximetry 100 97 Oxygen Delivery Nasal Cannula BiPAP Oxygen Flow Rate 3 05/11/23 04:00 05/11/23 04:52 05/11/23 08:00 Temperature 96.9 F L Pulse Rate 61 60 59 L Respiratory Rate 22 H Blood Pressure 116/48 L Pulse Oximetry 100 Oxygen Delivery Oxygen Flow Rate Intake/Output Intake/Output: Intake & Output 05/08/23 05/09/23 05/10/23 05/11/23 23:59 23:59 23:59 23:59 Intake Total 1190 1720 1040 290 Output Total 800 1050 750 300 Balance 390 670 290 -10 Meds/Results Medications: Active Medications Generic Name Dose Route Start Last Admin Trade Name Freq PRN Reason Stop Dose Admin Aspirin 81 mg 05/06/23 08:00 05/11/23 08:26 Aspirin 81 Mg Chewable Tablet PO 81 mg DAILY@0800 [facility]
[2023-05-11 11:34] LABS: Glucose Point of Care 124 mg/dl (65-105)
[2023-05-11] MEDS: CEFEPIME 2 GM/NS 50 ML 2 GM/50 ML BAG IVPB ×2 (11:49→23:37)
[2023-05-11] MEDS: POTASSIUM CHLORIDE 20 MEQ ER TABLET 40 MEQ PO (11:50)
[2023-05-11 17:05] LABS: Glucose Point of Care 148 mg/dl (65-105)
[2023-05-11] MEDS: LATANOPROST 0.005% OP SOLN 2.5 ML BTL 1 DROP EACH EYE (20:23)
[2023-05-11] MEDS: INSULIN GLARGINE (*BKC) 100 UNITS/ML 10 UNITS SUB-Q (20:23)
[2023-05-11 23:01] LABS: Glucose Point of Care 162 mg/dl (65-105)
[2023-05-12] VITALS (14 sets, daily range): BP systolic 106–112; BP diastolic 44–49; PULSE 57–68; RESP 16–28; TEMP 36.2–36.4; O2SAT 96–100
[2023-05-12] MEDS: VANCOMYCIN 1,250 MG/NS 250 ML 1,250 MG/250 ML BAG 166.67 MG IVPB (00:13)
[2023-05-12] MEDS: LEVOTHYROXINE SODIUM 25 MCG TABLET PO (05:33)
[2023-05-12] MEDS: LEVOTHYROXINE SODIUM 112 MCG TABLET PO (05:33)
[2023-05-12 05:55] LABS: Hematocrit 27.8 % (37.0-47.0); Hemoglobin 8.7 g/dL (12.0-15.0); Mean Corpuscular HGB Conc 31.3 g/dl (32-36); Mean Corpuscular Hemoglobin 27.6 pg (26-34); Mean Corpuscular Volume 88.3 fl (80-100); Mean Platelet Volume 9.8 fl (7.4-10.4); Platelet Count Result 420 k/mm3 (150-375); Red Blood Count 3.15 M/mm3 (4.2-5.4); Red Cell Distribution Width 17.2 % (11.5-14.5); White Blood Count 27.8 K/mm3 (4.5-10.0)
[2023-05-12 06:09] LABS: Alanine Aminotransferase 13 U/L (6-35); Albumin Level 2.3 g/dL (3.5-5.1); Alkaline Phosphatase 260 U/L (38-126); Anion Gap 9 mmol/L (8-16); Aspartate Amino Transferase 35 U/L (14-36); Bilirubin,Total 1.1 mg/dL (0.2-1.3); Blood Urea Nitrogen 28 mg/dL (7-17); Carbon Dioxide 25 mmol/L (22-30); Chloride 100 mmol/L (98-107); Estimated CRCL calculation 33 ml/min; Estimated Glomerular Filt Rate 52; Glucose 131 mg/dL (65-110); Magnesium 1.7 mg/dL (1.6-2.3); Potassium 3.7 mmol/L (3.4-5.0); Sodium 134 mmol/L (137-145)
[2023-05-12 07:24] LABS: Band Neutrophils Percent 9 % (0-6); Lymphocytes Absolute Manual 1.66 K/mm3 (1.1-4.5); Lymphocytes Percent Manual 6 % (18-44); Monocytes Absolute Manual 1.94 K/mm3 (0.1-0.90); Monocytes Percent Manual 7 % (3-9); Neutrophils Percent Manual 77 % (46-73); Total Cells Counted 100
[2023-05-12 07:25] LABS: Basophils Absolute Manual 0.27 K/mm3 (0.0-0.1); Basophils Percent Manual 1 % (0-1); Platelet Estimate Increased (Adequate); Poikilocytosis 1+ (NORMAL)
[2023-05-12 07:26] LABS: Burr Cells 1+ (NORMAL); Schistocytes None Seen (NORMAL); Target Cells 1+ (NORMAL)
[2023-05-12 08:33] LABS: Glucose Point of Care 125 mg/dl (65-105)
[2023-05-12] MEDS: ENOXAPARIN 40 MG/0.4 ML SYRINGE SUB-Q (09:15)
[2023-05-12] MEDS: TIMOLOL MALEATE 0.5% OP SOLN 5 ML BOTTLE 1 DROP EACH EYE (09:15)
[2023-05-12] MEDS: FUROSEMIDE 40 MG TABLET PO (09:16)
[2023-05-12] MEDS: PANTOPRAZOLE SOD SESQUIHYDRATE 20 MG TAB PO (09:16)
[2023-05-12] MEDS: ASPIRIN 81 MG CHEWABLE TABLET PO (09:16)
[2023-05-12] MEDS: FLUCONAZOLE 100 MG TABLET 200 MG PO (09:16)
[2023-05-12] MEDS: guaiFENesin 12 HR 600 MG TABCR 1200 MG PO ×2 (09:16→20:50)
[2023-05-12] MEDS: BRIMONIDINE TARTRATE 0.2% OP SOLN 5 ML BTL 1 DROP EACH EYE (09:17)
[2023-05-12] MEDS: EMPAGLIFLOZIN 10 MG TABLET PO (09:17)
--- NOTE | 2023-05-12 10:12 | PM.IMPN ---
Progress Note: A&P Assessment and Plan (1) Pneumonia: Code(s): J18.9 - Pneumonia, unspecified organism Status: Acute (2) CHF exacerbation: Code(s): I50.9 - Heart failure, unspecified Status: Acute (3) Acute and chronic respiratory failure: Code(s): J96.20 - Acute and chronic respiratory failure, unspecified whether with hypoxia or hypercapnia Status: Acute (4) Leukocytosis: Code(s): D72.829 - Elevated white blood cell count, unspecified Status: Acute (5) Fungus present in urine: Code(s): B49 - Unspecified mycosis Status: Acute Plan 87F w/ PMH COVID long haul w/ chronic dyspnea, chronic hypercapnic hypoxic respiratory failure, CKD stage 3, HFpEF, IDDM, GERD, gastroparesis, HTN, OA, OHS, hypothyroidism thoracic aortic aneurysm, vit D def presented with SOB 1) acutely decompensated heart failure w/ preserved ejection fraction w/ chronic respiratory failure - diastolic dysfunction. echo repeated this admission, unchanged. cardiology consulted. cpm. resolved, back on 2-3L [place] home baseline. monitor daily weight and I/O's 2) CAP - MRSA in nares positive on 05/06. blood cx NGTD - switching abx to cefepime and vancomycin to keep broader coverage and avoid nephrotoxicity with zosyn vancomycin combo on 05/10. - 05/11 WBC trended up however procal down. will continue same abx for another day. she looks clinically better otherwise. - 05/12 WBC down slightly. no change in abx. still with bandemia. trend wbc and proca 3) OHS - cont BIPAP 4) leukocytosis - as above 5) anemia - chronic, ctm 6) IDDM - accuchecks and sliding scale 7) hypokalemia - repleted. resolved. 8) hypocalcemia - trend. corrected for hypoalbumin is 8.7 9) funguria with herminio glabrata - from 05/08, likely taken for leukocytosis. given she does not appear toxic and has no urinary symptoms this is probably a colonizer. discussed with pt and daughter risks and benefits of antifungal and it is agreed we will ctm. low threshold for treatment if she declines. - asked lab to report susceptibilities on 05/12 FEN: saline lock IV, cardiac diabetic diet GI prophylaxis: protonix DVT prophylaxis:?lovenox Lines: pIV Code Status: Full Code Dispo: stable More than 35 minutes spent including lengthy discussions with daughter and patient. Subjective Date/time seen: 05/12/23 10:12 Interval history: NAOE. pt denies shortness of breath, chest pain, fever, cough, abdominal pain, pain upon urination, foul smelling urine Review of Systems Review of Systems: All systems reviewed & are unremarkable except as noted in HPI and below Exam Const: General: comfortable and no acute distress Eyes: Pupils: Equal, round and reactive pupils present Neck: Neck: supple Resp: Effort & Inspection: normal respiratory effort Cardio: Rate: regular rate Rhythm: regular rhythm Heart sounds: no gallops, no murmurs and no rubs GI: Inspection: non-distended GI Palp: Yes Soft to palpation, No Firmness to palpation present (GI) and No Tenderness to palpation present (GI) Auscultation: normal bowel sounds Other: no suprapubic tenderness Extrem: General: no edema Objective Data Vital Signs Vital Signs: Vital Signs - 24 hr 05/11/23 14:00 05/11/23 14:45 05/11/23 12:00 Temperature 97.5 F L Pulse Rate 74 57 L Respiratory Rate 20 Blood Pressure 96/45 L 110/72 Pulse Oximetry 97 Oxygen Delivery 05/11/23 16:00 05/11/23 19:41 05/11/23 20:00 Temperature 97.1 F L Pulse Rate 58 L 50 L 52 L Respiratory Rate 24 H Blood Pressure 90/61 L Pulse Oximetry 98 Oxygen Delivery 05/11/23 20:00 05/11/23 20:25 05/12/23 00:00 Temperature Pulse Rate 52 L 61 Respiratory Rate Blood Pressure Pulse Oximetry 97 Oxygen Delivery BiPAP BiPAP 05/12/23 04:28 05/12/23 04:00 Temperature 97.1 F L Pulse Rate 57 L 64 Respiratory Rate 20 Blood Pressure 112/46 L Pulse Oximetry 100
[2023-05-12 11:31] LABS: Glucose Point of Care 175 mg/dl (65-105)
--- NOTE | 2023-05-12 11:31 | PC.NURSE ---
On 05/12/23, the student, [Sirena Merchant], provided care and completed [facility] documentation on this patient. I have reviewed the student's documentation and agree with the findings.
[2023-05-12] MEDS: CEFEPIME 2 GM/NS 50 ML 2 GM/50 ML BAG IVPB ×2 (12:14→23:37)
[2023-05-12 17:11] LABS: Glucose Point of Care 164 mg/dl (65-105)
[2023-05-12] MEDS: INSULIN GLARGINE (*BKC) 100 UNITS/ML 10 UNITS SUB-Q (20:49)
[2023-05-12] MEDS: LATANOPROST 0.005% OP SOLN 2.5 ML BTL 1 DROP EACH EYE (20:50)
[2023-05-12 21:02] LABS: Glucose Point of Care 232 mg/dl (65-105)
[2023-05-13] VITALS (19 sets, daily range): BP systolic 90–113; BP diastolic 47–62; PULSE 69–99; RESP 16–34; TEMP 36.1–36.5; O2SAT 97–99; BMI 30.2
[2023-05-13] MEDS: IPRATROPIUM BR 0.02% INH SOLN 0.5 MG/2.5 ML VIAL INHALATION (03:04)
[2023-05-13 03:18] LABS: Glucose Point of Care 145 mg/dl (65-105)
--- NOTE | 2023-05-13 03:19 | PC.NURSE ---
Hone and Strop was down from 0100 to 0318 for monthly update(s). Approx. around 0120 pt c/o feeling SOB. PCT attempted obtaining SpO2 on vital signs machine but readings varied from 50-80% on and off. Respiratory therapist was called approx. around 0130 for a PRN breathing treatment. After RT gave breathing treatment, they told me they were also unable to obtain an accurate O2 sat reading and pt could benefit from using a BIPAP machine instead of trilogy. Called Dr. Porras at 0149 to ask if pt can be put on BIPAP machine. Provider said yes, pt can be put on BIPAP with the following settings: 12 over 6 FiO2 45% Rate 18 and target O2 >94% Told RT about BIPAP settings received from Dr. Porras, but RT said triology already had AVAP settings and called provider again to let them know about this. Pt placed on BIPAP but SpO2 reading still variable. Per recommendation of charge nurse, pt placed on continuous O2 monitoring.
[2023-05-13] MEDS: LEVOTHYROXINE SODIUM 25 MCG TABLET PO (05:45)
[2023-05-13] MEDS: LEVOTHYROXINE SODIUM 112 MCG TABLET PO (05:46)
[2023-05-13 06:23] LABS: Hematocrit 28.4 % (37.0-47.0); Hemoglobin 8.9 g/dL (12.0-15.0); Mean Corpuscular HGB Conc 31.3 g/dl (32-36); Mean Corpuscular Hemoglobin 27.8 pg (26-34); Mean Corpuscular Volume 88.8 fl (80-100); Mean Platelet Volume 9.9 fl (7.4-10.4); Platelet Count Result 393 k/mm3 (150-375); Red Cell Distribution Width 17.3 % (11.5-14.5); White Blood Count 29.5 K/mm3 (4.5-10.0)
[2023-05-13 06:32] LABS: Anion Gap 9 mmol/L (8-16); Blood Urea Nitrogen 29 mg/dL (7-17); Calcium 8.3 mg/dL (8.4-10.2); Carbon Dioxide 27 mmol/L (22-30); Chloride 98 mmol/L (98-107); Estimated CRCL calculation 28 ml/min; Estimated Glomerular Filt Rate 43; Glucose 119 mg/dL (65-110); Magnesium 1.7 mg/dL (1.6-2.3); Potassium 3.7 mmol/L (3.4-5.0); Sodium 134 mmol/L (137-145)
[2023-05-13 06:48] LABS: Procalcitonin 2.7 ng/mL
[2023-05-13 07:04] LABS: Total Cells Counted 100
[2023-05-13 07:07] LABS: Band Neutrophils Percent 11 % (0-6); Lymphocytes Absolute Manual 0.59 K/mm3 (1.1-4.5); Lymphocytes Percent Manual 2 % (18-44); Neutrophils Absolute Manual 26.84 K/mm3 (1.7-7.2); Neutrophils Percent Manual 80 % (46-73)
[2023-05-13 07:08] LABS: Monocytes Absolute Manual 2.06 K/mm3 (0.1-0.90); Monocytes Percent Manual 7 % (3-9); Platelet Estimate Increased (Adequate)
[2023-05-13 07:09] LABS: Poikilocytosis 1+ (NORMAL); Schistocytes None Seen (NORMAL); Target Cells 1+ (NORMAL)
[2023-05-13 08:21] LABS: Glucose Point of Care 63 mg/dl (65-105)
[2023-05-13 08:53] LABS: Glucose Point of Care 95 mg/dl (65-105)
[2023-05-13 08:53] LABS: Glucose Point of Care 52 mg/dl (65-105)
--- NOTE | 2023-05-13 09:09 | PCOTNOTE ---
Patient refused treatment this session. Patient wanted to eat more breakfast will come back after she eats.
[2023-05-13 09:20] LABS: Glucose Point of Care 86 mg/dl (65-105)
[2023-05-13 09:46] LABS: Glucose Point of Care 89 mg/dl (65-105)
[2023-05-13] MEDS: BRIMONIDINE TARTRATE 0.2% OP SOLN 5 ML BTL 1 DROP EACH EYE (10:09)
[2023-05-13] MEDS: PANTOPRAZOLE SOD SESQUIHYDRATE 20 MG TAB PO (10:09)
[2023-05-13] MEDS: FLUCONAZOLE 100 MG TABLET 200 MG PO (10:09)
[2023-05-13] MEDS: ENOXAPARIN 40 MG/0.4 ML SYRINGE SUB-Q (10:09)
[2023-05-13] MEDS: guaiFENesin 12 HR 600 MG TABCR 1200 MG PO ×2 (10:09→21:11)
[2023-05-13] MEDS: ASPIRIN 81 MG CHEWABLE TABLET PO (10:09)
[2023-05-13] MEDS: TIMOLOL MALEATE 0.5% OP SOLN 5 ML BOTTLE 1 DROP EACH EYE (10:10)
[2023-05-13 10:59] LABS: Glucose Point of Care 159 mg/dl (65-105)
--- NOTE | 2023-05-13 11:36 | PCPTNOTE ---
Patient refused treatment this session. Patient reported I really don't feel like it today. Encouraged patient for participation, patient continued to refuse.
[2023-05-13 11:57] LABS: Glucose Point of Care 161 mg/dl (65-105)
[2023-05-13] MEDS: CEFEPIME 1 GM/NS 50 ML 1 GM/50 ML BAG IVPB ×2 (12:45→21:11)
[2023-05-13 12:46] LABS: Vancomycin Trough 15.4 ug/mL (10.0-20.0)
[2023-05-13] MEDS: MICAFUNGIN SODIUM 100 MG in SODIUM CHLORIDE 0.9% IV 100 ML IVPB (13:39)
--- NOTE | 2023-05-13 13:41 | PC.NURSE ---
On 05/13/23, the student, [Barney Michelle], provided care and completed [facility] documentation on this patient. I have reviewed the student's documentation and agree with the findings.
--- NOTE | 2023-05-13 13:48 | PC.NURSE ---
On 05/13/23, the student, [Sergio Ambriz], provided care and completed [facility] documentation on this patient. I have reviewed the student's documentation and agree with the findings.
[2023-05-13] MEDS: AZITHROMYCIN 500 MG/NS 250 ML 500 MG/250 ML BAG 250 MG IVPB (14:40)
[2023-05-13] MEDS: VANCOMYCIN 1,250 MG/NS 250 ML 1,250 MG/250 ML BAG 166.67 MG IVPB (15:37)
--- NOTE | 2023-05-13 16:39 | PM.IMPN ---
Progress Note: A&P Assessment and Plan (1) Fungus present in urine: Code(s): B49 - Unspecified mycosis Status: Acute (2) Pneumonia: Code(s): J18.9 - Pneumonia, unspecified organism Status: Acute (3) CHF exacerbation: Code(s): I50.9 - Heart failure, unspecified Status: Acute (4) Leukocytosis: Code(s): D72.829 - Elevated white blood cell count, unspecified Status: Acute Plan 87F w/ PMH COVID long haul w/ chronic dyspnea, chronic hypercapnic hypoxic respiratory failure, CKD stage 3, HFpEF, IDDM, GERD, gastroparesis, HTN, OA, OHS, hypothyroidism thoracic aortic aneurysm, vit D def presented with SOB 1) acutely decompensated heart failure w/ preserved ejection fraction w/ chronic respiratory failure - diastolic dysfunction. echo repeated this admission, unchanged. cardiology consulted. cpm. resolved, back on 2-3L NC home baseline. monitor daily weight and I/O's 2) CAP - MRSA in nares positive on 05/06. blood cx NGTD. sputum not collected - switching abx to cefepime and vancomycin to keep broader coverage and avoid nephrotoxicity with zosyn vancomycin combo on 05/10. - 05/11 WBC trended up however procal down. will continue same abx for another day. she looks clinically better otherwise. - 05/12 WBC down slightly. no change in abx. still with bandemia. trend wbc and proca - 05/13 WBC and pro falguni up again. start antifungal and panscan. if not better in 48 hours will need transfer out to ID capable facility 3) OHS - cont BIPAP 4) leukocytosis - as above 5) anemia - chronic, ctm 6) IDDM - accuchecks and sliding scale - d/c jardiance 2/2 episode of hypoglycemia 7) hypokalemia - repleted. resolved. 8) hypocalcemia - trend. corrected for hypoalbumin is 8.7 9) funguria with herminio glabrata - from 05/08, likely taken for leukocytosis. given she does not appear toxic and has no urinary symptoms this is probably a colonizer. discussed with pt and daughter risks and benefits of antifungal and it is agreed we will ctm. low threshold for treatment if she declines. - asked lab to report susceptibilities on 05/12 - 05/13 started micafungin, suspect this could be the reason her biomarkers of infection have not downtrended. monitor hepatic and kidney function daily 10) CKD stage 3 - slight bump to 1.4 although that is still near her baseline. dc'ed protonix FEN: saline lock IV, cardiac diabetic diet GI prophylaxis: none DVT prophylaxis:?lovenox Lines: pIV Code Status: Full Code Dispo: stable More than 35 minutes spent including lengthy discussions with daughter and patient. Subjective Date/time seen: 05/13/23 16:39 Interval history: NAOE. pt is without complaints. she has a flat affect usually and may not be the best party demonstrator of symptoms Review of Systems Review of Systems: All systems reviewed & are unremarkable except as noted in HPI and below Exam Const: General: comfortable and no acute distress Eyes: Pupils: Equal, round and reactive pupils present Neck: Neck: supple Resp: Effort & Inspection: normal respiratory effort Auscultation: clear to auscultation bilaterally and no crackles Cardio: Rate: regular rate Rhythm: regular rhythm Heart sounds: no gallops, no murmurs and no rubs GI: Inspection: non-distended GI Palp: Yes Soft to palpation and No Tenderness to palpation present (GI) Auscultation: normal bowel sounds Neuro: Speech: normal speech Motor exam (neuro): 5/5 motor strength present throughout Extrem: General: no edema Objective Data Vital Signs Vital Signs: Vital Signs - 24 hr 05/12/23 19:55 05/12/23 22:25 05/12/23 22:37 Temperature 97.6 F Pulse Rate 67 67 Respiratory Rate 22 H 28 H Blood Pressure 106/44 L Pulse Oximetry 100 98 98 Oxygen Delivery BiPAP Oxygen Flow Rate 3 05/12/23 20:45 05/12/23 20:00 05/13/23 00:00 Temperature Pulse Rate 68 69 Respiratory Rate Blood Pressure Pulse Oximetry 100 Oxyge
[2023-05-13 17:22] LABS: Glucose Point of Care 196 mg/dl (65-105)
[2023-05-13 18:09] LABS: Pneumococcal Antigen Urine Not Detected (Not Detected)
[2023-05-13] MEDS: SODIUM CHLORIDE 0.9% IV 1,000 ML 100 ML IV CONT (18:45)
[2023-05-13 20:16] LABS: Glucose Point of Care 178 mg/dl (65-105)
[2023-05-13] MEDS: INSULIN GLARGINE (*BKC) 100 UNITS/ML 10 UNITS SUB-Q (21:10)
[2023-05-13] MEDS: LATANOPROST 0.005% OP SOLN 2.5 ML BTL 1 DROP EACH EYE (21:12)
[2023-05-14] VITALS (19 sets, daily range): BP systolic 100–122; BP diastolic 40–90; PULSE 60–81; RESP 16–45; TEMP 36.4–36.6; O2SAT 94–100
[2023-05-14] MEDS: LEVOTHYROXINE SODIUM 25 MCG TABLET PO (05:46)
[2023-05-14] MEDS: LEVOTHYROXINE SODIUM 112 MCG TABLET PO (05:46)
[2023-05-14 06:05] LABS: Basophils Absolute Auto 0.1 K/mm3 (0.0-0.1); Basophils Percent Auto 0.4 % (0.2-1.2); Eosinophils Absolute Auto 0.2 K/mm3 (0-0.3); Eosinophils Percent Auto 0.8 % (0-4.4); Hematocrit 28.1 % (37.0-47.0); Hemoglobin 8.8 g/dL (12.0-15.0); Immature Granulocyte Absolute 0.36 K/mm3 (0.00-0.031); Immature Granulocyte Percent A 1.3 % (0-0.5); Lymphocytes Absolute Auto 1.55 K/mm3 (0.9-3.2); Lymphocytes Percent Auto 5.6 % (18.3-44.2); Mean Corpuscular HGB Conc 31.3 g/dl (32-36); Mean Corpuscular Hemoglobin 27.8 pg (26-34); Mean Corpuscular Volume 88.6 fl (80-100); Mean Platelet Volume 10.1 fl (7.4-10.4); Monocytes Absolute Auto 1.6 K/mm3 (0.1-0.6); Monocytes Percent Auto 5.7 % (2.6-8.5); Neutrophils Absolute Auto 24.1 K/mm3 (1.3-6.7); Neutrophils Percent Auto 86.2 % (45.5-73.1); Platelet Count Result 309 k/mm3 (150-375); Red Blood Count 3.17 M/mm3 (4.2-5.4); Red Cell Distribution Width 17.9 % (11.5-14.5); White Blood Count 27.9 K/mm3 (4.5-10.0)
[2023-05-14 06:30] LABS: Alanine Aminotransferase 14 U/L (6-35); Albumin Level 2.3 g/dL (3.5-5.1); Alkaline Phosphatase 315 U/L (38-126); Anion Gap 11 mmol/L (8-16); Aspartate Amino Transferase 50 U/L (14-36); Bilirubin,Total 1.1 mg/dL (0.2-1.3); Blood Urea Nitrogen 30 mg/dL (7-17); Calcium 8.1 mg/dL (8.4-10.2); Carbon Dioxide 20 mmol/L (22-30); Chloride 101 mmol/L (98-107); Estimated CRCL calculation 39 ml/min; Estimated Glomerular Filt Rate > 60; Glucose 85 mg/dL (65-110); Potassium 4.3 mmol/L (3.4-5.0); Sodium 132 mmol/L (137-145)
[2023-05-14 06:34] LABS: Procalcitonin 6.3 ng/mL
[2023-05-14 06:54] LABS: Hypochromasia 1+ (NORMAL); Platelet Estimate Adequate (Adequate); Schistocytes None Seen (NORMAL); Target Cells 1+ (NORMAL)
[2023-05-14 06:55] LABS: Large Platelets Present
[2023-05-14 08:35] LABS: Glucose Point of Care 82 mg/dl (65-105)
[2023-05-14] MEDS: SODIUM CHLORIDE 0.9% IV 1,000 ML 100 ML IV CONT (09:05)
[2023-05-14] MEDS: FUROSEMIDE 40 MG TABLET PO (09:17)
[2023-05-14] MEDS: BRIMONIDINE TARTRATE 0.2% OP SOLN 5 ML BTL 1 DROP EACH EYE (09:17)
[2023-05-14] MEDS: ASPIRIN 81 MG CHEWABLE TABLET PO (09:17)
[2023-05-14] MEDS: TIMOLOL MALEATE 0.5% OP SOLN 5 ML BOTTLE 1 DROP EACH EYE (09:17)
[2023-05-14] MEDS: guaiFENesin 12 HR 600 MG TABCR 1200 MG PO (09:17)
[2023-05-14] MEDS: dilTIAZem HCL CD 240 MG CAP.24HR PO (09:17)
[2023-05-14] MEDS: ENOXAPARIN 40 MG/0.4 ML SYRINGE SUB-Q (09:17)
[2023-05-14] MEDS: CEFEPIME 1 GM/NS 50 ML 1 GM/50 ML BAG IVPB ×2 (09:18→22:57)
[2023-05-14] MEDS: MICAFUNGIN SODIUM 100 MG in SODIUM CHLORIDE 0.9% IV 100 ML IVPB (10:30)
[2023-05-14 12:19] LABS: Glucose Point of Care 120 mg/dl (65-105)
[2023-05-14] MEDS: AZITHROMYCIN 500 MG/NS 250 ML 500 MG/250 ML BAG 250 MG IVPB (13:11)
--- NOTE | 2023-05-14 13:22 | PM.IMPN ---
Progress Note: A&P Assessment and Plan (1) Fungus present in urine: Code(s): B49 - Unspecified mycosis Status: Acute (2) Pneumonia: Code(s): J18.9 - Pneumonia, unspecified organism Status: Acute (3) CHF exacerbation: Code(s): I50.9 - Heart failure, unspecified Status: Acute (4) Acute and chronic respiratory failure: Code(s): J96.20 - Acute and chronic respiratory failure, unspecified whether with hypoxia or hypercapnia Status: Acute (5) Leukocytosis: Code(s): D72.829 - Elevated white blood cell count, unspecified Status: Acute (6) Hepatitis: Code(s): K75.9 - Inflammatory liver disease, unspecified Status: Acute Plan 87F w/ PMH COVID long haul w/ chronic dyspnea, chronic hypercapnic hypoxic respiratory failure, CKD stage 3, HFpEF, IDDM, GERD, gastroparesis, HTN, OA, OHS, hypothyroidism thoracic aortic aneurysm, vit D def presented with SOB 1) acutely decompensated heart failure w/ preserved ejection fraction w/ chronic respiratory failure - diastolic dysfunction. echo repeated this admission, unchanged. cardiology consulted. cpm. resolved, back on 2-3L [place] home baseline. monitor daily weight and I/O's 2) CAP - MRSA in nares positive on 05/06. blood cx NGTD. sputum not collected - switching abx to cefepime and vancomycin to keep broader coverage and avoid nephrotoxicity with zosyn vancomycin combo on 05/10. - 05/11 WBC trended up however procal down. will continue same abx for another day. she looks clinically better otherwise. - 05/12 WBC down slightly. no change in abx. still with bandemia. trend wbc and proca - 05/13 WBC and pro falguni up again. start antifungal and panscan. if not better in 48 hours will need transfer out to ID capable facility - 05/14 WBC flat but pro falguni increasingly higher. CT abdomen revealing hepatitis or abscess, pending ultrasound, add flagyl IV. pending GI/IR/sx consult or transfer. 3) OHS - cont BIPAP 4) leukocytosis - as above 5) anemia - chronic, ctm 6) IDDM - accuchecks and sliding scale - d/c jardiance 2/2 episode of hypoglycemia 7) hypokalemia - repleted. resolved. 8) funguria with herminio glabrata - from 05/08, likely taken for leukocytosis. given she does not appear toxic and has no urinary symptoms this is probably a colonizer. discussed with pt and daughter risks and benefits of antifungal and it is agreed we will ctm. low threshold for treatment if she declines. - asked lab to report susceptibilities on 05/12 - 05/13 started micafungin, suspect this could be the reason her biomarkers of infection have not downtrended. monitor hepatic and kidney function daily - 05/14 still pending sensitivities, cont micafungin 10) CKD stage 3 - slight bump to 1.4 although that is still near her baseline. dc'ed protonix - 05/14 scr improved to 1.00 - IVF for [address] with contrast. trend FEN: saline lock IV after IVF, cardiac diabetic diet GI prophylaxis: none DVT prophylaxis:?lovenox dc'ed for possible drainage. cont SCD's Lines: pIV Code Status: Full Code Dispo: stable More than 35 minutes spent including lengthy discussions with daughter and patient. Subjective Date/time seen: 05/14/23 13:22 Interval history: NAOE. the patient, as usual has nothing to report to me. she states whatever in a pleasant manner. she denies sob, chest pain, cough, abdominal pain. she is simply only interested in drinking her milk Review of Systems Review of Systems: All systems reviewed & are unremarkable except as noted in HPI and below Exam Const: General: comfortable and no acute distress Eyes: Pupils: Equal, round and reactive pupils present Neck: Neck: supple Resp: Effort & Inspection: normal respiratory effort Auscultation: clear to auscultation bilaterally Cardio: Rate: regular rate Rhythm: regular rhythm Heart sounds: no gallops, no murmurs and no rubs GI: GI Palp: Yes Soft to palpation and No Tenderness
[2023-05-14 15:01] LABS: Alveolar/Arterial O2 Gradient 66.8 mmHg; Base Excess ABG -4.7 mEq/l (+/-2.0); Fractional Inspired Oxygen 32 %; Oxygen Content ABG 13.1 %vol (16.0-22.0); Oxygen Saturation ABG 89.7 % (95.0-100.0); PO2 ABG 74.5 mmHg (80.0-100.0); PO2 FiO2 Ratio Arterial Blood 2.33 %; Total Hemoglobin 10.3 g/dL (12.0-18.0)
[2023-05-14 15:03] LABS: pH ABG 7.145 (7.350-7.450)
[2023-05-14 15:04] LABS: Device NASAL CANNULA; Modified Allen's Test Pass; PCO2 ABG 74.2 mmHg (35.0-45.0); Site Drawn LEFT RADIAL
[2023-05-14] MEDS: metroNIDAZOLE 500 MG/ISO 100ML 500 MG/100 ML BAG 100 MG IVPB ×2 (15:07→23:28)
[2023-05-14 15:30] LABS: Glucose Point of Care 86 mg/dl (65-105)
[2023-05-14 15:36] LABS: NT Pro B Type Natriuretic Pept 5920 pg/mL (19.9-100)
[2023-05-14 17:28] LABS: Glucose Point of Care 121 mg/dl (65-105)
--- NOTE | 2023-05-14 20:10 | PC.NURSE ---
Patient transferred to IMU. Report given to Cher WAY
--- NOTE | 2023-05-14 20:40 | PC.NURSE ---
This patient, Carolyn Ramirez, was received from [[id number] ] on 05/14/23 at 2015 for continuous bipap. Patient/family oriented to unit policies and routines
[2023-05-14 20:55] LABS: Glucose Point of Care 57 mg/dl (65-105)
[2023-05-14] MEDS: DEXTROSE 50% 25 GM/50 ML SYRINGE IV PUSH (20:55)
[2023-05-14] MEDS: ALBUMIN HUMAN 25% 25 GM/100 ML 200 ML IVPB (21:11)
[2023-05-14 21:44] LABS: Glucose Point of Care 141 mg/dl (65-105)
[2023-05-14] MEDS: FUROSEMIDE INJ 40 MG/4 ML VIAL IV PUSH (22:16)
[2023-05-14 22:44] LABS: Glucose Point of Care 107 mg/dl (65-105)
[2023-05-14] MEDS: LATANOPROST 0.005% OP SOLN 2.5 ML BTL 1 DROP EACH EYE (22:57)
[2023-05-15] VITALS (23 sets, daily range): BP systolic 103–137; BP diastolic 41–66; PULSE 61–94; RESP 20–42; TEMP 36.3–36.7; O2SAT 87–100
[2023-05-15] MEDS: VANCOMYCIN 1,250 MG/NS 250 ML 1,250 MG/250 ML BAG 166 MG IVPB (00:31)
[2023-05-15 02:45] LABS: Legionella pneumophila Ag Ur Not Detected (Not Detected)
[2023-05-15 04:53] LABS: Glucose Point of Care 84 mg/dl (65-105)
[2023-05-15] MEDS: metroNIDAZOLE 500 MG/ISO 100ML 500 MG/100 ML BAG 100 MG IVPB ×3 (05:23→20:49)
[2023-05-15 05:28] LABS: Alveolar/Arterial O2 Gradient 114.4 mmHg; Base Excess ABG 1.8 mEq/l (+/-2.0); Carboxyhemoglobin 0.3 % THb (0-2.0); Fractional Inspired Oxygen 40 %; HCO3 ABG 27.2 mEq/l (22.0-26.0); Methemoglobin ABG 0.4 %THb (0-1.5); Oxygen Content ABG 18.3 %vol (16.0-22.0); Oxygen Saturation ABG 98.3 % (95.0-100.0); Oxyhemoglobin 97.2 % THb (90.0-100.0); PCO2 ABG 45.5 mmHg (35.0-45.0); PO2 ABG 118.5 mmHg (80.0-100.0); PO2 FiO2 Ratio Arterial Blood 2.96 %; Reduced Hemoglobin 2.1 %THb (0-5.0); Total Hemoglobin 13.3 g/dL (12.0-18.0); pH ABG 7.394 (7.350-7.450)
[2023-05-15 05:46] LABS: Hematocrit 23.7 % (37.0-47.0); Hemoglobin 7.6 g/dL (12.0-15.0); Mean Corpuscular HGB Conc 32.1 g/dl (32-36); Mean Corpuscular Hemoglobin 27.8 pg (26-34); Mean Corpuscular Volume 86.8 fl (80-100); Mean Platelet Volume 10.4 fl (7.4-10.4); Platelet Count Result 299 k/mm3 (150-375); Red Blood Count 2.73 M/mm3 (4.2-5.4); Red Cell Distribution Width 17.7 % (11.5-14.5); White Blood Count 23.6 K/mm3 (4.5-10.0)
[2023-05-15 06:06] LABS: Anion Gap 10 mmol/L (8-16); Blood Urea Nitrogen 29 mg/dL (7-17); Calcium 8.5 mg/dL (8.4-10.2); Carbon Dioxide 24 mmol/L (22-30); Chloride 103 mmol/L (98-107); Estimated CRCL calculation 37 ml/min; Estimated Glomerular Filt Rate 57; Glucose 70 mg/dL (65-110); Potassium 3.8 mmol/L (3.4-5.0); Sodium 137 mmol/L (137-145)
[2023-05-15 06:07] LABS: Device OTHER DEVICE; Modified Allen's Test Pass; Site Drawn LEFT RADIAL
[2023-05-15] MEDS: ALBUMIN HUMAN 25% 25 GM/100 ML 200 ML IVPB ×3 (06:27→20:49)
[2023-05-15 07:32] LABS: Alveolar/Arterial O2 Gradient 130.3 mmHg; Base Excess ABG 2.5 mEq/l (+/-2.0); Fractional Inspired Oxygen 40 %; HCO3 ABG 27.5 mEq/l (22.0-26.0); Oxygen Content ABG 13.4 %vol (16.0-22.0); Oxygen Saturation ABG 97.8 % (95.0-100.0); Oxyhemoglobin 96.6 % THb (90.0-100.0); PCO2 ABG 44.1 mmHg (35.0-45.0); PO2 ABG 104.2 mmHg (80.0-100.0); PO2 FiO2 Ratio Arterial Blood 2.61 %; Total Hemoglobin 9.7 g/dL (12.0-18.0); pH ABG 7.412 (7.350-7.450)
[2023-05-15 07:34] LABS: Device BIPAP; Modified Allen's Test Pass; Site Drawn RIGHT RADIAL
[2023-05-15 07:35] LABS: Expiratory Pressure 4 cmH2O
[2023-05-15] MEDS: FUROSEMIDE INJ 40 MG/4 ML VIAL IV PUSH (08:37)
[2023-05-15] MEDS: TIMOLOL MALEATE 0.5% OP SOLN 5 ML BOTTLE 1 DROP EACH EYE (08:41)
[2023-05-15] MEDS: BRIMONIDINE TARTRATE 0.2% OP SOLN 5 ML BTL 1 DROP EACH EYE (08:41)
[2023-05-15 09:42] LABS: Glucose Point of Care 76 mg/dl (65-105)
[2023-05-15 10:38] LABS: INR 1.3; Prothrombin Time 17.4 Seconds (11.1-14.7)
[2023-05-15] MEDS: CEFEPIME 1 GM/NS 50 ML 1 GM/50 ML BAG IVPB ×2 (11:02→20:48)
[2023-05-15] MEDS: MICAFUNGIN SODIUM 100 MG in SODIUM CHLORIDE 0.9% IV 100 ML IVPB (11:34)
[2023-05-15 13:13] LABS: Glucose Point of Care 74 mg/dl (65-105)
[2023-05-15 13:13] LABS: Glucose Point of Care 71 mg/dl (65-105)
[2023-05-15] MEDS: AZITHROMYCIN 500 MG/NS 250 ML 500 MG/250 ML BAG 250 MG IVPB (14:03)
[2023-05-15 14:07] LABS: Glucose Point of Care 87 mg/dl (65-105)
[2023-05-15] MEDS: CENTRAL LINE FLUSH 10 ML IV PUSH ×2 (14:25→20:59)
--- NOTE | 2023-05-15 16:08 | PM.IMPN ---
Progress Note: A&P Assessment and Plan (1) Hepatitis: Code(s): K75.9 - Inflammatory liver disease, unspecified Status: Acute (2) Pneumonia: Code(s): J18.9 - Pneumonia, unspecified organism Status: Acute (3) CHF exacerbation: Code(s): I50.9 - Heart failure, unspecified Status: Acute (4) Acute and chronic respiratory failure: Code(s): J96.20 - Acute and chronic respiratory failure, unspecified whether with hypoxia or hypercapnia Status: Acute (5) Leukocytosis: Code(s): D72.829 - Elevated white blood cell count, unspecified Status: Acute Plan 87F w/ PMH COVID long haul w/ chronic dyspnea, chronic hypercapnic hypoxic respiratory failure, CKD stage 3, HFpEF, IDDM, GERD, gastroparesis, HTN, OA, OHS, hypothyroidism thoracic aortic aneurysm, vit D def presented with SOB 1) acutely decompensated HFpEF and acute hypoxic and hypercarbic on chronic respiratory failure with COVID long hauler syndrome and severe OHS - diastolic dysfunction. echo repeated this admission, unchanged. cardiology consulted. decompensation resolved. currently NPO due to mental status. monitor I/O's. - low normal BP on 05/14, albumin started q6hr. cont and trend albumin. very difficult to assess lung sounds but CXR 05/14 with improved interstitial edema. would be cautious with fluid replacement unless w/ septic shock - on 05/14 she was obtunded with primary respiratory acidosis and acute hypercarbic respiratory failure. BIPAP normalized her PCO2 but she did not improve mentation harry. Suspect hypercarbia is a result, and not the cause of her altered mental status, but certainly complicates things. cont BIPAP nightly w/ AVAPS for her severe OHS 2) sepsis - MRSA in nares positive on 05/06. admitted 05/05 and pneumonia discovered 05/08. ceftriaxone and doxycycline started. blood culture NGTD and unable to collect sputum. for persistent WBC and elevated procal her abx have since been upgraded to cefepime and vancomycin, then azithromycin added, then micafunging for c. glabrata, and now flagyl for intraabdominal infection. if no better tomorrow, will add zyvox. currently attempting transfer out to tertiary center, has been accepted to [facility], pending a call out to [facility], if no better in AM, will add zyvox or other additional coverage. urinary legionella and pneumococcal ag negative. - UTI w/ herminio glabrata, micafungin - liver abscess, 8.3 x 8.2 x 26.4 cm. drain placed 05/15 with copious purulent drainage, hopefully this will help resolve her sepsis. culture pending, gram stain gram positive cocci - switching abx to cefepime and vancomycin to keep broader coverage and avoid nephrotoxicity with zosyn vancomycin combo on 3) acute metabolic toxic encephalopathy - started on 05/13, has since waxed and waned. she has a baseline of being weak. pending ammonia, salicylates, acetaminophen. CT head on 05/15 demonstrating old CVA. no improvement with normalization of PCO2 with BIPAP, likely infection related. treat above and monitor. family wants to do everything possible. 4) anemia - chronic, but slowly downtrending. hold lovenox until HB stabilizes. check iron panel and ferritin. transfuse if HB <7 5) portal vein thrombosis - discovered on 05/[address] abd/pelv. likely as a result of the abscess. we will need to start AC FRANK, however her hemoglobin has trended down and she just received a hepatic drain. discussed risks and benefits with daughters Phong and Jacy, they would like to wait a day. hopefully start AC tomorrow. 6) transmanitis - this is new. trend. likely as a result of the abscess 7) IDDM - accuchecks and sliding scale - hx of hypoglycemia with one episode here. she swings in her ability to take food. d/c jardiance and be cautious with correcting hyperglyecmia 8) hx of stroke seen on CT brain - possibly recursdescense this admission? cont aspirin, pending intitiation of statin 9) CKD stage 3 - stable. ctm.
[2023-05-15 17:49] LABS: Glucose Point of Care 75 mg/dl (65-105)
[2023-05-15 21:07] LABS: Glucose Point of Care 87 mg/dl (65-105)
[2023-05-15] MEDS: LATANOPROST 0.005% OP SOLN 2.5 ML BTL 1 DROP EACH EYE (21:12)
--- NOTE | 2023-05-16 00:12 | PC.NURSE ---
[id number] Report given to RAYNA Enriquez. Chart with CD of all imaging sent with EMS. All belongings sent home with patient's daughter. Patient stable upon discharge from facility.
--- NOTE | 2023-05-16 08:31 | PM.DS ---
DS: Admitting Diagnosis Discharge Date 05/16/23 Admitting Diagnosis acutely decompensated heart failure DS: Discharge Diagnosis Discharge Diagnosis (1) Hepatitis: Code(s): K75.9 - Inflammatory liver disease, unspecified Status: Acute (2) Fungus present in urine: Code(s): B49 - Unspecified mycosis Status: Acute (3) Pneumonia: Code(s): J18.9 - Pneumonia, unspecified organism Status: Acute (4) CHF exacerbation: Code(s): I50.9 - Heart failure, unspecified Status: Acute (5) Acute and chronic respiratory failure: Code(s): J96.20 - Acute and chronic respiratory failure, unspecified whether with hypoxia or hypercapnia Status: Acute (6) Leukocytosis: Code(s): D72.829 - Elevated white blood cell count, unspecified Status: Acute DS: Summary Hospital Course Hospital Course: 87F w/ PMH COVID long haul w/ chronic dyspnea, chronic hypercapnic hypoxic respiratory failure, CKD stage 3, HFpEF, IDDM, GERD, gastroparesis, HTN, OA, OHS, hypothyroidism thoracic aortic aneurysm, vit D def presented with SOB. Please refer to the specific problem list below for further detail. The hospital course is as follows: 87F w/ above medical history and chronic admissions for respiratory failure presented with SOB and was found to be in acutely decompensated HFpEF with associated hypoxic respiratory failure. Cardiology was consulted and she was treated adequately with diuretics. After that, she was on her baseline o2 via nasal cannula albeit weak. Leukocytosis remained and she remained weak. Over the course of a few days her weakness progressed and leukocytosis persisted. Further evaluation revealed no growth on blood cultures, but herminio glabrata UTI along with HCAP. She was treated with azithromycin, cefepime, vancomycin and micafungin. Thereafter she became quite somnolent. CT head neg but demonstrated old stroke. ABG demonstrated resp acidosis with PCO2 up to 70's. Continuous BIPAP placed and acidosis and hypercarbia resolved but her mentation did not improved. It appeared she had toxic metabolic encephalopathy and CT chest/abd/pelv were conducted for further investigation. It revealed worsening pneumonia along with liver abscess and portal vein thrombosis. Flagyl IV was added. Anticoagulation was deferred 2/2 to drain needing to be placed. Radiology was consulted and liver drain placed by Dr. Osorio. Initial gram stain produced few gram positive cocci with many white blood cells. At the time of this note the cultures are still pending. Although the abscess pocket appeared to have many loculations, shortly after the drain was placed large amount of purulent discharge was emptied into the drain bag. During the worsening of her mental status attempts were made to transfer the patient out to high level of care and finally on 05/16/23 at 0012 patient was transferred to [facility] ICU. Dr. Porras was healthcare consultant at the time of transfer in the night. She was reportedly stable at this point but still somnolent and altered. She was full code during her entire stay. 1) acutely decompensated HFpEF and acute hypoxic and hypercarbic on chronic respiratory failure with COVID long hauler syndrome and severe OHS - diastolic dysfunction. echo repeated this admission, unchanged. cardiology consulted. decompensation resolved. - low normal BP on 05/14, albumin started q6hr. cont and trend albumin. very difficult to assess lung sounds but CXR 05/14 with improved interstitial edema. would be cautious with fluid replacement unless w/ septic shock - on 05/14 she was obtunded with primary respiratory acidosis and acute hypercarbic respiratory failure. BIPAP normalized her PCO2 but she did not improve mentation harry. Suspect hypercarbia is a result, and not the cause of her altered mental status, but certainly complicates things. cont BIPAP nightly w/ AVAPS for her severe OHS 2) sepsis - MRSA in nares positive on 05/06. admitted 05/05
--- NOTE | 2023-05-16 09:15 | PM.TDS ---
Transfer Discharge Sum: Prov Provider Date of admission: 05/06/23 11:10 Primary care physician: Federica Ravi MD Admitting clinician: Joaquina Porras MD Attending physician on admission: Joaquina Porras Consults: 05/05/23 Consult to Physician Routine Comment: Spoke to Robyn Levy 05.05.23 @ 2332 (,) Consulting Provider: Holland Palacios Reason for consultation: CHF Has provider been notified: Yes Attending physician on discharge: Shakira Sellers Discharging clinician: Shakira Sellers Anticipated date of transfer: 05/16/23 Receiving physician/facility: [facility] DS: Admitting Diagnosis Discharge Date 05/16/23 Admitting Diagnosis decompensated heart failure DS: Discharge Diagnosis Discharge Diagnosis (1) Hepatitis: Code(s): K75.9 - Inflammatory liver disease, unspecified Status: Acute (2) Fungus present in urine: Code(s): B49 - Unspecified mycosis Status: Acute (3) Pneumonia: Code(s): J18.9 - Pneumonia, unspecified organism Status: Acute (4) CHF exacerbation: Code(s): I50.9 - Heart failure, unspecified Status: Acute (5) Acute and chronic respiratory failure: Code(s): J96.20 - Acute and chronic respiratory failure, unspecified whether with hypoxia or hypercapnia Status: Acute (6) Leukocytosis: Code(s): D72.829 - Elevated white blood cell count, unspecified Status: Acute Plan 87F w/ PMH COVID long haul w/ chronic dyspnea, chronic hypercapnic hypoxic respiratory failure, CKD stage 3, HFpEF, IDDM, GERD, gastroparesis, HTN, OA, OHS, hypothyroidism thoracic aortic aneurysm, vit D def presented with SOB. Please refer to the specific problem list below for further detail. The hospital course is as follows: 87F w/ above medical history and chronic admissions for respiratory failure presented with SOB and was found to be in acutely decompensated HFpEF with associated hypoxic respiratory failure. Cardiology was consulted and she was treated adequately with diuretics. After that, she was on her baseline o2 via nasal cannula albeit weak. Leukocytosis remained and she remained weak. Over the course of a few days her weakness progressed and leukocytosis persisted. Further evaluation revealed no growth on blood cultures, but herminio glabrata UTI along with HCAP. She was treated with azithromycin, cefepime, vancomycin and micafungin. Thereafter she became quite somnolent. CT head neg but demonstrated old stroke. ABG demonstrated resp acidosis with PCO2 up to 70's. Continuous BIPAP placed and acidosis and hypercarbia resolved but her mentation did not improved. It appeared she had toxic metabolic encephalopathy and CT chest/abd/pelv were conducted for further investigation. It revealed worsening pneumonia along with liver abscess and portal vein thrombosis. Flagyl IV was added. Anticoagulation was deferred 2/2 to drain needing to be placed. Radiology was consulted and liver drain placed by Dr. Osorio. Initial gram stain produced few gram positive cocci with many white blood cells. At the time of this note the cultures are still pending. Although the abscess pocket appeared to have many loculations, shortly after the drain was placed large amount of purulent discharge was emptied into the drain bag. During the worsening of her mental status attempts were made to transfer the patient out to high level of care and finally on 05/16/23 at 0012 patient was transferred to [facility] ICU. Dr. Porras was early interventionist at the time of transfer in the night. She was reportedly stable at this point but still somnolent and altered. She was full code during her entire stay. 1) acutely decompensated HFpEF and acute hypoxic and hypercarbic on chronic respiratory failure with COVID long hauler syndrome and severe OHS - diastolic dysfunction. echo repeated this admission, unchanged. cardiology consulted. decompensation resolved. - low normal BP on 05/14, albumin start
== END 2023-05-16 00:10 | disposition short-term general hospital (02) | DRG 871 ==
LOC: ANHED 22:47 → ANH2MED 23:09 → ANHIMU 05-14 20:19
PROVIDERS: Internal Medicine; Admitting Provider Internal Medicine; Emergency Provider Emergency Medicine; PCP Family Medicine; Visit Provider General Practice
DX: A41.9 Sepsis, unspecified organism (principal); G92.8 Other toxic encephalopathy; I50.33 Acute on chronic diastolic (congestive) heart failure; J18.9 Pneumonia, unspecified organism; K75.0 Abscess of liver; J96.22 Acute and chronic respiratory failure with hypercapnia; J96.21 Acute and chronic respiratory failure with hypoxia; I81 Portal vein thrombosis; I13.0 Hypertensive heart and chronic kidney disease with heart failure and stage 1 through stage 4 chronic kidney disease, or unspecified chronic kidney disease; B48.8 Other specified mycoses; B37.49 Other urogenital candidiasis; E03.9 Hypothyroidism, unspecified; I36.1 Nonrheumatic tricuspid (valve) insufficiency; I48.91 Unspecified atrial fibrillation; K21.9 Gastro-esophageal reflux disease without esophagitis; H40.9 Unspecified glaucoma; E11.43 Type 2 diabetes mellitus with diabetic autonomic (poly)neuropathy; E11.65 Type 2 diabetes mellitus with hyperglycemia; K31.84 Gastroparesis; G47.34 Idiopathic sleep related nonobstructive alveolar hypoventilation; E11.22 Type 2 diabetes mellitus with diabetic chronic kidney disease; N18.30 Chronic kidney disease, stage 3 unspecified; D64.9 Anemia, unspecified; J98.6 Disorders of diaphragm; E66.9 Obesity, unspecified; E87.6 Hypokalemia; I71.20 Thoracic aortic aneurysm, without rupture, unspecified; E55.9 Vitamin D deficiency, unspecified; Z79.85 Long-term (current) use of injectable non-insulin antidiabetic drugs; Z79.4 Long term (current) use of insulin; Z22.322 Carrier or suspected carrier of Methicillin resistant Staphylococcus aureus; Z94.7 Corneal transplant status; Z79.84 Long term (current) use of oral hypoglycemic drugs; Z87.891 Personal history of nicotine dependence
CPT/HCPCS: 36415; 36569; 36600; 70450; 71045; 71250; 71260; 74177; 75989; 76705; 80048; 80053; 80202; 81001; 82375; 82728; 82805; 82948; 83036; 83050; 83540; 83550; 83605; 83735; 83880; 84145; 84484; 85025; 85027; 85610; 85730; 87040; 87070; 87075; 87076; 87081; 87086; 87088; 87106; 87205; 87449; 87637; 87641; 87899; 88108; 88305; 92610; 93005; 94002; 94003; 94640; 96374; 96375; 96376; 97110; 97161; 97165; 97530; 99285; A9270; C1729; C1769; C8929; G0378; J0456; J0692; J0696; J1650; J1815; J1836; J1940; J2248; J2543; J3370; J7030; P9047; Q9957; Q9967

== ENCOUNTER 2023-07-14 18:00 | Observation (INO) | payer MEDICARE, MEDICAID, SELFPAY ==
[2023-07-14] VITALS (14 sets, daily range): BP systolic 53–101; BP diastolic 34–72; PULSE 52–71; RESP 16–29; TEMP 36.4; O2SAT 93–100
--- NOTE | 2023-07-14 18:30 | ED.RECABL ---
HPI - Recheck/Abnormal Lab/Rx General Chief Complaint: Recheck/Abnormal Lab/Rx <Jessie Murillo MD - Last Filed: 07/17/23 13:05> Stated Complaint: ABN LABS <Jessie Murillo MD - Last Filed: 07/17/23 13:05> Time Seen by Provider: 07/14/23 18:15 <Jessie Murillo MD - Last Filed: 07/17/23 13:05> History of Present Illness HPI narrative: Patient is an 87-year-old female presenting with abnormal labs. The patient is coming from a nursing facility. Her family is at bedside and helps with the history. She had an extended admission at [place] for a liver abscess. She was discharged after approximately 6-8 weeks in the hospital. She went to this nursing facility about a week ago. They checked some blood work today and were concerned for an DARION so they sent her in for evaluation. For EMS, patient was bradycardic and hypotensive with pressures in the 70s over 50s. Patient does have a POLST form that states that she is comfort measures. She currently denies complaints to me. She is alert and oriented x2. <Jessie Murillo MD - Last Filed: 07/17/23 13:05> Related Data Home Medications: Home Medications Medication Instructions Recorded Confirmed levothyroxine 137 mcg tablet 137 mcg PO DAILY 07/12/22 05/05/23 insulin glargine 100 unit/mL (3 10 unit subcut HS 05/05/23 05/05/23 mL) subcutaneous pen (Lantus Solostar U-100 Insulin) <Jessie Murillo MD - Last Filed: 07/17/23 13:05> Allergies/Adverse Reactions: Allergies Allergy/AdvReac Type Severity Reaction Status Date / Time No Known Allergies Allergy Verified 05/04/23 20:53 <Jessie Murillo MD - Last Filed: 07/17/23 13:05> Review of Systems Review of Systems: ROS unobtainable: Yes unobtainable due to medical condition and other ( Due to acuity of condition) <Jessie Murillo MD - Last Filed: 07/17/23 13:05> [facility] Past Medical History Medical History: Medical History Chronic hypercapnic respiratory failure With negative polysomnogram but thought to be due to elevated right hemidiaphragm, long COVID and possible obesity hypoventilation syndrome Chronic kidney disease, stage 3 Congestive heart failure COVID-19 long hauler manifesting chronic dyspnea Diabetes mellitus Gastroparesis GERD without esophagitis Glaucoma Heart failure with preserved ejection fraction Hypertension Hypothyroidism Osteoarthritis Thoracic aortic aneurysm Vitamin D deficiency <Jessie Murillo MD - Last Filed: 07/17/23 13:05> Surgical History Surgical History: Surgical History History of cornea transplant History of partial thyroidectomy Removal of benign thyroid nodule. <Jessie Murillo MD - Last Filed: 07/17/23 13:05> Family History Family History: Family History Mother Diabetes mellitus Family history of diabetes mellitus in first degree relative Cerebrovascular accident Sibling Family history of cardiovascular disease Diabetes mellitus Other Family history of congestive heart failure Hypertension <Jessie Murillo MD - Last Filed: 07/17/23 13:05> Social History Social History: Social History Social History: Surrogate medical decision maker: Johnny Ramirez, spouse. Code status: DNR/DNI (per patient request) discussion witnessed by daughter at bedside. Smoking packs per day: 0.5 Smoking cigarettes per day: 10.0 Years smoked: 8 Smoking pack-years: 4.00 Smoking status: Former smoker Second hand tobacco smoke exposure: No Alcohol intake: never Substance use: never Substance use type: does not use Lack of Transportation: No Lack of Food: Never True Current Housing: I Have Housing Concerned About Future Housing
[2023-07-14] MEDS: SODIUM CHLORIDE 0.9% IV 1,000 ML 999 ML IV CONT ×3 (18:37→19:53)
--- NOTE | 2023-07-14 18:37 | ECG_ITS ---
Measurements Intervals [place] Rate: 54 P: NV: 0 QRS: 6 QRSD: 130 T: 37 QT: 495 QTc: 469 Interpretive Statements SINUS BRADYCARDIA BORDERLINE AV CONDUCTION DELAY INTRAVENTRICULAR CONDUCTION DELAY BORDERLINE R WAVE PROGRESSION, ANTERIOR LEADS BORDERLINE ST-T WAVE ABNORMALITY- INFERIOR LEADS BASELINE ARTIFACT- I, II, III, AVR, AVL, AVF, V1-V6 ABNORMAL ECG COMPARED TO ECG 05/04/2023 21:20:50 NO SIGNIFICANT CHANGES Electronically Signed On 07-14-2023 19:00:08 S[employer]TER by Wayne Pugh D.O.
[2023-07-14 18:45] LABS: Basophils Absolute Auto 0.1 K/mm3 (0.0-0.1); Basophils Percent Auto 0.8 % (0.2-1.2); Eosinophils Absolute Auto 0.1 K/mm3 (0-0.3); Eosinophils Percent Auto 1.5 % (0-4.4); Hematocrit 24.3 % (37.0-47.0); Hemoglobin 7.7 g/dL (12.0-15.0); Immature Granulocyte Absolute 0.02 K/mm3 (0.00-0.031); Immature Granulocyte Percent A 0.3 % (0-0.5); Lymphocytes Absolute Auto 1.93 K/mm3 (0.9-3.2); Lymphocytes Percent Auto 24.8 % (18.3-44.2); Mean Corpuscular HGB Conc 31.7 g/dl (32-36); Mean Corpuscular Hemoglobin 29.8 pg (26-34); Mean Corpuscular Volume 94.2 fl (80-100); Mean Platelet Volume 9.9 fl (7.4-10.4); Monocytes Absolute Auto 0.7 K/mm3 (0.1-0.6); Neutrophils Absolute Auto 4.9 K/mm3 (1.3-6.7); Neutrophils Percent Auto 63.6 % (45.5-73.1); Platelet Count Result 484 k/mm3 (150-375); Red Blood Count 2.58 M/mm3 (4.2-5.4); Red Cell Distribution Width 15.5 % (11.5-14.5); White Blood Count 7.8 K/mm3 (4.5-10.0)
[2023-07-14 19:01] LABS: Alanine Aminotransferase 17 U/L (6-35); Albumin Level 3.4 g/dL (3.5-5.1); Alkaline Phosphatase 339 U/L (38-126); Anion Gap 15 mmol/L (8-16); Aspartate Amino Transferase 48 U/L (14-36); Bilirubin,Total 0.5 mg/dL (0.2-1.3); Calcium 8.2 mg/dL (8.4-10.2); Carbon Dioxide 11 mmol/L (22-30); Chloride 107 mmol/L (98-107); Estimated Glomerular Filt Rate 12; Glucose 82 mg/dL (65-110); Sodium 133 mmol/L (137-145)
[2023-07-14 19:08] LABS: Potassium 4.7 mmol/L (3.4-5.0)
[2023-07-14 19:17] LABS: Troponin I 0.014 ng/mL (0.000-0.034)
[2023-07-14 20:33] LABS: Blood Urea Nitrogen 122 mg/dL (7-17)
[2023-07-14] MEDS: SCOPOLAMINE 1 MG PATCH 1 PATCH TRANSDERM (22:55)
[2023-07-15] VITALS (8 sets, daily range): BP systolic 88–108; BP diastolic 49–79; PULSE 71–84; RESP 14–27; TEMP 36–36.4; O2SAT 93–100
--- NOTE | 2023-07-15 08:01 | ADMGEN ---
This patient, Carolyn Ramirez, was admitted to Medical Room 342-01. Patient/family oriented to hospital policies and general routines including ID bracelet, bed and alarms, visiting hours, pain management, procedures, bathroom and other care routines, personal items, smoking policy, room service/diet, and visiting hours. Information on how to activate the Rapid Response Team has been discussed. Patient/Family are encouraged to report perceived risks to care and to ask questions if they do not understand what they are told or what they should do.
--- NOTE | 2023-07-15 09:55 | PM.IMHP ---
H&P: HPI History of Present Illness Date/Time: 07/15/23 09:55 Chief Complaint: Abnormal labs Narrative: 87yo female with chronic hypercapnic respiratory failure, CKD 3, CHF, DM and HTN [facility] for abnormal labs. Patient was here in the emergency room on 05/04/2023 for shortness of breath and was hospitalized for acute on chronic respiratory failure and CHF exacerbation. During her hospital course, weakness and altered mental status. A mcclendon revealed pneumonia and liver abscess with portal vein thrombosis. A liver drain was placed with cultures growing Bacteroides. Patient was transferred to [facility] on 05/16/2023 for further care. Patient was hospitalized for about 6 weeks at [facility]. Family in the room states patient's condition did not significantly improve from their assessment. There was no mention of acute renal failure while patient was hospitalized. There is no mention of hospice to the patient or family. Patient was transferred to [facility] about 1 week ago. Since being at the [facility], patient has been sleeping a lot. She continues to eat poorly. She has been delirious with seeing things and talking to people were nonexistent. Patient is awake mildly somnolent with garbled speech but is oriented. She denies having any symptoms and is not sure why she is in the hospital. She denies any fever, chills, chest pain or palpitations. No nausea, vomiting, diarrhea, dysuria, hematuria. She feels urine output is normal for her. She has occasional shortness of breath and cough. For patient's baseline creatinine under 1-1.2 chronically. She does have a GTube and has been getting TF at the [facility]. Patient was brought to the emergency room because of abnormal labs. Emergency room, she was noted to be hypotensive with blood pressure 75/58 and bradycardic with pulse of 53. White count is normal. Hemoglobin 7.7. Creatinine 4.2 with BUN 122. Was given IV fluids x3 L. she remained hypotensive. Family was approached about wishes. They did not want a central line placed or vasopressors. They wished to transition to comfort measures. Patient was admitted for palliative care. Review of Systems Review of Systems: All systems reviewed & are unremarkable except as noted in HPI and below PMFSH Past Medical History Medical History Chronic hypercapnic respiratory failure With negative polysomnogram but thought to be due to elevated right hemidiaphragm, long COVID and possible obesity hypoventilation syndrome Chronic kidney disease, stage 3 Congestive heart failure COVID-19 long hauler manifesting chronic dyspnea Diabetes mellitus Gastroparesis GERD without esophagitis Glaucoma Heart failure with preserved ejection fraction Hypertension Hypothyroidism Osteoarthritis Thoracic aortic aneurysm Vitamin D deficiency Surgical History Surgical History History of cornea transplant History of partial thyroidectomy Removal of benign thyroid nodule. Family History Family History Mother Diabetes mellitus Family history of diabetes mellitus in first degree relative Cerebrovascular accident Sibling Family history of cardiovascular disease Diabetes mellitus Other Family history of congestive heart failure Hypertension Social History Social History Social History: Surrogate medical decision maker: Johnny Ramirez, spouse. Code status: DNR/DNI (per patient request) discussion witnessed by daughter at bedside. Smoking packs per day: 0.5 Smoking cigarettes per day: 10.0 Years smoked: 8 Smoking pack-years: 4.00 Smoking status: Former smoker Second hand tobacco smoke exposure: No Alcohol intake: never Substance use: never Substance use type: does not use L
[2023-07-15] MEDS: LORazepam INJ (*CRX) 2 MG/ML VIAL IV PUSH (22:45)
--- NOTE | 2023-07-16 04:13 | PCRCNOTE ---
Cpap ordered for pt use last night (07/15/23), however, family declined use due to patient being on comfort measures only and patient resting comfortably without it.
[2023-07-16 06:00] VITALS: BP 142/71; PULSE 72; RESP 21; TEMP 35.7; O2SAT 100
[2023-07-16 08:53] VITALS: O2SAT 93
--- NOTE | 2023-07-16 10:43 | PM.IMPN ---
Progress Note: A&P Assessment and Plan (1) Comfort measures only status: Code(s): Z51.5 - Encounter for palliative care Status: Acute (2) Hypotension: Code(s): I95.9 - Hypotension, unspecified Status: Acute (3) Acute kidney injury superimposed on chronic kidney disease: Code(s): N17.9 - Acute kidney failure, unspecified; N18.9 - Chronic kidney disease, unspecified Status: Acute (4) Diabetes mellitus: Qualifiers: Diabetes mellitus type: type 2 Diabetes mellitus parts counterman insulin use: with parts counterman use Diabetes mellitus complication status: with hyperglycemia Qualified Code(s): E11.65 - Type 2 diabetes mellitus with hyperglycemia; Z79.4 - snf (current) use of insulin Code(s): E11.9 - Type 2 diabetes mellitus without complications Status: Acute (5) Hypertension: Code(s): I10 - Essential (primary) hypertension Status: Acute (6) Chronic hypercapnic respiratory failure: Code(s): J96.12 - Chronic respiratory failure with hypercapnia Status: Acute (7) Anemia: Code(s): D64.9 - Anemia, unspecified Status: Acute Plan 07/15/23 -- Patient has been admitted to medical floor for comfort measures. Ativan and morphine are available as needed. Her other home medications have been held. Patient is somnolent but oriented this morning. I did discuss with her in the presence of the family about treatment options including dialysis. Explained that she had kidney failure that may require dialysis. She appears to understand that without treatment of her kidney failure, she would most likely . She nods her head yes when asked if she would like to continue with comfort measures knowing that this could result in the end of her life. All questions answered for the patient and the family. Care coordination consulted for information about hospice. Continue comfort measures. 07/16/23 -- Spoke with family at bedside for 25 minutes. Discussed options such as starting full care with blood tests, imaging, consults, obtaining old records, etc vs continuing comfort measures and asking hospice to come in. Made very clear that I can not guarantee that the patient's renal function would improve or that her overall condition would change at all. The patient remains very ill and has had multiple hospitalizations over the past year. I reminded the family member who was present at the time that the patient herself (when she was oriented) seemed to be agreeable to hospice yesterday. Explained that patients in this condition do not experience hunger and recommend that we hold TF until decision is made about overall plan. Family meeting later today. client service coordinator notified. Subjective Date/time seen: 07/16/23 10:43 Interval history: 87yo female with chronic hypercapnic respiratory failure, CKD 3, CHF, DM and HTN brought in from the assisted for abnormal labs and found to be in shock.? Patient asleep. She received Ativan earlier today. She arouses easily. Spoke with family in the room. Family state patient was in and out of the hospital and NH from June through December. She was doing well for 1-2 months before she became sick again. Exam Narrative: AF 96.3 142/71 72 21 93% ra Gen - NARD Chest - lungs are clear anteriorly CV - RRR. S1-S2. Abd - soft. NT. ND. RUQ drain in place with thin brown fluid in bag. GTube secured. Ext - no pedal edema Neuro - patient arouses but is somnolent Skin - warm and dry. Objective Data Vital Signs Vital Signs: Vital Signs - 24 hr 07/15/23 20:49 07/16/23 06:00 07/16/23 08:53 Temperature 96.8 F L 96.3 F L Pulse Rate 78 72 Respiratory Rate 22 H 21 H Blood Pressure 107/49 L 142/71 H Pulse Oximetry 100 100 93 Oxygen Delivery Nasal Cannula Oxygen Flow Rate 1 Intake/Output Intake/Output: Intake & Output 07/13/23 07/14/23 07/15/23 07/16/23 23:59 23:59 23:59 23:59 Intake Total 3
[2023-07-16 16:43] VITALS: BP 121/52; PULSE 71; RESP 16; TEMP 36.1; O2SAT 99
[2023-07-16 20:56] VITALS: BP 102/66; PULSE 71; RESP 18; TEMP 36.6; O2SAT 91
[2023-07-17 04:29] VITALS: BP 115/56; PULSE 65; RESP 20; TEMP 36.5; O2SAT 93
[2023-07-17 08:00] VITALS: O2SAT 93
--- NOTE | 2023-07-17 12:07 | PM.DS ---
DS: Admitting Diagnosis Discharge Date 07/17/23 Admitting Diagnosis Abnormal labs DS: Discharge Diagnosis Discharge Diagnosis (1) Comfort measures only status: Code(s): Z51.5 - Encounter for palliative care Status: Acute (2) Hypotension: Code(s): I95.9 - Hypotension, unspecified Status: Acute (3) Acute kidney injury superimposed on chronic kidney disease: Code(s): N17.9 - Acute kidney failure, unspecified; N18.9 - Chronic kidney disease, unspecified Status: Acute (4) Diabetes mellitus: Qualifiers: Diabetes mellitus type: type 2 Diabetes mellitus nursing home insulin use: with adjunct faculty for medical terminology use Diabetes mellitus complication status: with hyperglycemia Qualified Code(s): E11.65 - Type 2 diabetes mellitus with hyperglycemia; Z79.4 - group home (current) use of insulin Code(s): E11.9 - Type 2 diabetes mellitus without complications Status: Acute (5) Hypertension: Code(s): I10 - Essential (primary) hypertension Status: Acute (6) Chronic hypercapnic respiratory failure: Code(s): J96.12 - Chronic respiratory failure with hypercapnia Status: Acute (7) Anemia: Code(s): D64.9 - Anemia, unspecified Status: Acute DS: Summary Hospital Course Reason for hospitalization: 87yo female with chronic hypercapnic respiratory failure, CKD 3, CHF, DM and HTN brought in from the long-term for abnormal labs and found to be in shock.? Please see H&P for details. Hospital Course: Patient was brought to the emergency room because of abnormal labs.? In the Emergency room, she was noted to be hypotensive with blood pressure 75/58 and bradycardic with pulse of 53.? White count was normal.? Hemoglobin 7.7.? Creatinine 4.2 with BUN 122.?She was given IV fluids x3 L. She remained hypotensive and central line with vasopressors recommended but family declined further care and wanted patient to be kept comfortable. Patient was admitted for palliative care. Ativan and morphine were available as needed. Her other home medications were held. Care coordination consulted and information about hospice provided. Treated with comfort measures. Patient's blood pressure stablized after admission. Discussed options such as starting full care with blood tests, imaging, consults, obtaining old records, etc vs continuing comfort measures and asking hospice to come in. Made very clear that I can not guarantee that the patient's renal function would improve or that her overall condition would change at all. The patient remains very ill and has had multiple hospitalizations over the past year. Family met with hospice and decided to proceed with hospice care. Patient sent back to the long-term of hospice care on 07/17/23. Status at Discharge Cognitive/behavioral status at discharge: stable Time Spent with Patient Time attestation: Total time spent providing and/or coordinating discharge services: 34 minutes Time spent: Greater than 30 minutes Exam Narrative: AF 97.7 115/56 65 20 93% ra Gen - NARD Chest - lungs are clear anteriorly CV - RRR. S1-S2. Abd - soft. NT. ND. RUQ drain in place with thin brown fluid in bag. GTube secured. Ext - no pedal edema Neuro - patient arouses but is somnolent Skin - warm and dry. Discharge Plan Discharge Attending physician on discharge: Grady Auguste Discharging Clinician: Grady Auguste Anticipated Discharge Date/Time: 07/17/23 12:17 Patient Disposition: Hospice - Medical Facility Activity: as tolerated Diet: as tolerated Discharge Instructions: Consult hospice care upon arrival - [facility]. Comfort measures Stand Alone Forms: General Discharge Information Discharge Medications: Continued brimonidine-timolol [Combigan] 0.2-0.5 % drops 1 drp EACH EYE DAILY Qty: 10 0RF [place] 0.01 % drops 1 drp EACH EYE DAILY Qty: 5 0RF Discontinued Jardiance 10
[2023-07-17 14:00] VITALS: BP 106/63; PULSE 73; RESP 18; TEMP 36.6; O2SAT 100
== END 2023-07-17 16:00 | disposition hospice, inpatient (51) ==
LOC: ANHED 07-15 05:33 → ANH3MED 07-15 15:15
PROVIDERS: Emergency Medicine; Admitting Provider Internal Medicine; Emergency Provider Student in an Organized Health Care Education/Training Program; PCP Family Medicine; Visit Provider Internal Medicine
DX: N17.9 Acute kidney failure, unspecified (principal); I13.0 Hypertensive heart and chronic kidney disease with heart failure and stage 1 through stage 4 chronic kidney disease, or unspecified chronic kidney disease; E11.22 Type 2 diabetes mellitus with diabetic chronic kidney disease; N18.30 Chronic kidney disease, stage 3 unspecified; D63.1 Anemia in chronic kidney disease; I50.30 Unspecified diastolic (congestive) heart failure; I95.9 Hypotension, unspecified; J96.22 Acute and chronic respiratory failure with hypercapnia; E11.65 Type 2 diabetes mellitus with hyperglycemia; R94.31 Abnormal electrocardiogram [ECG] [EKG]; E11.43 Type 2 diabetes mellitus with diabetic autonomic (poly)neuropathy; K31.84 Gastroparesis; K21.9 Gastro-esophageal reflux disease without esophagitis; E03.9 Hypothyroidism, unspecified; I71.20 Thoracic aortic aneurysm, without rupture, unspecified; E55.9 Vitamin D deficiency, unspecified; H40.9 Unspecified glaucoma; Z87.891 Personal history of nicotine dependence; Z79.84 Long term (current) use of oral hypoglycemic drugs; Z79.85 Long-term (current) use of injectable non-insulin antidiabetic drugs; Z79.82 Long term (current) use of aspirin; Z79.4 Long term (current) use of insulin; Z79.899 Other long term (current) drug therapy; Z82.49 Family history of ischemic heart disease and other diseases of the circulatory system
CPT/HCPCS: 36415; 80053; 84484; 85025; 93005; 96361; 96374; 99285; A9270; G0378; J2060; J7030